=== PATIENT | male | born 1935 | race Caucasian/White ===

== ENCOUNTER 2016-08-30 15:31 | Inpatient (IN) | payer BC, MEDICARE ==
[2016-08-30] MEDS ORDERED: SODIUM CHLORIDE 0.9% 500 ML IV STA (16:23)
[2016-08-30] MEDS ORDERED: SODIUM CHLORIDE 0.9% 1,000 ML IV STA (16:23)
[2016-08-30] MEDS ORDERED: KETOROLAC 30 MG/ML 1 ML VIAL IVP STA (16:24)
[2016-08-30] MEDS ORDERED: IPRATROPIUM-ALBUTEROL 3 ML NEB INHALATION STA (16:24)
[2016-08-30] MEDS ORDERED: ACETAMINOPHEN IV (For NPO) 1,000 MG in EMPTY BAG 1 BAG IVPB STA (16:24)
--- NOTE | 2016-08-30 16:25 | ED ---
General Adult HPI - General Chief complaint: Altered Mental Status Stated complaint: Fever/Chills/MYLA Time Seen by Provider: 08/30/16 15:41 Source: patient, RN notes reviewed, old records reviewed Mode of arrival: ambulatory Limitations: no limitations - History of Present Illness Initial comments: This is an 81-year-old male the ER for evaluation of cough congestion and shortness of breath, altered mental status. She has history of asthma COPD and coronary artery disease. Patient has no chest pain. He states her states patient was having cough and congestion last night progressed into today and today his level of activity and mental status and started to wane, patient is not up participating conversations, seems withdrawn. Not acting appropriately. Patient has had significant shortness of breath throughout the day. - Related Data Home Medications Medication Instructions Recorded Confirmed Albuterol Nebulized [Ventolin 2.5 mg INHALATION RT-QID PRN 08/30/16 08/30/16 Nebulized] Albuterol Sulfate [Proventil Hfa] 2 puff INHALATION RT-Q6H PRN 08/30/16 08/30/16 Aspirin EC [Ecotrin Low Dose] 81 mg PO DAILY 08/30/16 08/30/16 Atenolol 25 mg PO DAILY 08/30/16 08/30/16 Clotrimazole/Betamethasone Dip 1 applic TOPICAL BID PRN 08/30/16 08/30/16 [Lotrisone Cream] Doxazosin Mesylate 8 mg PO BID 08/30/16 08/30/16 Fluticasone/Salmeterol [Advair 1 puff INHALATION RT-BID 08/30/16 08/30/16 500-50 Diskus] HYDROcodone/APAP 10-325MG [[place] 1 tab PO Q4HR PRN 08/30/16 08/30/16 10-325] Levofloxacin [Levaquin] 750 mg PO DAILY 08/30/16 08/30/16 [place]-3 Fatty Acids/Fish Oil [Fish 1 cap PO DAILY 08/30/16 08/30/16 Oil 1,000 mg Softgel] Omeprazole 20 mg PO DAILY 08/30/16 08/30/16 Simvastatin [Zocor] 20 mg PO HS 08/30/16 08/30/16 Tiotropium 18 Mcg/Puff [Spiriva] 1 cap INHALATION RT-DAILY 08/30/16 08/30/16 Allergies Allergy/AdvReac Type Severity Reaction Status Date / Time ciprofloxacin [From Cipro] Allergy Rash/Hives Verified 08/30/16 16:08 Review of Systems ROS Statement: Those systems with pertinent positive or pertinent negative responses have been documented in the HPI. ROS Other: All systems not noted in ROS Statement are negative. Past Medical History Past Medical History: Asthma, Coronary Artery Disease (CAD), COPD History of Any Multi-Drug Resistant Organisms: None Reported Past Surgical History: Coronary Bypass/CABG, Orthopedic Surgery Additional Past Surgical History / Comment(s): CAROTID END Past Psychological History: No Psychological Hx Reported Smoking Status: Former smoker Past Alcohol Use History: None Reported Past Drug Use History: None Reported General Exam Limitations: no limitations General appearance: alert, anxious, lethargic, in distress Head exam: Present: atraumatic, normocephalic, normal inspection Eye exam: Present: normal appearance, PERRL, EOMI. Absent: scleral icterus, conjunctival injection, periorbital swelling ENT exam: Present: mucous membranes dry, mucous membranes moist Neck exam: Present: normal inspection. Absent: tenderness, meningismus, lymphadenopathy Respiratory exam: Present: normal lung sounds bilaterally. Absent: respiratory distress, wheezes, rales, rhonchi, stridor Cardiovascular Exam: Present: normal rhythm, tachycardia, normal heart sounds. Absent: systolic murmur, diastolic murmur, rubs, gallop, clicks GI/Abdominal exam: Present: soft, normal bowel sounds. Absent: distended, tenderness, guarding, rebound, rigid Extremities exam: Present: normal inspection, full ROM, normal capillary refill. Absent: tenderness, pedal edema, joint swelling, calf tenderness Back exam: Present: normal inspection Neurological exam: Present: alert, oriented X3, CN II-XII intact Psychiatric exam: Present: normal affect, normal mood Skin exam: Present: warm, dry, intact, normal color. Absent: rash Course Vital Signs 08/30/16 08/30/16 08/30/16 15:34 16:09 16:51 Temperature 98.1 F 100.5 F H Pulse Rate 104 H 102 H 110 H Respiratory 20 16 Rate Blood Pressure 208/86 164/85 O2 Sat by Pulse 87 L 95 Oximetry 08/30/16 08/30/16 16:53 16:56 Temperature 100.7 F H Pulse Rate 103 H 108 H Respiratory 20 Rate Blood Pressure 193/89 O2 Sat by Pulse 99 Oximetry - Reevaluation(s) Reevaluation #1: 08/30/16 17:40 Patient still remains altered, 08/30/16 17:40 EKG Findings - EKG Comments: EKG Findings:: EKG shows sinus tachycardia rate 101, TN 186, QRS 96, QTC 4:30 Medical Decision Making - Medical Decision Making 81 male for evaluation of altered mental status, fever, shortness of breath or cough. Patient does have pneumonia, with fever, will be treated appropriately for fever and IV Robaxin. She was for pneumonia. Patient will be admitted for monitoring of altered mental status and cardiopulmonary resuscitation - Lab Data Result diagrams: 08/30/16 16:00 08/30/16 16:00 Lab Results 08/30/16 08/30/16 08/30/16 Range/Units 16:00 16:00 16:00 WBC 6.9 (3.8-10.6) k/uL RBC 4.00 L (4.30-5.90) m/uL Hgb 12.9 L (13.0-17.5) gm/dL Hct 37.2 L (39.0-53.0) % MCV 92.9 (80.0-100.0) fL MCH 32.2 (25.0-35.0) pg MCHC 34.6 (31.0-37.0) g/dL RDW 13.0 (11.5-15.5) % Plt Count 174 (150-450) k/uL Neutrophils % 90 % Lymphocytes % 3 % Monocytes % 5 % Eosinophils % 1 % Basophils % 0 % Neutrophils # 6.2 (1.3-7.7) k/uL Lymphocytes # 0.2 L (1.0-4.8) k/uL Monocytes # 0.4 (0-1.0) k/uL Eosinophils # 0.0 (0-0.7) k/uL Basophils # 0.0 (0-0.2) k/uL PT (9.0-12.0) sec INR (<1.1) APTT (22.0-30.0) sec Sodium 121 L (137-145) mmol/L Potassium 3.9 (3.5-5.1) mmol/L Chloride 85 L (98-107) mmol/L Carbon Dioxide 26 (22-30) mmol/L Anion Gap 10 mmol/L BUN 10 (9-20) mg/dL Creatinine 0.60 L (0.66-1.25) mg/dL Est GFR (MDRD) Af Amer >60 (>60 ml/min/1.73 sqM) Est GFR (MDRD) Non-Af >60 (>60 ml/min/1.73 sqM) Glucose 117 H (74-99) mg/dL Plasma Lactic Acid Lee (0.7-2.0) mmol/L Calcium 8.9 (8.4-10.2) mg/dL Phosphorus 2.4 L (2.5-4.5) mg/dL Magnesium 1.6 (1.6-2.3) mg/dL Total Bilirubin 2.1 H (0.2-1.3) mg/dL AST 49 (17-59) U/L ALT 43 (21-72) U/L Alkaline Phosphatase 81 (38-126) U/L Total Creatine Kinase 606 H (55-170) U/L CK-MB (CK-2) 5.5 H* (0.0-2.4) ng/mL CK-MB (CK-2) Rel Index 0.9 Troponin I 0.018 (0.000-0.034) ng/mL NT-Pro-B Natriuret Pep pg/mL Total Protein 6.7 (6.3-8.2) g/dL Albumin 4.1 (3.5-5.0) g/dL 08/30/16 08/30/16 08/30/16 Range/Units 16:00 16:00 16:00 WBC (3.8-10.6) k/uL RBC (4.30-5.90) m/uL Hgb (13.0-17.5) gm/dL Hct (39.0-53.0) % MCV (80.0-100.0) fL MCH (25.0-35.0) pg MCHC (31.0-37.0) g/dL RDW (11.5-15.5) % Plt Count (150-450) k/uL Neutrophils % % Lymphocytes % % Monocytes % % Eosinophils % % Basophils % % Neutrophils # (1.3-7.7) k/uL Lymphocytes # (1.0-4.8) k/uL Monocytes # (0-1.0) k/uL Eosinophils # (0-0.7) k/uL Basophils # (0-0.2) k/uL PT 11.5 (9.0-12.0) sec INR 1.2 (<1.1) APTT 27.9 (22.0-30.0) sec Sodium (137-145) mmol/L Potassium (3.5-5.1) mmol/L Chloride (98-107) mmol/L Carbon Dioxide (22-30) mmol/L Anion Gap mmol/L BUN (9-20) mg/dL Creatinine (0.66-1.25) mg/dL Est GFR (MDRD) Af Amer (>60 ml/min/1.73 sqM) Est GFR (MDRD) Non-Af (>60 ml/min/1.73 sqM) Glucose (74-99) mg/dL Plasma Lactic Acid Lee 1.4 (0.7-2.0) mmol/L Calcium (8.4-10.2) mg/dL Phosphorus (2.5-4.5) mg/dL Magnesium (1.6-2.3) mg/dL Total Bilirubin (0.2-1.3) mg/dL AST (17-59) U/L ALT (21-72) U/L Alkaline Phosphatase (38-126) U/L Total Creatine Kinase (55-170) U/L CK-MB (CK-2) (0.0-2.4) ng/mL CK-MB (CK-2) Rel Index Troponin I (0.000-0.034) ng/mL NT-Pro-B Natriuret Pep 1640 pg/mL Total Protein (6.3-8.2) g/dL Albumin (3.5-5.0) g/dL - Radiology Data Radiology results: report reviewed (Chest x-ray is positive for atelectasis and pneumonia), image reviewed Critical Care Time Critical Care Time: Yes Total Critical Care Time: 31 Disposition Clinical Impression: Altered mental status, Community acquired bacterial pneumonia, Hypoxia Disposition: ADMITTED IP TO THIS [facility] Condition: Fair Referrals: Kehinde Wiggins MD [Primary Care Provider] - 1-2 days
[2016-08-30 16:44] LABS: Basophils % (A) 0 %; CH 32.7; CHCM 35.4; Eosinophils % (A) 1 %; HCT 37.2 % (39.0-53.0); HDW 2.58; HGB 12.9 gm/dL (13.0-17.5); Luc # (Auto) 0.09; Luc % (Auto) 1; Lymphocytes # (A) 0.2 k/uL (1.0-4.8); Lymphocytes % (A) 3 %; MCH 32.2 pg (25.0-35.0); MCHC 34.6 g/dL (31.0-37.0); MCV 92.9 fL (80.0-100.0); Monocytes # (A) 0.4 k/uL (0-1.0); Monocytes % (A) 5 %; Neutrophils # (A) 6.2 k/uL (1.3-7.7); Neutrophils % (A) 90 %; WBC 6.9 k/uL (3.8-10.6); WBC (Perox) 6.94
[2016-08-30 16:53] LABS: ALT 43 U/L (21-72); AST 49 U/L (17-59); Alkaline Phosphatase 81 U/L (38-126); Anion Gap 10 mmol/L; Blood Urea Nitrogen 10 mg/dL (9-20); Calcium 8.9 mg/dL (8.4-10.2); Carbon Dioxide 26 mmol/L (22-30); Chloride 85 mmol/L (98-107); Glucose 117 mg/dL (74-99); Magnesium 1.6 mg/dL (1.6-2.3); Non-African American GFR(MDRD) >60 (>60 ml/min/1.73 sqM); Phosphorous 2.4 mg/dL (2.5-4.5); Potassium 3.9 mmol/L (3.5-5.1); Sodium 121 mmol/L (137-145); Total Bilirubin 2.1 mg/dL (0.2-1.3); Total Protein 6.7 g/dL (6.3-8.2)
[2016-08-30 16:56] LABS: INR 1.2 (<1.1); Partial Thromboplastin Time 27.9 sec (22.0-30.0); Prothrombin Time 11.5 sec (9.0-12.0)
--- NOTE | 2016-08-30 16:59 | XR ---
EXAMINATION TYPE: XR chest 2V DATE OF EXAM: 08/30/2016 4:46 PM COMPARISON: Prior chest x-ray February 16, 2013. HISTORY: History of COPD, CABG procedure, and asthma presents with weakness and shortness of breath. TECHNIQUE: Frontal and lateral views of the chest are obtained. FINDINGS: Post CABG changes with mediastinal clips and sternal wires is redemonstrated. Cardiac silho uette size is upper limits of normal with atherosclerotic and ectatic thoracic aorta. Retrocardiac op acity consistent with large hiatal hernia is redemonstrated. There is chronic emphysematous change wi th left mid and lower lung scarring but increased opacity felt to reflect atelectasis and/or infiltra te with suspected small left pleural effusion. There is new patchy right basilar atelectasis and/or i nfiltrate. No pneumothorax is seen bilaterally. The osseous structures are demineralized. Degenerati ve changes in both shoulders is present. IMPRESSION: Chronic emphysematous change with new left greater than right bilateral lower lung atele ctasis and/or infiltrate and probable small left pleural effusion all noted.
[2016-08-30 17:16] LABS: Troponin I 0.018 ng/mL (0.000-0.034)
[2016-08-30 17:18] LABS: Creatine Kinase MB 5.5 ng/mL (0.0-2.4)
[2016-08-30] MEDS ORDERED: PNEUMONIA PROTOCOL UTILIZED 1 EACH MISC PO PRN (17:37)
[2016-08-30] MEDS ORDERED: LEVOFLOXACIN 750MG-D5W PMX 750 MG in DEXTROSE/WATER 1 150ML.BAG IVPB STA (17:37)
[2016-08-30] MEDS: SODIUM CHLORIDE 0.9% 1,000 ML IV SCH (18:09)
[2016-08-30] MEDS ORDERED: LABETALOL SYRINGE 5 MG/ML IVP STA (18:58)
[2016-08-30] MEDS: IPRATROPIUM-ALBUTEROL 3 ML NEB INHALATION SCH (20:10)
[2016-08-30 21:29] LABS: Glucose,Whole Blood 106 mg/dL (75-99)
[2016-08-30 21:42] LABS: Appearance,Urine Clear (Clear); Bilirubin,Urine Negative (Negative); Glucose,Urine (UA) Negative (Negative); Ketones,Urine 1+ (Negative); Leukocyte Esterase,Urine Negative (Negative); Mucus,Urine Rare /hpf; Nitrite,Urine Negative (Negative); PH, Urine 7.5 (5.0-8.0); Particle Count 534; Protein,Urine Negative (Negative); RBC,Urine 12 /hpf (0-5); UA Billing (MACRO vs. MICRO) MICRO; Urobilinogen,Urine <2.0 mg/dL (<2.0); WBC,Urine <1 /hpf (0-5)
[2016-08-30 22:17] LABS: Anion Gap 9 mmol/L; Blood Urea Nitrogen 9 mg/dL (9-20); Calcium 8.1 mg/dL (8.4-10.2); Carbon Dioxide 23 mmol/L (22-30); Chloride 88 mmol/L (98-107); Glucose 106 mg/dL (74-99); Non-African American GFR(MDRD) >60 (>60 ml/min/1.73 sqM); Potassium 3.4 mmol/L (3.5-5.1)
[2016-08-30 22:19] LABS: Sodium 120 mmol/L (137-145)
[2016-08-30] MEDS ORDERED: LABETALOL SYRINGE 5 MG/ML IVP PRN (22:54)
[2016-08-30] MEDS ORDERED: Magnesium Replacement Protocol 1 EACH MISC MISCELLANE PRN (22:59)
[2016-08-30] MEDS ORDERED: Potassium Replacement Protocol 1 EACH MISC MISCELLANE PRN (23:00)
[2016-08-30] MEDS ORDERED: HALOPERIDOL LACTATE 5 MG/ML 1 ML VIAL IVP PRN (23:02)
[2016-08-31] MEDS: MAGNESIUM SULFATE-D5W PMX 1 GM in DEXTROSE/WATER 1 100ML.BAG IVPB SCH ×2 (00:02→01:30)
[2016-08-31] MEDS ORDERED: FUROSEMIDE 10 MG/ML 4 ML VIAL IV STA ×2 (00:20→13:03)
[2016-08-31] MEDS ORDERED: LABETALOL SYRINGE 5 MG/ML IVP ONE ×2 (01:18)
[2016-08-31 01:37] LABS: Glucose,Whole Blood 124 mg/dL (75-99)
[2016-08-31 02:20] LABS: ABG HCO3 23 mmol/L (21-25); ABG PCO2 27 mmHg (35-45); ABG PH 7.55 (7.35-7.45); ABG PO2 64 mmHg (83-108); ABG TCO2 24 mmol/L (19-24)
--- NOTE | 2016-08-31 02:28 | CT ---
EXAMINATION TYPE: CT brain wo con DATE OF EXAM: 08/31/2016 2:13 AM COMPARISON: NONE HISTORY: AMS CT DLP: 1098.80 mGycm Automated exposure control for dose reduction was used. FINDINGS: There is no acute intracranial hemorrhage, mass effect, or midline shift identified. The cortical sul ci and ventricles are prominent with age-related atrophic changes of brain with periventricular white matter ischemic changes of chronic nature. Vascular calcifications are noted in the base of the brai n.. The globes are intact. Mucous retention cysts and mucosal thickening is noted in bilateral maxillary sinuses with chronic si nusitis changes. Mucosal thickening is also noted in the ethmoid and frontal sinuses and sphenoid sin uses with chronic sinusitis changes. IMPRESSION: No acute intracranial hemorrhage, mass effect, or midline shift is seen. Age-related atrophic changes of brain. Chronic sinusitis changes.
[2016-08-31] MEDS: POTASSIUM CHLORIDE 10 MEQ, LIDOCAINE 2% INJ 10 MG in SODIUM CHLORIDE 0.9% 100 ML IV SCH ×3 (03:00→06:14)
[2016-08-31] MEDS: SODIUM CHLORIDE 0.9% 1,000 ML IV SCH ×2 (06:14→14:24)
[2016-08-31 06:20] LABS: CH 32.7; CHCM 35.4; HCT 37.7 % (39.0-53.0); HGB 12.8 gm/dL (13.0-17.5); MCH 31.5 pg (25.0-35.0); MCHC 33.9 g/dL (31.0-37.0); MCV 92.7 fL (80.0-100.0); Mean Platelet Volume 6.8; RBC 4.07 m/uL (4.30-5.90); RDW 12.8 % (11.5-15.5)
[2016-08-31 06:26] LABS: Anion Gap 9 mmol/L; Blood Urea Nitrogen 10 mg/dL (9-20); Calcium 8.3 mg/dL (8.4-10.2); Carbon Dioxide 28 mmol/L (22-30); Chloride 85 mmol/L (98-107); Glucose 112 mg/dL (74-99); Magnesium 1.9 mg/dL (1.6-2.3); Non-African American GFR(MDRD) >60 (>60 ml/min/1.73 sqM); Potassium 3.7 mmol/L (3.5-5.1); Sodium 122 mmol/L (137-145)
[2016-08-31 06:29] LABS: Ammonia <9 umol/L (<30)
[2016-08-31] MEDS: IPRATROPIUM-ALBUTEROL 3 ML NEB INHALATION SCH ×4 (07:28→19:51)
--- NOTE | 2016-08-31 10:14 | P.HPIM ---
History of Present Illness H&P Date: 08/31/16 Chief Complaint: AMS Chief Complaint: Altered mental status Assessment/Plan: 1. Altered mental status likely related to metabolic encephalopathy. 2. Bilateral pneumonia viral versus bacterial. 3. Pleural effusion. 4. Acute hyponatremia. 5. COPD with exacerbation. 6. Accelerated hypertension. 7. Coronary artery disease. 8. Benign prostatic hypertrophy. 9. GERD. I have started the patient's on wide spectrum antibiotics, placed patient's on firebrick layer, will continue close monitoring for vital signs and mental status. I had long discussion with Dr. Castillo from nephrology regarding the current acute hyponatremia and we decided to repeat sodium level at 11:00 and consider starting patient's on 3% infusion given the patient's altered mental status and current hyponatremia but patient at risk of worsening malignant hypertension as his blood pressure has been running in the 200s area. I would like to continue with aggressive breathing treatment, continue with monitoring blood gases closely, advance to BiPAP and wean off to nasal cannula once patient is tolerating, and I may consider transferring patients to the intensive care unit based on the 11:00 bloodwork. I would like to consult pulmonary for current bilateral pneumonia and pleural effusion. I would like to continue with labetalol 10-40 mg IV push for systolic above 160 , keep patient's nothing by mouth at this point and assess his swallow once patient is more responsive. Plan discussed with the patient's who is aware that the prognosis is guarded at this point History of Present Illness: This is 81 years old male who was evaluated at Dr. Wiggins office on Wednesday 5 days ago where he was started on appropriate treatment for COPD exacerbation, on Wednesday I received call as I was covering Dr. Wiggins for the weekend where the patient's reported worsening in his cough, weakness and lethargy and requested me to start patients on antibiotics as he was getting worse and refusing completely to come to the emergency department, after I discussed with the patient's the risks from taking 81 years old gentleman at home with possible pneumonia and COPD exacerbation I prescribe antibiotics to the significant pharmacy and picked up the medication on that night. The following day called me again reported worsening in his mental status where he became confused and lethargic and asked her to call 911 immediately when patient was brought to the emergency department confused not following command and his chest x-ray showed bilateral lower lobes pneumonia with pleural effusion and low-grade temperature. The white blood count was normal and patient was admitted for bilateral pneumonia and altered mental status with acute hyponatremia Review of systems is complete/comprehensive, as in the HPI, and otherwise unremarkable. Physical Exam: General: Confused and not following commands Head: Neck conjunctivae are not by mouth. Neck supple. Carotids seemingly silent. Lymphatic: No anterior/posterior cervical or axillary adenopathy. Respiratory: Diminished with poor efforts Cardiovascular: regular rate and rhythm. GI abdomen: Soft, no tenderness, guarding or rebound. Bowel sounds positive and normal active. Lower Extremeties: No clubbing, cyanosis, or edema. Neuro: Limited exam due to patient's condition Psychiatry: Confused not following commands Skin: No new rash. Past Medical History Past Medical History: Asthma, Coronary Artery Disease (CAD), Chest Pain / Angina , COPD, GERD/Reflux, Prostate Disorder, Respiratory Disorder History of Any Multi-Drug Resistant Organisms: None Reported Past Surgical History: Coronary Bypass/CABG, Heart Catheterization, Orthopedic Surgery Additional Past Surgical History / Comment(s): CAROTID END b/l, multiple orthopedic surgeries due to polio as a child Past Anesthesia/Blood Transfusion Reactions: No Reported Reaction Past Psychological History: No Psychological Hx Reported Smoking Status: Former smoker Past Alcohol Use History: None Reported Past Drug Use History: None Reported - Past Family History Father Family Medical History: Coronary Artery Disease (CAD) Mother Family Medical History: Unable to Obtain Medications and Allergies Home Medications Medication Instructions Recorded Confirmed Type Albuterol Nebulized [Ventolin 2.5 mg INHALATION RT-QID PRN 08/30/16 08/30/16 History Nebulized] Albuterol Sulfate [Proventil Hfa] 2 puff INHALATION RT-Q6H PRN 08/30/16 History Aspirin EC [Ecotrin Low Dose] 81 mg PO DAILY 08/30/16 08/30/16 History Atenolol 25 mg PO DAILY 08/30/16 08/30/16 History Clotrimazole/Betamethasone Dip 1 applic TOPICAL BID PRN 08/30/16 08/30/16 History [Lotrisone Cream] Doxazosin Mesylate 8 mg PO BID 08/30/16 08/30/16 History Fluticasone/Salmeterol [Advair 1 puff INHALATION RT-BID 08/30/16 08/30/16 History 500-50 Diskus] HYDROcodone/APAP 10-325MG [[place] 1 tab PO Q4HR PRN 08/30/16 08/30/16 History 10-325] Levofloxacin [Levaquin] 750 mg PO DAILY 08/30/16 08/30/16 History [place]-3 Fatty Acids/Fish Oil [Fish 1 cap PO DAILY 08/30/16 08/30/16 History Oil 1,000 mg Softgel] Omeprazole 20 mg PO DAILY 08/30/16 08/30/16 History Simvastatin [Zocor] 20 mg PO HS 08/30/16 08/30/16 History Tiotropium 18 Mcg/Puff [Spiriva] 1 cap INHALATION RT-DAILY 08/30/16 08/30/16 History Allergies Allergy/AdvReac Type Severity Reaction Status Date / Time ciprofloxacin [From Cipro] Allergy Rash/Hives Verified 08/30/16 16:08 Physical Exam Vitals: Vital Signs Temp Pulse Pulse Resp BP Pulse Ox 08/31/16 07:41 92 08/31/16 07:28 90 08/31/16 04:00 99.2 F 78 20 162/79 91 L 08/31/16 02:30 172/83 08/31/16 01:30 176/81 08/31/16 01:23 185/88 08/31/16 01:00 196/90 08/31/16 00:00 91 22 198/96 08/30/16 23:53 196/97 08/30/16 23:48 214/100 08/30/16 22:30 97.6 F 91 20 212/98 94 L 08/30/16 20:29 105 H 08/30/16 20:13 108 H 08/30/16 20:00 98.5 F 87 22 172/81 93 L 08/30/16 18:34 98.5 F 87 18 172/81 93 L Intake and Output 08/30/16 08/31/16 08/31/16 22:59 06:59 14:59 Intake Total 1700 Output Total 1000 3800 800 Balance -1000 -3800 900 Intake: IV 1700 Magnesium Sulfate-D5w Pmx 200 1 gm In Dextrose/Water 1 100ml.bag @ 100 mls/hr IVPB Q1H [facility] Rx#: [id number] Potassium Chloride 10 meq 300 Lidocaine 2% Inj 10 mg In Sodium Chloride 0.9% 100 ml @ 100 mls/hr IV Q1HR [facility] Rx#:[id number] Sodium Chloride 0.9% 1, 1200 000 ml @ 100 mls/hr IV . Q10H [facility] Rx#:[id number] Oral 0 Output: Urine 1000 3800 800 Straight 1000 Uretheral (Rios) 2000 800 Other: Voiding Method Indwelling Catheter # Voids 1 Weight 99.79 kg 77 kg Results CBC & Chem 7: 08/31/16 05:58 08/31/16 05:58 Labs: Abnormal Lab Results - Last 24 Hours (Table) 08/30/16 08/30/16 08/30/16 Range/Units 18:40 21:18 21:26 RBC (4.30-5.90) m/uL Hgb (13.0-17.5) gm/dL Hct (39.0-53.0) % ABG pH (7.35-7.45) ABG pCO2 (35-45) mmHg ABG pO2 (83-108) mmHg Sodium (137-145) mmol/L Potassium (3.5-5.1) mmol/L Chloride (98-107) mmol/L Creatinine (0.66-1.25) mg/dL Glucose (74-99) mg/dL POC Glucose (mg/dL) 106 H (75-99) mg/dL Plasma Lactic Acid Lee (0.7-2.0) mmol/L Calcium (8.4-10.2) mg/dL Urine Ketones 1+ H (Negative) Urine Blood Trace H (Negative) Urine RBC 12 H (0-5) /hpf Urine Mucus Rare H (None) /hpf Influenza Type A RNA Detected A (Not Detectd) 08/30/16 08/30/16 08/31/16 Range/Units 21:50 21:50 01:35 RBC (4.30-5.90) m/uL Hgb (13.0-17.5) gm/dL Hct (39.0-53.0) % ABG pH (7.35-7.45) ABG pCO2 (35-45) mmHg ABG pO2 (83-108) mmHg Sodium 120 L* (137-145) mmol/L Potassium 3.4 L (3.5-5.1) mmol/L Chloride 88 L (98-107) mmol/L Creatinine 0.60 L (0.66-1.25) mg/dL Glucose 106 H (74-99) mg/dL POC Glucose (mg/dL) 124 H (75-99) mg/dL Plasma Lactic Acid Lee 0.6 L (0.7-2.0) mmol/L Calcium 8.1 L (8.4-10.2) mg/dL Urine Ketones (Negative) Urine Blood (Negative) Urine RBC (0-5) /hpf Urine Mucus (None) /hpf Influenza Type A RNA (Not Detectd) 08/31/16 08/31/16 08/31/16 Range/Units 01:45 05:58 05:58 RBC 4.07 L (4.30-5.90) m/uL Hgb 12.8 L (13.0-17.5) gm/dL Hct 37.7 L (39.0-53.0) % ABG pH 7.55 H (7.35-7.45) ABG pCO2 27 L (35-45) mmHg ABG pO2 64 L (83-108) mmHg Sodium 122 L (137-145) mmol/L Potassium (3.5-5.1) mmol/L Chloride 85 L (98-107) mmol/L Creatinine (0.66-1.25) mg/dL Glucose 112 H (74-99) mg/dL POC Glucose (mg/dL) (75-99) mg/dL Plasma Lactic Acid Lee (0.7-2.0) mmol/L Calcium 8.3 L (8.4-10.2) mg/dL Urine Ketones (Negative) Urine Blood (Negative) Urine RBC (0-5) /hpf Urine Mucus (None) /hpf Influenza Type A RNA (Not Detectd) Microbiology - Last 24 Hours (Table) 08/30/16 21:26 Urine Culture - Preliminary Urine,Voided Thrombosis Risk Factor Assmnt - Choose All That Apply Any of the Below Risk Factors Present?: Yes Each Factor Represents 1 point: Abnormal pulmonary function (COPD) Other Risk Factors: Yes Each Risk Factor Represents 3 Points: Age 75 years or older Other congenital or acquired thrombophilia - If yes, enter type in comment: No Thrombosis Risk Factor Assessment Total Risk Factor Score: 4 Thrombosis Risk Factor Assessment Level: Moderate Risk
--- NOTE | 2016-08-31 12:58 | P.CNPUL ---
History of Present Illness Consult date: 08/31/16 Reason for consult: dyspnea, cough Chief complaint: Altered mental status History of present illness: 81-year-old gentleman who presented to the emergency department for altered mental status, cough. The patient apparently was unresponsive at home and not following commands. The patient's is at bedside. She states that he only answers yes and no questions at baseline. She does note that he wears oxygen around the clock at home and uses a nebulizer. The patient is currently on BiPAP. On chest x-ray the patient was found to have by basilar infiltrates. He was also found to have a sodium of 120. And small bilateral pleural effusions. The patient has a history of COPD. 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 Past Anesthesia/Blood Transfusion Reactions: No Reported Reaction Past Psychological History: No Psychological Hx Reported Smoking Status: Former smoker Past Alcohol Use History: None Reported Past Drug Use History: None Reported - Past Family History Father Family Medical History: Coronary Artery Disease (CAD) Mother Family Medical History: Unable to Obtain Medications and Allergies Home Medications Medication Instructions Recorded Confirmed Type Albuterol Nebulized [Ventolin 2.5 mg INHALATION RT-QID PRN 08/30/16 08/30/16 History Nebulized] Albuterol Sulfate [Proventil Hfa] 2 puff INHALATION RT-Q6H PRN 08/30/16 History Aspirin EC [Ecotrin Low Dose] 81 mg PO DAILY 08/30/16 08/30/16 History Atenolol 25 mg PO DAILY 08/30/16 08/30/16 History Clotrimazole/Betamethasone Dip 1 applic TOPICAL BID PRN 08/30/16 08/30/16 History [Lotrisone Cream] Doxazosin Mesylate 8 mg PO BID 08/30/16 08/30/16 History Fluticasone/Salmeterol [Advair 1 puff INHALATION RT-BID 08/30/16 08/30/16 History 500-50 Diskus] HYDROcodone/APAP 10-325MG [[place] 1 tab PO Q4HR PRN 08/30/16 08/30/16 History 10-325] Levofloxacin [Levaquin] 750 mg PO DAILY 08/30/16 08/30/16 History [place]-3 Fatty Acids/Fish Oil [Fish 1 cap PO DAILY 08/30/16 08/30/16 History Oil 1,000 mg Softgel] Omeprazole 20 mg PO DAILY 08/30/16 08/30/16 History Simvastatin [Zocor] 20 mg PO HS 08/30/16 08/30/16 History Tiotropium 18 Mcg/Puff [Spiriva] 1 cap INHALATION RT-DAILY 08/30/16 08/30/16 History Allergies Allergy/AdvReac Type Severity Reaction Status Date / Time ciprofloxacin [From Cipro] Allergy Rash/Hives Verified 08/30/16 16:08 Physical Exam Osteopathic Statement: *. No significant issues noted on an osteopathic structural exam other than those noted in the History and Physical/Consult. Vitals: Vital Signs Temp Pulse Pulse Resp BP Pulse Ox 08/31/16 08:00 100.1 F H 97 16 188/90 93 L 08/31/16 07:41 92 08/31/16 07:28 90 08/31/16 04:00 99.2 F 78 20 162/79 91 L 08/31/16 02:30 172/83 08/31/16 01:30 176/81 08/31/16 01:23 185/88 08/31/16 01:00 196/90 08/31/16 00:00 91 22 198/96 08/30/16 23:53 196/97 08/30/16 23:48 214/100 08/30/16 22:30 97.6 F 91 20 212/98 94 L 08/30/16 20:29 105 H 08/30/16 20:13 108 H 08/30/16 20:00 98.5 F 87 22 172/81 93 L 08/30/16 18:34 98.5 F 87 18 172/81 93 L Intake and Output 08/30/16 08/31/16 08/31/16 22:59 06:59 14:59 Intake Total 1700 Output Total 1000 3800 800 Balance -1000 -3800 900 Intake: IV 1700 Magnesium Sulfate-D5w Pmx 200 1 gm In Dextrose/Water 1 100ml.bag @ 100 mls/hr IVPB Q1H [facility] Rx#: [id number] Potassium Chloride 10 meq 300 Lidocaine 2% Inj 10 mg In Sodium Chloride 0.9% 100 ml @ 100 mls/hr IV Q1HR [facility] Rx#:[id number] Sodium Chloride 0.9% 1, 1200 000 ml @ 100 mls/hr IV . Q10H [facility] Rx#:[id number] Oral 0 Output: Urine 1000 3800 800 Straight 1000 Uretheral (Rios) 2000 800 Other: Voiding Method Indwelling Catheter # Voids 1 # Bowel Movements 1 Weight 99.79 kg 77 kg Gen.: Patient is arousable and only answering yes and no questions Cardiovascular: Regular rate and rhythm, S1/S2 Lungs: Coarse breath sounds bilaterally Abdomen: Soft nontender nondistended positive bowel sounds Extremities: No edema Results - Laboratory Findings CBC and BMP: 08/31/16 05:58 08/31/16 11:14 ABG ABG pH 7.55 (7.35-7.45) H 08/31/16 01:45 ABG pCO2 27 mmHg (35-45) L 08/31/16 01:45 ABG pO2 64 mmHg (83-108) L 08/31/16 01:45 ABG O2 Saturation 95.0 % (94-97) 08/31/16 01:45 PT/INR, D-dimer PT 11.5 sec (9.0-12.0) 08/30/16 16:00 INR 1.2 (<1.1) 08/30/16 16:00 Abnormal lab findings: Abnormal Labs 08/30/16 08/30/16 08/30/16 18:40 21:18 21:26 RBC Hgb Hct ABG pH ABG pCO2 ABG pO2 Sodium Potassium Chloride Creatinine Glucose POC Glucose (mg/dL) 106 H Plasma Lactic Acid Lee Calcium Urine Ketones 1+ H Urine Blood Trace H Urine RBC 12 H Urine Mucus Rare H Influenza Type A RNA Detected A 08/30/16 08/30/16 08/31/16 21:50 21:50 01:35 RBC Hgb Hct ABG pH ABG pCO2 ABG pO2 Sodium 120 L* Potassium 3.4 L Chloride 88 L Creatinine 0.60 L Glucose 106 H POC Glucose (mg/dL) 124 H Plasma Lactic Acid Lee 0.6 L Calcium 8.1 L Urine Ketones Urine Blood Urine RBC Urine Mucus Influenza Type A RNA 08/31/16 08/31/16 08/31/16 01:45 05:58 05:58 RBC 4.07 L Hgb 12.8 L Hct 37.7 L ABG pH 7.55 H ABG pCO2 27 L ABG pO2 64 L Sodium 122 L Potassium Chloride 85 L Creatinine Glucose 112 H POC Glucose (mg/dL) Plasma Lactic Acid Lee Calcium 8.3 L Urine Ketones Urine Blood Urine RBC Urine Mucus Influenza Type A RNA - Diagnostic Findings Chest x-ray: report reviewed, image reviewed Assessment and Plan Plan: Acute on chronic hypoxic respiratory failure Bibasilar pneumonia Influenza A pneumonia Toxic metabolic encephalopathy Pyrexia Hyponatremia Mild hypokalemia Dehydration Tiny bilateral pleural effusions AECOPD Hypertension Hx CAD Hx BPH GERD Hold bipap for now, place patient on nasal cannula Sputum culture IVF hydration, monitor Na Nephro recs Bronchodilators and Pulmicort Tamiflu, Levaquin Continue home medications No need for thoracentesis as effusions are very small Repeat CXR in AM
[2016-08-31 13:02] LABS: ABG PH 7.54 (7.35-7.45)
[2016-08-31 13:03] LABS: ABG Base Excess 0.3 mmol/L; ABG HCO3 23 mmol/L (21-25); ABG PCO2 26 mmHg (35-45); ABG PO2 77 mmHg (83-108); ABG TCO2 24 mmol/L (19-24)
[2016-08-31] MEDS: ENOXAPARIN 40 MG/0.4 ML SYRINGE SQ SCH (16:28)
[2016-08-31] MEDS: OSELTAMIVIR 75 MG CAP PO SCH ×2 (16:34→22:38)
[2016-08-31] MEDS: amLODIPine 5 MG TAB PO SCH (16:34)
[2016-08-31] MEDS: LEVOFLOXACIN 750MG-D5W PMX 750 MG in DEXTROSE/WATER 1 150ML.BAG IVPB SCH (16:41)
--- NOTE | 2016-08-31 16:55 | CONS ---
DATE OF CONSULTATION: 08/31/2016. REASON FOR CONSULTATION: Hyponatremia. HISTORY OF PRESENT ILLNESS: Patient is an 81-year-old white male who was brought into the hospital with weakness not feeling well and altered mentation. He had also been having fever at home. Patient positive for influenza type A. He was noted to have a sodium of 121 on initial admission. He has been maintained on normal saline and his sodium this morning was at 122. He has been voiding. There have been no new medications that was started as outpatient. There is no ongoing diarrhea or significant nausea or vomiting noted at this time. Urine osmolality has been ordered, but not back yet. PAST MEDICAL HISTORY: COPD, coronary artery disease, hypertension, history of benign prostatic hypertrophy, gastroesophageal reflux disease, peripheral vascular disease. PAST SURGICAL HISTORY: Coronary artery bypass surgery, cardiac catheterization, history of polio. SOCIAL HISTORY: The patient is an ex-smoker. No history of drug abuse or alcohol abuse. Medications as outpatient prior to admission included: 1. Proventil. 2. Aspirin. 3. [place]. 4. Levaquin. 5. Omeprazole. 6. Spiriva. 7. The patient had one dose of Levaquin prior to admission. ALLERGIES INCLUDE CIPRO. On examination, the patient is comfortable. He is awake. He is not in any acute distress. His mentation has improved to some degree according to nursing staff. Blood pressure is 188/90, previously it was 162/79, heart rate 97 per minute. He has a temp of 100.1 degrees Fahrenheit. Examination of the heart S1 and S2. Examination of the lungs: Bilateral breath sounds are heard with occasional wheezing bilaterally. ABDOMEN: Soft, nontender. Examination of lower extremities shows no significant edema. DOLLYMAN exam is grossly intact. The patient is arousable. His mentation is not back to baseline but much improved, according to nursing staff. Labs show sodium 122, potassium 3.7, serum creatinine 0.8. Hemoglobin 12.8 g/dL. ASSESSMENT: 1. Hyponatremia most likely hypervolemic but is not further improved with saline. Urine osmolality and urine sodium is currently pending. There may be a component of underlying syndrome of inappropriate antidiuretic hormone secretion, but this cannot be confirmed unless until the urine sodium is back. 2. Anemia, most likely hypervolemic, currently maintained on normal saline; however, serum sodium has not improved significantly. However, repeat sodium was ordered for 11:00 a.m. this morning. It went up to 123. I will give him a dose of Lasix and continue with normal saline and repeat another sodium in about 3 hours after the Lasix dose. If his sodium continues to rise then we do not need to use 3% saline. Particularly given his uncontrolled hypertension. 3. Uncontrolled hypertension. Will add calcium channel blockers. Patient has been receiving Labetalol p.r.n. 4. Influenza type A. 5. History of coronary artery disease. 6. Altered mentation possibly related to hyponatremia versus underlying infection. No pain medications on board. PLAN: Start Norvasc and I will repeat another sodium level and urine osmolality and random urine sodium has been reordered and we are awaiting results. Thank you for this consultation. We will continue to follow the patient with you during his hospitalization.
--- NOTE | 2016-08-31 18:34 | XR ---
EXAMINATION TYPE: XR chest 2V DATE OF EXAM: 08/31/2016 6:18 PM COMPARISON: 08/30/2016 HISTORY: Pneumonia TECHNIQUE: Frontal and lateral views of the chest are obtained. FINDINGS: There is patchy pneumonic consolidation in the left lower lobe. There is coarsening of int erstitial markings. Heart is probably enlarged. There are chest leads. There are sternal wires. There is a large hiatal hernia. IMPRESSION: Left lower lobe pneumonia is unchanged compared to last exam. There is some mild atelect asis at the right lung base that is slightly worse compared to last exam. No gross heart failure.
[2016-09-01] MEDS: SODIUM CHLORIDE 0.9% 1,000 ML IV SCH (06:08)
[2016-09-01] MEDS: HYDROcodone/APAP 7.5-325MG 1 EACH TAB PO PRN ×3 (06:10→21:00)
[2016-09-01] MEDS ORDERED: FUROSEMIDE 10 MG/ML 2 ML VIAL IV STA (06:38)
[2016-09-01 06:48] LABS: ALT 46 U/L (21-72); AST 63 U/L (17-59); Alkaline Phosphatase 62 U/L (38-126); Anion Gap 12 mmol/L; Blood Urea Nitrogen 18 mg/dL (9-20); Calcium 8.7 mg/dL (8.4-10.2); Carbon Dioxide 23 mmol/L (22-30); Chloride 93 mmol/L (98-107); Glucose 119 mg/dL (74-99); Non-African American GFR(MDRD) >60 (>60 ml/min/1.73 sqM); Potassium 3.7 mmol/L (3.5-5.1); Sodium 128 mmol/L (137-145); Total Bilirubin 1.2 mg/dL (0.2-1.3); Total Protein 6.1 g/dL (6.3-8.2)
[2016-09-01] MEDS: CALCIUM CARBONATE 500 MG CHEWABLE PO PRN ×2 (06:49→18:46)
[2016-09-01] MEDS: PANTOPRAZOLE 40 MG TABLET PO SCH (06:51)
[2016-09-01 06:55] LABS: Basophils # (A) 0.1 k/uL (0-0.2); Basophils % (A) 1 %; CH 32.8; Eosinophils % (A) 0 %; HCT 40.3 % (39.0-53.0); HDW 2.62; HGB 13.7 gm/dL (13.0-17.5); Luc # (Auto) 0.08; Luc % (Auto) 1; Lymphocytes # (A) 0.4 k/uL (1.0-4.8); Lymphocytes % (A) 7 %; MCH 31.8 pg (25.0-35.0); MCHC 33.9 g/dL (31.0-37.0); Mean Platelet Volume 7.6; Monocytes # (A) 0.5 k/uL (0-1.0); Monocytes % (A) 8 %; Neutrophils # (A) 4.9 k/uL (1.3-7.7); Neutrophils % (A) 83 %; RBC 4.29 m/uL (4.30-5.90); RDW 12.9 % (11.5-15.5); WBC (Perox) 5.86
[2016-09-01] MEDS: IPRATROPIUM-ALBUTEROL 3 ML NEB INHALATION SCH ×4 (07:09→21:31)
--- NOTE | 2016-09-01 07:53 | XR ---
EXAMINATION TYPE: XR chest 1V portable DATE OF EXAM: 09/01/2016 7:04 AM COMPARISON: Prior chest x-ray August HISTORY: Shortness of breath TECHNIQUE: Single frontal view of the chest is obtained. FINDINGS: Abnormal increased density present at the left lung base, the left hemidiaphragm is obscur ed. Patchy perihilar density also present on the right, patient is post median sternotomy. Cardiomedi astinal silhouette not significantly changed. There are overlying cardiac leads. Large hiatal hernia is present. No evident pneumothorax. IMPRESSION: Possible left lower lobe pneumonia versus atelectasis and associated effusion. Follow-up to resolution, difficult to exclude lung mass. Additional findings above.
[2016-09-01] MEDS: amLODIPine 5 MG TAB PO SCH (09:46)
[2016-09-01] MEDS: OSELTAMIVIR 75 MG CAP PO SCH ×2 (09:46→21:01)
[2016-09-01] MEDS: ENOXAPARIN 40 MG/0.4 ML SYRINGE SQ SCH ×2 (09:46→21:02)
[2016-09-01] MEDS ORDERED: SODIUM CHLORIDE 0.9% 1,000 ML IV SCH (10:15)
--- NOTE | 2016-09-01 10:51 | CONS ---
DATE OF CONSULTATION: 08/31/2016 CHIEF COMPLAINT: Altered mental status. HISTORY OF PRESENT ILLNESS: Mr. Smith is a pleasant 81-year-old male who is being evaluated by the neurology service per the request of Dr. Wiggins for altered mental status. The patient was brought into [facility] Emergency Room for progressive confusion over the past couple of days. His symptoms got so severe that he became almost nonverbal which prompted his to bring him into the emergency room. In the emergency room, a CT scan of the brain was done, which showed no acute intracranial abnormalities. There was evidence of generalized atrophy and chronic sinusitis. His chest x-ray did show bibasilar pneumonia. He was also positive for influenza A virus. His CBC was normal. His comprehensive metabolic profile showed severe hypokalemia at 121. His urinalysis was normal and his serum ammonia level was normal. His cardiac enzymes showed normal troponin I, but his CPK was elevated at 606 and his CK-MB was 5.5. The patient was started on IV antibiotics and IV hydration and is being followed by Nephrology for his hyponatremia. His serum sodium is slowly improving with serial basic metabolic profile showing an improvement to 123 and another series was done 6 hours later showing sodium level of 126. At the time of my evaluation, the patient is lying in his bed sleeping. He is arousable and does make eye contact but does not answer any questions or follow any commands. According to the nursing staff, the patient's baseline is that he is oriented x3 and able to ambulate. No family members available at the time of my evaluation. Pulmonology is following the patient for his pneumonia and chronic obstructive pulmonary disease history. PAST MEDICAL HISTORY: Chronic obstructive pulmonary disease, asthma, coronary artery disease, angina, gastroesophageal reflux disease, prostate disorder, history of coronary artery bypass grafting, history of orthopedic surgeries and carotid endarterectomies. The patient also has history of childhood polio. SOCIAL HISTORY: The patient is a former smoker. There is no history of any alcohol or drug use. FAMILY HISTORY: Positive for heart disease. HOME MEDICATIONS: Reviewed in the chart. ALLERGIES: CIPROFLOXACIN. REVIEW OF SYSTEMS: Unable to obtain as the patient is nonverbal. PHYSICAL EXAM: Vital signs show a temperature of 100.1, pulse 97, respirations 16, blood pressure 188/90. GENERAL APPEARANCE: The patient is a well-developed, elderly male who appears to be in no acute distress. HEENT: Normocephalic, atraumatic. No obvious facial asymmetry is seen. Neck is supple with no masses felt. CARDIOVASCULAR: Regular rate and rhythm. ABDOMEN: Nontender, nondistended. Extremities showed no edema or clubbing. NEUROLOGICAL EXAM: The patient is arousable but does not answer any questions. He does move all 4 extremities spontaneously and withdraws all 4 extremities to painful stimuli with no obvious lateralizing weakness noticed. Postural tremors are seen in bilateral upper extremities. No obvious facial asymmetry is seen. No seizure-like activity is noticed. IMPRESSION: 1. Altered mental status. 2. Multifactorial encephalopathy. 3. Hyponatremia. 4. Pneumonia. 5. Influenza virus infection. RECOMMENDATIONS: The patient's altered mental status is likely multifactorial given the pneumonia and electrolyte imbalance. He has both infectious encephalopathy and metabolic encephalopathy. He has been started on IV antibiotics. I doubt any meningitis as his neck is quite supple on my examination. An EEG has been ordered. Continue neuro checks. Nephrology has been consulted regarding his hyponatremia. Continue to slowly correct his sodium level as rapid correction can lead to central pontine myelinolysis. I did review his CT scan of the brain, which showed no acute intracranial abnormalities. I do expect him to slowly return to baseline once the above abnormalities are corrected. If he continues to be having significant altered mental status, an MRI of the brain will be ordered. I will continue to follow with you. Further recommendations to follow. Thank you, Dr. Wiggins for allowing me to participate in the care of your patient. If you have any questions, please feel free to contact me.
--- NOTE | 2016-09-01 11:02 | P.CRDCN ---
History of Present Illness Consult date: 09/01/16 Requesting physician: Kehinde Wiggins Consult reason: atrial fibrillation Chief complaint: Congestion, cough, shortness of breath History of present illness: This is an 81-year-old gentleman with known history of coronary artery disease and prior bypass surgery, hypertension, hyperlipidemia, COPD, GERD, asthma, prior carotid endarterectomy, prior history of smoking, most of the history was obtained from the medical record. Patient was admitted to the hospital with symptoms of worsening cough and weakness with associated lethargy and mild mental status changes. Apparently the patient had been seen last week in Dr. Lynn johnson's office and was treated for his exacerbation of COPD, he continued to progressively worsen with his coughing became more and more weak. His also noticed change in his mentation. For these reasons he was brought to the hospital for further evaluation. EKG on admission showed normal sinus rhythm with no acute changes. Chest x-ray on admission revealed chronic emphysema changes with new left greater than right atelectasis and or infiltrate. CAT scan of the brain did not reveal any acute intracranial bleed, mass effect or midline shift. Repeat chest x-ray performed today revealed left lower lobe pneumonia. Temperature on admission 100.5, blood pressure on admission 208/86, 87% on 2 L of oxygen. Blood pressure this morning 120/69. Laboratory data was reviewed, hemoglobin 13.7, sodium level on admission 120, potassium 3.4, BUN 9, creatinine 0.6. Magnesium level on admission 1.6, CK 606 , MB 5.5, troponin 0.018. BNP level 1640. Positive influenza A. A cardiology consultation was requested, because the patient this morning went into atrial fibrillation. Heart rate is under control in the mid 90s. Patient is currently on Lovenox 40 mg subcu daily. The patient is unable to give a detailed history, we will check the records at Dr. Wiggins's office to retrieve more information regarding prior echo, and cardiac procedures. Overall, patient 's main complaint this morning is abdominal pain. Past Medical History Past Medical History: Asthma, Coronary Artery Disease (CAD), Chest Pain / Angina , COPD, GERD/Reflux, Prostate Disorder, Respiratory Disorder History of Any Multi-Drug Resistant Organisms: None Reported Past Surgical History: Coronary Bypass/CABG, Heart Catheterization, Orthopedic Surgery Additional Past Surgical History / Comment(s): CAROTID END b/l, multiple orthopedic surgeries due to polio as a child Past Anesthesia/Blood Transfusion Reactions: No Reported Reaction Past Psychological History: No Psychological Hx Reported Smoking Status: Former smoker Past Alcohol Use History: None Reported Past Drug Use History: None Reported - Past Family History Father Family Medical History: Coronary Artery Disease (CAD) Mother Family Medical History: Unable to Obtain Medications and Allergies Home Medications Medication Instructions Recorded Confirmed Type Albuterol Nebulized [Ventolin 2.5 mg INHALATION RT-QID PRN 08/30/16 08/30/16 History Nebulized] Albuterol Sulfate [Proventil Hfa] 2 puff INHALATION RT-Q6H PRN 08/30/16 History Aspirin EC [Ecotrin Low Dose] 81 mg PO DAILY 08/30/16 08/30/16 History Atenolol 25 mg PO DAILY 08/30/16 08/30/16 History Clotrimazole/Betamethasone Dip 1 applic TOPICAL BID PRN 08/30/16 08/30/16 History [Lotrisone Cream] Doxazosin Mesylate 8 mg PO BID 08/30/16 08/30/16 History Fluticasone/Salmeterol [Advair 1 puff INHALATION RT-BID 08/30/16 08/30/16 History 500-50 Diskus] HYDROcodone/APAP 10-325MG [Moapa 1 tab PO Q4HR PRN 08/30/16 08/30/16 History 10-325] Levofloxacin [Levaquin] 750 mg PO DAILY 08/30/16 08/30/16 History Ulysses-3 Fatty Acids/Fish Oil [Fish 1 cap PO DAILY 08/30/16 08/30/16 History Oil 1,000 mg Softgel] Omeprazole 20 mg PO DAILY 08/30/16 08/30/16 History Simvastatin [Zocor] 20 mg PO HS 08/30/16 08/30/16 History Tiotropium 18 Mcg/Puff [Spiriva] 1 cap INHALATION RT-DAILY 08/30/16 08/30/16 History Allergies Allergy/AdvReac Type Severity Reaction Status Date / Time ciprofloxacin [From Cipro] Allergy Rash/Hives Verified 08/30/16 16:08 Physical Exam Vitals: Vital Signs Temp Pulse Pulse Resp BP Pulse Ox 09/01/16 08:00 97.1 F L 92 22 120/68 94 L 02/21/17 07:19 62 09/01/16 07:09 62 09/01/16 04:00 99.0 F 52 L 18 130/88 90 L 09/01/16 00:00 98.8 F 87 18 175/84 90 L 08/31/16 20:08 62 08/31/16 20:00 99.0 F 90 18 142/77 96 08/31/16 19:51 60 08/31/16 16:00 70 18 165/71 93 L Intake and Output 08/31/16 09/01/16 09/01/16 22:59 06:59 14:59 Output Total 1 401 Balance -1 -401 Output: Urine 400 Stool 1 1 Other: Voiding Method Indwelling Catheter Indwelling Catheter Indwelling Catheter # Bowel Movements 1 1 Weight 76.5 kg PHYSICAL EXAMINATION: HEENT: Head is atraumatic, normocephalic. Pupils equal, round. Neck is supple. There is no elevated jugular venous pressure. HEART EXAMINATION: Heart S1 and S2 irregular irregular systolic murmur is heard. CHEST EXAMINATION: Lungs reveal scattered coarse rhonchi and wheezing throughout. ABDOMEN: [ Soft, positive generalized tenderness on palpation. EXTREMITIES: 2+ peripheral pulses with no evidence of peripheral edema and no calf tenderness noted. NEUROLOGIC patient is awake, alert, confused. . Results 09/01/16 06:23 09/01/16 06:23 Cardiac Enzymes 09/01/16 Range/Units 06:23 AST 63 H (17-59) U/L CBC 09/01/16 Range/Units 06:23 WBC 6.0 (3.8-10.6) k/uL RBC 4.29 L (4.30-5.90) m/uL Hgb 13.7 (13.0-17.5) gm/dL Hct 40.3 (39.0-53.0) % Plt Count 204 (150-450) k/uL Comprehensive Metabolic Panel 08/31/16 08/31/16 09/01/16 Range/Units 11:14 17:21 06:23 Sodium 123 L 124 L 128 L (137-145) mmol/L Potassium 3.7 (3.5-5.1) mmol/L Chloride 93 L (98-107) mmol/L Carbon Dioxide 23 (22-30) mmol/L BUN 18 (9-20) mg/dL Creatinine 0.70 (0.66-1.25) mg/dL Glucose 119 H (74-99) mg/dL Calcium 8.7 (8.4-10.2) mg/dL AST 63 H (17-59) U/L ALT 46 (21-72) U/L Alkaline Phosphatase 62 (38-126) U/L Total Protein 6.1 L (6.3-8.2) g/dL Albumin 3.6 (3.5-5.0) g/dL Current Medications Generic Name Dose Route Start Last Admin Trade Name Freq PRN Reason Stop Dose Admin Acetaminophen/Hydrocodone Bitart 1 each 09/01/16 04:44 Moapa 7.5-325 PO Q6H PRN Pain Albuterol/Ipratropium 3 ml 08/30/16 20:00 09/01/16 07:09 Duoneb 0.5 Mg-3 Mg/3 Ml Soln INHALATION 3 ml RT-QID USHA Administration Amlodipine Besylate 5 mg 08/31/16 15:45 09/01/16 09:46 Norvasc PO 5 mg DAILY USHA Administration Calcium Carbonate/Glycine 500 mg 09/01/16 04:43 09/01/16 06:49 Tums PO 500 mg QID PRN Administration Heartburn Enoxaparin Sodium 40 mg 08/31/16 09:00 09/01/16 09:46 Lovenox SQ 40 mg DAILY USHA Administration Haloperidol Lactate 2 mg 08/30/16 23:02 Haldol IVP Q4HR PRN Agitation or Acute Psychosis Levofloxacin 750 mg/ IV 150 mls @ 100 mls/hr 08/31/16 18:00 08/31/16 16:41 Solution IVPB 09/12/16 18:01 100 mls/hr Q24H USHA Administration Sodium Chloride 1,000 mls @ 75 mls/hr 09/01/16 10:15 Saline 0.9% IV .[id number] USHA Labetalol HCl 10 mg 08/30/16 22:54 08/31/16 00:02 Trandate Syringe IVP 10 mg Q4HR PRN Administration Give for SBP > 160 Miscellaneous Information 1 each 08/30/16 17:37 Pneumonia Protocol Utilized PO ONCE PRN Per Protocol Miscellaneous Information 1 each 08/30/16 22:59 Magnesium Per Protocol MISCELLANE DAILY PRN Per Protocol Protocol Miscellaneous Information 1 each 08/30/16 23:00 Potassium Per Protocol MISCELLANE DAILY PRN Per Protocol Protocol Oseltamivir Phosphate 75 mg 08/31/16 12:00 09/01/16 09:46 Tamiflu PO 09/04/16 21:01 75 mg Q12HR USHA Administration Pantoprazole Sodium 40 mg 09/01/16 07:30 09/01/16 06:51 Protonix PO 40 mg [id number] USHA Administration Intake and Output 08/31/16 09/01/16 09/01/16 22:59 06:59 14:59 Output Total 1 401 Balance -1 -401 Output: Urine 400 Stool 1 1 Other: Voiding Method Indwelling Catheter Indwelling Catheter Indwelling Catheter # Bowel Movements 1 1 Weight 76.5 kg 09/01/16 06:23 09/01/16 06:23 EKG Interpretations (text) Initial EKG shows a sinus tachycardia with no acute changes EKG performed today shows atrial fibrillation with moderately rapid ventricular response Assessment and Plan Plan: Assessment and plan #1 symptoms of progressive shortness of breath with associated productive cough , fever, positive influenza A, possible pneumonia #2 altered mental status changes #3 known history of coronary artery disease with prior bypass surgery, exact details unavailable #4 atrial fibrillation, paroxysmal, new onset. #5 COPD exacerbation #6 hyponatremia #7 accelerated hypertension #8 hyperlipidemia #9 GERD Plan We will obtain an echocardiogram with Doppler study. Request free T4 and TSH level. Discontinue labetalol and resume the patient's atenolol increasing the dose to 50 daily. Add PAYTON inhibitor to the patient's medication regime. Patient will require anticoagulation for stroke prevention, we will check to see if the patient has coverage for one of the newer anticoagulants and initiate that. Increase Lovenox to 70 mg subcu twice a day. We will not attempt to convert the patient out of atrial fibrillation being that he has infectious process going on at this time. We will continue to follow. DNP note has been reviewed, I agree with a documented findings and plan of care. Patient was seen and examined.
--- NOTE | 2016-09-01 11:09 | P.PN ---
Progress Note - Text This is an addendum to the dictated cardiology consultation. The patient has a known history of CAD, post CABG in 1998, not followed by cardiology who presented was progressive mental change and fever consistent with respiratory infection. He was diagnosed with influenza and probable pneumonia. Cardiology consultation was requested because of atrial fibrillation which is new since admission. Patient is unaware of the arrhythmia. He continues to be dyspneic although slightly better. His fever is down. He was hyponatremic on presentation and that has been corrected. He was noted to be severely hypertensive on presentation and subsequently treated. He denies any symptoms of chest discomfort or prior history of CHF. I do not have any prior evaluation of his cardiac status. Old records are not available at this time. I will switch him to oral beta marcelino, add an PAYTON inhibitor. We will obtain an echocardiogram with Doppler and start anticoagulation in view of his overall score for thromboembolic phenomena. Depending on the results of his echo and his lab data further recommendations will be made. Once his infectious process resolves if he continues to be in atrial fibrillation and he may be a candidate to attempt restoring sinus mechanism. Thank you for this consult we will follow with you.
[2016-09-01] MEDS: LISINOPRIL 5 MG TAB PO SCH (11:32)
[2016-09-01] MEDS: ATENOLOL 50 MG TAB PO SCH (11:32)
--- NOTE | 2016-09-01 12:10 | PN ---
Patient is seen for follow-up for hyponatremia. He was admitted to the hospital with weakness and was found to have influenza. He was also hyponatremic with significant hypertension. He was started on IV fluids. Serum sodium had improved only slightly; however, he did receive some Lasix and the serum sodium level has continued to improve since yesterday. I have Hep-Locked the IV fluids as his urine osmolality came back as high suggesting a component of underlying SIADH. Patient's mentation has improved since yesterday. On examination, blood pressure is 120/68, heart rate 92 per minute. He is afebrile. Examination of the heart S1 and S2. Examination of the lungs: Bilateral breath sounds are heard. Minimal crackles are heard scattered. ABDOMEN: Soft, nontender. Lower extremities shows no significant edema. TIMBER MANAGEMENT SPECIALIST exam is grossly intact. Patient is moving all 4 extremities. Labs show sodium 128, potassium 3.7. Hemoglobin 13.7, serum creatinine 0.7 mg/dL. ASSESSMENT: 1. Hyponatremia initially hypovolemic, currently euvolemic to mildly hypovolemic with possible underlying syndrome of inappropriate antidiuretic hormone as urine osmolality is elevated at 683. Patient's IV fluids have been discontinued, and I have advised him to increase his oral intake. We will also add low-dose loop diuretics, depending on his repeat sodium level this afternoon. 2. Influenza-A maintained on Tamiflu. 3. Altered mentation secondary to metabolic encephalopathy, most likely worsened with the hyponatremia, currently improving. 4. Basilar pneumonia, most likely from influenza, currently improving. 5. Hypertension, much better controlled. Patient was started on low dose Norvasc, which he may not need down the road as his systolic blood pressure is about 122 today. PLAN: Continue off of IV fluids. Repeat sodium level this afternoon. The patient may need oral dose of loop diuretics on a daily basis.
--- NOTE | 2016-09-01 13:38 | P.PN ---
Subjective This is 81 years old male who was evaluated at Dr. Wiggins office on Wednesday 5 days ago where he was started on appropriate treatment for COPD exacerbation, on Wednesday I received call as I was covering Dr. Wiggins for the weekend where the patient's reported worsening in his cough, weakness and lethargy and requested me to start patients on antibiotics as he was getting worse and refusing completely to come to the emergency department, after I discussed with the patient's the risks from taking 81 years old gentleman at home with possible pneumonia and COPD exacerbation I prescribe antibiotics to the significant pharmacy and picked up the medication on that night. The following day called me again reported worsening in his mental status where he became confused and lethargic and asked her to call 911 immediately when patient was brought to the emergency department confused not following command and his chest x-ray showed bilateral lower lobes pneumonia with pleural effusion and low-grade temperature. The white blood count was normal and patient was admitted for bilateral pneumonia and altered mental status with acute hyponatremia 09/01: Patient had worsening confusion yesterday for which a consult was requested with neurology. CAT scan of the brain showed no acute findings but only age-related atrophy. EEG is pending. His mental status is slightly improved this morning. C. difficile toxin was negative. Urine output has been adequate. Patient also went into atrial fibrillation this morning for which a cardiology consult was requested. They have ordered echocardiogram, TSH and free T4. Labetalol was discontinued and patient was resumed on atenolol with increased dose and PAYTON inhibitor was added with plan for anticoagulation. Patient currently on Lovenox. He remains and isolation and on Tamiflu. Patient is noted to have left upper quadrant and left lower quadrant tenderness for which a CAT scan of the abdomen has been ordered. Repeat chest x-ray shows possible left lower lobe pneumonia versus atelectasis and associated effusion. Difficult to exclude lung mass. Regarding hyponatremia which is improved to 128 , he is followed by nephrology for possible underlying syndrome of inappropriate antidiuretic hormone Objective - Vital Signs Vital signs: Vital Signs Temp 97.1 F L 09/01/16 08:00 Pulse 112 H 09/01/16 11:18 Resp 22 09/01/16 08:00 BP 120/68 09/01/16 08:00 Pulse Ox 94 L 09/01/16 08:00 Intake & Output 02/09/01/16 09/01/16 18:59 06:59 18:59 Intake Total 1700 Output Total 1150 402 Balance 550 -402 Weight 76.5 kg Intake: IV 1700 Magnesium Sulfate-D5w Pmx 200 1 gm In Dextrose/Water 1 100ml.bag @ 100 mls/hr IVPB Q1H USHA Rx#: [id number] Potassium Chloride 10 meq 300 Lidocaine 2% Inj 10 mg In Sodium Chloride 0.9% 100 ml @ 100 mls/hr IV Q1HR USHA Rx#:[id number] Sodium Chloride 0.9% 1, 1200 000 ml @ 100 mls/hr IV . Q10H USHA Rx#:[id number] Oral 0 Output: Urine 1150 400 Uretheral (Rios) 800 Stool 2 Other: Voiding Method Indwelling Catheter Indwelling Catheter Indwelling Catheter # Bowel Movements 1 1 - Exam General: Confused but following commands Head: Neck conjunctivae are not by mouth. Neck supple. Carotids seemingly silent. Lymphatic: No anterior/posterior cervical or axillary adenopathy. Respiratory: Diminished with poor efforts Cardiovascular: regular rate and rhythm. GI abdomen: Soft, no tenderness, guarding or rebound. Bowel sounds positive and normal active. Lower Extremeties: No clubbing, cyanosis, or edema. Neuro: Limited exam due to patient's condition Psychiatry: Confused but following commands Skin: No new rash. - Labs CBC & Chem 7: 09/01/16 06:23 09/01/16 06:23 Labs: Abnormal Lab Results - Last 24 Hours (Table) 08/31/16 08/31/16 09/01/16 Range/Units 17:21 20:36 06:23 RBC 4.29 L (4.30-5.90) m/uL Lymphocytes # 0.4 L (1.0-4.8) k/uL Sodium 124 L (137-145) mmol/L Chloride (98-107) mmol/L Glucose (74-99) mg/dL AST (17-59) U/L Total Protein (6.3-8.2) g/dL Ur Random Sodium 14 L (30-90) mmol/L 09/01/16 Range/Units 06:23 RBC (4.30-5.90) m/uL Lymphocytes # (1.0-4.8) k/uL Sodium 128 L (137-145) mmol/L Chloride 93 L (98-107) mmol/L Glucose 119 H (74-99) mg/dL AST 63 H (17-59) U/L Total Protein 6.1 L (6.3-8.2) g/dL Ur Random Sodium (30-90) mmol/L Microbiology - Last 24 Hours (Table) 08/31/16 20:36 Urine Culture - Preliminary Urine,Catheterized 08/30/16 21:26 Urine Culture - Preliminary Urine,Voided Assessment and Plan Plan: Assessment/Plan: 1. Metabolic encephalopathy secondary to infectious process, hyponatremia. CAT scan showed no acute findings. Consult with neurology is appreciated. 2. Bilateral pneumonia viral versus bacterial. Continue Tamiflu and Levaquin. 3. Pleural effusion. 4. Acute hyponatremia. Status post IV Lasix. Continue to monitor closely. 5. COPD with exacerbation. Continue DuoNeb treatments 4 times daily. 6. Accelerated hypertension. Currently on Norvasc, atenolol. 7. New onset atrial fibrillation with history of coronary artery disease. Continue Lovenox for now. Cardiology consult is appreciated. Patient started on atenolol and lisinopril. Echocardiogram ordered. 8. Benign prostatic hypertrophy. 9. GERD. Continue Protonix Discharge plan: To be determined. PT and OT on consult. Impression and plan of care have been directed as dictated by the signing physician. Shanice Lawton nurse practitioner acting as scribe for signing physician. Time with Patient: Greater than 30
--- NOTE | 2016-09-01 14:06 | CT ---
EXAMINATION TYPE: CT abdomen pelvis wo con DATE OF EXAM: 09/01/2016 1:13 PM COMPARISON: Correlation CT chest 01/06/2013 HISTORY: 81-year-old male with left side Abd pain CT DLP: 1445 mGycm. Automated exposure control for dose reduction was used. TECHNIQUE: Contiguous axial scanning of the abdomen and pelvis without IV contrast. Coronal and sagit nancy reconstructions performed. FINDINGS: Heart is normal size without pericardial effusion. Median sternotomy wires are present. Underlying COPD. Linear densities in the lower lung suspected to represent pleural-parenchymal scarri ng. More focal subpleural opacity posterior right lung base, axial image 11. Rounded atelectasis is o ne of the possibilities. There is a large hiatal hernia with intrathoracic stomach, increased in size from 2012. There appears to be organoaxial positioning of the stomach and herniation of a portion of the transverse colon as well. Noncontrast appearance of the liver, gallbladder and adrenal glands, left kidney, spleen, and pancrea s show no gross abnormality. The lack of IV contrast diminishes the sensitivity of the exam. Large 3.8 cm fluid attenuating cyst within the mid to lower pole right kidney. Small fatty periumbilical hernia. Moderate prostatic calcifications throughout the abdominal aorta and iliac arteries without aneurysm. Permanent fluid-filled small bowel loops within the mid and lower abdomen measuring up to 2.7 cm. No discrete transition point is seen. There is sigmoid diverticulosis. A 3.3 cm long segment of annular narrowing and mild wall thickening involving the distal sigmoid, axial image 60 may relate to a promi nent peristaltic contraction. There is some liquid stool within the distal colon. Rios catheter decompresses the bladder. There is small to moderate pelvic free fluid noted in some f luid trapped along the left inguinal canal. No mesenteric or retroperitoneal lymphadenopathy seen. Bones: Postsurgical changes of right hip total arthroplasty. Advanced multilevel degenerative changes throughout the spine with a variable grade 1 spondylolisthesis and Baastrup's disease. IMPRESSION: 1. Very large hiatal hernia, increased in size from 2012 now with an intrathoracic stomach and organ oaxial positioning. Clinical correlation would be needed to exclude a gastric volvulus. Some of the t ransverse colon also herniates through. 2. Prominent fluid-filled small bowel loops in the mid and lower abdomen measure up to 2.7 cm and sh ow no discrete transition point. Findings could reflect enteritis or ileus. Radiographic follow-up ma y be helpful to exclude early or partial small bowel obstruction. 3. Short segment annular narrowing and mild circumferential wall thickening along the distal sigmoid may be due to peristalsis and underdistention. Consider direct visualization if no recent colonoscop y. There is proximal sigmoid diverticulosis also noted. 4. Moderate pelvic free fluid. 5. Focal subpleural opacity posterior right base. Some differential considerations include pneumonia , mass, and rounded atelectasis. Correlate with patient's symptoms. Three-month follow-up CT recommen ded. Additional pleural parenchymal scarring at the left base and COPD.
[2016-09-01] MEDS: LEVOFLOXACIN 750MG-D5W PMX 750 MG in DEXTROSE/WATER 1 150ML.BAG IVPB SCH (16:14)
--- NOTE | 2016-09-01 16:50 | P.PN ---
Subjective Principal diagnosis: Altered mental status Patient seen and examined. Patient is off of bipap. He is much more alert today and answering questions. The patient state is also complaining of shortness of breath and cough. He is complaining of pain all over. Objective - Vital Signs Vital signs: Vital Signs Temp 97.3 F L 09/01/16 12:00 Pulse 90 09/01/16 15:55 Resp 18 09/01/16 12:00 BP 135/73 09/01/16 12:00 Pulse Ox 93 L 09/01/16 12:00 Intake & Output 08/31/16 09/01/16 09/01/16 18:59 06:59 18:59 Intake Total 1700 150 Output Total 1150 402 800 Balance 550 -402 -650 Weight 76.5 kg Intake: IV 1700 150 Magnesium Sulfate-D5w Pmx 200 1 gm In Dextrose/Water 1 100ml.bag @ 100 mls/hr IVPB Q1H USHA Rx#: [id number] Potassium Chloride 10 meq 300 Lidocaine 2% Inj 10 mg In Sodium Chloride 0.9% 100 ml @ 100 mls/hr IV Q1HR USHA Rx#:[id number] Sodium Chloride 0.9% 1, 1200 000 ml @ 100 mls/hr IV . Q10H USHA Rx#:[id number] Sodium Chloride 0.9% 1, 150 000 ml @ 75 mls/hr IV . [id number] USHA Rx#:[id number] Oral 0 Output: Urine 1150 400 800 Uretheral (Iros) 800 Stool 2 Other: Voiding Method Indwelling Catheter Indwelling Catheter Indwelling Catheter # Voids 2 # Bowel Movements 1 1 2 - Exam Gen.: Patient is much more alert and conversational today, off bipap Cardiovascular: Regular rate and rhythm, S1/S2 Lungs: Coarse breath sounds bilaterally Abdomen: Soft nontender nondistended positive bowel sounds Extremities: No edema - Labs CBC & Chem 7: 09/01/16 06:23 09/01/16 06:23 Labs: Abnormal Lab Results - Last 24 Hours (Table) 08/31/16 08/31/16 09/01/16 Range/Units 17:21 20:36 06:23 RBC 4.29 L (4.30-5.90) m/uL Lymphocytes # 0.4 L (1.0-4.8) k/uL Sodium 124 L (137-145) mmol/L Chloride (98-107) mmol/L Glucose (74-99) mg/dL AST (17-59) U/L Total Protein (6.3-8.2) g/dL Ur Random Sodium 14 L (30-90) mmol/L 09/01/16 Range/Units 06:23 RBC (4.30-5.90) m/uL Lymphocytes # (1.0-4.8) k/uL Sodium 128 L (137-145) mmol/L Chloride 93 L (98-107) mmol/L Glucose 119 H (74-99) mg/dL AST 63 H (17-59) U/L Total Protein 6.1 L (6.3-8.2) g/dL Ur Random Sodium (30-90) mmol/L Microbiology - Last 24 Hours (Table) 08/30/16 21:26 Urine Culture - Final Urine,Voided 08/31/16 20:36 Urine Culture - Preliminary Urine,Catheterized Assessment and Plan Plan: Acute on chronic hypoxic respiratory failure Bibasilar pneumonia Influenza A pneumonia Toxic metabolic encephalopathy Pyrexia Hyponatremia, hypovolemia Mild hypokalemia Dehydration Tiny bilateral pleural effusions AECOPD Hypertension Hx CAD Hx BPH GERD Discontinue bipap Sputum culture IVF hydration, monitor Na Nephro recs Bronchodilators and Pulmicort Tamiflu, Levaquin Continue home medications No need for thoracentesis as effusions are very small Continue supportive care Consult PT and OT
[2016-09-02 06:33] LABS: CH 32.9; CHCM 35.5; HCT 41.2 % (39.0-53.0); HDW 2.73; HGB 13.8 gm/dL (13.0-17.5); MCH 31.3 pg (25.0-35.0); MCHC 33.6 g/dL (31.0-37.0); MCV 93.2 fL (80.0-100.0); Mean Platelet Volume 7.5; RBC 4.42 m/uL (4.30-5.90); RDW 13.1 % (11.5-15.5); WBC 7.6 k/uL (3.8-10.6)
[2016-09-02 06:43] LABS: Anion Gap 11 mmol/L; Blood Urea Nitrogen 25 mg/dL (9-20); Calcium 8.6 mg/dL (8.4-10.2); Carbon Dioxide 22 mmol/L (22-30); Chloride 96 mmol/L (98-107); Glucose 116 mg/dL (74-99); Non-African American GFR(MDRD) >60 (>60 ml/min/1.73 sqM); Potassium 3.7 mmol/L (3.5-5.1); Sodium 129 mmol/L (137-145)
[2016-09-02] MEDS: PANTOPRAZOLE 40 MG TABLET PO SCH (06:53)
[2016-09-02] MEDS: ENOXAPARIN 40 MG/0.4 ML SYRINGE SQ SCH ×2 (07:36→20:44)
[2016-09-02] MEDS: OSELTAMIVIR 75 MG CAP PO SCH ×2 (07:37→20:44)
[2016-09-02] MEDS: amLODIPine 5 MG TAB PO SCH (07:37)
[2016-09-02] MEDS: LISINOPRIL 5 MG TAB PO SCH (07:37)
[2016-09-02] MEDS: ATENOLOL 50 MG TAB PO SCH (07:37)
--- NOTE | 2016-09-02 08:46 | EEG ---
DATE OF SERVICE: 09/01/2016 REASON FOR TESTING: Altered mental status. AGE: 81Y DESCRIPTION OF THE PROCEDURE: This EEG was performed using a 21-channel digital electroencephalograph, following the international 10 to 20 system. DESCRIPTION OF THE RECORDING: From the beginning of the tracing, and with the patient's eyes closed, the background rhythm was mostly consisting of 8 Hz alpha frequency in the posterior occipital leads. No obvious asymmetry is seen. Occasional muscle artifacts and movement artifacts are seen. Rare lead artifacts are noticed. Photic stimulation was performed with no driving response seen. No pathological waves were elicited. Hyperventilation was not performed. Later in the tracing, the patient does reach stage II of sleep and occasional sleep spindles are seen. No epileptiform discharges were seen. His EKG lead showed an irregularly irregular rhythm. INTERPRETATION: This asleep and awake EEG can be considered within normal limits except his EKG lead showed an irregularly irregular rhythm. No epileptiform discharges were seen. The absence of epileptiform discharges does not rule out the diagnosis of epilepsy, therefore, clinical correlation is recommended.
[2016-09-02] MEDS: IPRATROPIUM-ALBUTEROL 3 ML NEB INHALATION SCH ×4 (09:12→23:09)
--- NOTE | 2016-09-02 10:25 | P.PN ---
Subjective Principal diagnosis: Influenza pneumonia Patient seen and examined. Patient is much more alert and oriented today. He states he still does not have an appetite. He does note that he is feeling better overall. He has not had any fevers or chills. He states his breathing is just okay. Objective - Vital Signs Vital signs: Vital Signs Temp 96.0 F L 09/02/16 07:45 Pulse 104 H 09/02/16 09:24 Resp 20 09/02/16 07:45 BP 110/69 09/02/16 07:45 Pulse Ox 96 09/02/16 07:45 Intake & Output 09/01/16 09/02/16 09/02/16 18:59 06:59 18:59 Intake Total 330 Output Total 1101 1004 Balance -771 -1004 Weight 75 kg Intake: IV 150 Sodium Chloride 0.9% 1, 150 000 ml @ 75 mls/hr IV . [id number] [facility] Rx#:[id number] Oral 180 Output: Urine 1100 1000 Stool 1 4 Other: Voiding Method Indwelling Catheter Indwelling Catheter Indwelling Catheter # Voids 2 1 # Bowel Movements 0 - Exam Gen.: Patient is much more alert and conversational today, off bipap Cardiovascular: Regular rate and rhythm, S1/S2 Lungs: Coarse breath sounds bilaterally Abdomen: Soft nontender nondistended positive bowel sounds Extremities: No edema - Labs CBC & Chem 7: 09/02/16 05:53 09/02/16 05:53 Labs: Abnormal Lab Results - Last 24 Hours (Table) 09/01/16 09/02/16 Range/Units 17:12 05:53 Sodium 129 L 129 L (137-145) mmol/L Chloride 96 L (98-107) mmol/L BUN 25 H (9-20) mg/dL Glucose 116 H (74-99) mg/dL Microbiology - Last 24 Hours (Table) 08/31/16 20:36 Urine Culture - Final Urine,Catheterized 08/30/16 21:26 Urine Culture - Final Urine,Voided Assessment and Plan Plan: Acute on chronic hypoxic respiratory failure Bibasilar pneumonia Influenza A pneumonia Question concomitant bacteria pneumonia Toxic metabolic encephalopathy, improving Pyrexia, resolved Hyponatremia, hypovolemia, improving Mild hypokalemia, resolved Dehydration Tiny bilateral pleural effusions AECOPD Hypertension Hx CAD Hx BPH GERD Sputum culture pending IVF hydration, monitor Na Nephro recs Bronchodilators and Pulmicort Tamiflu, Levaquin Continue home medications No need for thoracentesis as effusions are very small Continue supportive care Consult PT and OT Consult dietitian Continue supportive care
--- NOTE | 2016-09-02 10:57 | ECHOF ---
Referral Reason:afib MEASUREMENTS -------- HEIGHT: 177.8 cm WEIGHT: 76.2 kg BP: 120/68 RVIDd: 2.7 cm (< 3.3) IVSd: 1.1 cm (0.6 - 1.1) LVIDd: 3.2 cm (3.9 - 5.3) LVPWd: 1.2 cm (0.6 - 1.1) IVSs: 1.7 cm LVIDs: 2.4 cm LVPWs: 1.6 cm LA Diam: 3.1 cm (2.7 - 3.8) LAESV Index (A-L): 21.83 ml/m Ao Diam: 3.4 cm (2.0 - 3.7) AV Cusp: 1.4 cm (1.5 - 2.6) MV EXCURSION: 17.245 mm (> 18.000) MV EF SLOPE: 51 mm/s (70 - 150) EPSS: 0.5 cm RAP: 5.00 mmHg RVSP: 26.36 mmHg FINDINGS -------- Atrial fibrillation. This was a technically good study. The left ventricular size is normal. There is borderline concentric left ventricular hypertrophy. Overall left ventricular systolic function is normal with, an EF between 60 - 65 %. The right ventricle is normal in size. The left atrium is normal in size. Normal LA size by volume 22+/-6 ml/m2. The right atrium was not well visualized. Aortic valve is trileaflet and is mildly thickened. Mild mitral annular calcification present. Mild tricuspid regurgitation present. Right ventricular systolic pressure is normal at < 35 mmHg. The pulmonic valve was not well visualized. The aortic root size is normal. Normal inferior vena cava with normal inspiratory collapse consistent with estimated right atrial pressure of 5 mmHg. There is no pericardial effusion. CONCLUSIONS -------- 1. Atrial fibrillation. 2. Mild mitral annular calcification present. 3. Mild tricuspid regurgitation present. 4. Right ventricular systolic pressure is normal at < 35 mmHg. 5. The pulmonic valve was not well visualized. 6. The aortic root size is normal. 7. Normal inferior vena cava with normal inspiratory collapse consistent with estimated right atrial pressure of 5 mmHg. 8. There is no pericardial effusion. 9. This was a technically good study. 10. The left ventricular size is normal. 11. There is borderline concentric left ventricular hypertrophy. 12. Overall left ventricular systolic function is normal with, an EF between 60 - 65 %. 13. The right ventricle is normal in size. 14. Normal LA size by volume 22+/-6 ml/m2. 15. The right atrium was not well visualized. 16. Aortic valve is trileaflet and is mildly thickened. DEVELOPMENT WRITER: Amanda Romero RDCS
[2016-09-02 13:21] VITALS: BMI 23.7
--- NOTE | 2016-09-02 14:06 | P.PN ---
Subjective This is 81 years old male who was evaluated at Dr. Wiggins office on Wednesday 5 days ago where he was started on appropriate treatment for COPD exacerbation, on Wednesday I received call as I was covering Dr. Wiggins for the weekend where the patient's reported worsening in his cough, weakness and lethargy and requested me to start patients on antibiotics as he was getting worse and refusing completely to come to the emergency department, after I discussed with the patient's the risks from taking 81 years old gentleman at home with possible pneumonia and COPD exacerbation I prescribe antibiotics to the significant pharmacy and picked up the medication on that night. The following day called me again reported worsening in his mental status where he became confused and lethargic and asked her to call 911 immediately when patient was brought to the emergency department confused not following command and his chest x-ray showed bilateral lower lobes pneumonia with pleural effusion and low-grade temperature. The white blood count was normal and patient was admitted for bilateral pneumonia and altered mental status with acute hyponatremia 09/01: Patient had worsening confusion yesterday for which a consult was requested with neurology. CAT scan of the brain showed no acute findings but only age-related atrophy. EEG is pending. His mental status is slightly improved this morning. C. difficile toxin was negative. Urine output has been adequate. Patient also went into atrial fibrillation this morning for which a cardiology consult was requested. They have ordered echocardiogram, TSH and free T4. Labetalol was discontinued and patient was resumed on atenolol with increased dose and PAYTON inhibitor was added with plan for anticoagulation. Patient currently on Lovenox. He remains and isolation and on Tamiflu. Patient is noted to have left upper quadrant and left lower quadrant tenderness for which a CAT scan of the abdomen has been ordered. Repeat chest x-ray shows possible left lower lobe pneumonia versus atelectasis and associated effusion. Difficult to exclude lung mass. 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 Some of transverse colon also herniates through. Prominent fluid-filled small bowel loops with no discrete transition point. Findings could reflect enteritis or ileus. Changes in the sigmoid May be due to peristalsis and over distention. Moderate pelvic free fluid. Focal subpleural opacity in the posterior right base. Differential includes pneumonia , mass, rounded atelectasis. Surgical consult with Dr. 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 He is currently on a soft diet will be continued. Insure added. He has not had any difficulty swallowing or choking. Patient did have a bowel movement last evening. Sodium 129 and chloride 96. EEG is considered within normal limits. His respiratory status and mental status are improving. Patient will be transferred to the [facility] floor. Objective - Vital Signs Vital signs: Vital Signs Temp 96.0 F L 09/02/16 07:45 Pulse 104 H 09/02/16 09:24 Resp 20 09/02/16 07:45 BP 110/69 09/02/16 07:45 Pulse Ox 96 09/02/16 07:45 Intake & Output 09/01/16 09/02/16 09/02/16 18:59 06:59 18:59 Intake Total 330 Output Total 1101 1004 Balance -771 -1004 Weight 75 kg Intake: IV 150 Sodium Chloride 0.9% 1, 150 000 ml @ 75 mls/hr IV . [id number] [facility] Rx#:[id number] Oral 180 Output: Urine 1100 1000 Stool 1 4 Other: Voiding Method Indwelling Catheter Indwelling Catheter Indwelling Catheter # Voids 2 1 # Bowel Movements 0 - Exam General: Confused but following commands Head: Neck conjunctivae are not by mouth. Neck supple. Carotids seemingly silent. Lymphatic: No anterior/posterior cervical or axillary adenopathy. Respiratory: Diminished with poor efforts Cardiovascular: regular rate and rhythm. GI abdomen: Soft, no tenderness, guarding or rebound. Bowel sounds positive and normal active. Lower Extremeties: No clubbing, cyanosis, or edema. Neuro: Limited exam due to patient's condition Psychiatry: Confused but following commands Skin: No new rash. - Labs CBC & Chem 7: 09/02/16 05:53 09/02/16 05:53 Labs: Abnormal Lab Results - Last 24 Hours (Table) 09/01/16 09/02/16 Range/Units 17:12 05:53 Sodium 129 L 129 L (137-145) mmol/L Chloride 96 L (98-107) mmol/L BUN 25 H (9-20) mg/dL Glucose 116 H (74-99) mg/dL Microbiology - Last 24 Hours (Table) 08/31/16 20:36 Urine Culture - Final Urine,Catheterized 08/30/16 21:26 Urine Culture - Final Urine,Voided Assessment and Plan Plan: Assessment/Plan: 1. Metabolic encephalopathy secondary to infectious process, hyponatremia. CAT scan showed no acute findings. Consult with neurology is appreciated. 2. Bilateral pneumonia viral versus bacterial. Continue Tamiflu and Levaquin. 3. Pleural effusion. 4. Acute hyponatremia. Status post IV Lasix. Continue to monitor closely. 5. COPD with exacerbation. Continue DuoNeb treatments 4 times daily. 6. Accelerated hypertension. Currently on Norvasc, atenolol. 7. New onset atrial fibrillation with history of coronary artery disease. Continue Lovenox for now with plan for eliquis. Cardiology consult is appreciated. Patient started on atenolol and lisinopril. Echocardiogram ordered. 8. Benign prostatic hypertrophy. 9. GERD. Continue Protonix Discharge plan: Home with homecare. Impression and plan of care have been directed as dictated by the signing physician. Shanice Lawton nurse practitioner acting as scribe for signing physician. Time with Patient: Greater than 30
--- NOTE | 2016-09-02 14:14 | P.PN ---
Subjective Principal diagnosis: Influenza A This is an 81-year-old gentleman with known history of coronary artery disease and prior bypass surgery, hypertension, hyperlipidemia, COPD, GERD, asthma, prior carotid endarterectomy, prior history of smoking, most of the history was obtained from the medical record. Patient was admitted to the hospital with symptoms of worsening cough and weakness with associated lethargy and mild mental status changes.Apparently the patient had been seen last week in Dr. Lynn johnson's office and was treated for his exacerbation of COPD, he continued to progressively worsen with his coughing became more and more weak. His also noticed change in his mentation. For these reasons he was brought to the hospital for further evaluation. Patient is positive for influenza A. Much more alert and oriented today overall. Echocardiogram with Doppler study was performed which revealed an ejection fraction of 60-65%. Patient continues to be in atrial fibrillation, rate is under adequate control. We are checking to see if patient has coverage for one of the newer anticoagulants, if so we will initiate that. Objective - Vital Signs Vital signs: Vital Signs Temp 96.0 F L 09/02/16 07:45 Pulse 108 H 09/02/16 12:06 Resp 20 09/02/16 07:45 BP 110/69 09/02/16 07:45 Pulse Ox 96 09/02/16 07:45 Intake & Output 09/01/16 09/02/16 09/02/16 18:59 06:59 18:59 Intake Total 330 Output Total 1101 1004 Balance -771 -1004 Weight 75 kg 75 kg Intake: IV 150 Sodium Chloride 0.9% 1, 150 000 ml @ 75 mls/hr IV . [id number] [facility] Rx#:[id number] Oral 180 Output: Urine 1100 1000 Stool 1 4 Other: Voiding Method Indwelling Catheter Indwelling Catheter Indwelling Catheter # Voids 2 1 # Bowel Movements 0 - Exam PHYSICAL EXAMINATION: HEENT: Head is atraumatic, normocephalic. Pupils equal, round. Neck is supple. There is no elevated jugular venous pressure. HEART EXAMINATION: Heart S1 and S2 irregular irregular systolic murmur is heard. CHEST EXAMINATION: Lungs reveal scattered coarse rhonchi throughout. ABDOMEN: [ Soft, positive generalized tenderness on palpation. EXTREMITIES: 2+ peripheral pulses with no evidence of peripheral edema and no calf tenderness noted. NEUROLOGIC patient is awake, alert, confused. . - Labs CBC & Chem 7: 09/02/16 05:53 09/02/16 05:53 Labs: Abnormal Lab Results - Last 24 Hours (Table) 09/01/16 09/02/16 Range/Units 17:12 05:53 Sodium 129 L 129 L (137-145) mmol/L Chloride 96 L (98-107) mmol/L BUN 25 H (9-20) mg/dL Glucose 116 H (74-99) mg/dL Microbiology - Last 24 Hours (Table) 08/31/16 20:36 Urine Culture - Final Urine,Catheterized 08/30/16 21:26 Urine Culture - Final Urine,Voided Assessment and Plan Plan: Assessment and plan #1 symptoms of progressive shortness of breath with associated productive cough , fever, positive influenza A, possible pneumonia #2 altered mental status changes #3 known history of coronary artery disease with prior bypass surgery, exact details unavailable #4 atrial fibrillation, paroxysmal, new onset. #5 COPD exacerbation #6 hyponatremia #7 accelerated hypertension #8 hyperlipidemia #9 GERD Plan Echo cardiac gram with Doppler study revealed normal left ventricular systolic function. We will check to see if the patient has coverage for one of the newer anticoagulants, if so we will initiate that today. We will continue other medications for rate control. DNP note has been reviewed, I agree with a documented findings and plan of care. Patient was seen and examined.
--- NOTE | 2016-09-02 15:08 | P.PN ---
Subjective Principal diagnosis: Patient is an 81-year-old male who is being followed by the neurology service for altered mental status. Patient was brought to [facility] emergency room for progressive confusion over past couple of days. Patient had computed tomography scan of the brain done which showed no acute intracranial abnormalities. Computed tomography scan of the brain did show generalized atrophy and chronic sinusitis. Patient was also positive for influenza A. Patient's comprehensive metabolic profile showed severe hyponatremia at 120. Patient's chest x-ray also showed positive for pneumonia. Patient was started on IV antibiotics. Patient is being followed by nephrology for his hyponatremia. His serum sodium is slowly improving with a sodium of 129 today. Patient mentation is improving. EEG was normal. At the time of my evaluation , patient is resting comfortably in bed and appears to be in no acute distress. Objective - Vital Signs Vital signs: Vital Signs Temp 96.0 F L 09/02/16 07:45 Pulse 108 H 09/02/16 12:06 Resp 20 09/02/16 07:45 BP 110/69 09/02/16 07:45 Pulse Ox 96 09/02/16 07:45 Intake & Output 09/01/16 09/02/16 09/02/16 18:59 06:59 18:59 Intake Total 330 Output Total 1101 1004 Balance -771 -1004 Weight 75 kg 75 kg Intake: IV 150 Sodium Chloride 0.9% 1, 150 000 ml @ 75 mls/hr IV . [id number] [facility] Rx#:[id number] Oral 180 Output: Urine 1100 1000 Stool 1 4 Other: Voiding Method Indwelling Catheter Indwelling Catheter Indwelling Catheter # Voids 2 1 # Bowel Movements 0 - Exam PHYSICAL EXAM: GENERAL APPEARANCE: Patient is a well-developed, male who appears to be in no acute distress. HEENT: Normocephalic, atraumatic, no facial asymmetry is seen. Neck is supple with no masses felt. CARDIOVASCULAR: Regular rate and rhythm. ABDOMEN: Nontender, nondistended. EXTREMITIES: Show no edema or clubbing. NEUROLOGICAL EXAM: Patient is awake, alert, and oriented 3. Speech and language are normal. Patient moves all 4 extremities on command. No lateralizing weakness is noted. Sensory to light touch is normal in all 4 extremities. No tremors or seizure-like activity is seen. No obvious facial asymmetry is seen. - Labs CBC & Chem 7: 09/02/16 05:53 09/02/16 05:53 Labs: Abnormal Lab Results - Last 24 Hours (Table) 09/01/16 09/02/16 Range/Units 17:12 05:53 Sodium 129 L 129 L (137-145) mmol/L Chloride 96 L (98-107) mmol/L BUN 25 H (9-20) mg/dL Glucose 116 H (74-99) mg/dL Microbiology - Last 24 Hours (Table) 08/31/16 20:36 Urine Culture - Final Urine,Catheterized 08/30/16 21:26 Urine Culture - Final Urine,Voided Assessment and Plan (1) Altered mental status Narrative/Plan: Patient's altered mental status is likely multifactorial given his pneumonia and electrolyte imbalance. He has both infectious encephalopathy and metabolic encephalopathy. He is receiving IV antibiotics. Nephrology is following for correction of hyponatremia. Patient does seem to be slowly returning to baseline. Any changes in mental status, MRI of the brain will be ordered. Status: Acute (2) Community acquired bacterial pneumonia Narrative/Plan: Continue IV antibiotics as per medical management. Status: Acute Plan: Continue current medical management. Continue nephrology service. Continue neurological checks. As per prior recommendation, continue to slowly correct his sodium level is rapid correction can lead to central pontine myelinolysis. He is slowly returning to baseline as expected. I will continue to follow with you on an as-needed basis. Feel free to call with any questions or concerns. I performed an examination of the patient and discussed the management with the [employer]AL FAB[employer]ICATING SHOP HELPER. I have reviewed the METAL FAB[employer]ICATING SHOP HELPER notes and agree with the findings and plan of care.
[2016-09-02] MEDS: LEVOFLOXACIN 750MG-D5W PMX 750 MG in DEXTROSE/WATER 1 150ML.BAG IVPB SCH (16:51)
[2016-09-02] MEDS ORDERED: TAMSULOSIN 0.4 MG CAP.ER.24H PO STA (17:09)
[2016-09-02] MEDS ORDERED: SODIUM CHLORIDE 0.9% 1,000 ML IV SCH (17:15)
[2016-09-02] MEDS ORDERED: FUROSEMIDE 40 MG TAB PO STA (17:39)
[2016-09-02] MEDS: guaiFENesin 600 MG TABLET.ER PO SCH (17:46)
[2016-09-02] MEDS: BENZOCAINE/MENTHOL LOZENG 1 EACH LOZENGE MUCOUS MEM PRN (17:46)
[2016-09-02] MEDS: HYDROcodone/APAP 7.5-325MG 1 EACH TAB PO PRN (17:49)
--- NOTE | 2016-09-02 17:59 | PN ---
Patient is seen for follow-up for hyponatremia. He is currently sitting up in bed. He is comfortable. He is not in any acute distress. His mentation has improved. Serum sodium has improved to 129, staying about the same since as yesterday. Patient has received Lasix. Currently he is off of IV fluids. He is encouraged to increase his oral intake. Urine osmolality was elevated; therefore, the fluids have been discontinued secondary to possible underlying syndrome of inappropriate antidiuretic hormone secretion. On examination, blood pressure 99/58, heart rate 98 per minute. The patient is afebrile. Examination of the heart S1 and S2. Lungs: Bilateral breath sounds are heard. ABDOMEN: Soft, nontender. Examination of lower extremities shows no significant edema. JEWEL SUPERVISOR exam is grossly intact. Patient is moving all 4 extremities. Labs show sodium 139, potassium 3.7, BUN 25, serum creatinine 2.68. Hemoglobin 13.8 g/dL. ASSESSMENT: 1. Hyponatremia, currently euvolemic with high urine osmolality suggestive of syndrome of inappropriate antidiuretic hormone particularly as patient's serum sodium did not improve with normal saline. He is advised to increase his protein intake. In the meantime, I will maintain him on oral Lasix and repeat labs in the a.m. 2. Influenza type B maintained on Tamiflu. 3. Metabolic encephalopathy, currently improved. 4. Bibasilar pneumonia, most likely influenza, slowly improving. 5. Hypotension much better controlled. In fact, blood pressure is now on the lower side. Morning, blood pressure was high, and I will wait for one more day before discontinuing the Norvasc. May continue with the Zestril for now. PLAN: Start low-dose borders loop diuretics. Repeat labs in a.m.
[2016-09-03] MEDS: amLODIPine 5 MG TAB PO SCH (08:32)
[2016-09-03] MEDS: LISINOPRIL 5 MG TAB PO SCH (08:33)
[2016-09-03] MEDS: ATENOLOL 50 MG TAB PO SCH (08:33)
[2016-09-03] MEDS: IPRATROPIUM-ALBUTEROL 3 ML NEB INHALATION SCH ×4 (08:47→20:43)
[2016-09-03] MEDS: PANTOPRAZOLE 40 MG TABLET PO SCH (08:57)
[2016-09-03] MEDS: guaiFENesin 600 MG TABLET.ER PO SCH ×2 (08:57→20:14)
[2016-09-03] MEDS: ENOXAPARIN 40 MG/0.4 ML SYRINGE SQ SCH ×2 (08:58→20:49)
[2016-09-03] MEDS: OSELTAMIVIR 75 MG CAP PO SCH ×2 (08:58→20:14)
[2016-09-03 09:42] LABS: Anion Gap 14 mmol/L; Blood Urea Nitrogen 40 mg/dL (9-20); Calcium 8.5 mg/dL (8.4-10.2); Carbon Dioxide 22 mmol/L (22-30); Chloride 93 mmol/L (98-107); Glucose 96 mg/dL (74-99); Non-African American GFR(MDRD) >60 (>60 ml/min/1.73 sqM); Potassium 3.4 mmol/L (3.5-5.1); Sodium 129 mmol/L (137-145)
--- NOTE | 2016-09-03 12:34 | P.GSCN ---
History of Present Illness Consult date: 09/03/16 Reason for Consult: Hiatal Hernia History of present illness: Thank you very much for asking us to see Mr. Smith he was admitted with the change in mental status hyponatremia. Was found to have evidence of pneumonia. A computed tomography scan showed the large hiatal hernia with the internal thoracic the stomach also containing some of his transverse colon. Patient denies any past history of problems related to a hiatal hernia. No nausea or vomiting. No severe chest pain. No abdominal pain. He has been somewhat constipated the for many years last bowel movement was about 2-3 days ago. His appetite has been diminished however because his been feeling so well. Past history family history social history well-documented. On examination the patient is awake. Has poor memory. Which is 99. Vitals are stable. Abdomen is soft nondistended. No tenderness no mass or organomegaly or hernias noted. The lungs has bilateral rhonchi that seemed to improve with coughing. CT was reviewed. Has a stomach the in the in the thoracic the location question of volvulus but doubtful since she's not very symptomatic from this. Also part of his transverse colon is in the chest. Impression large hiatal hernia with intrathoracic stomach in part of the transverse colon. Pneumonia. History of COPD. Recommendation certainly patient is not a surgical candidate candidate at this time in view of his medical issues and ongoing pneumonia. Would ask the Dr. Yee to evaluate him for consideration for elective repair. End of dictation Past Medical History Past Medical History: Asthma, Coronary Artery Disease (CAD), Chest Pain / Angina , COPD, GERD/Reflux, Prostate Disorder, Respiratory Disorder History of Any Multi-Drug Resistant Organisms: None Reported Past Surgical History: Coronary Bypass/CABG, Heart Catheterization, Orthopedic Surgery Additional Past Surgical History / Comment(s): CAROTID END b/l, multiple orthopedic surgeries due to polio as a child Past Anesthesia/Blood Transfusion Reactions: No Reported Reaction Past Psychological History: No Psychological Hx Reported Smoking Status: Former smoker Past Alcohol Use History: None Reported Past Drug Use History: None Reported - Past Family History Father Family Medical History: Coronary Artery Disease (CAD) Mother Family Medical History: Unable to Obtain Medications and Allergies Home Medications Medication Instructions Recorded Confirmed Type Albuterol Nebulized [Ventolin 2.5 mg INHALATION RT-QID PRN 08/30/16 08/30/16 History Nebulized] Albuterol Sulfate [Proventil Hfa] 2 puff INHALATION RT-Q6H PRN 08/30/16 History Aspirin EC [Ecotrin Low Dose] 81 mg PO DAILY 08/30/16 08/30/16 History Atenolol 25 mg PO DAILY 08/30/16 08/30/16 History Clotrimazole/Betamethasone Dip 1 applic TOPICAL BID PRN 08/30/16 08/30/16 History [Lotrisone Cream] Doxazosin Mesylate 8 mg PO BID 08/30/16 08/30/16 History Fluticasone/Salmeterol [Advair 1 puff INHALATION RT-BID 08/30/16 08/30/16 History 500-50 Diskus] HYDROcodone/APAP 10-325MG [[place] 1 tab PO Q4HR PRN 08/30/16 08/30/16 History 10-325] Levofloxacin [Levaquin] 750 mg PO DAILY 08/30/16 08/30/16 History [place]-3 Fatty Acids/Fish Oil [Fish 1 cap PO DAILY 08/30/16 08/30/16 History Oil 1,000 mg Softgel] Omeprazole 20 mg PO DAILY 08/30/16 08/30/16 History Simvastatin [Zocor] 20 mg PO HS 08/30/16 08/30/16 History Tiotropium 18 Mcg/Puff [Spiriva] 1 cap INHALATION RT-DAILY 08/30/16 08/30/16 History Allergies Allergy/AdvReac Type Severity Reaction Status Date / Time ciprofloxacin [From Cipro] Allergy Rash/Hives Verified 08/30/16 16:08 Surgical - Exam Vital Signs Temp Pulse Resp BP Pulse Ox 98.1 F 104 H 20 208/86 87 L 08/30/16 15:34 08/30/16 15:34 08/30/16 15:34 08/30/16 15:34 08/30/16 15:34 Results - Labs 09/02/16 05:53 09/03/16 09:07 Abnormal Lab Results - Last 24 Hours (Table) 09/03/16 Range/Units 09:07 Sodium 129 L (137-145) mmol/L Potassium 3.4 L (3.5-5.1) mmol/L Chloride 93 L (98-107) mmol/L BUN 40 H (9-20) mg/dL Diabetes panel 09/03/16 Range/Units 09:07 Sodium 129 L (137-145) mmol/L Potassium 3.4 L (3.5-5.1) mmol/L Chloride 93 L (98-107) mmol/L Carbon Dioxide 22 (22-30) mmol/L BUN 40 H (9-20) mg/dL Creatinine 0.95 (0.66-1.25) mg/dL Glucose 96 (74-99) mg/dL Calcium 8.5 (8.4-10.2) mg/dL Calcium panel 09/03/16 Range/Units 09:07 Calcium 8.5 (8.4-10.2) mg/dL Pituitary panel 09/03/16 Range/Units 09:07 Sodium 129 L (137-145) mmol/L Potassium 3.4 L (3.5-5.1) mmol/L Chloride 93 L (98-107) mmol/L Carbon Dioxide 22 (22-30) mmol/L BUN 40 H (9-20) mg/dL Creatinine 0.95 (0.66-1.25) mg/dL Glucose 96 (74-99) mg/dL Calcium 8.5 (8.4-10.2) mg/dL Adrenal panel 09/03/16 Range/Units 09:07 Sodium 129 L (137-145) mmol/L Potassium 3.4 L (3.5-5.1) mmol/L Chloride 93 L (98-107) mmol/L Carbon Dioxide 22 (22-30) mmol/L BUN 40 H (9-20) mg/dL Creatinine 0.95 (0.66-1.25) mg/dL Glucose 96 (74-99) mg/dL Calcium 8.5 (8.4-10.2) mg/dL
--- NOTE | 2016-09-03 15:48 | PN ---
Patient is seen for follow-up for hyponatremia. His sodium level has been staying at 129. Patient did admit to poor oral intake. He received normal saline for a short period of time which was eventually hep-locked. I did give him a dose of Lasix yesterday; however, today his sodium is again at 129. Patient has not been drinking large amounts of fluids as well. Urine osmolality was elevated at around 600 suggestive of underlying SIADH. On examination, blood pressure 98/57, heart rate 79 per minute. He is afebrile. Examination of the heart S1 and S2. Examination of the lungs: Bilateral breath sounds are heard. Abdomen is soft, nontender. Examination of lower extremities shows no significant edema. Labs show sodium 129, potassium 3.4, serum creatinine 0.95 mg/dL. ASSESSMENT: 1. Hyponatremia, euvolemic, initially hypovolemic, status post saline. The urine osmolality was elevated. Therefore, this saline was held yesterday. I will start the patient on sodium chloride tablets and we will recheck another sodium this evening. 2. Hypokalemia, will replace. 3. Hypotension. Blood pressure had been initially high, currently it is significantly low with some increase in his creatinine noted as well. We will need to hold the antihypertensive medications for systolic blood pressure less than 110. 4. Influenza type A, maintained on Tamiflu. PLAN: Start sodium chloride tabs and repeat labs this evening. Replace potassium. Encourage increased intake.
--- NOTE | 2016-09-03 15:59 | XR ---
EXAMINATION TYPE: XR chest 1V portable DATE OF EXAM: 09/03/2016 3:40 PM CLINICAL HISTORY: Difficulty breathing and cough progress study. TECHNIQUE: Single AP portable upright view of the chest is obtained. COMPARISON: Chest x-ray from 2 days earlier. FINDINGS: Sternal wires and mediastinal clips are redemonstrated. Cardiac silhouette size is stable and upper limits of normal atherosclerotic thoracic aorta. There is chronic emphysematous change with improved aeration left lung base and retrocardiac opacity felt to reflect hiatal hernia redemonstrat ed. New patchy right basilar atelectatic change is seen. No large pleural effusion or pneumothorax is evident bilaterally. High riding bilateral humeral head suggests chronic rotator cuff tears. Spurrin g glenohumeral joint bilaterally is redemonstrated. IMPRESSION: Improving left basilar infiltrate and/or atelectasis, no new suspicious focal infiltrate seen.
--- NOTE | 2016-09-03 16:16 | P.PN ---
Subjective This is 81 years old male who was evaluated at Dr. Wiggins office on Wednesday 5 days ago where he was started on appropriate treatment for COPD exacerbation, on Wednesday I received call as I was covering Dr. Wiggins for the weekend where the patient's reported worsening in his cough, weakness and lethargy and requested me to start patients on antibiotics as he was getting worse and refusing completely to come to the emergency department, after I discussed with the patient's the risks from taking 81 years old gentleman at home with possible pneumonia and COPD exacerbation I prescribe antibiotics to the significant pharmacy and picked up the medication on that night. The following day called me again reported worsening in his mental status where he became confused and lethargic and asked her to call 911 immediately when patient was brought to the emergency department confused not following command and his chest x-ray showed bilateral lower lobes pneumonia with pleural effusion and low-grade temperature. The white blood count was normal and patient was admitted for bilateral pneumonia and altered mental status with acute hyponatremia 09/01: Patient had worsening confusion yesterday for which a consult was requested with neurology. CAT scan of the brain showed no acute findings but only age-related atrophy. EEG is pending. His mental status is slightly improved this morning. C. difficile toxin was negative. Urine output has been adequate. Patient also went into atrial fibrillation this morning for which a cardiology consult was requested. They have ordered echocardiogram, TSH and free T4. Labetalol was discontinued and patient was resumed on atenolol with increased dose and PAYTON inhibitor was added with plan for anticoagulation. Patient currently on Lovenox. He remains and isolation and on Tamiflu. Patient is noted to have left upper quadrant and left lower quadrant tenderness for which a CAT scan of the abdomen has been ordered. Repeat chest x-ray shows possible left lower lobe pneumonia versus atelectasis and associated effusion. Difficult to exclude lung mass. 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 Some of transverse colon also herniates through. Prominent fluid-filled small bowel loops with no discrete transition point. Findings could reflect enteritis or ileus. Changes in the sigmoid May be due to peristalsis and over distention. Moderate pelvic free fluid. Focal subpleural opacity in the posterior right base. Differential includes pneumonia , mass, rounded atelectasis. Surgical consult with Dr. 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 He is currently on a soft diet will be continued. Insure added. He has not had any difficulty swallowing or choking. Patient did have a bowel movement last evening. Sodium 129 and chloride 96. EEG is considered within normal limits. His respiratory status and mental status are improving. Patient will be transferred to the [facility] floor. 09/03: Repeat chest x-ray shows improving left basilar infiltrate and/or atelectasis. No new suspicious focal infiltrates seen. Nephrology has started sodium chloride tablets for hyponatremia. Patient has been seen by Dr. Hinojosa regarding abnormal findings on CAT scan. Would ask Dr. nguyen to evaluate for consideration of elective repair. Objective - Vital Signs Vital signs: Vital Signs Temp 96.6 F L 09/03/16 15:00 Pulse 90 09/03/16 15:57 Resp 18 09/03/16 15:00 BP 101/63 09/03/16 15:00 Pulse Ox 92 L 09/03/16 15:00 Intake & Output 09/02/16 09/03/16 09/03/16 18:59 06:59 18:59 Intake Total 861 60 500 Output Total 1 775 Balance 860 -715 500 Weight 75 kg 75 kg Intake: Intake, IV Titration 150 Amount Levofloxacin 750Mg-D5w 150 Pmx 750 mg In Dextrose/ Water 1 150ml.bag @ 100 mls/hr IVPB Q24H [facility] Rx#: [id number] Oral 711 60 500 Output: Urine 0 775 Stool 1 Other: Voiding Method Urinal Toilet Toilet Urinal Urinal # Voids 0 1 1 # Bowel Movements 1 - Exam General: Confused but following commands Head: Neck conjunctivae are not by mouth. Neck supple. Carotids seemingly silent. Lymphatic: No anterior/posterior cervical or axillary adenopathy. Respiratory: Diminished with poor efforts Cardiovascular: regular rate and rhythm. GI abdomen: Soft, no tenderness, guarding or rebound. Bowel sounds positive and normal active. Lower Extremeties: No clubbing, cyanosis, or edema. Neuro: Limited exam due to patient's condition Psychiatry: Confused but following commands and more alert and oriented today but continues to have some confusion Skin: No new rash. - Labs CBC & Chem 7: 09/02/16 05:53 09/03/16 09:07 Labs: Abnormal Lab Results - Last 24 Hours (Table) 09/03/16 Range/Units 09:07 Sodium 129 L (137-145) mmol/L Potassium 3.4 L (3.5-5.1) mmol/L Chloride 93 L (98-107) mmol/L BUN 40 H (9-20) mg/dL Assessment and Plan Plan: Assessment/Plan: 1. Metabolic encephalopathy secondary to infectious process, hyponatremia. CAT scan showed no acute findings. Consult with neurology is appreciated. 2. Bilateral pneumonia viral versus bacterial. Continue Tamiflu and Levaquin. 3. Pleural effusion. 4. Acute hyponatremia. Status post IV Lasix. Continue to monitor closely. Sodium chloride tablets ordered by nephrology. 5. COPD with exacerbation. Continue DuoNeb treatments 4 times daily. 6. Accelerated hypertension. Currently on Norvasc, atenolol, lisinopril. 7. New onset atrial fibrillation with history of coronary artery disease. Continue Lovenox for now with plan for eliquis. Cardiology consult is appreciated. Patient started on atenolol and lisinopril. Echocardiogram as above. 8. Benign prostatic hypertrophy. 9. GERD. Continue Protonix Discharge plan: Home with homecare. Walker ordered Impression and plan of care have been directed as dictated by the signing physician. Shanice Lawton nurse practitioner acting as scribe for signing physician. Time with Patient: Greater than 30
[2016-09-03] MEDS: SODIUM CHLORIDE TAB 1 GM TAB PO SCH ×2 (16:35→20:14)
[2016-09-03] MEDS: HYDROcodone/APAP 7.5-325MG 1 EACH TAB PO PRN (17:25)
[2016-09-03] MEDS: TAMSULOSIN 0.4 MG CAP.ER.24H PO SCH (17:25)
[2016-09-03] MEDS: methylPREDNISolone SOD SUCCI 125 MG/2 ML VIAL IV SCH ×2 (18:05→23:46)
[2016-09-03] MEDS: LEVOFLOXACIN 750MG-D5W PMX 750 MG in DEXTROSE/WATER 1 150ML.BAG IVPB SCH (18:06)
--- NOTE | 2016-09-03 18:53 | PN ---
DATE OF SERVICE: 09/03/2016. INTERVAL HISTORY: The patient is an 81-year-old male who came in with influenza, seen sitting up in bed, is awake and alert. Does have a very coarse, loose, nonproductive cough with audible wheeze. The patient is afebrile, hemodynamically stable, in no acute distress. On physical exam, vital signs: Temp is 96.3, heart rate is 96, respiratory rate 18, blood pressure 98/57. O2 sat last documented was 92% on 2 liters oxygen at 7:00 a.m. HEENT: Head is normocephalic, atraumatic. NECK: Supple. Trachea is midline. LUNGS: With scattered coarse wheezes throughout, decreased as well. HEART: S1 and S2 are heard. Not tachycardic. ABDOMEN: Soft. Bowel sounds are heard. EXTREMITIES: With no edema. NEUROLOGIC: The patient is awake and alert. LABS: White count is 7.6, hemoglobin is 13.8, hematocrit 41.2 with 230,000 platelets and those are from 09/02. BMP dated 09/03 sodium is 129, potassium 3.4, chloride 93, CO2 is 22. Anion gap is 14, BUN is 40, creatinine 0.95, glucose is 96. Calcium is 8.5. Urine culture shows no growth. No new imaging to review. IMPRESSION: 1. Acute on chronic hypoxic respiratory failure. 2. Bibasilar pneumonia. 3. Influenza A pneumonia. 4. Questionable concomitant bacterial pneumonia. 5. Toxic metabolic encephalopathy, improving. 6. Pyrexia, which has resolved. 7. Hyponatremia, hypokalemia both improving. 8. Mild hypokalemia. 9. Dehydration. 10. Bilateral pleural effusions. 11. Acute exacerbation of chronic obstructive pulmonary disease. 12. Hypertension. 13. History of coronary artery disease. 14. History of benign prostatic hypertrophy. 15. Gastroesophageal reflux disease. PLAN: Continue current medications which have been reviewed. Will check a stat chest x-ray. Will also add chest physiotherapy. Follow up on sputum culture, which is pending. Continue bronchodilators and aerosolized steroids. Add IV Solu-Medrol 60 mg q.6. Continue antibiotics and Tamiflu. Continue supportive care. Continue GI and DVT prophylaxis and will follow the patient closely with you, making further changes as necessary.
--- NOTE | 2016-09-03 19:34 | P.GSCN ---
History of Present Illness Consult date: 09/03/16 Reason for Consult: Hiatal hernia History of present illness: Patient hospitalized with exacerbation of COPD, mental status changes, and new onset A. fib. A CAT scan was performed which showed a large intrathoracic stomach. I was asked see the patient regarding this. The patient denies any nausea or vomiting. His appetite has been diminished. Denies dysphagia. Some chronic constipation. The hiatal hernia does contain a small segment of transverse colon with no obstructive symptoms. Denies rectal bleeding or melena. No recent or prior endoscopy that he is aware of. Review of Systems The patient denies any acute changes in his vision or hearing, no dysphagia or odynophagia, no chest pain, no dysuria or hematuria, no headache, no runny nose , no rectal bleeding or melena, no unexplained weight loss Past Medical History Past Medical History: Asthma, Coronary Artery Disease (CAD), Chest Pain / Angina , COPD, GERD/Reflux, Prostate Disorder, Respiratory Disorder History of Any Multi-Drug Resistant Organisms: None Reported Past Surgical History: Coronary Bypass/CABG, Heart Catheterization, Orthopedic Surgery Additional Past Surgical History / Comment(s): CAROTID END b/l, multiple orthopedic surgeries due to polio as a child Past Anesthesia/Blood Transfusion Reactions: No Reported Reaction Past Psychological History: No Psychological Hx Reported Smoking Status: Former smoker Past Alcohol Use History: None Reported Past Drug Use History: None Reported - Past Family History Father Family Medical History: Coronary Artery Disease (CAD) Mother Family Medical History: Unable to Obtain Medications and Allergies Home Medications Medication Instructions Recorded Confirmed Type Albuterol Nebulized [Ventolin 2.5 mg INHALATION RT-QID PRN 08/30/16 08/30/16 History Nebulized] Albuterol Sulfate [Proventil Hfa] 2 puff INHALATION RT-Q6H PRN 08/30/16 History Aspirin EC [Ecotrin Low Dose] 81 mg PO DAILY 08/30/16 08/30/16 History Atenolol 25 mg PO DAILY 08/30/16 08/30/16 History Clotrimazole/Betamethasone Dip 1 applic TOPICAL BID PRN 08/30/16 08/30/16 History [Lotrisone Cream] Doxazosin Mesylate 8 mg PO BID 08/30/16 08/30/16 History Fluticasone/Salmeterol [Advair 1 puff INHALATION RT-BID 08/30/16 08/30/16 History 500-50 Diskus] HYDROcodone/APAP 10-325MG [[place] 1 tab PO Q4HR PRN 08/30/16 08/30/16 History 10-325] Levofloxacin [Levaquin] 750 mg PO DAILY 08/30/16 08/30/16 History [place]-3 Fatty Acids/Fish Oil [Fish 1 cap PO DAILY 08/30/16 08/30/16 History Oil 1,000 mg Softgel] Omeprazole 20 mg PO DAILY 08/30/16 08/30/16 History Simvastatin [Zocor] 20 mg PO HS 08/30/16 08/30/16 History Tiotropium 18 Mcg/Puff [Spiriva] 1 cap INHALATION RT-DAILY 08/30/16 08/30/16 History Allergies Allergy/AdvReac Type Severity Reaction Status Date / Time ciprofloxacin [From Cipro] Allergy Rash/Hives Verified 08/30/16 16:08 Surgical - Exam Vital Signs Temp Pulse Resp BP Pulse Ox 98.1 F 104 H 20 208/86 87 L 08/30/16 15:34 08/30/16 15:34 08/30/16 15:34 08/30/16 15:34 08/30/16 15:34 Physical exam: General: Well-developed, well-nourished HEENT: Normocephalic, sclerae nonicteric Abdomen: Nontender, nondistended Extremities: No edema Neuro: Alert and oriented Results - Labs 09/02/16 05:53 09/03/16 09:07 Abnormal Lab Results - Last 24 Hours (Table) 09/03/16 Range/Units 09:07 Sodium 129 L (137-145) mmol/L Potassium 3.4 L (3.5-5.1) mmol/L Chloride 93 L (98-107) mmol/L BUN 40 H (9-20) mg/dL Diabetes panel 09/03/16 Range/Units 09:07 Sodium 129 L (137-145) mmol/L Potassium 3.4 L (3.5-5.1) mmol/L Chloride 93 L (98-107) mmol/L Carbon Dioxide 22 (22-30) mmol/L BUN 40 H (9-20) mg/dL Creatinine 0.95 (0.66-1.25) mg/dL Glucose 96 (74-99) mg/dL Calcium 8.5 (8.4-10.2) mg/dL Calcium panel 09/03/16 Range/Units 09:07 Calcium 8.5 (8.4-10.2) mg/dL Pituitary panel 09/03/16 Range/Units 09:07 Sodium 129 L (137-145) mmol/L Potassium 3.4 L (3.5-5.1) mmol/L Chloride 93 L (98-107) mmol/L Carbon Dioxide 22 (22-30) mmol/L BUN 40 H (9-20) mg/dL Creatinine 0.95 (0.66-1.25) mg/dL Glucose 96 (74-99) mg/dL Calcium 8.5 (8.4-10.2) mg/dL Adrenal panel 09/03/16 Range/Units 09:07 Sodium 129 L (137-145) mmol/L Potassium 3.4 L (3.5-5.1) mmol/L Chloride 93 L (98-107) mmol/L Carbon Dioxide 22 (22-30) mmol/L BUN 40 H (9-20) mg/dL Creatinine 0.95 (0.66-1.25) mg/dL Glucose 96 (74-99) mg/dL Calcium 8.5 (8.4-10.2) mg/dL Assessment and Plan (1) Hiatal hernia Narrative/Plan: Agree at this time the patient appears to be asymptomatic as it pertains to this large hiatal hernia. Will continue to follow this patient to see if his symptoms change in any way but for now would continue with observation. Status: Acute
[2016-09-03] MEDS: BUDESONIDE 0.5 MG/2 ML NEBU INHALATION SCH (20:43)
[2016-09-04] MEDS: methylPREDNISolone SOD SUCCI 125 MG/2 ML VIAL IV SCH (06:04)
[2016-09-04] MEDS: HYDROcodone/APAP 7.5-325MG 1 EACH TAB PO PRN ×3 (06:08→18:20)
[2016-09-04] MEDS: BUDESONIDE 0.5 MG/2 ML NEBU INHALATION SCH ×2 (07:27→19:36)
[2016-09-04] MEDS: IPRATROPIUM-ALBUTEROL 3 ML NEB INHALATION SCH ×4 (07:27→19:36)
[2016-09-04] MEDS: amLODIPine 5 MG TAB PO SCH (07:50)
[2016-09-04] MEDS: ATENOLOL 50 MG TAB PO SCH (07:50)
[2016-09-04] MEDS: OSELTAMIVIR 75 MG CAP PO SCH ×2 (07:50→21:03)
[2016-09-04] MEDS: ENOXAPARIN 40 MG/0.4 ML SYRINGE SQ SCH ×2 (07:50→21:03)
[2016-09-04] MEDS: PANTOPRAZOLE 40 MG TABLET PO SCH (07:50)
[2016-09-04] MEDS: guaiFENesin 600 MG TABLET.ER PO SCH ×2 (07:50→21:03)
[2016-09-04] MEDS: SODIUM CHLORIDE TAB 1 GM TAB PO SCH (07:51)
[2016-09-04] MEDS: LISINOPRIL 5 MG TAB PO SCH (07:51)
[2016-09-04 10:05] LABS: CH 32.2; CHCM 35.4; HCT 38.4 % (39.0-53.0); HGB 13.2 gm/dL (13.0-17.5); MCH 31.3 pg (25.0-35.0); MCHC 34.2 g/dL (31.0-37.0); MCV 91.4 fL (80.0-100.0); Mean Platelet Volume 7.8; RBC 4.21 m/uL (4.30-5.90); WBC 12.8 k/uL (3.8-10.6)
[2016-09-04 10:11] LABS: Anion Gap 12 mmol/L; Blood Urea Nitrogen 26 mg/dL (9-20); Calcium 8.7 mg/dL (8.4-10.2); Carbon Dioxide 24 mmol/L (22-30); Chloride 93 mmol/L (98-107); Glucose 180 mg/dL (74-99); Non-African American GFR(MDRD) >60 (>60 ml/min/1.73 sqM); Potassium 3.8 mmol/L (3.5-5.1); Sodium 129 mmol/L (137-145)
--- NOTE | 2016-09-04 10:41 | PN ---
DATE OF SERVICE: 09/04/2016 The patient is an 81-year-old male who is seen sitting up in bed. He is awake and alert, feeling much better today, much less short of breath. Cough has decreased. Breathing has improved. Patient is afebrile, hemodynamically stable, in no acute distress. ON PHYSICAL EXAM: VITAL SIGNS: Temp is 96.3, heart rate is 91, respiratory rate is 18, blood pressure is 138/81, O2 sat is 93% on 2 L O2 via nasal cannula. HEENT: Head is normocephalic, atraumatic. NECK: Supple. Trachea is midline. LUNGS: With improved air entry still has coarse expiratory wheeze. Decreased to the bases. HEART: S1 and S2 are heard. Not tachycardic. ABDOMEN: Soft. Bowel sounds are heard. EXTREMITIES: With no edema. NEUROLOGIC: The patient is awake and alert. LABS: No new labs to review. IMAGING: Chest x-ray yesterday showed improving left basilar infiltrate and/or atelectasis. No new suspicious focal infiltrate seen. IMPRESSION: 1. Acute on chronic hypoxic respiratory failure. 2. Bibasilar pneumonia. 3. Influenza A. 4. History of asthma per patient with acute exacerbation. 5. Questionable concomitant bacterial pneumonia. 6. Toxic metabolic encephalopathy, which is improving. 7. Hyponatremia. 8. Bilateral pleural effusions. 9. Acute exacerbation of chronic obstructive pulmonary disease. 10. Hypertension. 11. History of coronary artery disease. 12. History of benign prostatic hypertrophy. 13. Gastroesophageal reflux disease. PLAN: Continue current medications, which have been reviewed. Continue with bronchodilators and aerosolized steroids and IV steroids. Continue with chest physiotherapy. Will add incentive spirometry. Continue GI and DVT prophylaxis. Increase activity as tolerated. Will follow the patient closely with you, making further changes as necessary.
[2016-09-04] MEDS: SODIUM CHLORIDE 0.9% 1,000 ML IV SCH (13:13)
--- NOTE | 2016-09-04 13:19 | P.PN ---
Subjective Principal diagnosis: Hiatal hernia Patient doing well today. Denies nausea or vomiting. He is tolerating his diet. Objective - Vital Signs Vital signs: Vital Signs Temp 96.3 F L 09/04/16 07:00 Pulse 98 09/04/16 11:13 Resp 18 09/04/16 07:00 BP 138/81 09/04/16 07:00 Pulse Ox 93 L 09/04/16 07:00 Intake & Output 09/03/16 09/04/16 09/04/16 18:59 06:59 18:59 Intake Total 500 Output Total 150 Balance 500 -150 Weight 75 kg Intake: Oral 500 Output: Urine 150 Other: Voiding Method Toilet Toilet Toilet Urinal Urinal Urinal # Voids 1 3 - Exam Abdomen: Soft, nontender, nondistended - Labs CBC & Chem 7: 09/04/16 09:11 09/04/16 09:11 Labs: Abnormal Lab Results - Last 24 Hours (Table) 09/03/16 09/03/16 09/04/16 Range/Units 20:25 22:25 09:11 WBC (3.8-10.6) k/uL RBC (4.30-5.90) m/uL Hct (39.0-53.0) % Sodium 128 L 129 L (137-145) mmol/L Chloride 93 L (98-107) mmol/L BUN 26 H (9-20) mg/dL Glucose 180 H (74-99) mg/dL Ur Random Sodium <5 L (30-90) mmol/L 09/04/16 Range/Units 09:11 WBC 12.8 H (3.8-10.6) k/uL RBC 4.21 L (4.30-5.90) m/uL Hct 38.4 L (39.0-53.0) % Sodium (137-145) mmol/L Chloride (98-107) mmol/L BUN (9-20) mg/dL Glucose (74-99) mg/dL Ur Random Sodium (30-90) mmol/L Assessment and Plan (1) Hiatal hernia Narrative/Plan: Patient with an incidental finding of a large hiatal hernia. The patient remains asymptomatic. Observation for now. Please contact if the patient develop symptoms attribute to the hilum. Status: Acute
[2016-09-04] MEDS: BENZOCAINE/MENTHOL LOZENG 1 EACH LOZENGE MUCOUS MEM PRN (13:32)
--- NOTE | 2016-09-04 13:38 | PN ---
Patient is seen for followup for hyponatremia. Patient's hyponatremia is currently euvolemic. He was hypovolemic initially but his sodium did not improve any further with normal saline and he responded to low dose Lasix. At this time, his sodium is staying at 129 mEq/L. Repeat urine osmolality was 707 with random urine sodium of less than 5. The patient has not been eating much. I started him on salt tablets yesterday. Blood pressure was on the lower side yesterday, currently improved. On examination, blood pressure is now 138/81, heart rate 91 per minute. He is afebrile. EXAMINATION OF THE HEART: S1 and S2. EXAMINATION OF THE LUNGS: Bilateral breath sounds are heard. Decreased breath sounds in bases. Abdomen is soft, nontender. Examination of lower extremities shows no significant edema. Labs show sodium 129, potassium 3.8, BUN 26, serum creatinine 0.7 mg/dL. Repeat urine osmolality was 707 . Random urine sodium was less than 5. ASSESSMENT: 1. Hyponatremia initially behaving as syndrome of inappropriate antidiuretic hormone secretion; however, urine sodium from last night was less than 5 and in view of low blood pressures, patient can be challenged again with normal saline. I started him on sodium chloride yesterday, which I will decrease to once a day and start normal saline at 50 mL an hour with repeat sodium later on this evening. 2. Influenza type A. 3. Hiatal hernia with intrathoracic stomach currently asymptomatic with no plans for further intervention. 4. Altered mentation on initial admission, most likely metabolic currently improved with improved sodium levels as well. PLAN: Challenge with normal saline again and repeat sodium this evening.
--- NOTE | 2016-09-04 14:49 | P.PN ---
Subjective This is 81 years old male who was evaluated at Dr. Wiggins office on Wednesday 5 days ago where he was started on appropriate treatment for COPD exacerbation, on Wednesday I received call as I was covering Dr. Wiggins for the weekend where the patient's reported worsening in his cough, weakness and lethargy and requested me to start patients on antibiotics as he was getting worse and refusing completely to come to the emergency department, after I discussed with the patient's the risks from taking 81 years old gentleman at home with possible pneumonia and COPD exacerbation I prescribe antibiotics to the significant pharmacy and picked up the medication on that night. The following day called me again reported worsening in his mental status where he became confused and lethargic and asked her to call 911 immediately when patient was brought to the emergency department confused not following command and his chest x-ray showed bilateral lower lobes pneumonia with pleural effusion and low-grade temperature. The white blood count was normal and patient was admitted for bilateral pneumonia and altered mental status with acute hyponatremia 09/01: Patient had worsening confusion yesterday for which a consult was requested with neurology. CAT scan of the brain showed no acute findings but only age-related atrophy. EEG is pending. His mental status is slightly improved this morning. C. difficile toxin was negative. Urine output has been adequate. Patient also went into atrial fibrillation this morning for which a cardiology consult was requested. They have ordered echocardiogram, TSH and free T4. Labetalol was discontinued and patient was resumed on atenolol with increased dose and PAYTON inhibitor was added with plan for anticoagulation. Patient currently on Lovenox. He remains and isolation and on Tamiflu. Patient is noted to have left upper quadrant and left lower quadrant tenderness for which a CAT scan of the abdomen has been ordered. Repeat chest x-ray shows possible left lower lobe pneumonia versus atelectasis and associated effusion. Difficult to exclude lung mass. 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 Some of transverse colon also herniates through. Prominent fluid-filled small bowel loops with no discrete transition point. Findings could reflect enteritis or ileus. Changes in the sigmoid May be due to peristalsis and over distention. Moderate pelvic free fluid. Focal subpleural opacity in the posterior right base. Differential includes pneumonia , mass, rounded atelectasis. Surgical consult with Dr. 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 He is currently on a soft diet will be continued. Insure added. He has not had any difficulty swallowing or choking. Patient did have a bowel movement last evening. Sodium 129 and chloride 96. EEG is considered within normal limits. His respiratory status and mental status are improving. Patient will be transferred to the [facility] floor. 09/03: Repeat chest x-ray shows improving left basilar infiltrate and/or atelectasis. No new suspicious focal infiltrates seen. Nephrology has started sodium chloride tablets for hyponatremia. Patient has been seen by Dr. Hinojosa regarding abnormal findings on CAT scan. Would ask Dr. Paredes to evaluate for consideration of elective repair. 09/04: Patient denies feeling achy. He states his breathing is okay. Sodium is at 129 and chloride 93. Serum osmolality 707, urine random sodium less than 5.Dr. Castillo has ordered 0.9 normal saline at 50 mL/h and sodium chloride. repeat sodium later today. Patient has been evaluated by Dr. Paredes with no plan for any surgical intervention.pulmonary medicine has added and Solu-Medrol 60 mg every 6 hours which will be decreased to 40 every 8 hours. Pulmicort also added.anticipate discharge home Wednesday. Objective - Vital Signs Vital signs: Vital Signs Temp 96.3 F L 09/04/16 07:00 Pulse 94 09/04/16 07:37 Resp 18 09/04/16 07:00 BP 138/81 09/04/16 07:00 Pulse Ox 93 L 09/04/16 07:00 Intake & Output 09/03/16 09/04/16 09/04/16 18:59 06:59 18:59 Intake Total 500 Balance 500 Weight 75 kg Intake: Oral 500 Other: Voiding Method Toilet Toilet Toilet Urinal Urinal Urinal # Voids 1 3 - Exam General: Confused but following commands Head: Neck conjunctivae are not by mouth. Neck supple. Carotids seemingly silent. Lymphatic: No anterior/posterior cervical or axillary adenopathy. Respiratory: Diminished with poor efforts Cardiovascular: regular rate and rhythm. GI abdomen: Soft, no tenderness, guarding or rebound. Bowel sounds positive and normal active. Lower Extremeties: No clubbing, cyanosis, or edema. Neuro: Limited exam due to patient's condition Psychiatry: Confused but following commands and more alert and oriented today but continues to have some confusion Skin: No new rash. - Labs CBC & Chem 7: 09/04/16 09:11 09/04/16 09:11 Labs: Abnormal Lab Results - Last 24 Hours (Table) 09/03/16 09/03/16 09/03/16 Range/Units 09:07 20:25 22:25 Sodium 129 L 128 L (137-145) mmol/L Potassium 3.4 L (3.5-5.1) mmol/L Chloride 93 L (98-107) mmol/L BUN 40 H (9-20) mg/dL Ur Random Sodium <5 L (30-90) mmol/L Assessment and Plan Plan: 1. Metabolic encephalopathy secondary to infectious process, hyponatremia. CAT scan showed no acute findings. Consult with neurology is appreciated. 2. Bilateral pneumonia viral versus bacterial. Continue Tamiflu and Levaquin, DuoNeb treatments 4 times daily, Pulmicort 0.5 mg twice daily, Mucinex 1200 mg twice daily, Solu-Medrol decreased to 40 mg every 8 hours. 3. Pleural effusion. no plan for intervention. 4. Acute hyponatremia. Status post IV Lasix. Continue to monitor closely. 0.9 normal saline at 75 mL per hour.Sodium chloride tablets ordered by nephrology.repeat sodium this afternoon. 5. COPD with exacerbation. Continue DuoNeb treatments 4 times daily. 6. Accelerated hypertension. Currently on Norvasc, atenolol, lisinopril. 7. New onset atrial fibrillation with history of coronary artery disease. Continue Lovenox for now with plan for eliquis. Cardiology consult is appreciated. Patient started on atenolol and lisinopril. Echocardiogram as above. 8. Benign prostatic hypertrophy. 9. GERD. Continue Protonix 10. DVT prophylaxis. Heparin subcu. 11. hiatal hernia. no plan for intervention. Discharge plan: Home with homecare. Walker ordered Impression and plan of care have been directed as dictated by the signing physician. Shanice Lawton nurse practitioner acting as scribe for signing physician. Time with Patient: Greater than 30
[2016-09-04] MEDS: methylPREDNISolone SOD SUCCI 40 MG/ML 1 ML VIAL IV SCH (15:54)
[2016-09-04] MEDS: TAMSULOSIN 0.4 MG CAP.ER.24H PO SCH (17:31)
[2016-09-04] MEDS: LEVOFLOXACIN 750MG-D5W PMX 750 MG in DEXTROSE/WATER 1 150ML.BAG IVPB SCH (19:03)
[2016-09-05] MEDS: methylPREDNISolone SOD SUCCI 40 MG/ML 1 ML VIAL IV SCH ×4 (00:32→23:03)
[2016-09-05] MEDS: HYDROcodone/APAP 7.5-325MG 1 EACH TAB PO PRN ×3 (00:38→20:21)
[2016-09-05] MEDS: SODIUM CHLORIDE 0.9% 1,000 ML IV SCH ×2 (02:00→16:42)
[2016-09-05 08:26] LABS: Anion Gap 8 mmol/L; Blood Urea Nitrogen 21 mg/dL (9-20); Calcium 8.8 mg/dL (8.4-10.2); Carbon Dioxide 28 mmol/L (22-30); Chloride 96 mmol/L (98-107); Glucose 147 mg/dL (74-99); Non-African American GFR(MDRD) >60 (>60 ml/min/1.73 sqM); Potassium 4.1 mmol/L (3.5-5.1); Sodium 132 mmol/L (137-145)
--- NOTE | 2016-09-05 08:45 | P.PN ---
Subjective [id number] male seen in consultation because of acute hyponatremia. Initially it was assumed to be from volume depletion but with IV fluids because it did not change much a suspicion of SIADH was entertained. With the results of the urine osmolality and serum it's clear that this is fluid depletion. He is responding to IV fluids now sodium has come up. He continues to have shortness of breath though. He is known with COPD. Appetite is poor He does additionally have a large hiatal hernia. No nausea vomiting no abdominal pain no diarrhea he had diarrhea that has resolved. He says he is being restricted from walking though he feels he can walk. Objective - Vital Signs Vital signs: Vital Signs Temp 97.4 F L 09/04/16 23:00 Pulse 88 09/04/16 23:00 Resp 20 09/04/16 23:00 BP 129/84 09/04/16 23:00 Pulse Ox 93 L 09/04/16 23:00 Intake & Output 09/04/16 09/05/16 09/05/16 18:59 06:59 18:59 Intake Total 300 Output Total 350 300 Balance -350 0 Intake: Oral 300 Output: Urine 350 300 Other: Voiding Method Toilet Toilet Urinal Urinal # Voids 2 On examination is awake alert oriented comfortable. HEENT exam no JVP neck is supple no facial asymmetry. Lungs are significant for bilateral prolonged expiratory phase with occasional wheezing good air entry bilaterally no dullness to percussion Heart sounds are unremarkable for any murmur rub gallop Abdomen soft nontender. No masses organomegaly ascites Extremity exam was no edema Neurologically awake alert oriented No focal motor deficit - Labs CBC & Chem 7: 09/04/16 09:11 09/05/16 07:36 Labs: Abnormal Lab Results - Last 24 Hours (Table) 09/04/16 09/04/16 09/04/16 Range/Units 09:11 09:11 16:43 WBC 12.8 H (3.8-10.6) k/uL RBC 4.21 L (4.30-5.90) m/uL Hct 38.4 L (39.0-53.0) % Sodium 129 L 131 L (137-145) mmol/L Chloride 93 L (98-107) mmol/L BUN 26 H (9-20) mg/dL Glucose 180 H (74-99) mg/dL 09/05/16 Range/Units 07:36 WBC (3.8-10.6) k/uL RBC (4.30-5.90) m/uL Hct (39.0-53.0) % Sodium 132 L (137-145) mmol/L Chloride 96 L (98-107) mmol/L BUN 21 H (9-20) mg/dL Glucose 147 H (74-99) mg/dL Microbiology - Last 24 Hours (Table) 09/04/16 07:50 Gram Stain - Preliminary Sputum Assessment and Plan Plan: Impression. 1. Hyponatremia secondary to volume depletion serum sodium improving with IV fluids. Urine osmolality is in the 600-700 range and urine sodium is less than 5. Sodium this morning is 132. #2. COPD with wheezing and prolonged expiratory phase. 3. History of BPH. 4. Hypertension controlled now. 5. Atrial fibrillation Recommendation. Maintain IV fluids for another 24 hours. Check orthostatic changes. From a nephrological perspective he could be discharged tomorrow
[2016-09-05] MEDS: IPRATROPIUM-ALBUTEROL 3 ML NEB INHALATION SCH ×4 (09:44→19:04)
[2016-09-05] MEDS: BUDESONIDE 0.5 MG/2 ML NEBU INHALATION SCH ×2 (09:45→19:04)
[2016-09-05] MEDS: guaiFENesin 600 MG TABLET.ER PO SCH ×2 (10:42→20:18)
[2016-09-05] MEDS: ENOXAPARIN 40 MG/0.4 ML SYRINGE SQ SCH ×2 (10:42→20:18)
[2016-09-05] MEDS: amLODIPine 5 MG TAB PO SCH (10:45)
[2016-09-05] MEDS: LISINOPRIL 5 MG TAB PO SCH (10:45)
[2016-09-05] MEDS: PANTOPRAZOLE 40 MG TABLET PO SCH (10:45)
[2016-09-05] MEDS: SODIUM CHLORIDE TAB 1 GM TAB PO SCH (10:45)
[2016-09-05] MEDS: ATENOLOL 50 MG TAB PO SCH (10:45)
--- NOTE | 2016-09-05 16:11 | CT ---
EXAMINATION TYPE: CT chest wo con DATE OF EXAM: 09/05/2016 2:38 PM COMPARISON: 01/06/2013 HISTORY: 81-year-old male complains of difficulty breathing. Prior asbestos exposure. TECHNIQUE: Contiguous axial scanning of the chest without IV contrast. Coronal and sagittal reconstru ctions performed. CT DLP: 331.3 mGycm Automated exposure control for dose reduction was used. FINDINGS: Median sternotomy wires are present with post-CABG changes. Heart is normal size without pericardial effusion. Ascending aorta is overlying ectatic at 3.5 cm. There is mild atherosclerotic arch calcification with conventional arch vessel branching anatomy. Enlarged caliber to the main right and left pulmonary arteries and 2.9 and 3.1 cm, respectively, sugg esting underlying pulmonary arterial hypertension. Scattered nonenlarged mediastinal lymph nodes are present measuring up to 8 mm. No thoracic lymphaden opathy by CT size criteria. Redemonstrated large hiatal hernia, increased in size from 2012 now also including transverse colon h erniating through. No obstructive changes are seen. There is moderate centrilobular emphysema with strandy areas of scarring throughout the lungs. Mild d iffuse bronchial wall thickening. Redemonstrated focal posterior right basilar opacity, new from 01/06/2013. Pleural-based thickening along the posterior left mid to lower lung is unchanged from 2012 but there is new focal subpleural opacity measuring up to 4.1 cm with some air bronchograms. There is some swir ling vessel and bronchi appearance extending from this region to the left hilum raising possibility o f rounded atelectasis. The abdomen was recently reported on a dedicated exam. Bones: Endplate spondylosis with associated advanced disc/endplate degenerative change lower thoracic spine. Degenerative changes at the glenohumeral joints. No osseous destructive process. IMPRESSION: 1. REDEMONSTRATED VERY LARGE HIATAL HERNIA, INCREASED IN SIZE FROM 01/06/2013 WITH ORGANOAXIAL POSITIO OLIVIER OF THE STOMACH. THERE IS NO OBSTRUCTIVE CHANGES TO HELP SUPPORT GASTRIC AND ALIGNMENT MENTION ED PREVIOUSLY ON CT ABDOMEN, THE TRANSVERSE COLON NOW ALSO NOW HERNIATES THROUGH. 2. COPD WITH MODERATELY ADVANCED EMPHYSEMA AND PULMONARY ARTERIAL HYPERTENSION. 3. CONFLUENT OPACITY POSTERIOR RIGHT BASE IS NEW FROM 2012 IS FOCAL 4.1 CM SUBPLEURAL OPACITY AT T HE POSTERIOR LEFT BASE. CORRELATE FOR ANY SYMPTOMS OF PNEUMONIA. RECOMMEND THREE-MONTH FOLLOW-UP CT C HEST AFTER TREATMENT TO REASSESS. UNDERLYING MASS OR DEVELOPING ROUNDED ATELECTASIS ARE POSSIBILITIES WHICH CAN BE EXCLUDED ON FOLLOW-UP.
--- NOTE | 2016-09-05 16:21 | PN ---
DATE OF SERVICE: 09/05/2016 He continues to have shortness of breath, seems to be doing somewhat better overall. On physical examination, his respiratory rate is 20, pulse rate of 97, blood pressure 139/83, O2 sat is 90% on 3 L by nasal cannula. HEENT reveals pupils are equal. Chest reveals bilateral wheeze. Cardiovascular system reveals S1 and S2. Abdomen is soft. There is no edema. 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 Labs revealed a sodium 132, potassium 4.1, chloride 96, bicarb 28, BUN 21, creatinine 0.68. IMPRESSION AT THIS TIME: 1. Influenza A. 2. History of asbestos and ( ) exposure with hyponatremia for which we shall check a CT scan to make sure we are not dealing with ( ) lung cancer. 3. Medical debility. 4. Bronchospasm. Continue IV steroids, aerosolized steroids, GI and DVT prophylaxis. Levaquin is on for possible secondary bacterial infection; however, this may be primarily viral. We will follow the patient closely during his hospital stay.
[2016-09-05] MEDS: TAMSULOSIN 0.4 MG CAP.ER.24H PO SCH (16:43)
[2016-09-05] MEDS: LEVOFLOXACIN 750 MG TAB PO SCH (16:43)
--- NOTE | 2016-09-05 20:10 | P.PN ---
Subjective This is 81 years old male who was evaluated at Dr. Wiggins office on Wednesday 5 days ago where he was started on appropriate treatment for COPD exacerbation, on Wednesday I received call as I was covering Dr. Wiggins for the weekend where the patient's reported worsening in his cough, weakness and lethargy and requested me to start patients on antibiotics as he was getting worse and refusing completely to come to the emergency department, after I discussed with the patient's the risks from taking 81 years old gentleman at home with possible pneumonia and COPD exacerbation I prescribe antibiotics to the [facility] pharmacy and picked up the medication on that night. The following day called me again reported worsening in his mental status where he became confused and lethargic and asked her to call 911 immediately when patient was brought to the emergency department confused not following command and his chest x-ray showed bilateral lower lobes pneumonia with pleural effusion and low-grade temperature. The white blood count was normal and patient was admitted for bilateral pneumonia and altered mental status with acute hyponatremia 09/01: Patient had worsening confusion yesterday for which a consult was requested with neurology. CAT scan of the brain showed no acute findings but only age-related atrophy. EEG is pending. His mental status is slightly improved this morning. C. difficile toxin was negative. Urine output has been adequate. Patient also went into atrial fibrillation this morning for which a cardiology consult was requested. They have ordered echocardiogram, TSH and free T4. Labetalol was discontinued and patient was resumed on atenolol with increased dose and PAYTON inhibitor was added with plan for anticoagulation. Patient currently on Lovenox. He remains and isolation and on Tamiflu. Patient is noted to have left upper quadrant and left lower quadrant tenderness for which a CAT scan of the abdomen has been ordered. Repeat chest x-ray shows possible left lower lobe pneumonia versus atelectasis and associated effusion. Difficult to exclude lung mass. 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 Some of transverse colon also herniates through. Prominent fluid-filled small bowel loops with no discrete transition point. Findings could reflect enteritis or ileus. Changes in the sigmoid May be due to peristalsis and over distention. Moderate pelvic free fluid. Focal subpleural opacity in the posterior right base. Differential includes pneumonia , mass, rounded atelectasis. Surgical consult with Dr. 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 He is currently on a soft diet will be continued. Insure added. He has not had any difficulty swallowing or choking. Patient did have a bowel movement last evening. Sodium 129 and chloride 96. EEG is considered within normal limits. His respiratory status and mental status are improving. Patient will be transferred to the [facility] floor. 09/03: Repeat chest x-ray shows improving left basilar infiltrate and/or atelectasis. No new suspicious focal infiltrates seen. Nephrology has started sodium chloride tablets for hyponatremia. Patient has been seen by Dr. Hinojosa regarding abnormal findings on CAT scan. Would ask Dr. Paredes to evaluate for consideration of elective repair. 09/04: Patient denies feeling achy. He states his breathing is okay. Sodium is at 129 and chloride 93. Serum osmolality 707, urine random sodium less than 5.Dr. Castillo has ordered 0.9 normal saline at 50 mL/h and sodium chloride. repeat sodium later today. Patient has been evaluated by Dr. Paredes with no plan for any surgical intervention.pulmonary medicine has added and Solu-Medrol 60 mg every 6 hours which will be decreased to 40 every 8 hours. Pulmicort also added.anticipate discharge home Wednesday. 09/05: Patient continues to improve, was anticipating his discharge the family is sick with influenza A and is not ready to accept the patient at home, they would prefer him to stay another day until planned discharge on Wednesday Objective - Vital Signs Vital signs: Vital Signs Temp 99.0 F 09/05/16 15:00 Pulse 96 09/05/16 19:26 Resp 19 09/05/16 15:00 BP 124/73 09/05/16 15:00 Pulse Ox 91 L 09/05/16 15:00 Intake & Output 09/05/16 09/05/16 09/06/16 06:59 18:59 06:59 Intake Total 300 Output Total 300 Balance 0 Intake: Oral 300 Output: Urine 300 Other: Voiding Method Toilet Toilet Urinal Urinal # Voids 2 2 - Constitutional General appearance: Present: average body habitus, no acute distress - EENT Eyes: Present: anicteric sclerae, PERRLA, dentition normal, normal appearance ENT: Present: hearing grossly normal, NA/AT, normal oropharynx - Neck Neck: Present: normal ROM. Absent: lymphadenopathy, other, rigidity, stridor, thyromegaly - Respiratory Respiratory: bilateral: CTA, diminished, negative: dullness, rales, rhonchi, wheezing - Cardiovascular Rhythm: regular Heart sounds: normal: S1, S2 Abnormal Heart Sounds: Absent: systolic murmur, diastolic murmur, rub, S3 Gallop , S4 Gallop, click, other - Gastrointestinal General gastrointestinal: Present: soft - Integumentary Integumentary: Present: decreased turgor, normal - Neurologic Neurologic: Present: CNII-XII intact - Musculoskeletal Musculoskeletal: Present: gait normal, generalized weakness, strength equal bilaterally - Psychiatric Psychiatric: Present: A&O x's 3, intact judgment & insight - Labs CBC & Chem 7: 09/04/16 09:11 09/05/16 07:36 Labs: Abnormal Lab Results - Last 24 Hours (Table) 09/05/16 Range/Units 07:36 Sodium 132 L (137-145) mmol/L Chloride 96 L (98-107) mmol/L BUN 21 H (9-20) mg/dL Glucose 147 H (74-99) mg/dL Microbiology - Last 24 Hours (Table) 09/04/16 07:50 Gram Stain - Preliminary Sputum Sputum Culture - Preliminary Laboratory Results WBC 12.8 k/uL (3.8-10.6) H 09/04/16 09:11 RBC 4.21 m/uL (4.30-5.90) L 09/04/16 09:11 Hgb 13.2 gm/dL (13.0-17.5) 09/04/16 09:11 Hct 38.4 % (39.0-53.0) L 09/04/16 09:11 MCV 91.4 fL (80.0-100.0) 09/04/16 09:11 MCH 31.3 pg (25.0-35.0) 09/04/16 09:11 MCHC 34.2 g/dL (31.0-37.0) 09/04/16 09:11 RDW 13.0 % (11.5-15.5) 09/04/16 09:11 Plt Count 214 k/uL (150-450) 09/04/16 09:11 Neutrophils % 83 % 09/01/16 06:23 Lymphocytes % 7 % 09/01/16 06:23 Monocytes % 8 % 09/01/16 06:23 Eosinophils % 0 % 09/01/16 06:23 Basophils % 1 % 09/01/16 06:23 Neutrophils # 4.9 k/uL (1.3-7.7) 09/01/16 06:23 Lymphocytes # 0.4 k/uL (1.0-4.8) L 09/01/16 06:23 Monocytes # 0.5 k/uL (0-1.0) 09/01/16 06:23 Eosinophils # 0.0 k/uL (0-0.7) 09/01/16 06:23 Basophils # 0.1 k/uL (0-0.2) 09/01/16 06:23 PT 11.5 sec (9.0-12.0) 08/30/16 16:00 INR 1.2 (<1.1) 08/30/16 16:00 APTT 27.9 sec (22.0-30.0) 08/30/16 16:00 Sample Site lrad 08/31/16 12:46 ABG pH 7.54 (7.35-7.45) H 08/31/16 12:46 ABG pCO2 26 mmHg (35-45) L 08/31/16 12:46 ABG pO2 77 mmHg (83-108) L 08/31/16 12:46 ABG HCO3 23 mmol/L (21-25) 08/31/16 12:46 ABG Total CO2 24 mmol/L (19-24) 08/31/16 12:46 ABG O2 Saturation 97.0 % (94-97) 08/31/16 12:46 ABG Base Excess 0.3 mmol/L 08/31/16 12:46 FiO2 40 % 08/31/16 12:46 Sodium 132 mmol/L (137-145) L 09/05/16 07:36 Potassium 4.1 mmol/L (3.5-5.1) 09/05/16 07:36 Chloride 96 mmol/L (98-107) L 09/05/16 07:36 Carbon Dioxide 28 mmol/L (22-30) 09/05/16 07:36 Anion Gap 8 mmol/L 09/05/16 07:36 BUN 21 mg/dL (9-20) H 09/05/16 07:36 Creatinine 0.68 mg/dL (0.66-1.25) 09/05/16 07:36 Est GFR (MDRD) Af Amer >60 (>60 ml/min/1.73 sqM) 09/05/16 07:36 Est GFR (MDRD) Non-Af >60 (>60 ml/min/1.73 sqM) 09/05/16 07:36 Glucose 147 mg/dL (74-99) H 09/05/16 07:36 POC Glucose (mg/dL) 124 mg/dL (75-99) H 08/31/16 01:35 POC Glu Splitter Hand ID Marzena Avila 08/31/16 01:35 Plasma Lactic Acid Lee 0.9 mmol/L (0.7-2.0) 08/31/16 05:58 Calcium 8.8 mg/dL (8.4-10.2) 09/05/16 07:36 Phosphorus 2.4 mg/dL (2.5-4.5) L 08/30/16 16:00 Magnesium 1.9 mg/dL (1.6-2.3) 08/31/16 05:58 Total Bilirubin 1.2 mg/dL (0.2-1.3) 09/01/16 06:23 AST 63 U/L (17-59) H 09/01/16 06:23 ALT 46 U/L (21-72) 09/01/16 06:23 Alkaline Phosphatase 62 U/L (38-126) 09/01/16 06:23 Ammonia <9 umol/L (<30) 08/31/16 05:58 Total Creatine Kinase 606 U/L (55-170) H 08/30/16 16:00 CK-MB (CK-2) 5.5 ng/mL (0.0-2.4) H* 08/30/16 16:00 CK-MB (CK-2) Rel Index 0.9 08/30/16 16:00 Troponin I 0.018 ng/mL (0.000-0.034) 08/30/16 16:00 NT-Pro-B Natriuret Pep 1640 pg/mL 08/30/16 16:00 Total Protein 6.1 g/dL (6.3-8.2) L 09/01/16 06:23 Albumin 3.6 g/dL (3.5-5.0) 09/01/16 06:23 TSH 1.520 mIU/L (0.465-4.680) 09/01/16 06:23 Free T4 0.89 ng/dL (0.78-2.19) 09/01/16 06:23 Urine Color Yellow 08/30/16 21:26 Urine Appearance Clear (Clear) 08/30/16 21:26 Urine pH 7.5 (5.0-8.0) 08/30/16 21:26 Ur Specific [place] 1.010 (1.001-1.035) 08/30/16 21:26 Urine Protein Negative (Negative) 08/30/16 21:26 Urine Glucose (UA) Negative (Negative) 08/30/16 21:26 Urine Ketones 1+ (Negative) H 08/30/16 21:26 Urine Blood Trace (Negative) H 08/30/16 21:26 Urine Nitrate Negative (Negative) 08/30/16 21:26 Urine Bilirubin Negative (Negative) 08/30/16 21:26 Urine Urobilinogen <2.0 mg/dL (<2.0) 08/30/16 21:26 Ur Leukocyte Esterase Negative (Negative) 08/30/16 21:26 Urine RBC 12 /hpf (0-5) H 08/30/16 21:26 Urine WBC <1 /hpf (0-5) 08/30/16 21:26 Urine Mucus Rare /hpf (None) H 08/30/16 21:26 Urine Osmolality 707 mosm/kg (50-1400) 09/03/16 22:25 Ur Random Sodium <5 mmol/L (30-90) L 09/03/16 22:25 Ur Random Potassium 55.3 mmol/L 08/31/16 20:36 C. difficile (EIA) Intrp Negative (Negative) 09/01/16 05:44 Influenza Type A RNA Detected (Not Detectd) A 08/30/16 18:40 Influenza Type B (PCR) Not Detected (Not Detectd) 08/30/16 18:40 Microbiology 08/30/16 16:00 Blood Blood Culture - Final No Growth after 144 hours 09/04/16 07:50 Sputum Gram Stain - Preliminary 09/04/16 07:50 Sputum Sputum Culture - Preliminary 08/31/16 20:36 Urine,Catheterized Urine Culture - Final 08/30/16 21:26 Urine,Voided Urine Culture - Final Assessment and Plan Plan: 1. Metabolic encephalopathy secondary to infectious process, hyponatremia and acute influenza A infection. CAT scan showed no acute findings. Consult with neurology is appreciated. 2. Bilateral pneumonia viral versus bacterial. Continue Tamiflu and Levaquin, DuoNeb treatments 4 times daily, Pulmicort 0.5 mg twice daily, Mucinex 1200 mg twice daily, Solu-Medrol decreased to 40 mg every 8 hours. 3. Pleural effusion. no plan for intervention. 4. Acute hyponatremia. Status post IV Lasix. Continue to monitor closely. 0.9 normal saline at 75 mL per hour.Sodium chloride tablets ordered by nephrology.repeat sodium this afternoon. 5. Moderately advanced COPD with exacerbation. Continue DuoNeb treatments 4 times daily. 6. Accelerated hypertension. Currently on Norvasc, atenolol, lisinopril. 7. New onset atrial fibrillation with history of coronary artery disease. Continue Lovenox for now with plan for eliquis. Cardiology consult is appreciated. Patient started on atenolol and lisinopril. Echocardiogram as above. 8. Benign prostatic hypertrophy. 9. GERD. Continue Protonix 10. DVT prophylaxis. Heparin subcu. 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 no plan for intervention as the patient remains asymptomatic. 12. Pulmonary arterial hypertension 13. Confluent opacity right posterior lung base 4.1 cm recommended follow-up [address] after treatment, continue Levaquin antibiotics for pneumonia sputum culture collected 09/04/2016 Discharge plan: Home with homecare. Walker ordered
[2016-09-06] MEDS: SODIUM CHLORIDE 0.9% 1,000 ML IV SCH (04:16)
[2016-09-06] MEDS: ATENOLOL 50 MG TAB PO SCH (08:06)
[2016-09-06] MEDS: guaiFENesin 600 MG TABLET.ER PO SCH ×2 (08:06→21:34)
[2016-09-06] MEDS: methylPREDNISolone SOD SUCCI 40 MG/ML 1 ML VIAL IV SCH (08:06)
[2016-09-06] MEDS: amLODIPine 5 MG TAB PO SCH (08:06)
[2016-09-06] MEDS: SODIUM CHLORIDE TAB 1 GM TAB PO SCH (08:06)
[2016-09-06] MEDS: LISINOPRIL 5 MG TAB PO SCH (08:06)
[2016-09-06] MEDS: ENOXAPARIN 40 MG/0.4 ML SYRINGE SQ SCH ×2 (08:06→21:35)
[2016-09-06] MEDS: PANTOPRAZOLE 40 MG TABLET PO SCH (08:06)
[2016-09-06] MEDS: IPRATROPIUM-ALBUTEROL 3 ML NEB INHALATION SCH ×4 (08:41→20:36)
[2016-09-06] MEDS: BUDESONIDE 0.5 MG/2 ML NEBU INHALATION SCH ×2 (08:41→20:36)
[2016-09-06] MEDS: HYDROcodone/APAP 7.5-325MG 1 EACH TAB PO PRN ×2 (11:09→21:35)
--- NOTE | 2016-09-06 12:09 | P.PN ---
Subjective [id number] male seen in consultation because of acute hyponatremia. Initially it was assumed to be from volume depletion but with IV fluids because it did not change much a suspicion of SIADH was entertained. With the results of the urine osmolality and serum it's clear that this is fluid depletion. He is responding to IV fluids now sodium has come up. He is not eating much because of lack of appetite which is somewhat unexplained. No nausea vomiting no headache fever chills shortness of breath. He continues to have shortness of breath though. He is known with COPD, he has mild cough.. He denies any dizziness is able to walk. He does additionally have a large hiatal hernia. No nausea vomiting no abdominal pain no diarrhea he had diarrhea that has resolved. Objective - Vital Signs Vital signs: Vital Signs Temp 97.8 F 09/06/16 07:00 Pulse 92 09/06/16 09:04 Resp 18 09/06/16 07:00 BP 127/82 09/06/16 07:00 Pulse Ox 92 L 09/06/16 07:00 Intake & Output 09/05/16 09/06/16 09/06/16 18:59 06:59 18:59 Intake Total 300 Balance 300 Intake: Oral 300 Other: Voiding Method Toilet Toilet Urinal Urinal # Voids 2 1 # Bowel Movements 1 On examination is awake alert oriented comfortable HEENT exam reveals no JVP lymphadenopathy thyromegaly no facial asymmetry Lungs are clear to auscultation percussion good air entry bilaterally, there may be an occasional coarse crackle Heart sounds are unremarkable for any murmur rub gallop Abdomen soft nontender Extremity examination reveals no edema Warm to touch. Neurologically awake alert oriented He has some difficulty in extending his right shoulder. This is from restricted range of motion in the joint - Labs CBC & Chem 7: 09/04/16 09:11 09/05/16 07:36 Labs: Microbiology - Last 24 Hours (Table) 09/04/16 07:50 Gram Stain - Final Sputum Sputum Culture - Final Martita albicans Assessment and Plan Plan: Impression. 1. Hyponatremia secondary to volume depletion serum sodium improving with IV fluids. Urine osmolality is in the 600-700 range and urine sodium is less than 5. Sodium is 132 yesterday 09/04/2016 today's labs are pending. 2. COPD with wheezing and prolonged expiratory phase. Improved today with an occasional coarse crackle 3. History of BPH. 4. Hypertension controlled now. 5. Atrial fibrillation Recommendation. DC IV fluids and watch sodium and blood pressures
[2016-09-06] MEDS ORDERED: predniSONE 20 MG TAB PO STA (12:13)
[2016-09-06] MEDS ORDERED: SODIUM CHLORIDE 0.9% 1,000 ML IV SCH (12:15)
--- NOTE | 2016-09-06 13:37 | PN ---
DATE OF SERVICE: 09/06/2016. He seems to be doing slightly better overall. On physical examination, blood pressure 127/82, respiratory rate 18, pulse rate 97, temperature 97.8 degrees Fahrenheit. O2 sat on 3 liters by nasal cannula is 92%. HEENT is unremarkable. Chest reveals expiratory wheeze. Cardiovascular system reveals an S1, S2. ABDOMEN: Soft. There is no pedal edema. CT scan of the chest was personally reviewed by me, which showed evidence of opacity in the left lower lobe which is consistent with early rounded atelectasis versus cancer with another opacity seen in the right lower zone, etiology which is unclear, but may be due to ( ) due to atelectasis. The patient does have a history of prior asbestos exposure. White count is 12.8, hemoglobin 13.2. Sodium is 132, potassium 4.1, chloride 96, bicarb 28, BUN 21, creatinine 0.68. IMPRESSION: 1. Influenza. 2. Hyponatremia in part due to volume depletion but cannot rule out carcinoma. 3. Chronic obstructive pulmonary disease with asthma with acute exacerbation. 4. Asbestos exposure. At this point in time, continue current medications, which were reviewed. May start to, taper steroids tomorrow if he is doing better. Would set him up for an outpatient PET scan to make sure we are not dealing with carcinoma in the lower zones.
--- NOTE | 2016-09-06 15:17 | P.PN ---
Subjective This is 81 years old male who was evaluated at Dr. Wiggins office on Wednesday 5 days ago where he was started on appropriate treatment for COPD exacerbation, on Wednesday I received call as I was covering Dr. Wiggins for the weekend where the patient's reported worsening in his cough, weakness and lethargy and requested me to start patients on antibiotics as he was getting worse and refusing completely to come to the emergency department, after I discussed with the patient's the risks from taking 81 years old gentleman at home with possible pneumonia and COPD exacerbation I prescribe antibiotics to the [facility] pharmacy and picked up the medication on that night. The following day called me again reported worsening in his mental status where he became confused and lethargic and asked her to call 911 immediately when patient was brought to the emergency department confused not following command and his chest x-ray showed bilateral lower lobes pneumonia with pleural effusion and low-grade temperature. The white blood count was normal and patient was admitted for bilateral pneumonia and altered mental status with acute hyponatremia 09/01: Patient had worsening confusion yesterday for which a consult was requested with neurology. CAT scan of the brain showed no acute findings but only age-related atrophy. EEG is pending. His mental status is slightly improved this morning. C. difficile toxin was negative. Urine output has been adequate. Patient also went into atrial fibrillation this morning for which a cardiology consult was requested. They have ordered echocardiogram, TSH and free T4. Labetalol was discontinued and patient was resumed on atenolol with increased dose and PAYTON inhibitor was added with plan for anticoagulation. Patient currently on Lovenox. He remains and isolation and on Tamiflu. Patient is noted to have left upper quadrant and left lower quadrant tenderness for which a CAT scan of the abdomen has been ordered. Repeat chest x-ray shows possible left lower lobe pneumonia versus atelectasis and associated effusion. Difficult to exclude lung mass. 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 Some of transverse colon also herniates through. Prominent fluid-filled small bowel loops with no discrete transition point. Findings could reflect enteritis or ileus. Changes in the sigmoid May be due to peristalsis and over distention. Moderate pelvic free fluid. Focal subpleural opacity in the posterior right base. Differential includes pneumonia , mass, rounded atelectasis. Surgical consult with Dr. 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 He is currently on a soft diet will be continued. Insure added. He has not had any difficulty swallowing or choking. Patient did have a bowel movement last evening. Sodium 129 and chloride 96. EEG is considered within normal limits. His respiratory status and mental status are improving. Patient will be transferred to the [facility] floor. 09/03: Repeat chest x-ray shows improving left basilar infiltrate and/or atelectasis. No new suspicious focal infiltrates seen. Nephrology has started sodium chloride tablets for hyponatremia. Patient has been seen by Dr. Hinojosa regarding abnormal findings on CAT scan. Would ask Dr. Paredes to evaluate for consideration of elective repair. 09/04: Patient denies feeling achy. He states his breathing is okay. Sodium is at 129 and chloride 93. Serum osmolality 707, urine random sodium less than 5.Dr. Castillo has ordered 0.9 normal saline at 50 mL/h and sodium chloride. repeat sodium later today. Patient has been evaluated by Dr. Paredes with no plan for any surgical intervention.pulmonary medicine has added and Solu-Medrol 60 mg every 6 hours which will be decreased to 40 every 8 hours. Pulmicort also added.anticipate discharge home Wednesday. 09/05: Patient continues to improve, was anticipating his discharge the family is sick with influenza A and is not ready to accept the patient at home, they would prefer him to stay another day until planned discharge on Wednesday Objective - Vital Signs Vital signs: Vital Signs Temp 97.8 F 09/06/16 07:00 Pulse 96 09/06/16 12:25 Resp 18 09/06/16 07:00 BP 127/82 09/06/16 07:00 Pulse Ox 92 L 09/06/16 07:00 Intake & Output 09/05/16 09/06/16 09/06/16 18:59 06:59 18:59 Intake Total 300 Balance 300 Intake: Oral 300 Other: Voiding Method Toilet Toilet Urinal Urinal # Voids 2 1 # Bowel Movements 1 - Constitutional General appearance: Present: average body habitus, cooperative, no acute distress - EENT Eyes: Present: anicteric sclerae, PERRLA, dentition normal, normal appearance ENT: Present: hearing grossly normal, NA/AT, normal oropharynx - Neck Neck: Present: normal ROM - Respiratory Respiratory: bilateral: CTA, diminished, negative: dullness, rales, rhonchi - Cardiovascular Rhythm: regular Heart sounds: normal: S1, S2 - Gastrointestinal General gastrointestinal: Present: normal bowel sounds, soft - Integumentary Integumentary: Present: normal, normal turgor - Neurologic Neurologic: Present: CNII-XII intact - Musculoskeletal Musculoskeletal: Present: gait normal, strength equal bilaterally - Psychiatric Psychiatric: Present: A&O x's 3, appropriate affect, intact judgment & insight - Labs CBC & Chem 7: 09/04/16 09:11 09/05/16 07:36 Labs: Microbiology - Last 24 Hours (Table) 09/04/16 07:50 Gram Stain - Final Sputum Sputum Culture - Final Martita albicans Assessment and Plan Plan: 1. Metabolic encephalopathy secondary to infectious process, hyponatremia and acute influenza A infection. CAT scan showed no acute findings. Consult with neurology is appreciated. 2. Bilateral pneumonia viral versus bacterial. Continue Tamiflu and Levaquin, DuoNeb treatments 4 times daily, Pulmicort 0.5 mg twice daily, Mucinex 1200 mg twice daily, oral prednisone started at 60 mg daily 3. Pleural effusion. no plan for intervention. 4. Acute hyponatremia secondary to lack of poor intake. Status post IV Lasix. Continue to monitor closely. 0.9 normal saline at 75 mL per hour completed.Sodium chloride tablets ordered by nephrology. 5. Moderately advanced COPD with exacerbation. Continue DuoNeb treatments 4 times daily. 6. Accelerated hypertension. Currently on Norvasc, atenolol, lisinopril. 7. New onset atrial fibrillation with history of coronary artery disease. Continue Lovenox for now with plan for eliquis. Cardiology consult is appreciated. Patient started on atenolol and lisinopril. Echocardiogram as above. 8. Benign prostatic hypertrophy. 9. GERD. Continue Protonix 10. DVT prophylaxis. Heparin subcu. 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 no plan for intervention as the patient remains asymptomatic. 12. Pulmonary arterial hypertension 13. Confluent opacity right posterior lung base 4.1 cm recommended follow-up [address] after treatment, continue Levaquin antibiotics for pneumonia sputum culture collected 09/04/2016 Discharge plan: Home with homecare. Walker ordered discharch am
[2016-09-06] MEDS: LEVOFLOXACIN 750 MG TAB PO SCH (17:25)
[2016-09-06] MEDS: TAMSULOSIN 0.4 MG CAP.ER.24H PO SCH (17:26)
[2016-09-06] MEDS: BENZOCAINE/MENTHOL LOZENG 1 EACH LOZENGE MUCOUS MEM PRN (22:54)
[2016-09-07] MEDS: HYDROcodone/APAP 7.5-325MG 1 EACH TAB PO PRN ×2 (05:29→14:05)
[2016-09-07] MEDS: BENZOCAINE/MENTHOL LOZENG 1 EACH LOZENGE MUCOUS MEM PRN (05:30)
[2016-09-07 07:27] VITALS: BP 156/84; RESP 16; TEMP 97.6
[2016-09-07] MEDS: IPRATROPIUM-ALBUTEROL 3 ML NEB INHALATION SCH ×3 (08:06→16:02)
[2016-09-07] MEDS: BUDESONIDE 0.5 MG/2 ML NEBU INHALATION SCH (08:06)
[2016-09-07] MEDS: SODIUM CHLORIDE TAB 1 GM TAB PO SCH (08:30)
[2016-09-07] MEDS: amLODIPine 5 MG TAB PO SCH (08:31)
[2016-09-07] MEDS: ENOXAPARIN 40 MG/0.4 ML SYRINGE SQ SCH (08:31)
[2016-09-07] MEDS: PANTOPRAZOLE 40 MG TABLET PO SCH (08:31)
[2016-09-07] MEDS: ATENOLOL 50 MG TAB PO SCH (08:31)
[2016-09-07] MEDS: guaiFENesin 600 MG TABLET.ER PO SCH (08:31)
[2016-09-07] MEDS: LISINOPRIL 5 MG TAB PO SCH (08:31)
[2016-09-07] MEDS ORDERED: predniSONE 20 MG TAB PO SCH (09:00)
--- NOTE | 2016-09-07 11:26 | P.PN ---
Subjective Patient is seen in follow-up for hyponatremia which was hypovolemic in nature and improved with IV hydration. Sodium level is 132 as of September 05. His appetite is still poor however he is drinking Ensure protein shakes. Denies any vomiting or diarrhea. Denies chest pain or shortness of breath. Vital signs are stable. General: The patient appeared well nourished and normally developed. HEENT: Head exam is unremarkable. Neck is without jugular venous distension. LUNGS: Lungs are clear to auscultation and percussion. Breath sounds decreased. HEART: Rate and Rhythm are regular. First and second heart sounds normal. No murmurs, rubs or gallops. ABDOMEN: Abdominal exam reveals normal bowel sounds. Non-tender and non- distended. No evidence of peritonitis. EXTREMITITES: No clubbing, cyanosis, or edema. Objective - Vital Signs Vital signs: Vital Signs Temp 97.6 F 09/07/16 07:00 Pulse 92 09/07/16 08:20 Resp 16 09/07/16 07:00 BP 156/84 09/07/16 07:00 Pulse Ox 94 L 09/07/16 07:00 Intake & Output 09/06/16 09/07/16 09/07/16 18:59 06:59 18:59 Intake Total 100 Output Total 300 Balance 100 -300 Intake: Oral 100 Output: Urine 300 Other: # Voids 3 3 # Bowel Movements 0 - Labs CBC & Chem 7: 09/04/16 09:11 09/05/16 07:36 Labs: Microbiology - Last 24 Hours (Table) 09/04/16 07:50 Gram Stain - Final Sputum Sputum Culture - Final Martita albicans Assessment and Plan Plan: Assessment: #1. Hypovolemic hyponatremia improved with IV hydration. Sodium level up to 132 as of August 2014. #2. Acute COPD exacerbation. #3. Benign hypertension. Plan: Due to high blood pressure, I will discontinue salt tabs. I will put him on a 1200 mL free water restriction. Encourage solute intake, particularly protein. He's been having Ensure. Repeat BMP in the next 2-3 days.
[2016-09-07 11:56] VITALS: PULSE 88
--- NOTE | 2016-09-07 13:23 | P.PN ---
Subjective Principal diagnosis: Influenza A pneumonia Patient seen and examined. Patient states his breathing is better however he would feel better if he were able to go home today. He has not had any fevers or chills. He wears 4 L nasal cannula at baseline. Objective - Vital Signs Vital signs: Vital Signs Temp 97.6 F 09/07/16 07:00 Pulse 88 09/07/16 11:56 Resp 16 09/07/16 07:00 BP 156/84 09/07/16 07:00 Pulse Ox 94 L 09/07/16 07:00 Intake & Output 09/06/16 09/07/16 09/07/16 18:59 06:59 18:59 Intake Total 100 Output Total 300 Balance 100 -300 Intake: Oral 100 Output: Urine 300 Other: # Voids 3 3 # Bowel Movements 0 - Exam Gen.: Alert and oriented 3, no acute distress Cardiovascular: Regular rate and rhythm, S1/S2 Lungs: Scattered expiratory wheezing Abdomen: Soft nontender nondistended positive bowel sounds Extremities: No edema - Labs CBC & Chem 7: 09/04/16 09:11 09/05/16 07:36 Labs: Microbiology - Last 24 Hours (Table) 09/04/16 07:50 Gram Stain - Final Sputum Sputum Culture - Final Martita albicans Assessment and Plan Plan: Acute on chronic hypoxic respiratory failure Bibasilar pneumonia Influenza A pneumonia Question concomitant bacteria pneumonia Toxic metabolic encephalopathy, improving Pyrexia, resolved Hyponatremia, hypovolemia, improving Mild hypokalemia, resolved Dehydration Tiny bilateral pleural effusions AECOPD Hypertension Hx CAD Hx BPH GERD Outpatient computed tomography scan in 3 months for follow-up Nephro recs Bronchodilators and Pulmicort Home with albuterol and Pulmicort Home with prednisone taper Tamiflu, Levaquin Continue home medications Continue supportive care PT and OT Continue supportive care Okay to DC from pulmonary standpoint Follow-up in pulmonary office in 1 week
--- NOTE | 2016-09-07 14:43 | P.DS ---
Providers Date of admission: 08/30/16 17:37 Expected date of discharge: 09/07/16 Attending physician: Kehinde Wiggins Consults: 08/30/16 22:57 Consult Physician Routine Consulting Provider: Cezar Garcia Consult Reason/Comments: Electrolyte Imbalance Do you want consulting provider notified?: Yes 08/31/16 03:24 Consult Physician Routine Consulting Provider: Kannan Torres Consult Reason/Comments: mental status changes Do you want consulting provider notified?: Yes 08/31/16 09:18 Consult Physician Routine Consulting Provider: Cb Martinez Consult Reason/Comments: blt PNA, pleural effusion Do you want consulting provider notified?: Yes 09/01/16 08:29 Consult Physician Routine Consulting Provider: Julia Bradley Consult Reason/Comments: a-fib Do you want consulting provider notified?: Yes 09/02/16 10:14 Consult Physician Routine Consulting Provider: Trevor Hinojosa Consult Reason/Comments: possible volvulus, herniation Do you want consulting provider notified?: Yes 09/03/16 12:04 Consult Physician Routine Consulting Provider: Rosales Paredes Consult Reason/Comments: Large Hiatal Hernia Do you want consulting provider notified?: Yes Primary care physician: Kehinde Wiggins Hospital Course: This is 81 years old male who was evaluated at Dr. Wiggins office on Wednesday 5 days ago where he was started on appropriate treatment for COPD exacerbation, on Wednesday I received call as I was covering Dr. Wiggins for the weekend where the patient's reported worsening in his cough, weakness and lethargy and requested me to start patients on antibiotics as he was getting worse and refusing completely to come to the emergency department, after I discussed with the patient's the risks from taking 81 years old gentleman at home with possible pneumonia and COPD exacerbation I prescribe antibiotics to the significant pharmacy and picked up the medication on that night. The following day called me again reported worsening in his mental status where he became confused and lethargic and asked her to call 911 immediately when patient was brought to the emergency department confused not following command and his chest x-ray showed bilateral lower lobes pneumonia with pleural effusion and low-grade temperature. The white blood count was normal and patient was admitted for bilateral pneumonia and altered mental status with acute hyponatremia 09/01: Patient had worsening confusion yesterday for which a consult was requested with neurology. CAT scan of the brain showed no acute findings but only age-related atrophy. EEG is pending. His mental status is slightly improved this morning. C. difficile toxin was negative. Urine output has been adequate. Patient also went into atrial fibrillation this morning for which a cardiology consult was requested. They have ordered echocardiogram, TSH and free T4. Labetalol was discontinued and patient was resumed on atenolol with increased dose and PAYTON inhibitor was added with plan for anticoagulation. Patient currently on Lovenox. He remains and isolation and on Tamiflu. Patient is noted to have left upper quadrant and left lower quadrant tenderness for which a CAT scan of the abdomen has been ordered. Repeat chest x-ray shows possible left lower lobe pneumonia versus atelectasis and associated effusion. Difficult to exclude lung mass. 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 Some of transverse colon also herniates through. Prominent fluid-filled small bowel loops with no discrete transition point. Findings could reflect enteritis or ileus. Changes in the sigmoid May be due to peristalsis and over distention. Moderate pelvic free fluid. Focal subpleural opacity in the posterior right base. Differential includes pneumonia , mass, rounded atelectasis. Surgical consult with Dr. 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 He is currently on a soft diet will be continued. Insure added. He has not had any difficulty swallowing or choking. Patient did have a bowel movement last evening. Sodium 129 and chloride 96. EEG is considered within normal limits. His respiratory status and mental status are improving. Patient will be transferred to [facility] floor. 09/03: Repeat chest x-ray shows improving left basilar infiltrate and/or atelectasis. No new suspicious focal infiltrates seen. Nephrology has started sodium chloride tablets for hyponatremia. Patient has been seen by Dr. Hinojosa regarding abnormal findings on CAT scan. Would ask Dr. Paredes to evaluate for consideration of elective repair. 09/04: Patient denies feeling achy. He states his breathing is okay. Sodium is at 129 and chloride 93. Serum osmolality 707, urine random sodium less than 5.Dr. Castillo has ordered 0.9 normal saline at 50 mL/h and sodium chloride. repeat sodium later today. Patient has been evaluated by Dr. Paredes with no plan for any surgical intervention.pulmonary medicine has added and Solu-Medrol 60 mg every 6 hours which will be decreased to 40 every 8 hours. Pulmicort also added.anticipate discharge home Wednesday. 09/05: Patient continues to improve, was anticipating his discharge the family is sick with influenza A and is not ready to accept the patient at home, they would prefer him to stay another day until planned discharge on Thursday 09/07: Discharge Diagnoses: 1. Metabolic encephalopathy secondary to infectious process, hyponatremia and acute influenza A infection. CAT scan showed no acute findings. Consult with neurology is appreciated. 2. Bilateral pneumonia viral versus bacterial. Continue Tamiflu and Levaquin, DuoNeb treatments 4 times daily, Pulmicort 0.5 mg twice daily, Mucinex 1200 mg twice daily, oral prednisone started at 60 mg daily 3. Pleural effusion. no plan for intervention. 4. Acute hyponatremia secondary to lack of poor intake. Status post IV Lasix. Continue to monitor closely. 0.9 normal saline at 75 mL per hour completed.Sodium chloride tablets ordered by nephrology. 5. Moderately advanced COPD with exacerbation. Continue DuoNeb treatments 4 times daily. 6. Accelerated hypertension. Currently on Norvasc, atenolol, lisinopril. 7. New onset atrial fibrillation with history of coronary artery disease. Continue Lovenox for now with plan for eliquis. Cardiology consult is appreciated. Patient started on atenolol and lisinopril. Echocardiogram as above. 8. Benign prostatic hypertrophy. 9. GERD. Continue Protonix 10. DVT prophylaxis. Heparin subcu. 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 no plan for intervention as the patient remains asymptomatic. 12. Pulmonary arterial hypertension 13. Confluent opacity right posterior lung base 4.1 cm recommended follow-up [address] after treatment, continue Levaquin antibiotics for pneumonia sputum culture collected 09/04/2016 Discharge plan: Home with homecare. Darío ordered discharch am Patient Condition at Discharge: Good Plan - Discharge Summary New Discharge Prescriptions: Atenolol [Tenormin] 50 mg PO DAILY #30 tab Levofloxacin [Levaquin] 750 mg PO DAILY #2 tab Lisinopril [Zestril] 5 mg PO DAILY #30 tab Sodium Chloride Tab 1 gm PO DAILY #7 tab amLODIPine [Norvasc] 5 mg PO DAILY #30 tab predniSONE 0 mg PO DIRECTED #42 tab Discharge Medication List Albuterol Nebulized [Ventolin Nebulized] 2.5 mg INHALATION RT-QID PRN 08/30/16 [ History] Albuterol Sulfate [Proventil Hfa] 2 puff INHALATION RT-Q6H PRN 08/30/16 [History ] Aspirin EC [Ecotrin Low Dose] 81 mg PO DAILY 08/30/16 [History] Clotrimazole/Betamethasone Dip [Lotrisone Cream] 1 applic TOPICAL BID PRN [History] Doxazosin Mesylate 8 mg PO BID 08/30/16 [History] Fluticasone/Salmeterol [Advair 500-50 Diskus] 1 puff INHALATION RT-BID 08/30/16 [History] HYDROcodone/APAP 10-325MG [[place] 10-325] 1 tab PO Q4HR PRN 08/30/16 [History] [place]-3 Fatty Acids/Fish Oil [Fish Oil 1,000 mg Softgel] 1 cap PO DAILY [History] Omeprazole 20 mg PO DAILY 08/30/16 [History] Simvastatin [Zocor] 20 mg PO HS 08/30/16 [History] Tiotropium 18 Mcg/Puff [Spiriva] 1 cap INHALATION RT-DAILY 08/30/16 [History] Atenolol [Tenormin] 50 mg PO DAILY #30 tab 09/07/16 [Rx] Calcium Carbonate [Tums] 500 mg PO QID PRN #0 chew 09/07/16 [Rx] Levofloxacin [Levaquin] 750 mg PO DAILY #2 tab 09/07/16 [Rx] Lisinopril [Zestril] 5 mg PO DAILY #30 tab 09/07/16 [Rx] Sodium Chloride Tab 1 gm PO DAILY #7 tab 09/07/16 [Rx] amLODIPine [Norvasc] 5 mg PO DAILY #30 tab 09/07/16 [Rx] guaiFENesin [Mucinex] 1,200 mg PO Q12HR tablet.er 09/07/16 [Rx] predniSONE 0 mg PO DIRECTED #42 tab 09/07/16 [Rx] Follow up Appointment(s)/Referral(s): Zehra Castillo MD [STAFF PHYSICIAN] - 2 Weeks Julia Bradley MD [STAFF PHYSICIAN] - 3 Weeks Kehinde Wiggins MD [Primary Care Provider] - 3 Days [facility], [NON-STAFF] - Kannan Torres MD [STAFF PHYSICIAN] - 3 Weeks Cb Martinez MD [STAFF PHYSICIAN] - 1 Week Patient Instructions/Handouts: Influenza (DC), Community Acquired Pneumonia (DC ) Activity/Diet/Wound Care/Special Instructions: *Anibal jamison @[facility] - 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 <<<<<<<PATIENT HAS BELONGINGS IN SECURITY>>>>>>> Discharge Disposition: HOME WITH HOME HEALTH SERVICES
== END 2016-09-07 16:50 | disposition home health service (06) | DRG 643 ==
LOC: EC 15:31 → 6SEL 17:37 → 4MS4W 09-02 16:06 → 6SEL 09-02 16:07 → 4MS4W 09-02 17:58
PROVIDERS: ADMIT Internal Medicine; ATTEND Internal Medicine
DX: E22.2 Syndrome of inappropriate secretion of antidiuretic hormone (principal); J15.9 Unspecified bacterial pneumonia; J96.21 Acute and chronic respiratory failure with hypoxia; J10.08 Influenza due to other identified influenza virus with other specified pneumonia; G92 Toxic encephalopathy; J91.8 Pleural effusion in other conditions classified elsewhere; J12.89 Other viral pneumonia; J44.0 Chronic obstructive pulmonary disease with (acute) lower respiratory infection; J45.901 Unspecified asthma with (acute) exacerbation; J98.11 Atelectasis; J44.1 Chronic obstructive pulmonary disease with (acute) exacerbation; E86.0 Dehydration; I48.0 Paroxysmal atrial fibrillation; I10 Essential (primary) hypertension; I27.2 Other secondary pulmonary hypertension; E78.5 Hyperlipidemia, unspecified; E86.1 Hypovolemia; D64.9 Anemia, unspecified; E87.6 Hypokalemia; I25.10 Atherosclerotic heart disease of native coronary artery without angina pectoris; I73.9 Peripheral vascular disease, unspecified; J32.9 Chronic sinusitis, unspecified; K21.9 Gastro-esophageal reflux disease without esophagitis; K31.89 Other diseases of stomach and duodenum; K44.9 Diaphragmatic hernia without obstruction or gangrene; K59.09 Other constipation; N40.0 Benign prostatic hyperplasia without lower urinary tract symptoms; Z77.090 Contact with and (suspected) exposure to asbestos; Z79.899 Other long term (current) drug therapy; Z82.49 Family history of ischemic heart disease and other diseases of the circulatory system; Z86.12 Personal history of poliomyelitis; Z87.891 Personal history of nicotine dependence; Z95.1 Presence of aortocoronary bypass graft
CPT/HCPCS: 36415; 36600; 70450; 71010; 71020; 71250; 74176; 80048; 80053; 80299; 81001; 82140; 82550; 82553; 82805; 83605; 83735; 83880; 83935; 84100; 84133; 84295; 84300; 84439; 84443; 84484; 85025; 85027; 85610; 85730; 87040; 87070; 87086; 87205; 87324; 87502; 93005; 93306; 94640; 94660; 94667; 94668; 94760; 95819; 96361; 96365; 96375; 99291

== ENCOUNTER 2017-01-29 20:10 | Emergency (ER) | payer MEDICARE ==
[2017-01-29 21:17] LABS: Basophils % (A) 1 %; CH 31.2; CHCM 33.8; Eosinophils # (A) 0.2 k/uL (0-0.7); Eosinophils % (A) 4 %; HCT 39.6 % (39.0-53.0); HDW 2.42; HGB 13.5 gm/dL (13.0-17.5); Luc % (Auto) 2; Lymphocytes # (A) 0.7 k/uL (1.0-4.8); Lymphocytes % (A) 14 %; MCH 31.5 pg (25.0-35.0); MCV 92.9 fL (80.0-100.0); Monocytes # (A) 0.3 k/uL (0-1.0); Monocytes % (A) 7 %; Neutrophils # (A) 3.5 k/uL (1.3-7.7); Neutrophils % (A) 72 %; RBC 4.27 m/uL (4.30-5.90); RDW 12.8 % (11.5-15.5); WBC 4.9 k/uL (3.8-10.6)
[2017-01-29 21:26] LABS: ALT 43 U/L (21-72); AST 36 U/L (17-59); Alkaline Phosphatase 69 U/L (38-126); Anion Gap 7 mmol/L; Blood Urea Nitrogen 11 mg/dL (9-20); Carbon Dioxide 28 mmol/L (22-30); Chloride 99 mmol/L (98-107); Glucose 89 mg/dL (74-99); Magnesium 1.9 mg/dL (1.6-2.3); Non-African American GFR(MDRD) >60 (>60 ml/min/1.73 sqM); Potassium 4.4 mmol/L (3.5-5.1); Sodium 134 mmol/L (137-145); Total Bilirubin 1.1 mg/dL (0.2-1.3); Total Protein 6.4 g/dL (6.3-8.2)
--- NOTE | 2017-01-29 21:26 | CT ---
EXAMINATION TYPE: CT brain wo con DATE OF EXAM: 01/29/2017 COMPARISON: 08/31/2016 HISTORY: Hypertension today. Altered mental status CT DLP: 1023.5 mGycm Automated exposure control for dose reduction was used. FINDINGS: Ventricles have normal size. There is no mass effect nor midline shift. There is no sign of intracran ial hemorrhage. Calvarium is intact. IMPRESSION: MILD ATROPHY. OTHERWISE NEGATIVE CT SCAN OF THE BRAIN. NO CHANGE.
--- NOTE | 2017-01-29 21:28 | XR ---
EXAMINATION TYPE: XR chest 2V DATE OF EXAM: 01/29/2017 COMPARISON: 09/01/2016 HISTORY: Weakness TECHNIQUE: Frontal and lateral views of the chest are obtained. FINDINGS: Heart is enlarged. There is no gross heart failure. There is coarse infiltrate in the left lower lobe and blunting of left costophrenic angle. There are chest leads. There are sternal wires. Thoracic aorta is atheromatous. Right lung is clear. IMPRESSION: There is chronic left lower lobe infiltrate that is improved compared to old exam. No he art failure. Small left pleural effusion or pleural scarring.
[2017-01-29 21:32] LABS: INR 1.1 (<1.2); Partial Thromboplastin Time 28.5 sec (22.0-30.0); Prothrombin Time 10.9 sec (9.0-12.0)
[2017-01-29 21:42] LABS: Creatine Kinase 205 U/L (55-170)
[2017-01-29 21:54] LABS: Troponin I <0.012 ng/mL (0.000-0.034)
[2017-01-29] MEDS ORDERED: hydrALAZINE HCL 20 MG/ML 1 ML VIAL IVP STA (21:55)
[2017-01-29] MEDS ORDERED: amLODIPine 5 MG TAB PO STA (21:55)
[2017-01-29 21:59] LABS: Creatine Kinase MB 5.4 ng/mL (0.0-2.4)
[2017-01-29 22:09] LABS: Appearance,Urine Clear (Clear); Bilirubin,Urine Negative (Negative); Glucose,Urine (UA) Negative (Negative); Ketones,Urine Negative (Negative); Leukocyte Esterase,Urine Negative (Negative); Nitrite,Urine Negative (Negative); Protein,Urine Negative (Negative); Specific Gravity,Urine 1.003 (1.001-1.035); UA Billing (MACRO vs. MICRO) CHEM; Urobilinogen,Urine <2.0 mg/dL (<2.0)
[2017-01-29 23:28] VITALS: TEMP 98
--- NOTE | 2017-01-30 00:15 | ED ---
General Adult HPI - General Chief complaint: Recheck/Abnormal Lab/Rx Stated complaint: Hypertension 211 Time Seen by Provider: 01/29/17 20:48 Source: patient, family, RN notes reviewed Mode of arrival: ambulatory Limitations: no limitations - History of Present Illness Initial comments: 81-year-old male with history of atrial fibrillation, and COPD on home oxygen presents with elevated blood pressure. According to the patient's he has had blood pressure readings in the 180s and 190s systolic for the past day. His rock mason apprentice has asked him to maintain a log of his blood pressures which is why the patient is taking daily blood pressure readings. He is not on any antihypertensive medications. Patient is currently on atenolol for atrial fibrillation and anticoagulation. Patient denies chest pain or shortness of breath. Denies abdominal pain. Denies headache. Denies focal weakness. Denies nausea vomiting or diarrhea. - Related Data Home Medications Medication Instructions Recorded Confirmed Albuterol Nebulized [Ventolin 2.5 mg INHALATION RT-QID PRN 08/30/16 01/29/17 Nebulized] Albuterol Sulfate [Proventil Hfa] 2 puff INHALATION RT-Q6H PRN 08/30/16 01/29/17 Aspirin EC [Ecotrin Low Dose] 81 mg PO DAILY 08/30/16 01/29/17 Clotrimazole/Betamethasone Dip 1 applic TOPICAL BID PRN 08/30/16 01/29/17 [Lotrisone Cream] Doxazosin Mesylate 8 mg PO BID 08/30/16 01/29/17 Fluticasone/Salmeterol [Advair 1 puff INHALATION RT-BID 08/30/16 01/29/17 500-50 Diskus] HYDROcodone/APAP 10-325MG [[place] 1 tab PO Q4HR PRN 08/30/16 01/29/17 10-325] [place]-3 Fatty Acids/Fish Oil [Fish 1 cap PO DAILY 08/30/16 01/29/17 Oil 1,000 mg Softgel] Omeprazole 20 mg PO DAILY 08/30/16 01/29/17 Simvastatin [Zocor] 20 mg PO HS 08/30/16 01/29/17 Tiotropium 18 Mcg/Puff [Spiriva] 1 cap INHALATION RT-DAILY 08/30/16 01/29/17 Apixaban [Eliquis] 2.5 mg PO BID 01/29/17 01/29/17 Atenolol [Tenormin] 25 mg PO DAILY 01/29/17 01/29/17 Allergies Allergy/AdvReac Type Severity Reaction Status Date / Time ciprofloxacin [From Cipro] Allergy Rash/Hives Verified 01/29/17 21:38 Review of Systems ROS Statement: Those systems with pertinent positive or pertinent negative responses have been documented in the HPI. ROS Other: All systems not noted in ROS Statement are negative. Past Medical History Past Medical History: Atrial Fibrillation, Asthma, Coronary Artery Disease (CAD) , Chest Pain / Angina, COPD, GERD/Reflux, Prostate Disorder, Respiratory Disorder History of Any Multi-Drug Resistant Organisms: None Reported Past Surgical History: Coronary Bypass/CABG, Heart Catheterization, Orthopedic Surgery Additional Past Surgical History / Comment(s): CAROTID END b/l, multiple orthopedic surgeries due to polio as a child Past Anesthesia/Blood Transfusion Reactions: No Reported Reaction Past Psychological History: No Psychological Hx Reported Smoking Status: Former smoker Past Alcohol Use History: None Reported Past Drug Use History: None Reported - Past Family History Father Family Medical History: Coronary Artery Disease (CAD) Mother Family Medical History: Unable to Obtain General Exam Limitations: no limitations General appearance: alert, in no apparent distress Head exam: Present: atraumatic, normocephalic Eye exam: Present: normal appearance, PERRL ENT exam: Present: normal exam, mucous membranes moist Neck exam: Present: normal inspection, full ROM Respiratory exam: Present: wheezes. Absent: respiratory distress Cardiovascular Exam: Present: regular rate, normal rhythm GI/Abdominal exam: Present: soft. Absent: distended, tenderness Extremities exam: Present: normal inspection, normal capillary refill. Absent: pedal edema Neurological exam: Present: alert, oriented X3, CN II-XII intact. Absent: motor sensory deficit Psychiatric exam: Present: normal affect, normal mood Skin exam: Present: warm, dry Course Vital Signs 01/29/17 01/29/17 01/29/17 20:32 20:59 21:41 Temperature 97.7 F Pulse Rate 73 65 61 Respiratory 18 18 18 Rate Blood Pressure 237/108 216/105 199/95 O2 Sat by Pulse 93 L 99 99 Oximetry 01/29/17 01/29/17 01/29/17 22:17 22:42 22:52 Temperature Pulse Rate 61 63 Respiratory 63 H 18 18 Rate Blood Pressure 199/95 150/73 154/78 O2 Sat by Pulse 99 99 99 Oximetry 01/29/17 23:26 Temperature 98.0 F Pulse Rate 66 Respiratory 18 Rate Blood Pressure 173/82 O2 Sat by Pulse 99 Oximetry EKG Findings - EKG Comments: EKG Findings:: EKG shows normal sinus rhythm, ventricular is 69, UT of 156, QS duration 100, QTC 4:15, there is no ST segment elevation or depression Medical Decision Making - Medical Decision Making 81-year-old male presenting with chief complaint of hypertension. Patient has no history of hypertension but has been trending his blood pressures daily at the request of his rock mason apprentice. Patient has a history of atrial fibrillation and is on atenolol. Initial blood pressure the emergency Department is 200/ 100. Patient has no complaints. Laboratory studies including CBC, CMP, cardiac enzymes is unremarkable, serum creatinine is normal. Chest x-ray shows no acute process. Head CT shows no intracranial hemorrhage. Patient is given 10 mg of hydralazine and 5 mg of by mouth Norvasc. Blood pressure is down trending. Patient remains asymptomatic while in the emergency department. Patient will be started on Norvasc and is encouraged to follow up with his primary care physician and rock mason apprentice in the next several days. Return to the emergency department with worsening hypertension despite treatment, or new or developing symptoms. Hypertension - Lab Data Result diagrams: 01/29/17 21:00 01/29/17 21:00 Lab Results 01/29/17 01/29/17 01/29/17 Range/Units 21:00 21:00 21:00 WBC 4.9 (3.8-10.6) k/uL RBC 4.27 L (4.30-5.90) m/uL Hgb 13.5 (13.0-17.5) gm/dL Hct 39.6 (39.0-53.0) % MCV 92.9 (80.0-100.0) fL MCH 31.5 (25.0-35.0) pg MCHC 34.0 (31.0-37.0) g/dL RDW 12.8 (11.5-15.5) % Plt Count 186 (150-450) k/uL Neutrophils % 72 % Lymphocytes % 14 % Monocytes % 7 % Eosinophils % 4 % Basophils % 1 % Neutrophils # 3.5 (1.3-7.7) k/uL Lymphocytes # 0.7 L (1.0-4.8) k/uL Monocytes # 0.3 (0-1.0) k/uL Eosinophils # 0.2 (0-0.7) k/uL Basophils # 0.0 (0-0.2) k/uL PT (9.0-12.0) sec INR (<1.2) APTT (22.0-30.0) sec Sodium 134 L (137-145) mmol/L Potassium 4.4 (3.5-5.1) mmol/L Chloride 99 (98-107) mmol/L Carbon Dioxide 28 (22-30) mmol/L Anion Gap 7 mmol/L BUN 11 (9-20) mg/dL Creatinine 0.71 (0.66-1.25) mg/dL Est GFR (MDRD) Af Amer >60 (>60 ml/min/1.73 sqM) Est GFR (MDRD) Non-Af >60 (>60 ml/min/1.73 sqM) Glucose 89 (74-99) mg/dL Plasma Lactic Acid Lee (0.7-2.0) mmol/L Calcium 9.0 (8.4-10.2) mg/dL Magnesium 1.9 (1.6-2.3) mg/dL Total Bilirubin 1.1 (0.2-1.3) mg/dL AST 36 (17-59) U/L ALT 43 (21-72) U/L Alkaline Phosphatase 69 (38-126) U/L Total Creatine Kinase 205 H (55-170) U/L CK-MB (CK-2) 5.4 H* (0.0-2.4) ng/mL CK-MB (CK-2) Rel Index 2.6 Troponin I <0.012 (0.000-0.034) ng/mL Total Protein 6.4 (6.3-8.2) g/dL Albumin 4.1 (3.5-5.0) g/dL Urine Color Urine Appearance (Clear) Urine pH (5.0-8.0) Ur Specific [place] (1.001-1.035) Urine Protein (Negative) Urine Glucose (UA) (Negative) Urine Ketones (Negative) Urine Blood (Negative) Urine Nitrite (Negative) Urine Bilirubin (Negative) Urine Urobilinogen (<2.0) mg/dL Ur Leukocyte Esterase (Negative) 01/29/17 01/29/17 01/29/17 Range/Units 21:00 21:00 21:50 WBC (3.8-10.6) k/uL RBC (4.30-5.90) m/uL Hgb (13.0-17.5) gm/dL Hct (39.0-53.0) % MCV (80.0-100.0) fL MCH (25.0-35.0) pg MCHC (31.0-37.0) g/dL RDW (11.5-15.5) % Plt Count (150-450) k/uL Neutrophils % % Lymphocytes % % Monocytes % % Eosinophils % % Basophils % % Neutrophils # (1.3-7.7) k/uL Lymphocytes # (1.0-4.8) k/uL Monocytes # (0-1.0) k/uL Eosinophils # (0-0.7) k/uL Basophils # (0-0.2) k/uL PT 10.9 (9.0-12.0) sec INR 1.1 (<1.2) APTT 28.5 (22.0-30.0) sec Sodium (137-145) mmol/L Potassium (3.5-5.1) mmol/L Chloride (98-107) mmol/L Carbon Dioxide (22-30) mmol/L Anion Gap mmol/L BUN (9-20) mg/dL Creatinine (0.66-1.25) mg/dL Est GFR (MDRD) Af Amer (>60 ml/min/1.73 sqM) Est GFR (MDRD) Non-Af (>60 ml/min/1.73 sqM) Glucose (74-99) mg/dL Plasma Lactic Acid Lee 0.7 (0.7-2.0) mmol/L Calcium (8.4-10.2) mg/dL Magnesium (1.6-2.3) mg/dL Total Bilirubin (0.2-1.3) mg/dL AST (17-59) U/L ALT (21-72) U/L Alkaline Phosphatase (38-126) U/L Total Creatine Kinase (55-170) U/L CK-MB (CK-2) (0.0-2.4) ng/mL CK-MB (CK-2) Rel Index Troponin I (0.000-0.034) ng/mL Total Protein (6.3-8.2) g/dL Albumin (3.5-5.0) g/dL Urine Color Light Yellow Urine Appearance Clear (Clear) Urine pH 7.0 (5.0-8.0) Ur Specific [place] 1.003 (1.001-1.035) Urine Protein Negative (Negative) Urine Glucose (UA) Negative (Negative) Urine Ketones Negative (Negative) Urine Blood Negative (Negative) Urine Nitrite Negative (Negative) Urine Bilirubin Negative (Negative) Urine Urobilinogen <2.0 (<2.0) mg/dL Ur Leukocyte Esterase Negative (Negative) Disposition Clinical Impression: Hypertension Disposition: HOME SELF-CARE Condition: Stable Instructions: Hypertension (ED) Referrals: Kehinde Wiggins MD [Primary Care Provider] - 1-2 days Julia Bradley MD [STAFF PHYSICIAN] - 1-2 days Time of Disposition: 23:30
[2017-01-30 00:32] VITALS: BP 169/83; PULSE 68; RESP 16
== END 2017-01-30 00:32 | disposition home or self-care (01) ==
LOC: EC 20:10
DX: I10 Essential (primary) hypertension (principal); I48.91 Unspecified atrial fibrillation; I25.10 Atherosclerotic heart disease of native coronary artery without angina pectoris; J45.909 Unspecified asthma, uncomplicated; K21.9 Gastro-esophageal reflux disease without esophagitis; J44.9 Chronic obstructive pulmonary disease, unspecified; Z87.891 Personal history of nicotine dependence; Z95.1 Presence of aortocoronary bypass graft; Z79.01 Long term (current) use of anticoagulants; Z79.51 Long term (current) use of inhaled steroids; Z79.82 Long term (current) use of aspirin; Z79.899 Other long term (current) drug therapy; Z88.1 Allergy status to other antibiotic agents
CPT/HCPCS: 99284; 96374; 36415; 93005; 80053; 82550; 82553; 83605; 83735; 84484; 85025; 85610; 85730; 81003; 71020; 70450; J0360

== ENCOUNTER 2018-01-07 11:03 | Emergency (ER) | payer MEDICARE ==
[2018-01-07 11:45] VITALS: TEMP 97.8
[2018-01-07] MEDS ORDERED: SODIUM CHLORIDE 0.9% 1,000 ML IV STA (12:16)
[2018-01-07 12:42] VITALS: BP 114/62
[2018-01-07 13:00] LABS: Basophils % (A) 0 %; Eosinophils # (A) 0.1 k/uL (0-0.7); Eosinophils % (A) 2 %; HCT 37.8 % (39.0-53.0); HGB 13.1 gm/dL (13.0-17.5); Lymphocytes # (A) 0.5 k/uL (1.0-4.8); Lymphocytes % (A) 10 %; MCH 31.9 pg (25.0-35.0); MCHC 34.7 g/dL (31.0-37.0); MCV 91.9 fL (80.0-100.0); Mean Platelet Volume 7.4; Monocytes # (A) 0.4 k/uL (0-1.0); Monocytes % (A) 7 %; Neutrophils # (A) 4.1 k/uL (1.3-7.7); Neutrophils % (A) 79 %; Platelet Count 220 k/uL (150-450); RBC 4.11 m/uL (4.30-5.90); RDW 12.9 % (11.5-15.5); WBC 5.1 k/uL (3.8-10.6)
[2018-01-07 13:11] LABS: ALT 38 U/L (21-72); AST 30 U/L (17-59); Albumin 3.9 g/dL (3.5-5.0); Alkaline Phosphatase 60 U/L (38-126); Amylase 74 U/L (30-110); Anion Gap 11 mmol/L; Blood Urea Nitrogen 16 mg/dL (9-20); Calcium 8.9 mg/dL (8.4-10.2); Carbon Dioxide 29 mmol/L (22-30); Chloride 92 mmol/L (98-107); Glucose 128 mg/dL (74-99); Lipase 133 U/L (23-300); Potassium 4.1 mmol/L (3.5-5.1); Sodium 132 mmol/L (137-145); Total Protein 5.7 g/dL (6.3-8.2)
--- NOTE | 2018-01-07 13:30 | ED ---
Abdominal Pain HPI - General Chief Complaint: Abdominal Pain Stated Complaint: Abd Pain Time Seen by Provider: 01/07/18 11:59 Source: patient, RN notes reviewed, old records reviewed Mode of arrival: wheelchair Limitations: no limitations - History of Present Illness Initial Comments: 82-year-old male presents today chief complaint of lower abdominal pain. He reports that he's been detoxing from his [place] and has been off of pain medicine for the past 2 days. He reports he's been having normal stools, no vomiting. He was concerned because he's had this lower abdominal pain that is cramping in nature. He initially thought it could've been with from withdrawals. He states that he also has been using medical marijuana and small dose over the past few days. - Related Data Home Medications Medication Instructions Recorded Confirmed Albuterol Nebulized [Ventolin 2.5 mg INHALATION RT-QID PRN 08/30/16 01/07/18 Nebulized] Albuterol Sulfate [Proventil Hfa] 2 puff INHALATION RT-Q6H PRN 08/30/16 01/07/18 Doxazosin Mesylate 8 mg PO BID 08/30/16 01/07/18 Fluticasone/Salmeterol [Advair 1 puff INHALATION RT-BID 08/30/16 01/07/18 500-50 Diskus] Omeprazole 20 mg PO DAILY 08/30/16 01/07/18 Simvastatin [Zocor] 20 mg PO HS 08/30/16 01/07/18 Tiotropium 18 Mcg/Puff [Spiriva] 1 cap INHALATION RT-DAILY 08/30/16 01/07/18 Apixaban [Eliquis] 2.5 mg PO BID 01/29/17 01/07/18 Atenolol [Tenormin] 25 mg PO DAILY 01/29/17 01/07/18 Previous Rx's Medication Instructions Recorded amLODIPine [Norvasc] 5 mg PO DAILY #30 tab 01/30/17 Allergies Allergy/AdvReac Type Severity Reaction Status Date / Time ciprofloxacin [From Cipro] Allergy Rash/Hives Verified 01/07/18 12:13 Review of Systems ROS Statement: Those systems with pertinent positive or pertinent negative responses have been documented in the HPI. ROS Other: All systems not noted in ROS Statement are negative. 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 Absent: scleral icterus, conjunctival injection, periorbital swelling ENT exam: Present: normal exam, mucous membranes moist Neck exam: Present: normal inspection. Absent: tenderness, meningismus, lymphadenopathy Respiratory exam: Present: normal lung sounds bilaterally. Absent: respiratory distress, wheezes, rales, rhonchi, stridor Cardiovascular Exam: Present: regular rate, normal rhythm, normal heart sounds. Absent: systolic murmur, diastolic murmur, rubs, gallop, clicks GI/Abdominal exam: Present: soft, tenderness (RLQ and LLQ tenderness), normal bowel sounds. Absent: distended, guarding, rebound, rigid Extremities exam: Present: normal inspection, full ROM, normal capillary refill. Absent: tenderness, pedal edema, joint swelling, calf tenderness Back exam: Present: normal inspection Neurological exam: Present: alert, oriented X3, CN II-XII intact Psychiatric exam: Present: normal affect, normal mood Skin exam: Present: warm, dry, intact, normal color. Absent: rash Course Vital Signs 01/07/18 01/07/18 01/07/18 11:42 12:41 14:50 Temperature 97.8 F Pulse Rate 75 63 71 Respiratory 18 16 18 Rate Blood Pressure 96/58 114/62 O2 Sat by Pulse 96 99 96 Oximetry Medical Decision Making - Medical Decision Making 82-year-old male presents today chief complaint of lower abdominal pain. He reports that he's been detoxing from his [place] and has been off of pain medicine for the past 2 days. He reports he's been having normal stools, no vomiting. He was concerned because he's had this lower abdominal pain that is cramping in nature. He initially thought it could've been with from withdrawals. He states that he also has been using medical marijuana and small dose over the past few days. HE reports normal stools, no changes in urination. Denies back pain. At this time patient does have lower abodminal tenderness. Labs and CT completed. LAbs reveiwed and unremarkable. CT shows no acute finding for patient pain as well. Discussed symptoms can be related to detox, and that they need to follow up with PCP. HE is resting comfortable in bed, and request discharge home. - Lab Data Result diagrams: 01/07/18 12:36 01/07/18 12:36 Lab Results 01/07/18 01/07/18 01/07/18 Range/Units 12:36 12:36 13:04 WBC 5.1 (3.8-10.6) k/uL RBC 4.11 L (4.30-5.90) m/uL Hgb 13.1 (13.0-17.5) gm/dL Hct 37.8 L (39.0-53.0) % MCV 91.9 (80.0-100.0) fL MCH 31.9 (25.0-35.0) pg MCHC 34.7 (31.0-37.0) g/dL RDW 12.9 (11.5-15.5) % Plt Count 220 (150-450) k/uL Neutrophils % 79 % Lymphocytes % 10 % Monocytes % 7 % Eosinophils % 2 % Basophils % 0 % Neutrophils # 4.1 (1.3-7.7) k/uL Lymphocytes # 0.5 L (1.0-4.8) k/uL Monocytes # 0.4 (0-1.0) k/uL Eosinophils # 0.1 (0-0.7) k/uL Basophils # 0.0 (0-0.2) k/uL Sodium 132 L (137-145) mmol/L Potassium 4.1 (3.5-5.1) mmol/L Chloride 92 L (98-107) mmol/L Carbon Dioxide 29 (22-30) mmol/L Anion Gap 11 mmol/L BUN 16 (9-20) mg/dL Creatinine 0.81 (0.66-1.25) mg/dL Est GFR (CKD-EPI)AfAm >90 (>60 ml/min/1.73 sqM) Est GFR (CKD-EPI)NonAf 83 (>60 ml/min/1.73 sqM) Glucose 128 H (74-99) mg/dL Calcium 8.9 (8.4-10.2) mg/dL Total Bilirubin 2.0 H (0.2-1.3) mg/dL AST 30 (17-59) U/L ALT 38 (21-72) U/L Alkaline Phosphatase 60 (38-126) U/L Total Protein 5.7 L (6.3-8.2) g/dL Albumin 3.9 (3.5-5.0) g/dL Amylase 74 (30-110) U/L Lipase 133 (23-300) U/L Urine Color Yellow Urine Appearance Clear (Clear) Urine pH 6.5 (5.0-8.0) Ur Specific [place] 1.013 (1.001-1.035) Urine Protein Trace H (Negative) Urine Glucose (UA) Negative (Negative) Urine Ketones Negative (Negative) Urine Blood Negative (Negative) Urine Nitrite Negative (Negative) Urine Bilirubin Negative (Negative) Urine Urobilinogen <2.0 (<2.0) mg/dL Ur Leukocyte Esterase Negative (Negative) - EKG Data -: EKG Interpreted by Wi EKG shows normal: sinus rhythm Rate: normal - Radiology Data Radiology results: report reviewed CT shows no acute findings for patient symptoms. Disposition Clinical Impression: Abdominal pain in male, Opiate withdrawal Disposition: HOME SELF-CARE Condition: Good Instructions: Abdominal Pain (ED) Additional Instructions: Patient advised to follow-up with primary care provider on Wednesday. Return to emergency department if there are fevers or any worsening signs or symptoms. If there is any right upper quadrant pain shoulder pain or yellowing of skin return for further evaluation. Is patient prescribed a controlled substance at d/c from ED?: No When asked, does pt state using other controlled substances?: No If prescribed controlled substance>3 days was MAPS reviewed?: No If opioid is for acute pain is fill amount 7 days or less?: No If Rx opioid, was Start Talking consent form obtained?: No Referrals: Kehinde Wiggins MD [Primary Care Provider] - 1-2 days Time of Disposition: 14:35
[2018-01-07 13:33] LABS: Appearance,Urine Clear (Clear); Bilirubin,Urine Negative (Negative); Blood,Urine Negative (Negative); Color,Urine Yellow; Glucose,Urine (UA) Negative (Negative); Ketones,Urine Negative (Negative); Leukocyte Esterase,Urine Negative (Negative); Nitrite,Urine Negative (Negative); PH, Urine 6.5 (5.0-8.0); Protein,Urine Trace (Negative); Specific Gravity,Urine 1.013 (1.001-1.035); Urobilinogen,Urine <2.0 mg/dL (<2.0)
--- NOTE | 2018-01-07 14:08 | CT ---
EXAMINATION TYPE: CT abdomen pelvis w con DATE OF EXAM: 01/07/2018 COMPARISON: CT abdomen and pelvis September 01, 2016 HISTORY: Pelvic pain. CT DLP: 1045 mGycm, Automated Exposure Control for Dose Reduction was Utilized. CONTRAST: CT scan of the abdomen and pelvis is performed without oral but with IV Contrast, patient injected wi th 100 mL of Isovue 300. FINDINGS: LUNG BASES: There is chronic emphysematous change in both bases redemonstrated. There is large hiatal hernia containing malrotated stomach as well as portions of sigmoid colon redemonstrated. There is c hronic left basilar scarring and/or consolidation. There is posterior right basilar linear scarring a nd/or atelectasis. LIVER/GB: Contracted gallbladder is present currently. PANCREAS: No significant abnormality is seen. SPLEEN: No significant abnormality is seen. ADRENALS: No significant abnormality is seen. KIDNEYS: 4 cm simple appearing cyst centrally mid pole level right kidney is redemonstrated. BOWEL: Evaluation bowel is suboptimal secondary to lack of enteric contrast. There are diverticula in the colon most prominent in the proximal sigmoid colon. There is no convincing CT evidence for acute diverticulitis. PROSTATE/SEMINAL VESICLES: No gross abnormality seen. LYMPH NODES: No greater than 1cm abdominal or pelvic lymph nodes are appreciated. OSSEOUS STRUCTURES: There is metallic artifact from right hip arthroplasty redemonstrated causing str eak artifact limiting evaluation of pelvic structures. Moderate to severe joint space loss with spurr ing and subchondral cystic change left hip is present. There is grade 1 anterolisthesis L5 on S1. The re is moderate to severe disc space narrowing and spurring in the upper lumbar spine and moderate to severe multilevel spurring and disc space narrowing in the thoracic spine. There is prominent facet a rthropathy lower lumbar levels. OTHER: There is moderate to severe atherosclerotic change of aorta extending into branch vessels. IMPRESSION: No significant new or acute finding is seen to account for patient's clinical symptoms.
[2018-01-07 14:51] VITALS: PULSE 71; RESP 18
== END 2018-01-07 14:45 | disposition home or self-care (01) ==
LOC: EC 11:03
DX: F11.23 Opioid dependence with withdrawal (principal); R10.30 Lower abdominal pain, unspecified; I48.91 Unspecified atrial fibrillation; J44.9 Chronic obstructive pulmonary disease, unspecified; K21.9 Gastro-esophageal reflux disease without esophagitis; Z95.1 Presence of aortocoronary bypass graft; Z95.818 Presence of other cardiac implants and grafts; Z87.891 Personal history of nicotine dependence; Z79.51 Long term (current) use of inhaled steroids; Z79.01 Long term (current) use of anticoagulants; Z79.899 Other long term (current) drug therapy; Z88.1 Allergy status to other antibiotic agents
CPT/HCPCS: 36415; 93005; 80053; 82150; 83690; 85025; 81003; 74177; 99285; 96360; Q9967

== ENCOUNTER 2020-05-17 11:36 | Inpatient (IN) | payer MEDICARE ==
--- NOTE | 2020-05-17 12:21 | ED ---
General Adult HPI - General Chief complaint: Chest Pain Stated complaint: chest pain last pm Time Seen by Provider: 05/17/20 12:06 Source: patient, family, RN notes reviewed, old records reviewed Mode of arrival: wheelchair Limitations: no limitations - History of Present Illness Initial comments: 85-year-old male presenting for evaluation of left arm numbness and weakness and left leg weakness. Patient's symptoms have been intermittent, he's had them over the course of several weeks and they resolve on their own. He woke this morning at 5 AM with left arm and left leg weakness and numbness. He waited approximately 20 minutes and the symptoms resolved. There was no associated chest pain. He has a history of CAD. - Related Data Home Medications Medication Instructions Recorded Confirmed Albuterol Nebulized [Ventolin 2.5 mg INHALATION RT-QID PRN 08/30/16 01/07/18 Nebulized] Albuterol Sulfate [Proventil Hfa] 2 puff INHALATION RT-Q6H PRN 08/30/16 01/07/18 Doxazosin Mesylate 8 mg PO BID 08/30/16 01/07/18 Fluticasone/Salmeterol [Advair 1 puff INHALATION RT-BID 08/30/16 01/07/18 500-50 Diskus] Omeprazole 20 mg PO DAILY 08/30/16 01/07/18 Simvastatin [Zocor] 20 mg PO HS 08/30/16 01/07/18 Tiotropium 18 Mcg/Puff [Spiriva] 1 cap INHALATION RT-DAILY 08/30/16 01/07/18 Apixaban [Eliquis] 2.5 mg PO BID 01/29/17 01/07/18 atenoloL [Tenormin] 25 mg PO DAILY 01/29/17 01/07/18 Previous Rx's Medication Instructions Recorded amLODIPine [Norvasc] 5 mg PO DAILY #30 tab 01/30/17 Allergies Allergy/AdvReac Type Severity Reaction Status Date / Time ciprofloxacin [From Cipro] Allergy Rash/Hives Verified 05/17/20 11:49 Review of Systems ROS Statement: Those systems with pertinent positive or pertinent negative responses have been documented in the HPI. ROS Other: All systems not noted in ROS Statement are negative. 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 Past Anesthesia/Blood Transfusion Reactions: No Reported Reaction Past Psychological History: No Psychological Hx Reported Smoking Status: Never smoker Past Alcohol Use History: None Reported Past Drug Use History: None Reported - Past Family History Father Family Medical History: Coronary Artery Disease (CAD) Mother Family Medical History: Unable to Obtain General Exam Limitations: no limitations General appearance: alert, in no apparent distress Head exam: Present: atraumatic, normocephalic Eye exam: Present: normal appearance, PERRL ENT exam: Present: normal exam Neck exam: Present: normal inspection. Absent: tenderness, meningismus Respiratory exam: Present: decreased breath sounds. Absent: respiratory distress, wheezes Cardiovascular Exam: Present: regular rate, normal rhythm GI/Abdominal exam: Present: soft. Absent: distended, tenderness, guarding Extremities exam: Present: normal inspection, normal capillary refill. Absent: pedal edema Neurological exam: Present: alert, oriented X3, CN II-XII intact. Absent: motor sensory deficit (NIH of 0) Psychiatric exam: Present: normal affect, normal mood Skin exam: Present: warm, dry, intact. Absent: cyanosis, diaphoretic Course Vital Signs 05/17/20 11:46 Temperature 98.0 F Pulse Rate 72 Respiratory 26 H Rate Blood Pressure 122/74 O2 Sat by Pulse 94 L Oximetry - Reevaluation(s) Reevaluation #1: 05/17/20 13:40 Patient is on Eliquis EKG Findings - EKG Comments: EKG Findings:: EKG: Sinus rhythm with PAC, rate is 73, [place] interval 158, QRS duration 100, QTC 383, no ST segment elevation. Medical Decision Making - Medical Decision Making 85-year-old male with history concerning for TIA. NIH is 0. Head CT performed, negative for intracranial hemorrhage or mass effect. Patient has normal labs. He is in sinus rhythm. He is anticoagulated with a history of atrial fibrillation. I did discuss case with Dr. Wiggins, who will admit for further TIA evaluation. Neurology placed on consult. - Lab Data Result diagrams: 05/17/20 12:19 05/17/20 12:19 Lab Results 05/17/20 05/17/20 05/17/20 Range/Units 12:19 12:19 12:19 WBC 6.7 (3.8-10.6) k/uL RBC 4.20 L (4.30-5.90) m/uL Hgb 13.5 (13.0-17.5) gm/dL Hct 39.5 (39.0-53.0) % MCV 94.0 (80.0-100.0) fL MCH 32.2 (25.0-35.0) pg MCHC 34.3 (31.0-37.0) g/dL RDW 13.0 (11.5-15.5) % Plt Count 170 (150-450) k/uL Neutrophils % 84 % Lymphocytes % 9 % Monocytes % 5 % Eosinophils % 2 % Basophils % 0 % Neutrophils # 5.7 (1.3-7.7) k/uL Lymphocytes # 0.6 L (1.0-4.8) k/uL Monocytes # 0.3 (0-1.0) k/uL Eosinophils # 0.1 (0-0.7) k/uL Basophils # 0.0 (0-0.2) k/uL PT 10.8 (9.0-12.0) sec INR 1.1 (<1.2) APTT 26.9 (22.0-30.0) sec Sodium 133 L (137-145) mmol/L Potassium 4.8 (3.5-5.1) mmol/L Chloride 97 L (98-107) mmol/L Carbon Dioxide 30 (22-30) mmol/L Anion Gap 6 mmol/L BUN 16 (9-20) mg/dL Creatinine 0.88 (0.66-1.25) mg/dL Est GFR (CKD-EPI)AfAm >90 (>60 ml/min/1.73 sqM) Est GFR (CKD-EPI)NonAf 79 (>60 ml/min/1.73 sqM) Glucose 111 H (74-99) mg/dL Calcium 9.2 (8.4-10.2) mg/dL Total Bilirubin 1.2 (0.2-1.3) mg/dL AST 36 (17-59) U/L ALT 30 (4-49) U/L Alkaline Phosphatase 64 (38-126) U/L Troponin I (0.000-0.034) ng/mL Total Protein 6.6 (6.3-8.2) g/dL Albumin 4.0 (3.5-5.0) g/dL 05/17/20 Range/Units 12:19 WBC (3.8-10.6) k/uL RBC (4.30-5.90) m/uL Hgb (13.0-17.5) gm/dL Hct (39.0-53.0) % MCV (80.0-100.0) fL MCH (25.0-35.0) pg MCHC (31.0-37.0) g/dL RDW (11.5-15.5) % Plt Count (150-450) k/uL Neutrophils % % Lymphocytes % % Monocytes % % Eosinophils % % Basophils % % Neutrophils # (1.3-7.7) k/uL Lymphocytes # (1.0-4.8) k/uL Monocytes # (0-1.0) k/uL Eosinophils # (0-0.7) k/uL Basophils # (0-0.2) k/uL PT (9.0-12.0) sec INR (<1.2) APTT (22.0-30.0) sec Sodium (137-145) mmol/L Potassium (3.5-5.1) mmol/L Chloride (98-107) mmol/L Carbon Dioxide (22-30) mmol/L Anion Gap mmol/L BUN (9-20) mg/dL Creatinine (0.66-1.25) mg/dL Est GFR (CKD-EPI)AfAm (>60 ml/min/1.73 sqM) Est GFR (CKD-EPI)NonAf (>60 ml/min/1.73 sqM) Glucose (74-99) mg/dL Calcium (8.4-10.2) mg/dL Total Bilirubin (0.2-1.3) mg/dL AST (17-59) U/L ALT (4-49) U/L Alkaline Phosphatase (38-126) U/L Troponin I <0.012 (0.000-0.034) ng/mL Total Protein (6.3-8.2) g/dL Albumin (3.5-5.0) g/dL Disposition Clinical Impression: TIA (transient ischemic attack) Disposition: ADMITTED IP TO THIS [facility] Condition: Stable Is patient prescribed a controlled substance at d/c from ED?: No Referrals: Kehinde Wiggins MD [Primary Care Provider] - 1-2 days Decision to Admit Reason: Admit from EC Decision Date: 05/17/20 Decision Time: 13:42
[2020-05-17 12:32] LABS: Basophils % (A) 0 %; Eosinophils # (A) 0.1 k/uL (0-0.7); Eosinophils % (A) 2 %; HCT 39.5 % (39.0-53.0); HGB 13.5 gm/dL (13.0-17.5); Lymphocytes # (A) 0.6 k/uL (1.0-4.8); Lymphocytes % (A) 9 %; MCH 32.2 pg (25.0-35.0); MCHC 34.3 g/dL (31.0-37.0); Mean Platelet Volume 7.1; Monocytes # (A) 0.3 k/uL (0-1.0); Monocytes % (A) 5 %; Neutrophils # (A) 5.7 k/uL (1.3-7.7); Neutrophils % (A) 84 %; Platelet Count 170 k/uL (150-450); WBC 6.7 k/uL (3.8-10.6)
[2020-05-17 12:45] LABS: INR 1.1 (<1.2); Partial Thromboplastin Time 26.9 sec (22.0-30.0); Prothrombin Time 10.8 sec (9.0-12.0)
[2020-05-17 12:48] LABS: ALT 30 U/L (4-49); AST 36 U/L (17-59); African American GFR (CKD) >90 (>60 ml/min/1.73 sqM); Alkaline Phosphatase 64 U/L (38-126); Anion Gap 6 mmol/L; Blood Urea Nitrogen 16 mg/dL (9-20); Calcium 9.2 mg/dL (8.4-10.2); Carbon Dioxide 30 mmol/L (22-30); Chloride 97 mmol/L (98-107); Glucose 111 mg/dL (74-99); Non-African American GFR(CKD) 79 (>60 ml/min/1.73 sqM); Potassium 4.8 mmol/L (3.5-5.1); Sodium 133 mmol/L (137-145); Total Bilirubin 1.2 mg/dL (0.2-1.3); Total Protein 6.6 g/dL (6.3-8.2)
--- NOTE | 2020-05-17 13:11 | CT ---
EXAMINATION TYPE: CT brain wo con DATE OF EXAM: 05/17/2020 HISTORY: Left sided arm numbness.. CT DLP: 1099.4 mGycm. Automated Exposure Control for Dose Reduction was Utilized. TECHNIQUE: CT scan of the head is performed without contrast. COMPARISON: CT brain 01/29/2017 FINDINGS: There is no acute intracranial hemorrhage, midline shift, or mass effect identified. White matter hyp odensities redemonstrated, likely sequela of chronic microvascular ischemic change. Redemonstrated vo lume loss. The ventricles, sulci, and cisterns are normal in size and configuration. No extra-axial fluid collection. Bones and extracranial soft tissues are intact. The globes are gross ly symmetric. Visualized sinuses and mastoid air cells are clear. IMPRESSION: No acute intracranial hemorrhage, midline shift, or mass effect.
--- NOTE | 2020-05-17 13:22 | XR ---
EXAMINATION TYPE: XR chest 2V DATE OF EXAM: 05/17/2020 COMPARISON: Prior chest x-ray 01/29/[address] 09/05/2016 HISTORY: Altered mental status and left arm numbness, abnormal chest x-ray TECHNIQUE: Frontal and lateral views of the chest are obtained. FINDINGS: Patient is post median sternotomy. Prominent lung volumes with flattening the hemidiaphrag ms suggests underlying COPD. Retrocardiac density with central lucencies compatible with hiatal herni a and partial intrathoracic stomach. There is no pneumothorax. Heart is enlarged. Patchy basilar dens ity is noted. Blunting the costophrenic angle on the left is likely due to chronic pleural reaction. IMPRESSION: Mobile scarring at the lung bases. Cardiomegaly, emphysema, hiatal hernia
[2020-05-17] MEDS ORDERED: ALBUTEROL NEBULIZED 2.5 MG/3 ML INHALATION PRN (15:27)
--- NOTE | 2020-05-17 15:40 | US ---
EXAMINATION TYPE: US carotid duplex BILAT DATE OF EXAM: 05/17/2020 COMPARISON: None CLINICAL HISTORY: Stenosis. Patient states having a previous endarterectomy bilaterally. No hx TIA. EXAM MEASUREMENTS: RIGHT: Peak Systolic Velocity (PSV) cm/sec ----- Right CCA: 55.4 ----- Right ICA: 264.8 ----- Right ECA: 69.5 ICA/CCA ratio: 4.8 RIGHT: End Diastole cm/sec ----- Right CCA: 7.8 ----- Right ICA: 57.9 ----- Right ECA: 4.6 LEFT: Peak Systolic Velocity (PSV) cm/sec ----- Left CCA: 174.0 ----- Left ICA: 179.0 ----- Left ECA: 109.7 ICA/CCA ratio: 1.0 LEFT: End Diastole cm/sec ----- Left CCA: 13.7 ----- Left ICA: 8.9 ----- Left ECA: 0.0 VERTEBRALS (direction of flow): Right Vertebral: Antegrade Left Vertebral: Antegrade Rhythm: Arrhythmia Plaque visualized bilaterally, severe on the right and moderate on the left. There is severe stenosis visualized at the right carotid bulb. IMPRESSION: 1. Flow parameters suggest greater than 70% stenosis to near occlusion at the right distal common car otid artery/carotid bulb. Recommend CTA examination of the neck. 2. Flow parameters suggest 50-69% stenosis of the left common carotid artery. 3. Severe right and moderate left atherosclerotic plaque. Criteria for Assigning % of Stenosis / Diameter reduction (Estimation based on the indirect measurements of the internal carotid artery velocities (ICA PSV). 1. Normal (no stenosis)=ICA PSV < 125 cm/s: ratio < 2.0: ICA EDV<40 cm/s. 2. Less than 50% stenosis=ICA PSV < 125 cm/s: ratio < 2.0: ICA EDV<40 cm/s. 3. 50 to 69% stenosis=ICA PSV of 125 to 230 cm/s: ration 2.0 ? 4.0: ICA EDV 40-100 cm/s. 4. Greater than 70% stenosis to near occlusion= ICA PSV > 230 cm/s: ratio > 4.0: ICA EDV > 100 cm/s. 5. Near occlusion= ICA PSV velocities may be low or undetectable: variable ratio and ICA EDV. 6. Total occlusion=unable to detect flow.
--- NOTE | 2020-05-17 15:44 | P.HPIM ---
History of Present Illness H&P Date: 05/17/20 Chief Complaint: Numbness and weakness of the left arm Assessment 85-year-old male patient of Drs. Wiggins, Bambi and Mirna. with past medical history of paroxysmal atrial fibrillation on chronic eliquis, COPD, chronic hypoxic respiratory failure on home O2 at 2-1/2 L nasal cannula, history of coronary artery disease with CABG 20 years ago, benign prostatic hypertrophy. Patient gives history of having 4-5 episodes in the past month of numbness in the left arm and the bottom of the left foot. He states the episode today was so severe that he could not move his left arm and HE also has difficulty swallowing which was a new symptom. Also complained of some right face tingling which was new. The episode lasted for about 15 minutes and resolved completely. This episode today occurred at 5 AM. Patient also complains of frequent episodes of cramping in his hands. Patient came into emergency center for evaluation. He underwent a CAT scan of the brain that did not show any acute abnormality. Carotid ultrasound has been completed and result is pending. Echocardiogram has been obtained and report is pending. CBC was unremarkable. Sodium 133, potassium 4.8, chloride 97, CO2 30, creatinine 0.88. Blood sugar 111. Troponin negative on one drop. Liver function tests were normal. Initial blood pressure 122/74, heart rate 72 and pulse ox 94% on 2-1/2 L nasal cannula. MRI of the brain ordered. Patient to be admitted to the cardiac stepdown unit. Review of Systems Constitutional: Denies anorexia, Denies chills, Denies fatigue, Denies fever, Denies lethargy, Denies malaise, Denies poor appetite, Denies weakness, Denies weight loss Eyes: denies blurred vision, denies pain Ears, nose, mouth and throat: Reports dysphagia, Denies nasal congestion, Denies nasal discharge Cardiovascular: Reports dyspnea on exertion (Chronic), Denies chest pain, Denies edema, Denies leg edema, Denies lightheadedness, Denies palpitations, Denies shortness of breath Respiratory: Reports cough (Chronic), Reports home oxygen, Denies dyspnea, Denies excessive sputum, Denies hemoptysis, Denies respiratory infections, Denies sleep apnea, Denies wheezing Gastrointestinal: Denies abdominal pain, Denies diarrhea, Denies loss of appetite, Denies nausea, Denies vomiting Genitourinary: Denies dysuria, Denies urinary frequency, Denies urinary retention Musculoskeletal: Reports arm numbness/tingling, Reports leg numbness/tingling (Left foot), Denies frequent falls, Denies low back pain, Denies myalgias Integumentary: Denies pruritus, Denies rash, Denies wounds Neurological: Reports tingling, Reports transient paralysis (Left arm), Denies aphasia, Denies change in smell/taste, Denies change in speech, Denies confusion, Denies headaches, Denies memory loss, Denies numbness, Denies syncope, Denies weakness, Denies visual changes Psychiatric: Denies anxiety, Denies depression Endocrine: Denies fatigue, Denies weight change 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 Past Anesthesia/Blood Transfusion Reactions: No Reported Reaction Past Psychological History: No Psychological Hx Reported Smoking Status: Former smoker, Never smoker Past Alcohol Use History: None Reported Additional Past Alcohol Use History / Comment(s): Patient was a smoker of one pack per day for 15 years and quit 40-50 years ago. 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 He denies any alcohol use, marijuana or street drug use. He lives at home with his . He has home O2 at 2-1/2 L nasal and a nebulizer. He does not have a CPAP. Past Drug Use History: None Reported - Past Family History Father Family Medical History: Coronary Artery Disease (CAD) Additional Family Medical History / Comment(s): Father at age 75 from ASHD. Mother Family Medical History: Unable to Obtain Additional Family Medical History / Comment(s): Other in her 30s from complications after the . Sister(s) Additional Family Medical History / Comment(s): Patient has 2 sisters and one at age 60 from diabetes complications. One at age 83 from old age with history of atrial fibrillation. Patient does not have any brothers. Patient had 2 twin boys and one was murdered at age 20. Remaining son and 1 daughter living with no major medical problems. Medications and Allergies Home Medications Medication Instructions Recorded Confirmed Type Albuterol Nebulized [Ventolin 2.5 mg INHALATION RT-Q6H PRN 08/30/16 05/17/20 History Nebulized] Doxazosin Mesylate 8 mg PO BID 08/30/16 05/17/20 History Simvastatin [Zocor] 20 mg PO HS 08/30/16 05/17/20 History Tiotropium 18 Mcg/Puff [Spiriva] 1 cap INHALATION RT-DAILY 08/30/16 05/17/20 History Apixaban [Eliquis] 2.5 mg PO BID 01/29/17 05/17/20 History Ascorbic Acid [Vitamin C] 500 mg PO DAILY 05/17/20 05/17/20 History Atenolol [Tenormin] 50 mg PO DAILY 05/17/20 05/17/20 History Budesonide [Pulmicort] 0.5 mg INHALATION RT-BID 05/17/20 05/17/20 History Dutasteride 0.5 mg PO DAILY 05/17/20 05/17/20 History Formoterol Fumarate [Perforomist] 20 mcg INHALATION RT-BID 05/17/20 05/17/20 History Multivitamins, Thera [Multivitamin 1 tab PO DAILY 05/17/20 05/17/20 History (formulary)] Omeprazole 40 mg PO DAILY 05/17/20 05/17/20 History amLODIPine [Norvasc] 5 mg PO BID 05/17/20 05/17/20 History predniSONE 5 mg PO DAILY 05/17/20 05/17/20 History Allergies Allergy/AdvReac Type Severity Reaction Status Date / Time ciprofloxacin [From Cipro] Allergy Rash/Hives Verified 05/17/20 14:44 Physical Exam Vitals: Vital Signs Temp Pulse Resp BP Pulse Ox 05/17/20 11:46 98.0 F 72 26 H 122/74 94 L Intake and Output 05/17/20 05/17/20 05/17/20 06:59 14:59 22:59 Other: Weight 74.843 kg Physical Examination Gen: This is an 84-year-old male. He is resting bed and appears to be comfortable and in no acute distress. HEENT: Head is atraumatic, normocephalic. Pupils equal, round. Sclerae is anicteric. NECK: Supple. No JVD. No lymphadenopathy. No thyromegaly. Bilat carotid bruit. LUNGS: Clear to auscultation. No wheezes or rhonchi. No intercostal retractions. HEART: Regular rate and rhythm. Systolic murmur. ABDOMEN: Soft. Bowel sounds are present. No masses. No tenderness. EXTREMITIES: No pedal edema. No calf tenderness. NEUROLOGICAL: Patient is awake, alert and oriented x3. Cranial nerves 2 through 12 are grossly intact. Results CBC & Chem 7: 05/17/20 12:19 05/17/20 12:19 Labs: Abnormal Lab Results - Last 24 Hours (Table) 05/17/20 05/17/20 Range/Units 12:19 12:19 RBC 4.20 L (4.30-5.90) m/uL Lymphocytes # 0.6 L (1.0-4.8) k/uL Sodium 133 L (137-145) mmol/L Chloride 97 L (98-107) mmol/L Glucose 111 H (74-99) mg/dL Thrombosis Risk Factor Assmnt - DVT/VTE Prophylaxis DVT/VTE Prophylaxis: Pharmacologic Prophylaxis ordered Assessment and Plan Plan: 1. TIA. The patient has had echocardiogram and carotid ultrasound completed, results are pending. MRI of the brain, neurology consult. PT, OT, ST eval and treatment. Continue statin, Eliquis and add aspirin 81 mg daily until seen by neurology. 2. Paroxysmal atrial fibrillation. Continue eliquis 2.5 mg twice daily, atenolol 50 mg daily. 3. End-stage COPD, prednisone dependent and oxygen dependent. No exacerbation. Continue albuterol as needed, Atrovent 4 times daily, Pulmicort twice daily, Perforomist twice daily, prednisone 5 mg daily. Patient follows with Dr. Lacy. 4. Chronic hypoxic respiratory failure with home O2 and 2-1/2 L nasal cannula. Continue oxygen therapy. 5. Coronary artery disease with previous CABG 20 years ago, stable no complaints of chest pain. Patient follows with Dr. Bradley. 6. Gastroesophageal reflux disease and GI prophylaxis. Continue omeprazole daily. 7. Benign prostatic hypertrophy. Continue doxazosin 8 mg twice daily. 8. Hypertension. Continue atenolol and amlodipine 5 mg twice daily]. 9. DVT prophylaxis. Eliquis. Patient will be admitted to the hospital for a minimum of 2 night stay. Discharge plan: Most likely return home. Impression and plan of care have been directed as dictated by the signing physician. Shanice Lawton nurse practitioner acting as scribe for signing physician.
[2020-05-17] MEDS ORDERED: ASPIRIN 81 MG PO STA (16:01)
[2020-05-17] MEDS: SODIUM CHLORIDE 0.9% 1,000 ML IV SCH (16:14)
[2020-05-17 17:15] LABS: T4, Free (Free Thyroxine) 0.99 ng/dL (0.78-2.19)
--- NOTE | 2020-05-17 18:16 | P.CNNES ---
History of Present Illness Consult date: 05/17/20 Requesting physician: John Schneider Reason for Consult: left numbness and weakness concern for TIA History of Present Illness: This is an 85-year-old left-handed gentleman with medical history of fibrillation on Eliquis 2.5 mg twice a day, coronary artery disease status post CABG at age 63, asymptomatic carotid endarterectomy bilaterally (close to 20 years ag), polio as a child, left ankle fusion (from polio) as a result the presented emergency department on 05/17/2020 for left arm weakness and numbness as well numbness on the left foot. He is accompanied with his . Patient stated that he woke up around 5:00 in the morning today and he noticed numbness of the left hand and involved the left arm the noticed the left arm was weak. Then later the left foot was numb. He said he had moving his left hand/arm. His episode lasted for 10-15 minutes. He notices some numbness over the right side of mouth intermitentlly lasting about few minutes and last episode was 1 hour ago. Otherwise he is back to baseline. He said he is compliant taking his Eliquis 2.5mg bid. He is not on antiplatelete. He uses cane for years since he has fusion of the left ankle from polio. He denies any TIA or stroke symptoms in the past. He had bilateral carotid endarterectomy close to 20 years ago but was not symptomatic. He thinks at that time they were about >80% stenosis. Workup in the ED consisted of: Vitals: Blood pressure of 122/74, heart rate is 72, less fear of 26, temperature of 98.0 Fahrenheit oral and pulse ox of 94% on 2.[address] of the head which was reported as no acute intracranial hemorrhage, midline shift or mass effect. Personally reviewed the CT of the head and I agree with the finding. Carotid duplex: Reported as flow parameters suggest greater than 70% stenosis to near occlusion at the right distal common carotid artery/carotid bulb. Recommend CTA examination of the neck. Flow parameters suggests a 50-69 stenosis of the left common carotid artery. Severe right and moderate left atherosclerotic plaque. EKG is reported as sinus rhythm with premature atrial complexes. Otherwise normal EKG. Review of Systems Review of system: The 12 point system was reviewed and apparent positive and negative per HPI. 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 Past Anesthesia/Blood Transfusion Reactions: No Reported Reaction Past Psychological History: No Psychological Hx Reported Smoking Status: Never smoker Past Alcohol Use History: None Reported Past Drug Use History: None Reported - Past Family History Father Family Medical History: Coronary Artery Disease (CAD) Mother Family Medical History: Unable to Obtain Sister(s) Additional Family Medical History / Comment(s): Patient has 2 sisters and one at age 60 from diabetes complications. One at age 83 from old age with history of atrial fibrillation. Patient does not have any brothers. Patient had 2 twin boys and one was murdered at age 20. Remaining son and 1 daughter living with no major medical problems. Medications and Allergies Home Medications Medication Instructions Recorded Confirmed Type Albuterol Nebulized [Ventolin 2.5 mg INHALATION RT-Q6H PRN 08/30/16 05/17/20 History Nebulized] Doxazosin Mesylate 8 mg PO BID 08/30/16 05/17/20 History Simvastatin [Zocor] 20 mg PO HS 08/30/16 05/17/20 History Tiotropium 18 Mcg/Puff [Spiriva] 1 cap INHALATION RT-DAILY 08/30/16 05/17/20 History Apixaban [Eliquis] 2.5 mg PO BID 01/29/17 05/17/20 History Ascorbic Acid [Vitamin C] 500 mg PO DAILY 05/17/20 05/17/20 History Atenolol [Tenormin] 50 mg PO DAILY 05/17/20 05/17/20 History Budesonide [Pulmicort] 0.5 mg INHALATION RT-BID 05/17/20 05/17/20 History Dutasteride 0.5 mg PO DAILY 05/17/20 05/17/20 History Formoterol Fumarate [Perforomist] 20 mcg INHALATION RT-BID 05/17/20 05/17/20 History Multivitamins, Thera [Multivitamin 1 tab PO DAILY 05/17/20 05/17/20 History (formulary)] Omeprazole 40 mg PO DAILY 05/17/20 05/17/20 History amLODIPine [Norvasc] 5 mg PO BID 05/17/20 05/17/20 History predniSONE 5 mg PO DAILY 05/17/20 05/17/20 History Allergies Allergy/AdvReac Type Severity Reaction Status Date / Time ciprofloxacin [From Cipro] Allergy Rash/Hives Verified 05/17/20 14:44 Physical Examination - Vital Signs Vital Signs: Vital Signs Temp Pulse Resp BP Pulse Ox 05/17/20 11:46 98.0 F 72 26 H 122/74 94 L Intake and Output 05/17/20 05/17/20 05/17/20 06:59 14:59 22:59 Other: Weight 74.843 kg GENERAL: The patient is lying in bed and is not in acute distress. CHEST: The heart rate is regular rate rhythm. No murmurs to auscultation. +ve carotid bruit over the right but not the left. LUNG: Clear to auscultation bilaterally no wheezing noted throughout. Not labored breathing. ABDOMEN/GI: Bowel sounds present in all 4 quadrants. No tenderness to palpation throughout. NEUROLOGICAL: Higher mental function: The patient is awake, alert, oriented to self, place and time. Patient is following commands. No aphasia and no neglect. Cranial nerves: The pupils are round, equal and reactive to light and accommodation. Visual rodriguez are full to confrontation throughout. Extraocular movement is intact no nystagmus is noted. Facial sensation is normal to touch throughout. The facial strength is normal throughout. Hearing is normal bilaterally to hand rub. Tongue is midline and moved [id number] without any difficulty. No dysarthria is noted. Shoulder shrug is normal bilaterally. Motor: Gait is deferred. The strength is left ankle/foot is unable to assess since patient was adement there is no strength and had his shoes on. Otherwise strength 5/5. Normal tone and bulk. Cerebellum: Normal finger to nose bilaterally. Sensation: Sensation is normal to touch throughout. Reflexes (right/left): 2+ throughout except at left ankle unable to assess. Plantars is downgoing on the right but left not assessed. Results AST of 36, ALT of 30. Calcium of the 9.2. Coagulation study: PT of 10.8, INR 1.1 and PTT of 26.9. - Laboratory Findings CBC and BMP: 05/17/20 12:19 05/17/20 12:19 Abnormal Lab Findings: Abnormal Labs 05/17/20 05/17/20 12:19 12:19 RBC 4.20 L Lymphocytes # 0.6 L Sodium 133 L Chloride 97 L Glucose 111 H Assessment and Plan Assessment: This is an 85-year-old gentleman with signficant medical history the presented emergency department on 05/17/2020 for left arm numbness and weakness and some numbness over the left foot lasting about 10-15 minutes. He feels he has intermittent numbness over the right side of mouth lasting couple minutes. Transient ischemic attack: Likely due to symtomatic Right ICA stenosis. Another possiblity is cardiac in etiology-Afib (I feel more likely Carotid stenosis > A- fib) Continued Symtomatic Right carotid stenosis (>70% to near occlusion per carotid duplex) Left carotid stenosis (50-69%) History of bilateral carotid endarterectomy (close to 20 year ago) and was asymptomatic Atrial fibrillation on Eliquis History of polio Left ankle fusion from polio History of cardiac artery disease status post CABG Plan: * MRI the brain is ordered by the primary team. * 2-D echo is pending * Lipid panel is ordered and is pending. * Currently the patient the was restarted on Eliquis 2.5 mg twice a day for the atrial fibrillation and was started on a home dose of simvastatin 20 mg daily. * I spoke with the patient and his that a like to hold the Eliquis until I get the MRI to make sure there is no large stroke. Unknown when the patient will get MRI and because of that we'll continue the Eliquis 2.5 mg twice a day. * If the MRI of the brain is normal and this is a 2 to be a TIA then the hola ctrode start the patient on aspirin or Plavix in addition to the Eliquis especially with significant carotid stenosis. * I'll change his simvastatin 20 mg daily to Lipitor 80 mg daily which will help stabilize to plaque. * I will also order a CTA of the neck only to assess the degree of the stenosis. * Vascular surgery is consulted for carotid stenosis. * Occupation therapy and physical therapy are consulted. * Continue cardiac monitoring The plan was discussed with the patient and his . Dr. Lovell will be on service for Neurology on 05/18/2020 as well as 05/19/2020. Thank You for the consultation. Anderson Mcmahon M.D. Neuro-hospitalist Time with Patient: Greater than 30
--- NOTE | 2020-05-17 19:00 | ECHOF ---
Referral Reason:Thrombus MEASUREMENTS -------- HEIGHT: 177.8 cm WEIGHT: 74.8 kg BP: 122/74 RVIDd: 3.0 cm (< 3.3) IVSd: 1.2 cm (0.6 - 1.1) LVIDd: 3.9 cm (3.9 - 5.3) LVPWd: 1.2 cm (0.6 - 1.1) IVSs: 1.8 cm LVIDs: 2.2 cm LVPWs: 1.8 cm LA Diam: 3.6 cm (2.7 - 3.8) LAESV Index (A-L): 30.83 ml/m Ao Diam: 3.4 cm (2.0 - 3.7) AV Cusp: 1.8 cm (1.5 - 2.6) MV EXCURSION: 20.347 mm (> 18.000) MV EF SLOPE: 66 mm/s (70 - 150) EPSS: 0.4 cm MV E Scott: 0.92 m/s MV DecT: 186 ms MV A Scott: 1.07 m/s MV E/A Ratio: 0.86 RAP: 5.00 mmHg RVSP: 33.58 mmHg FINDINGS -------- Sinus rhythm. This was a technically adequate study. The left ventricular size is normal. There is borderline concentric left ventricular hypertrophy. Overall left ventricular systolic function is normal with, an EF between 60 - 65 %. The right ventricle is normal in size. LA is midly dilated 29-33ml/m2. The right atrium is normal in size. Interatrial and interventricular septum intact. Aortic valve is trileaflet and is mildly thickened. The mitral valve is normal. Mild tricuspid regurgitation present. There is borderline pulmonary hypertension. The right ventr icular systolic pressure, as measured by Doppler, is 33.58mmHg. There is no pulmonic regurgitation present. The aortic root size is normal. Normal inferior vena cava with normal inspiratory collapse consistent with estimated right atrial pre ssure of 5 mmHg. There is no pericardial effusion. CONCLUSIONS -------- 1. The left ventricular size is normal. 2. There is borderline concentric left ventricular hypertrophy. 3. Overall left ventricular systolic function is normal with, an EF between 60 - 65 %. 4. LA is midly dilated 29-33ml/m2. 5. Aortic valve is trileaflet and is mildly thickened. 6. Mild tricuspid regurgitation present. 7. There is borderline pulmonary hypertension. 8. The right ventricular systolic pressure, as measured by Doppler, is 33.58mmHg. 9. There is no pericardial effusion. CHECKMAN: Amanda Romero RDCS
[2020-05-17] MEDS ORDERED: ATORVASTATIN 10 MG TAB PO SCH (21:00)
[2020-05-17] MEDS: BUDESONIDE 0.5 MG/2 ML NEBU INHALATION SCH (21:01)
[2020-05-17] MEDS: FORMOTEROL FUMARATE 20 MCG/2 ML NEBU INHALATION SCH (21:01)
[2020-05-17] MEDS: ATORVASTATIN 80 MG TAB PO SCH (21:22)
[2020-05-17] MEDS: APIXABAN 2.5 MG TABLET PO SCH (21:23)
[2020-05-17] MEDS: DOXAZOSIN 4 MG TAB PO SCH (21:23)
[2020-05-17] MEDS: amLODIPine 5 MG TAB PO SCH (23:51)
[2020-05-17 23:58] LABS: Hemoglobin A1C 5.3 % (4.0-6.0)
[2020-05-18] MEDS: PANTOPRAZOLE 40 MG TABLET PO SCH (06:57)
[2020-05-18 08:24] LABS: Cholesterol 114 mg/dL (<200); HDL Cholesterol 44 mg/dL (40-60); LDL Cholesterol,Calculated 59 mg/dL (0-99); Triglycerides 55 mg/dL (<150)
[2020-05-18] MEDS: ASPIRIN 81 MG PO SCH (08:50)
[2020-05-18] MEDS: FINASTERIDE 5 MG TAB PO SCH (08:50)
[2020-05-18] MEDS: atenoloL 50 MG TAB PO SCH (08:50)
[2020-05-18] MEDS: APIXABAN 2.5 MG TABLET PO SCH ×2 (08:50→21:13)
[2020-05-18] MEDS: MULTIVITAMINS, THERA 1 EACH TAB PO SCH (08:50)
[2020-05-18] MEDS: DOXAZOSIN 4 MG TAB PO SCH ×2 (08:50→21:12)
[2020-05-18] MEDS: ASCORBIC ACID 500 MG TAB PO SCH (08:50)
[2020-05-18] MEDS: amLODIPine 5 MG TAB PO SCH ×2 (08:50→21:13)
[2020-05-18] MEDS ORDERED: predniSONE 5 MG TAB PO SCH (09:00)
--- NOTE | 2020-05-18 09:11 | CT ---
EXAMINATION TYPE: CT angio neck DATE OF EXAM: 05/18/2020 HISTORY: carotid stenosis COMPARISON: Carotid ultrasound 05/17/2020 CT DLP: 204 mGycm. Automated Exposure Control for Dose Reduction was Utilized. TECHNIQUE: CTA scan of the neck is performed with IV Contrast, patient injected with 65 mL of Isovue 370, axial images are obtained, coronal and sagittal reformatted images are reviewed. Three-D recons tructed images are created on an independent workstation and reviewed. Stenosis calculated utilizing NASCET criteria. FINDINGS: Carotid/Vascular Structures: Classic branching pattern of the aortic arch. Medial course of the commo n carotid arteries. Moderate atherosclerotic disease bilaterally. The right distal common carotid art lui demonstrates a dissection spanning approximately 1.1 cm craniocaudal (4:44-46, 6:12). In this roland e region of the distal common carotid artery there is focal atherosclerotic disease with 61% stenosis of the mi[place]kmaq lumen. There is no hemodynamically significant stenosis, occlusion, or aneurysm of the left carotid artery or vertebral artery. The vertebrobasilar system is left-sided dominant, with sanchez y diminutive right vertebral artery throughout. Other: Emphysema of the lungs. Degenerative changes of the spine. IMPRESSION: 1. Right distal common carotid artery demonstrates short segment dissection, with opacification of th e true and false lumen. Atherosclerotic disease at this location, with 61% stenosis of the mi'kmaq lum en. 2. No hemodynamically significant stenosis, occlusion, or aneurysm on the left. 3. Vertebrobasilar system is left-sided dominant.
[2020-05-18] MEDS: IPRATROPIUM 0.5 MG/2.5 ML NEBU INHALATION SCH ×4 (09:31→20:23)
[2020-05-18] MEDS: BUDESONIDE 0.5 MG/2 ML NEBU INHALATION SCH ×2 (09:32→20:24)
[2020-05-18] MEDS: FORMOTEROL FUMARATE 20 MCG/2 ML NEBU INHALATION SCH ×2 (09:32→20:23)
--- NOTE | 2020-05-18 10:23 | MR ---
EXAMINATION TYPE: MR brain wo/w con DATE OF EXAM: 05/18/2020 COMPARISON: CT brain 05/17/2020 HISTORY: Weakness, TIA TECHNIQUE: Multiplanar, multisequence images of the brain and brainstem is performed without and with IV contras t, utilizing 7.5 mL intravenous Gadavist . FINDINGS: Diffusion weighted images demonstrate no evidence of a recent infarct or other diffusion ab normality. There is no extra-axial fluid collection. Periventricular and subcortical white matter T2 FLAIR hyperintense foci likely sequela chronic microvascular ischemic change. The ventricular system and cisternal spaces are normal in size and appearance. The brain volume is age appropriate. Midline structures demonstrate normal morphology. The craniocervical junction appears within normal limits. Post contrast images demonstrate no abnormal enhancement. The dural venous sinuses appear pa tent. The globes are grossly symmetric. There is mucosal thickening of the ethmoid air cells and righ t maxillary. IMPRESSION: No evidence of acute infarct or abnormal enhancement.
--- NOTE | 2020-05-18 10:35 | P.PN ---
Subjective Progress Note Date: 05/18/20 This is an 85-year-old male patient of Drs. Wiggins, Bambi and Mirna. with past medical history of paroxysmal atrial fibrillation on chronic eliquis, COPD, chronic hypoxic respiratory failure on home O2 at 2-1/2 L nasal cannula, history of coronary artery disease with CABG 20 years ago, benign prostatic hypertrophy. Patient gives history of having 4-5 episodes in the past month of numbness in the left arm and the bottom of the left foot. He states the episode today was so severe that he could not move his left arm and HE also has difficulty swallowing which was a new symptom. Also complained of some right face tingling which was new. The episode lasted for about 15 minutes and resolved completely. This episode today occurred at 5 AM. Patient also complains of frequent episodes of cramping in his hands. Patient came into [facility] emergency center for evaluation. He underwent a CAT scan of the brain that did not show any acute abnormality. Carotid ultrasound has been completed and result is pending. Echocardiogram has been obtained and report is pending. CBC was unremarkable. Sodium 133, potassium 4.8, chloride 97, CO2 30, creatinine 0.88. Blood sugar 111. Troponin negative on one drop. Liver function tests were normal. Initial blood pressure 122/74, heart rate 72 and pulse ox 94% on 2-1/2 L nasal cannula. MRI of the brain ordered. Patient to be admitted to the cardiac stepdown unit. 05/18: Patient is laying down in bed in no apparent distress, he did not have any evidence of any numbness in the face or arm at this point in time, he underwent MRI of the brain that did not show any evidence of acute stroke, patient also underwent CTA of the carotid artery that showed the distal right common carotid artery with a short segment of dissection with opacification of the true and false lumen with about 61% stenosis in the left side with no evidence of any hemodynamically significant stenosis, patient has been on aspirin 81 mg once e very day as well as Eliquis 2.5 mg orally twice every day, he would be seen in consultation by vascular surgery was already evaluated by neurology underwent echocardiogram that showed normal LV function with no evidence of any acute abnormalities and no thrombus, patient can be discharged home later on today if there is no intervention is planned by vascular surgery. Objective - Vital Signs Vital signs: Vital Signs Temp 97.5 F L 05/18/20 04:00 Pulse 67 05/18/20 04:00 Resp 20 05/18/20 04:00 BP 141/69 05/18/20 04:00 Pulse Ox 95 05/18/20 04:00 Intake & Output 05/17/20 05/18/20 05/18/20 18:59 06:59 18:59 Intake Total 110 Output Total 300 Balance 110 -300 Weight 71.9 kg 71.4 kg Intake: IV 10 Invasive Line 1 10 Oral 100 Output: Urine 300 Other: Voiding Method Urinal # Voids 1 - Exam Review of Systems Constitutional: Denies anorexia, Denies chills, Denies fatigue, Denies fever, Denies lethargy, Denies malaise, Denies poor appetite, Denies weakness, Denies weight loss Eyes: denies blurred vision, denies pain Ears, nose, mouth and throat: Reports dysphagia, Denies nasal congestion, Denies nasal discharge Cardiovascular: Reports dyspnea on exertion (Chronic), Denies chest pain, Denies edema, Denies leg edema, Denies lightheadedness, Denies palpitations, Denies shortness of breath Respiratory: Reports cough (Chronic), Reports home oxygen, Denies dyspnea, Denies excessive sputum, Denies hemoptysis, Denies respiratory infections, Denies sleep apnea, Denies wheezing Gastrointestinal: Denies abdominal pain, Denies diarrhea, Denies loss of appetite, Denies nausea, Denies vomiting Genitourinary: Denies dysuria, Denies urinary frequency, Denies urinary retention Musculoskeletal: Reports arm numbness/tingling, Reports leg numbness/tingling (Left foot), Denies frequent falls, Denies low back pain, Denies myalgias Integumentary: Denies pruritus, Denies rash, Denies wounds Neurological: Reports tingling, Reports transient paralysis (Left arm), Denies aphasia, Denies change in smell/taste, Denies change in speech, Denies c onfusion, Denies headaches, Denies memory loss, Denies numbness, Denies syncope, Denies weakness, Denies visual changes Psychiatric: Denies anxiety, Denies depression Endocrine: Denies fatigue, Denies weight change Physical Examination Gen: This is an 84-year-old male. He is resting bed and appears to be comfortable and in no acute distress. HEENT: Head is atraumatic, normocephalic. Pupils equal, round. Sclerae is anicteric. NECK: Supple. No JVD. No lymphadenopathy. No thyromegaly. Bilat carotid bruit. LUNGS: Clear to auscultation. No wheezes or rhonchi. No intercostal retractions. HEART: Regular rate and rhythm. Systolic murmur. ABDOMEN: Soft. Bowel sounds are present. No masses. No tenderness. EXTREMITIES: No pedal edema. No calf tenderness. NEUROLOGICAL: Patient is awake, alert and oriented x3. Cranial nerves 2 through 12 are grossly intact. - Labs CBC & Chem 7: 05/17/20 12:19 05/17/20 12:19 Labs: Abnormal Lab Results - Last 24 Hours (Table) 05/17/20 05/17/20 05/17/20 Range/Units 12:19 12:19 12:19 RBC 4.20 L (4.30-5.90) m/uL Lymphocytes # 0.6 L (1.0-4.8) k/uL Sodium 133 L (137-145) mmol/L Chloride 97 L (98-107) mmol/L Glucose 111 H (74-99) mg/dL TSH 7.760 H (0.465-4.680) mIU/L Assessment and Plan Assessment: Assessment and Plan Plan: 1. Transient ischemic attack without evidence of acute ischemic cerebral vascular accident. Patient is to be maintained on aspirin as well as Eliquis 2.5 mg orally twice every day, patient underwent MRI of the brain that was negative for acute infarct, underwent CTA of the carotid artery that showed right distal common carotid artery with a short segment of dissection with opacification of the true and false lumen in about 60% stenosis of the right carotid artery without any hemodynamically significant stenosis in the left carotid artery, patient was seen already by neurology and vascular surgery consultation was obtained, patient can be discharged home today if no intervention is planned by vascular surgery. 2. Paroxysmal atrial fibrillation. Continue eliquis 2.5 mg twice daily, atenolol 50 mg daily. 3. End-stage COPD, prednisone dependent and oxygen dependent. No exacerbation. Continue albuterol as needed, Atrovent 4 times daily, Pulmicort twice daily, Perforomist twice daily, prednisone 5 mg daily. Patient follows with Dr. Lacy. 4. Chronic hypoxic respiratory failure with home O2 and 2-1/2 L nasal cannula. Continue oxygen therapy. 5. Coronary artery disease with previous CABG 20 years ago, stable no complaints of chest pain. Patient follows with Dr. Bradley. 6. Gastroesophageal reflux disease and GI prophylaxis. Continue omeprazole daily. 7. Benign prostatic hypertrophy. Continue doxazosin 8 mg twice daily. 8. Hypertension. Continue atenolol and amlodipine 5 mg twice daily]. 9. DVT prophylaxis. Anibal. 10. Patient is stable to be discharged home today if okay with vascular surgery.
[2020-05-18 11:34] VITALS: BMI 22.6
[2020-05-18] MEDS: SODIUM CHLORIDE 0.9% 1,000 ML IV SCH (15:05)
--- NOTE | 2020-05-18 16:12 | P.PN ---
Subjective Progress Note Date: 05/18/20 The patient is seen in neurologic follow-up on May 18, 2020 via teleneurology. The patient reports resolution of all of his symptoms. The patient reports having left-sided weakness, which lasted for approximately 15 minutes. He denies speech abnormalities. Objective - Vital Signs Vital signs: Vital Signs Temp 97.6 F 05/18/20 12:20 Pulse 68 05/18/20 12:41 Resp 20 05/18/20 12:20 BP 139/71 05/18/20 12:20 Pulse Ox 95 05/18/20 12:20 Intake & Output 05/17/20 05/18/20 05/18/20 18:59 06:59 18:59 Intake Total 110 740 Output Total 300 400 Balance 110 -300 340 Weight 71.9 kg 71.4 kg 71.4 kg Intake: IV 10 Invasive Line 1 10 Oral 100 740 Output: Urine 300 400 Other: Voiding Method Urinal Urinal # Voids 1 - Exam Gen.: Patient is reclining in the bed. He is well-nourished, well-developed and in no acute distress. HEENT: Head is atraumatic, normocephalic. Fundus not visualized. There is no scleral icterus. Mucous membranes are moist. Neurological examination Mental status: Patient is awake, alert and oriented 3. His speech is clear. There is no dysarthria or aphasia Cranial nerves: 2-12 intact as tested, with the exception diminished hearing. Motor: Strength is 5/5 - Labs CBC & Chem 7: 05/17/20 12:19 05/17/20 12:19 Labs: Abnormal Lab Results - Last 24 Hours (Table) 05/17/20 Range/Units 12: TSH 7.760 H (0.465-4.680) mIU/L Assessment and Plan Assessment: 1. Transient ischemic attack 2. CT angiogram of the neck with evidence of the dissection and stenosis of the right common carotid artery 3. History of carotid endarterectomy 4. Plan: 1. Discussed results of CT angiogram, with patient. Advised him that I would like him to be seen by a vascular surgeon, regarding the dissection-this was discussed with , he has already asked for a vascular consultation. 2. Continue Eliquis at this time, consider adding aspirin 3. The patient reports that he does not wish to have surgery although, would like to hear recommendations from the vascular surgeon Time with Patient: Less than 30 (spent 25 minutes with patient via teleneurology)
[2020-05-18] MEDS: ATORVASTATIN 80 MG TAB PO SCH (21:13)
[2020-05-19] MEDS: PANTOPRAZOLE 40 MG TABLET PO SCH (06:39)
[2020-05-19] MEDS: ASPIRIN 81 MG PO SCH (08:06)
[2020-05-19] MEDS: DOXAZOSIN 4 MG TAB PO SCH (08:07)
[2020-05-19] MEDS: amLODIPine 5 MG TAB PO SCH (08:07)
[2020-05-19] MEDS: FINASTERIDE 5 MG TAB PO SCH (08:07)
[2020-05-19] MEDS: MULTIVITAMINS, THERA 1 EACH TAB PO SCH (08:07)
[2020-05-19] MEDS: atenoloL 50 MG TAB PO SCH (08:07)
[2020-05-19] MEDS: SODIUM CHLORIDE 0.9% 1,000 ML IV SCH (08:07)
[2020-05-19] MEDS: APIXABAN 2.5 MG TABLET PO SCH (08:07)
[2020-05-19] MEDS: ASCORBIC ACID 500 MG TAB PO SCH (08:08)
[2020-05-19] MEDS ORDERED: predniSONE 10 MG TAB PO SCH (09:00)
[2020-05-19] MEDS: BUDESONIDE 0.5 MG/2 ML NEBU INHALATION SCH (09:00)
[2020-05-19] MEDS: IPRATROPIUM 0.5 MG/2.5 ML NEBU INHALATION SCH ×2 (09:02→12:09)
[2020-05-19] MEDS: FORMOTEROL FUMARATE 20 MCG/2 ML NEBU INHALATION SCH (09:02)
--- NOTE | 2020-05-19 09:38 | P.DS ---
Providers Date of admission: 05/17/20 13:40 Expected date of discharge: 05/19/20 Attending physician: Kehinde Wiggins Consults: 05/17/20 13:40 Consult Physician Routine Consulting Provider: Anderson Mcmahon Consult Reason/Comments: TIA Do you want consulting provider notified?: Yes 05/17/20 16:07 Consult Physician Routine Consulting Provider: Kaiden Jack Consult Reason/Comments: carotid stenosis Do you want consulting provider notified?: Yes Primary care physician: Kehinde Wiggins [facility] Course: This is an 85-year-old male patient of Drs. Wiggins, Bambi and Mirna. with past medical history of paroxysmal atrial fibrillation on chronic eliquis, COPD, chronic hypoxic respiratory failure on home O2 at 2-1/2 L nasal cannula, history of coronary artery disease with CABG 20 years ago, benign prostatic hypertrophy. Patient gives history of having 4-5 episodes in the past month of numbness in the left arm and the bottom of the left foot. He states the episode today was so severe that he could not move his left arm and HE also has difficulty swallowing which was a new symptom. Also complained of some right face tingling which was new. The episode lasted for about 15 minutes and resolved completely. This episode today occurred at 5 AM. Patient also complains of frequent episodes of cramping in his hands. Patient came into [facility] emergency center for evaluation. He underwent a CAT scan of the brain that did not show any acute abnormality. Carotid ultrasound has been completed and result is pending. Echocardiogram has been obtained and report is pending. CBC was unremarkable. Sodium 133, potassium 4.8, chloride 97, CO2 30, creatinine 0.88. Blood sugar 111. Troponin negative on one drop. Liver function tests were normal. Initial blood pressure 122/74, heart rate 72 and pulse ox 94% on 2-1/2 L nasal cannula. MRI of the brain ordered. Patient to be admitted to the cardiac stepdown unit. 05/18: Patient is laying down in bed in no apparent distress, he did not have any evidence of any numbness in the face or arm at this point in time, he underwent MRI of the brain that did not show any evidence of acute stroke, patient also underwent CTA of the carotid artery that showed the distal right common carotid artery with a short segment of dissection with opacification of the true and false lumen with about 61% stenosis in the left side with no evidence of any hemodynamically significant stenosis, patient has been on aspirin 81 mg once every day as well as Eliquis 2.5 mg orally twice every day, he would be seen in consultation by vascular surgery was already evaluated by neurology underwent echocardiogram that showed normal LV function with no evidence of any acute abnormalities and no thrombus, patient can be discharged home later on today if there is no intervention is planned by vascular surgery. discharge diagnoses: 1. TIA patient was ruled out for CVA negative MRI of the brain. 2. 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 3. Paroxysmal atrial fibrillation. 4. End-stage COPD, prednisone dependent and oxygen dependent. No exacerbation. Continue albuterol as needed, Atrovent 4 times daily, Pulmicort twice daily, Perforomist twice daily, prednisone 5 mg daily. 5. Chronic hypoxic respiratory failure with home O2 and 2-1/2 L nasal cannula. 6. Coronary artery disease with previous CABG 20 years ago. 7. Gastroesophageal reflux disease and GI prophylaxis. 8. Benign prostatic hypertrophy. 9. Hypertension and hypertensive cardiovascular disease. 10. History of polio. Patient Condition at Discharge: Stable Plan - Discharge Summary Discharge Rx Participant: No New Discharge Prescriptions: No Action Simvastatin [Zocor] 20 mg PO HS Albuterol Nebulized [Ventolin Nebulized] 2.5 mg INHALATION RT-Q6H PRN PRN Reason: Shortness Of Breath Tiotropium 18 Mcg/Puff [Spiriva] 1 cap INHALATION RT-DAILY Doxazosin Mesylate 8 mg PO BID Apixaban [Eliquis] 2.5 mg PO BID amLODIPine [Norvasc] 5 mg PO BID predniSONE 5 mg PO DAILY Multivitamins, Thera [Multivitamin (formulary)] 1 tab PO DAILY Ascorbic Acid [Vitamin C] 500 mg PO DAILY Formoterol Fumarate [Perforomist] 20 mcg INHALATION RT-BID Dutasteride 0.5 mg PO DAILY Atenolol [Tenormin] 50 mg PO DAILY Budesonide [Pulmicort] 0.5 mg INHALATION RT-BID Omeprazole 40 mg PO DAILY Discharge Medication List Albuterol Nebulized [Ventolin Nebulized] 2.5 mg INHALATION RT-Q6H PRN 08/30/16 [History] Doxazosin Mesylate 8 mg PO BID 08/30/16 [History] Simvastatin [Zocor] 20 mg PO HS 08/30/16 [History] Tiotropium 18 Mcg/Puff [Spiriva] 1 cap INHALATION RT-DAILY 08/30/16 [History] Apixaban [Eliquis] 2.5 mg PO BID 01/29/17 [History] Ascorbic Acid [Vitamin C] 500 mg PO DAILY 05/17/20 [History] Atenolol [Tenormin] 50 mg PO DAILY 05/17/20 [History] Budesonide [Pulmicort] 0.5 mg INHALATION RT-BID 05/17/20 [History] Dutasteride 0.5 mg PO DAILY 05/17/20 [History] Formoterol Fumarate [Perforomist] 20 mcg INHALATION RT-BID 05/17/20 [History] Multivitamins, Thera [Multivitamin (formulary)] 1 tab PO DAILY 05/17/20 [History] Omeprazole 40 mg PO DAILY 05/17/20 [History] amLODIPine [Norvasc] 5 mg PO BID 05/17/20 [History] predniSONE 5 mg PO DAILY 05/17/20 [History] Follow up Appointment(s)/Referral(s): Kehinde Wiggins MD [Primary Care Provider] - 1-2 days
--- NOTE | 2020-05-19 11:35 | P.GSCN ---
History of Present Illness Consult date: 05/19/20 Reason for Consult: carotid stenosis, TIA History of present illness: 85 year old male with history of carotid endarterectomy bilateral carotid arteries several years ago presented to the hospital through the ER secondary to numbness and weakness of the left arm. Patient states having multiple episodes in the past month of numbness of his left arm and the bottom of his foot. He states this past episode was so severe that he was unable to move his left arm and also was experiencing difficulty swallowing and right sided face tingling. He states the episode lasted only 15 minutes and has since resolved. He denies any fevers, chills, nausea, vomiting, chest pain or shortness of breath. He underwent a carotid doppler which demonstrated significant stenosis involving the right carotid artery and then had a CTA of the neck which verified the stenosis, calcification which has a small area of dissection within the plaque. Review of Systems All systems: negative (for what is mentioned in the HPI or PMH) 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 Past Anesthesia/Blood Transfusion Reactions: No Reported Reaction Past Psychological History: No Psychological Hx Reported Smoking Status: Never smoker Past Alcohol Use History: None Reported Past Drug Use History: None Reported - Past Family History Father Family Medical History: Coronary Artery Disease (CAD) Additional Family Medical History / Comment(s): Father at age 75 from ASHD. Mother History Unknown: Yes Family Medical History: Unable to Obtain Additional Family Medical History / Comment(s): Other in her 30s from complications after the . Sister(s) Additional Family Medical History / Comment(s): Patient has 2 sisters and one at age 60 from diabetes complications. One at age 83 from old age with history of atrial fibrillation. Patient does not have any brothers. Patient had 2 twin boys and one was murdered at age 20. Remaining son and 1 daughter living with no major medical problems. Medications and Allergies Home Medications Medication Instructions Recorded Confirmed Type Albuterol Nebulized [Ventolin 2.5 mg INHALATION RT-Q6H PRN 08/30/16 05/17/20 History Nebulized] Doxazosin Mesylate 8 mg PO BID 08/30/16 05/17/20 History Tiotropium 18 Mcg/Puff [Spiriva] 1 cap INHALATION RT-DAILY 08/30/16 05/17/20 History Apixaban [Eliquis] 2.5 mg PO BID 01/29/17 05/17/20 History Ascorbic Acid [Vitamin C] 500 mg PO DAILY 05/17/20 05/17/20 History Atenolol [Tenormin] 50 mg PO DAILY 05/17/20 05/17/20 History Budesonide [Pulmicort] 0.5 mg INHALATION RT-BID 05/17/20 05/17/20 History Dutasteride 0.5 mg PO DAILY 05/17/20 05/17/20 History Formoterol Fumarate [Perforomist] 20 mcg INHALATION RT-BID 05/17/20 05/17/20 History Multivitamins, Thera [Multivitamin 1 tab PO DAILY 05/17/20 05/17/20 History (formulary)] Omeprazole 40 mg PO DAILY 05/17/20 05/17/20 History amLODIPine [Norvasc] 5 mg PO BID 05/17/20 05/17/20 History predniSONE 5 mg PO DAILY 05/17/20 05/17/20 History Aspirin 81 mg PO DAILY chew 05/19/20 Rx Atorvastatin [Lipitor] 80 mg PO HS #30 tab 05/19/20 Rx Allergies Allergy/AdvReac Type Severity Reaction Status Date / Time ciprofloxacin [From Cipro] Allergy Rash/Hives Verified 05/17/20 14:44 Surgical - Exam Vital Signs Temp Pulse Resp BP Pulse Ox 98.0 F 72 26 H 122/74 94 L 05/17/20 11:46 05/17/20 11:46 05/17/20 11:46 05/17/20 11:46 05/17/20 11:46 - General well developed, well nourished, no distress - Eyes PERRL - ENT normal pinna, normal nares - Neck no masses - Respiratory normal expansion - Cardiovascular Rhythm: regularly irregular - Abdomen Abdomen: soft, non tender - Integumentary no rash - Neurologic normal coordination - Psychiatric oriented to time, oriented to person, oriented to place, speech is normal Results - Labs 05/17/20 12:19 05/17/20 12:19 Assessment and Plan Assessment: 1. Symptomatic right carotid stenosis with recent TIA 2. Paroxysmal atrial fibrillation 3. COPD 4. Chronic hypoxic respiratory failure 5. CAD 6. GERD 7. HTN Plan: Reviewed the CTA and carotid doppler with the patient and his in full detail. Agree with continued Eliquis and adding Plavix if patient will tolerate. We will workup for intervention of the right carotid artery for possible TCAR and stenting. Due to his significant co-morbidities and lung issues as well as his CAD he would be better served with a TCAR then re-operation. If it is determined that he is a good TCAR candidate then we will perform the surgery w ithin the next couple of weeks. He is ok for discharge home. Thank you for allowing me to participate in your patients care.
[2020-05-19 11:54] VITALS: BP 135/63; RESP 18; TEMP 98.3
[2020-05-19 12:21] VITALS: PULSE 77
== END 2020-05-19 13:39 | disposition home or self-care (01) | DRG 67 ==
LOC: EC 11:36 → 3SCARD 13:40
PROVIDERS: ADMIT Internal Medicine; ATTEND Internal Medicine
DX: I65.21 Occlusion and stenosis of right carotid artery (principal); I77.71 Dissection of carotid artery; J96.11 Chronic respiratory failure with hypoxia; I11.9 Hypertensive heart disease without heart failure; Z99.81 Dependence on supplemental oxygen; I48.0 Paroxysmal atrial fibrillation; J44.9 Chronic obstructive pulmonary disease, unspecified; K21.9 Gastro-esophageal reflux disease without esophagitis; I25.10 Atherosclerotic heart disease of native coronary artery without angina pectoris; N40.0 Benign prostatic hyperplasia without lower urinary tract symptoms; Z79.01 Long term (current) use of anticoagulants; Z79.82 Long term (current) use of aspirin; Z79.899 Other long term (current) drug therapy; Z79.51 Long term (current) use of inhaled steroids; Z79.52 Long term (current) use of systemic steroids; Z88.1 Allergy status to other antibiotic agents; Z98.1 Arthrodesis status; Z95.1 Presence of aortocoronary bypass graft; Z87.891 Personal history of nicotine dependence; Z86.12 Personal history of poliomyelitis; Z98.890 Other specified postprocedural states; Z86.79 Personal history of other diseases of the circulatory system; Z83.3 Family history of diabetes mellitus; Z82.49 Family history of ischemic heart disease and other diseases of the circulatory system
CPT/HCPCS: 36415; 70450; 70498; 70553; 71046; 80053; 80061; 83036; 84439; 84443; 84484; 85025; 85610; 85730; 93005; 93306; 93880; 94640; 94760; 99285

== ENCOUNTER 2020-07-01 11:26 | Emergency (ER) | payer MEDICARE ==
[2020-07-01 11:39] VITALS: RESP 18
--- NOTE | 2020-07-01 12:09 | ED ---
Fall HPI - General Source: patient, family Mode of arrival: wheelchair <Shyann Barba - Last Filed: 07/02/20 11:12> <Yane Phan Sukumar - Last Filed: 07/02/20 13:18> - General Chief Complaint: Fall Stated Complaint: fall, ankle/face injury Time Seen by Provider: 07/01/20 11:45 - History of Present Illness Initial Comments: Patient is an 85-year-old male with history of COPD, heart disease, presenting to the emergency Department with complaints of a facial injury as well as of right ankle pain after a fall 3 days ago. Patient states he tripped on his oxygen cord at home falling forward landing mostly on the right side of his face. He denies loss of consciousness. Patient states he did have a hematoma on the right side of his forehead which has decreased some but states the bruising and his eyes and upper cheeks has been increasing. He is also complaining of pain in the lateral aspect of his right ankle. Patient states he is able to bear some weight but does have significant pain. He denies any previous injuries or fractures to the right lower extremity. Patient does take Eliquis for A.fib. He states he did not take it this morning because they were nervous for how much bruising he is having. He denies any chest pain, shortness of breath, abdominal pain, upper extremity pain. He denies any right knee or right hip pain. He has no further complaints at this time. Upon arrival to the ER his vitals are stable. (Shyann Barba) - Related Data Home Medications Medication Instructions Recorded Confirmed Albuterol Nebulized [Ventolin 2.5 mg INHALATION RT-Q6H PRN 08/30/16 05/17/20 Nebulized] Doxazosin Mesylate 8 mg PO BID 08/30/16 05/17/20 Tiotropium 18 Mcg/Puff [Spiriva] 1 cap INHALATION RT-DAILY 08/30/16 05/17/20 Apixaban [Eliquis] 2.5 mg PO BID 01/29/17 05/17/20 Ascorbic Acid [Vitamin C] 500 mg PO DAILY 05/17/20 05/17/20 Atenolol [Tenormin] 50 mg PO DAILY 05/17/20 05/17/20 Budesonide [Pulmicort] 0.5 mg INHALATION RT-BID 05/17/20 05/17/20 Dutasteride 0.5 mg PO DAILY 05/17/20 05/17/20 Formoterol Fumarate [Perforomist] 20 mcg INHALATION RT-BID 05/17/20 05/17/20 Multivitamins, Thera [Multivitamin 1 tab PO DAILY 05/17/20 05/17/20 (formulary)] Omeprazole 40 mg PO DAILY 05/17/20 05/17/20 amLODIPine [Norvasc] 5 mg PO BID 05/17/20 05/17/20 predniSONE 5 mg PO DAILY 05/17/20 05/17/20 Previous Rx's Medication Instructions Recorded Aspirin 81 mg PO DAILY chew 05/19/20 Atorvastatin [Lipitor] 80 mg PO HS #30 tab 05/19/20 Clopidogrel Bisulfate [Plavix] 75 mg PO DAILY #0 tab 05/19/20 Allergies Allergy/AdvReac Type Severity Reaction Status Date / Time ciprofloxacin [From Cipro] Allergy Rash/Hives Verified 07/01/20 11:35 Review of Systems ROS Other: All systems not noted in ROS Statement are negative. <Shyann Barba - Last Filed: 07/02/20 11:12> ROS Other: All systems not noted in ROS Statement are negative. <Yane Phan - Last Filed: 07/02/20 13:18> ROS Statement: Those systems with pertinent positive or pertinent negative responses have been documented in the HPI. 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 Past Anesthesia/Blood Transfusion Reactions: No Reported Reaction Past Psychological History: No Psychological Hx Reported Smoking Status: Never smoker Past Alcohol Use History: None Reported Past Drug Use History: None Reported - Past Family History Father Family Medical History: Coronary Artery Disease (CAD) Additional Family Medical History / Comment(s): Father at age 75 from ASHD. Mother History Unknown: Yes Family Medical History: Unable to Obtain Additional Family Medical History / Comment(s): Other in her 30s from complications after the . Sister(s) Additional Family Medical History / Comment(s): Patient has 2 sisters and one at age 60 from diabetes complications. One at age 83 from old age with history of atrial fibrillation. Patient does not have any brothers. Patient had 2 twin boys and one was murdered at age 20. Remaining son and 1 daughter living with no major medical problems. <Shyann Barba - Last Filed: 07/02/20 11:12> General Exam Limitations: no limitations <Shyann Barba - Last Filed: 07/02/20 11:12> - General Exam Comments Initial Comments: GENERAL: Patient is well-developed and well-nourished. Patient is nontoxic and in no acute distress, currently wearing oxygen from home. HEAD: Patient has a small hematoma to the right forehead, this is mildly tender to palpation. No other hematomas felt, no signs of basilar skull fracture. EYES: Pupils equal round and reactive to light, extraocular movements intact, sclera anicteric, conjunctiva are normal. Patient has significant swelling of bilateral eyes, bilateral upper cheeks. He does have some mild tenderness to this area as well. ENT: TMs normal, nares patent, oropharynx clear without exudates. Moist mucous membranes. Mildly tender to the nasal bridge. No septal hematoma. NECK: Normal range of motion, supple without lymphadenopathy or JVD. No midline tenderness. LUNGS: Unlabored respirations. Breath sounds clear to auscultation bilaterally and equal. No wheezes rales or rhonchi. HEART: Regular rate and rhythm without murmurs, rubs or gallops. ABDOMEN: Soft, nontender, normoactive bowel sounds. No guarding, no rebound. No masses appreciated. : Deferred MUSCULOSKELETAL: Patient has pain with palpation of the lateral malleolus area of the right ankle, there is significant swelling, bruising, there also appears to be a blood blister formation around the same area. He has no pain of the right foot, right lower leg or right knee. Rest of his extremities have adequate strength and normal range of motion. He is neurovascular intact bilateral lower extremities. No clubbing or cyanosis. NEUROLOGICAL: Patient is alert and oriented x 3. Motor and sensory are also intact. Cranial nerves II through XII grossly intact. Symmetrical smile. Normal speech, normal gait. PSYCH: Normal mood, normal affect. SKIN: Warm, Dry, normal turgor, no rashes or lesions noted. (Shyann Barba) Course Vital Signs 07/01/20 07/01/20 11:35 13:23 Temperature 98.2 F 98 F Pulse Rate 80 73 Respiratory 18 18 Rate Blood Pressure 122/65 114/63 O2 Sat by Pulse 99 99 Oximetry Medical Decision Making <Shyann Barba - Last Filed: 07/02/20 11:12> <Yane Phan - Last Filed: 07/02/20 13:18> - Medical Decision Making Patient is an 85-year-old male presenting after falling 3 days ago. He he is on Eliquis. He denies loss of consciousness. Patient does have a minor hematoma to the right forehead as well as bruising around his eyes and underneath his eyes. He is also complaining of right ankle pain, pain with palpation as well as swelling and bruising. CT of the brain and facial bones reveal revealed no acute fractures or bleeding. X-rays of the right ankle also revealed no acute fractures. I discussed these findings with the patient. I put a basic compression wrap on his right ankle. He states he is able to bear weight and has been walking on it using his walker. He may also continue with his Eliquis. Recommend elevation for his ankle. He is stable for discharge. Patient is in agreement this plan of care. He can follow up with his PCP as needed. Case discussed with Dr. Phan. (Shyann Barba) I was available for consultation in the emergency department. The history and physical exam were done by the midlevel provider. I was consulted for this patients care. I reviewed the case with the midlevel provider and based on their presentation of the patient, I agree with the assessment, medical decision making and plan of care as documented. Chart was dictated using [employer] dictation software. Attempts were made to c orrect any dictation errors however some typographical errors may persist. Patient was seen during a national state of emergency due to the Covid-19 pandemic. (Yane Phan) Disposition Is patient prescribed a controlled substance at d/c from ED?: No <Shyann Barba - Last Filed: 07/02/20 11:12> <Yane Phan - Last Filed: 07/02/20 13:18> Clinical Impression: Fall, Traumatic hematoma of forehead, Right ankle sprain Disposition: HOME SELF-CARE Condition: Stable Instructions (If sedation given, give patient instructions): Ankle Sprain (ED), Fall Prevention for Older Adults (ED) Additional Instructions: Please return to the Emergency Department if symptoms worsen or any other concerns. CT scans and x-rays today are normal. Ice, elevation, compression and with Kenny bandage for the ankle sprain. May continue with your eliquis Follow-up with your PCP if symptoms persist. Referrals: Kehinde Wiggins MD [Primary Care Provider] - 1-2 days
--- NOTE | 2020-07-01 12:40 | CT ---
EXAMINATION TYPE: CT brain wo con DATE OF EXAM: 07/01/2020 COMPARISON: 05/17/2020 HISTORY: 85-year-old male pain after Fall, trauma on Wednesday TECHNIQUE: Examination was done in axial plane without intravenous contrast. Coronal and sagittal r econstructions performed. CT DLP: 1222.4 mGycm Automated exposure control for dose reduction was used. FINDINGS: There is no evidence of acute intracranial hemorrhage, acute ischemic changes, mass, mass-effect, or extra-axial fluid collection. There is no effacement of cerebral sulci or basal subarachnoid cister ns. There is no hydrocephalus. There is no midline shift. Anderson-white matter distinction is preserv ed. Mild generalized cerebral cortical volume loss. Partially empty sella. Right frontal scalp contusion. No underlying calvarial fracture. Mastoid air cells well pneumatized. Facial bones reported separately IMPRESSION: Right frontal scalp contusion. No acute intracranial abnormality seen. Facial bones reported separate ly.
--- NOTE | 2020-07-01 12:42 | XR ---
EXAMINATION TYPE: XR ankle complete RT DATE OF EXAM: 07/01/2020 COMPARISON: NONE HISTORY: 85-year-old male pain after fall TECHNIQUE: 3 views FINDINGS: Generalized soft tissue swelling. Smooth delineation to the Achilles tendon. Scattered vascular calci fications. Ankle mortise is congruent. Preservation of the distal tibiofibular overlap. No acute frac ture, subluxation, dislocation seen. IMPRESSION: Soft tissue swelling. No acute osseous abnormality seen.
--- NOTE | 2020-07-01 12:45 | CT ---
EXAMINATION TYPE: CT facial bones wo con DATE OF EXAM: 07/01/2020 COMPARISON: Correlation CT brain 05/17/2020 HISTORY: 85-year-old male with pain after Fall, trauma on Wednesday TECHNIQUE: Contiguous axial scanning of the facial bones without IV contrast. Coronal reconstructions performed. CT DLP: 1222.4 mGycm Automated exposure control for dose reduction was used. FINDINGS: The patient is edentulous. Mandible is intact. Degenerative change particularly at the right TMJ. TMJ s are otherwise intact. The zygomatic arches, pterygoid plates, maxilla, nasal bones appear intact. Orbits and globes appear intact. There is some premaxillary soft tissue swelling on both sides. Scattered mild to moderate mucosal thickening throughout the paranasal sinuses. Rightward nasal septa l deviation. IMPRESSION: NO ACUTE FACIAL BONE FRACTURE SEEN.
[2020-07-01 13:27] VITALS: BP 114/63; PULSE 73; TEMP 98
== END 2020-07-01 13:29 | disposition home or self-care (01) ==
LOC: EC 11:26
DX: S00.03XA Contusion of scalp, initial encounter (principal); S93.401A Sprain of unspecified ligament of right ankle, initial encounter; S00.12XA Contusion of left eyelid and periocular area, initial encounter; S00.11XA Contusion of right eyelid and periocular area, initial encounter; S00.83XA Contusion of other part of head, initial encounter; I48.91 Unspecified atrial fibrillation; I25.119 Atherosclerotic heart disease of native coronary artery with unspecified angina pectoris; J44.9 Chronic obstructive pulmonary disease, unspecified; K21.9 Gastro-esophageal reflux disease without esophagitis; Z79.51 Long term (current) use of inhaled steroids; Z79.01 Long term (current) use of anticoagulants; Z79.899 Other long term (current) drug therapy; Z79.52 Long term (current) use of systemic steroids; Z88.1 Allergy status to other antibiotic agents; Z95.1 Presence of aortocoronary bypass graft; W01.0XXA Fall on same level from slipping, tripping and stumbling without subsequent striking against object, initial encounter
CPT/HCPCS: 70450; 70486; 99284

== ENCOUNTER → 2020-08-09 | Outpatient (CLI) | payer MEDICARE ==
--- NOTE | 2020-08-09 12:28 | XR ---
EXAMINATION TYPE: XR ankle complete RT DATE OF EXAM: 08/09/2020 CLINICAL HISTORY: Fall injury 4 weeks ago with open wound over lateral malleolus. TECHNIQUE: Frontal, lateral and oblique images of the right ankle are obtained. COMPARISON: Ankle xray July 01, 2020. FINDINGS: There is no acute or subacute fracture/dislocation evident in the right ankle. The ankle mortise remains within normal limits. The overlying soft tissue appears unremarkable on current stud y. No new bony destruction or suspicious periosteal reaction. IMPRESSION: As above.
== END | disposition home or self-care (01) ==
LOC: RADCTMAIN 11:46
PROVIDERS: ATTEND Internal Medicine Critical Care Medicine
DX: L97.319 Non-pressure chronic ulcer of right ankle with unspecified severity (principal); Z88.1 Allergy status to other antibiotic agents

== ENCOUNTER 2020-08-12 12:44 | Inpatient (IN) | payer MEDICARE ==
--- NOTE | 2020-08-12 13:32 | ED ---
General Adult HPI - General Chief complaint: Skin/Abscess/Foreign Body Stated complaint: Ulcer Rt ankle Time Seen by Provider: 08/12/20 12:55 Source: patient, family, RN notes reviewed, old records reviewed Mode of arrival: wheelchair Limitations: no limitations - History of Present Illness Initial comments: This is an 85-year-old male who presents emergency Department with multiple complaints. First complaint is that he has an ulceration on the right foot on the lateral aspect that he and his think is producing some pus and is not getting any better. He is putting on some ointment as well as taking an oral antibiotic but he does not know the name of it. Patient denies any fever patient denies any red streaking of the leg. Patient states the area directly next to the ulcer is a little more red today than it was yesterday. Patient als o has a second complaint which is the fact that his left leg which is normally small the right leg is very swollen. Patient states he has no pain and leg but it is very edematous. She has a third complaint knee complains that he is having significant difficulty breathing. Patient states he always has some difficulty breathing but is worse than normal over the last few days per patient denies any fever chills or cough. Patient denies chest pain or palpitations. Patient states any exertion AMOUNT of breath. - Related Data Home Medications Medication Instructions Recorded Confirmed Albuterol Nebulized [Ventolin 2.5 mg INHALATION RT-QID PRN 08/30/16 08/12/20 Nebulized] Doxazosin Mesylate 8 mg PO BID 08/30/16 08/12/20 Tiotropium 18 Mcg/Puff [Spiriva] 1 cap INHALATION RT-BID 08/30/16 08/12/20 Apixaban [Eliquis] 2.5 mg PO BID 01/29/17 08/12/20 Ascorbic Acid [Vitamin C] 500 mg PO DAILY@1500 05/17/20 08/12/20 Atenolol [Tenormin] 50 mg PO DAILY 05/17/20 08/12/20 Budesonide [Pulmicort] 0.5 mg INHALATION RT-BID 05/17/20 08/12/20 Dutasteride 0.5 mg PO DAILY 05/17/20 08/12/20 Formoterol Fumarate [Perforomist] 20 mcg INHALATION RT-BID 05/17/20 08/12/20 Multivitamins, Thera [Multivitamin 1 tab PO DAILY 05/17/20 08/12/20 (formulary)] Omeprazole 40 mg PO DAILY@1500 05/17/20 08/12/20 amLODIPine [Norvasc] 5 mg PO HS 05/17/20 08/12/20 Aspirin 81 mg PO DAILY@1500 08/12/20 08/12/20 Cephalexin [Keflex] 500 mg PO Q8H 08/12/20 08/12/20 Furosemide [Lasix] 40 mg PO DAILY 08/12/20 08/12/20 Potassium Chloride ER [K-Dur 20] 20 meq PO DAILY 08/12/20 08/12/20 Simvastatin [Zocor] 20 mg PO HS 08/12/20 08/12/20 Allergies Allergy/AdvReac Type Severity Reaction Status Date / Time ciprofloxacin [From Cipro] Allergy Rash/Hives Verified 08/12/20 13:58 Review of Systems ROS Statement: Those systems with pertinent positive or pertinent negative responses have been documented in the HPI. ROS Other: All systems not noted in ROS Statement are negative. 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 Past Anesthesia/Blood Transfusion Reactions: No Reported Reaction Past Psychological History: No Psychological Hx Reported Smoking Status: Former smoker Past Alcohol Use History: None Reported Past Drug Use History: None Reported - Past Family History Father Family Medical History: Coronary Artery Disease (CAD) Additional Family Medical History / Comment(s): Father at age 75 from ASHD. Mother History Unknown: Yes Family Medical History: Unable to Obtain Additional Family Medical History / Comment(s): Other in her 30s from complications after the . Sister(s) Additional Family Medical History / Comment(s): Patient has 2 sisters and one at age 60 from diabetes complications. One at age 83 from old age with history of atrial fibrillation. Patient does not have any brothers. Patient had 2 twin boys and one was murdered at age 21. Remaining son and 1 da trinohter living with no major medical problems. General Exam - General Exam Comments Initial Comments: GENERAL: Patient is well-developed and well-nourished. Patient is nontoxic and well- hydrated and is in mild distress. ENT: Neck is soft and supple. No significant lymphadenopathy is noted. Oropharynx is clear. Moist mucous membranes. Neck has full range of motion without eliciting any pain. EYES: The sclera were anicteric and conjunctiva were pink and moist. Extraocular movements were intact and pupils were equal round and reactive to light. Eyelids were unremarkable. PULMONARY: She has some labored breathing. Patient has some scattered crackles bilateral bases. CARDIOVASCULAR: There is a regular rate and rhythm without any murmurs gallops or rubs. ABDOMEN: Soft and nontender with normal bowel sounds. SKIN: Skin is clear with no lesions or rashes and otherwise unremarkable. NEUROLOGIC: Patient is alert and oriented x3. Cranial nerves II through XII are grossly intact. Motor and sensory are also intact. Normal speech, volume and content. Symmetrical smile. MUSCULOSKELETAL: Patient has a wound on the lateral right foot the actual ulceration is about 1/2 cm. There is slight erythema around the wound but is not warm and it does not have the typical color of cellulitis. Patient also has significant edema to the left leg there is no calf tenderness. Patient has no redness to that area. LYMPHATICS: No significant lymphadenopathy is noted PSYCHIATRIC: Normal psychiatric evaluation. Limitations: no limitations Course Vital Signs 08/12/20 12:57 Temperature 97.8 F Pulse Rate 76 Respiratory 22 Rate Blood Pressure 93/48 O2 Sat by Pulse 90 L Oximetry Medical Decision Making - Medical Decision Making EKG shows normal sinus rhythm at 70 bpm AL interval is 204 QRS is 90 QT interval 358 QTC is 386. Patient's EKG shows no ST segment elevation or depression. Chest x-ray shows no acute abnormality. Ultrasound shows no DVT. I spoke with Dr. Wiggins he agreed to admit the patient admitted the patient I wrote admitting orders on a consult to Dr. Pushpa ferris and consult infectious disease and he wanted the patient started on Ancef. - Lab Data Result diagrams: 08/12/20 13:41 08/12/20 13:41 Lab Results 08/12/20 08/12/20 08/12/20 Range/Units 13:41 13:41 13:41 WBC 8.0 (3.8-10.6) k/uL RBC 3.92 L (4.30-5.90) m/uL Hgb 11.8 L (13.0-17.5) gm/dL Hct 35.1 L (39.0-53.0) % MCV 89.5 (80.0-100.0) fL MCH 30.2 (25.0-35.0) pg MCHC 33.7 (31.0-37.0) g/dL RDW 14.0 (11.5-15.5) % Plt Count 233 (150-450) k/uL MPV 7.3 Neutrophils % 79 % Lymphocytes % 8 % Monocytes % 6 % Eosinophils % 5 % Basophils % 1 % Neutrophils # 6.3 (1.3-7.7) k/uL Lymphocytes # 0.7 L (1.0-4.8) k/uL Monocytes # 0.5 (0-1.0) k/uL Eosinophils # 0.4 (0-0.7) k/uL Basophils # 0.1 (0-0.2) k/uL PT 10.6 (9.0-12.0) sec INR 1.0 (<1.2) APTT 28.1 (22.0-30.0) sec Sodium 135 L (137-145) mmol/L Potassium 4.6 (3.5-5.1) mmol/L Chloride 95 L (98-107) mmol/L Carbon Dioxide 32 H (22-30) mmol/L Anion Gap 8 mmol/L BUN 32 H (9-20) mg/dL Creatinine 0.94 (0.66-1.25) mg/dL Est GFR (CKD-EPI)AfAm 86 (>60 ml/min/1.73 sqM) Est GFR (CKD-EPI)NonAf 75 (>60 ml/min/1.73 sqM) Glucose 116 H (74-99) mg/dL Plasma Lactic Acid Lee (0.7-2.0) mmol/L Calcium 8.9 (8.4-10.2) mg/dL Magnesium 2.0 (1.6-2.3) mg/dL Total Bilirubin 0.7 (0.2-1.3) mg/dL AST 27 (17-59) U/L ALT 19 (4-49) U/L Alkaline Phosphatase 70 (38-126) U/L Troponin I (0.000-0.034) ng/mL NT-Pro-B Natriuret Pep pg/mL Total Protein 6.3 (6.3-8.2) g/dL Albumin 3.7 (3.5-5.0) g/dL 08/12/20 08/12/20 08/12/20 Range/Units 13:41 13:41 13:41 WBC (3.8-10.6) k/uL RBC (4.30-5.90) m/uL Hgb (13.0-17.5) gm/dL Hct (39.0-53.0) % MCV (80.0-100.0) fL MCH (25.0-35.0) pg MCHC (31.0-37.0) g/dL RDW (11.5-15.5) % Plt Count (150-450) k/uL MPV Neutrophils % % Lymphocytes % % Monocytes % % Eosinophils % % Basophils % % Neutrophils # (1.3-7.7) k/uL Lymphocytes # (1.0-4.8) k/uL Monocytes # (0-1.0) k/uL Eosinophils # (0-0.7) k/uL Basophils # (0-0.2) k/uL PT (9.0-12.0) sec INR (<1.2) APTT (22.0-30.0) sec Sodium (137-145) mmol/L Potassium (3.5-5.1) mmol/L Chloride (98-107) mmol/L Carbon Dioxide (22-30) mmol/L Anion Gap mmol/L BUN (9-20) mg/dL Creatinine (0.66-1.25) mg/dL Est GFR (CKD-EPI)AfAm (>60 ml/min/1.73 sqM) Est GFR (CKD-EPI)NonAf (>60 ml/min/1.73 sqM) Glucose (74-99) mg/dL Plasma Lactic Acid Lee 1.5 (0.7-2.0) mmol/L Calcium (8.4-10.2) mg/dL Magnesium (1.6-2.3) mg/dL Total Bilirubin (0.2-1.3) mg/dL AST (17-59) U/L ALT (4-49) U/L Alkaline Phosphatase (38-126) U/L Troponin I <0.012 (0.000-0.034) ng/mL NT-Pro-B Natriuret Pep 381 pg/mL Total Protein (6.3-8.2) g/dL Albumin (3.5-5.0) g/dL Disposition Clinical Impression: Infected decubitus ulcer, COPD exacerbation, Edema leg Disposition: ADMITTED IP TO THIS HOSP Referrals: Kehinde Wiggins MD [Primary Care Provider] - 1-2 days Time of Disposition: 15:24
[2020-08-12 13:54] LABS: Basophils # (A) 0.1 k/uL (0-0.2); Basophils % (A) 1 %; Eosinophils # (A) 0.4 k/uL (0-0.7); Eosinophils % (A) 5 %; HCT 35.1 % (39.0-53.0); HGB 11.8 gm/dL (13.0-17.5); Lymphocytes # (A) 0.7 k/uL (1.0-4.8); Lymphocytes % (A) 8 %; MCH 30.2 pg (25.0-35.0); MCHC 33.7 g/dL (31.0-37.0); MCV 89.5 fL (80.0-100.0); Mean Platelet Volume 7.3; Monocytes # (A) 0.5 k/uL (0-1.0); Monocytes % (A) 6 %; Neutrophils # (A) 6.3 k/uL (1.3-7.7); Neutrophils % (A) 79 %; Platelet Count 233 k/uL (150-450); RBC 3.92 m/uL (4.30-5.90)
[2020-08-12 14:04] LABS: Albumin 3.7 g/dL (3.5-5.0); Calcium 8.9 mg/dL (8.4-10.2); Potassium 4.6 mmol/L (3.5-5.1); Total Bilirubin 0.7 mg/dL (0.2-1.3); Total Protein 6.3 g/dL (6.3-8.2)
[2020-08-12 14:09] LABS: Partial Thromboplastin Time 28.1 sec (22.0-30.0); Prothrombin Time 10.6 sec (9.0-12.0)
--- NOTE | 2020-08-12 14:13 | XR ---
EXAMINATION TYPE: XR chest 2V DATE OF EXAM: 08/12/2020 COMPARISON: Chest x-ray May 17, 2020. Chest CT September 05, 2016 HISTORY: Left arm numbness and weakness. TECHNIQUE: Frontal and lateral views of the chest are obtained. FINDINGS: There is chronic emphysematous and parenchymal change bilaterally with new small left pleu ral fluid collection extending laterally. Prominent parenchymal changes in the left mid to lower randall g. Difficult to exclude areas of acute infiltrate on background chronic changes. Persistent large hia nancy hernia containing stomach and portions of bowel. The cardiac silhouette size is stable and likely within normal limits with atherosclerotic aorta. Overlying sternal wires. Advanced degenerative nguyen ge bilateral glenohumeral joints. IMPRESSION: As above. Chronic changes, difficult to exclude areas of acute infiltrate in the left korin ng base on background chronic changes.
--- NOTE | 2020-08-12 14:41 | US ---
EXAMINATION TYPE: US venous doppler duplex LE LT DATE OF EXAM: 08/12/2020 1:26 PM COMPARISON: NONE CLINICAL HISTORY: Swollen left leg. Swelling left leg SIDE PERFORMED: Left TECHNIQUE: The lower extremity deep venous system is examined utilizing real time linear array sonog cristina with graded compression, doppler sonography and color-flow sonography. VESSELS IMAGED: Common Femoral Vein Deep Femoral Vein Greater Saphenous Vein * Femoral Vein Popliteal Vein Small Saphenous Vein * Proximal Calf Veins (* superficial vessels) Left Leg: Negative for DVT IMPRESSION: No evidence for DVT at this time.
[2020-08-12] MEDS ORDERED: IPRATROPIUM-ALBUTEROL 3 ML NEB INHALATION STA (14:42)
[2020-08-12] MEDS ORDERED: methylPREDNISolone SOD SUCCI 125 MG/2 ML VIAL IV STA (15:25)
[2020-08-12] MEDS ORDERED: IPRATROPIUM-ALBUTEROL 3 ML NEB INHALATION SCH (16:00)
[2020-08-12] MEDS ORDERED: ALBUTEROL NEBULIZED 2.5 MG/3 ML INHALATION PRN (18:01)
[2020-08-12] MEDS: methylPREDNISolone SOD SUCCI 125 MG/2 ML VIAL IV SCH ×2 (18:09→22:53)
[2020-08-12] MEDS: FORMOTEROL FUMARATE 20 MCG/2 ML NEBU INHALATION SCH (19:47)
[2020-08-12] MEDS: IPRATROPIUM-ALBUTEROL 3 ML NEB INHALATION SCH (19:47)
[2020-08-12] MEDS: BUDESONIDE 0.5 MG/2 ML NEBU INHALATION SCH (19:47)
[2020-08-12] MEDS: DOXAZOSIN 4 MG TAB PO SCH (19:48)
[2020-08-12] MEDS: ATORVASTATIN 10 MG TAB PO SCH (19:48)
[2020-08-12] MEDS: amLODIPine 5 MG TAB PO SCH (19:48)
[2020-08-12] MEDS: APIXABAN 2.5 MG TABLET PO SCH (19:48)
[2020-08-12] MEDS ORDERED: VANCOMYCIN IV PER PHARMACY 1 EACH MISC MISCELLANE PRN (21:39)
[2020-08-12] MEDS ORDERED: VANCOMYCIN 1,250 MG in SODIUM CHLORIDE 0.9% 250 ML IVPB ONE (22:30)
--- NOTE | 2020-08-13 05:24 | P.HPIM ---
History of Present Illness H&P Date: 08/12/20 Chief Complaint: right ankle neuropathic ulcer with cellulitis. This is an 85-year-old male patient of Drs. Wiggins, Bambi and Mirna. with past medical history of paroxysmal atrial fibrillation on chronic eliquis, COPD, chronic hypoxic respiratory failure on home O2 at 2-1/2 L nasal cannula, history of coronary artery disease with CABG 20 years ago, benign pros tatic hypertrophy, was recently hospitalized at [facility] for TCAR pf the right carotid artery due to recurrent TIA 's and significant stenosis, patient has done well with that , but for the past 4 weeks he developed to have right lateral ankle sore about a quarter in size, with scab on top of it that never healed, I was not aware of it till last week when his called my office and stated that her has issues with his right ankle, we had tele-health visit and indeed there was a quarter size stage 2 sore appeared as neuropathic ulcer with scab on it , recommended for her to place Medihony pads and change every other day, was placed on Keflex 500 mg orally bid, also had right foot X- Ray which was negative for osteomyelitis, patient developed to have increased redness around his right ankle and increased shortness of breath, so he was brought into the ER at [facility] for evaluation and he was admitted for COPD exacerbation and right ankle cellulitis, ID consult and Pulmonary consult. Review of Systems Constitutional: Reports anorexia, Reports chronic pain, Reports fatigue, Reports weakness, Reports weight loss Eyes: bilateral blurred vision, denies bulging eye, denies decreased vision Ears: bilateral: decreased hearing Ears, nose, mouth and throat: Denies dysphagia, Denies neck lump, Denies sore throat Cardiovascular: Reports decreased exercise tolerance, Reports dyspnea on exertion, Reports edema, Reports irregular heart beat, Reports shortness of breath, Denies chest pain, Denies orthopnea, Denies palpitations, Denies syncope Respiratory: Reports congestion, Reports cough, Reports cough with sputum, Reports home oxygen, Reports wheezing, Denies respiratory infections, Denies sleep apnea, Denies snoring Gastrointestinal: Reports loss of appetite, Reports nausea, Denies abdominal pain, Denies bloating, Denies BRBPR, Denies diarrhea, Denies early satiety, D enies melena, Denies vomiting Genitourinary: Reports nocturia, Denies dysuria Musculoskeletal: Reports atrophy, Reports gait dysfunction, Denies myalgias Musculoskeletal: bilateral: ankle swelling, absent: elbow pain, elbow stiffness, elbow swelling, foot pain, foot stiffness, foot swelling, hand pain, hand stiffness, hand swelling, hip pain, hip stiffness, hip swelling, knee pain, knee stiffness, knee swelling, shoulder pain, shoulder stiffness, shoulder swelling, wrist pain, wrist stiffness, wrist swelling Integumentary: Reports wounds (right lateral ankle with quarter size stage 2 neuropathic ulcer) Neurological: Reports balance difficulties, Reports gait dysfunction, Reports numbness, Reports sensory deficit, Reports weakness, Reports visual changes Psychiatric: Reports anxiety, Reports depression, Denies sadness/tearfulness, Denies sleep disturbances, Denies suicidal ideation Endocrine: Denies fatigue, Denies weight change 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 Past Anesthesia/Blood Transfusion Reactions: No Reported Reaction Past Psychological History: No Psychological Hx Reported Smoking Status: Former smoker Past Alcohol Use History: None Reported Additional Past Alcohol Use History / Comment(s): Patient was a smoker of one pack per day and quit 40-50 years ago. Patient worked in a [employer]. He denies any alcohol use, marijuana or street drug use. He lives at home with his . He has home O2 at 2-1/2 L nasal and a nebulizer. He does not have a CPAP. Past Drug Use History: None Reported - Past Family History Father Family Medical History: Coronary Artery Disease (CAD) Additional Family Medical History / Comment(s): Father at age 75 from ASHD. Mother History Unknown: Yes Family Medical History: Unable to Obtain Additional Family Medical History / Comment(s): Other in her 30s from complications after the . Sister(s) Additional Family Medical History / Comment(s): Patient has 2 sisters and one di ed at age 60 from diabetes complications. One at age 83 from old age with history of atrial fibrillation. Patient does not have any brothers. Patient had 2 twin boys and one was murdered at age 20. Remaining son and 1 daughter living with no major medical problems. Medications and Allergies Home Medications Medication Instructions Recorded Confirmed Type Albuterol Nebulized [Ventolin 2.5 mg INHALATION RT-QID PRN 08/30/16 08/12/20 History Nebulized] Doxazosin Mesylate 8 mg PO BID 08/30/16 08/12/20 History Tiotropium 18 Mcg/Puff [Spiriva] 1 cap INHALATION RT-BID 08/30/16 08/12/20 History Apixaban [Eliquis] 2.5 mg PO BID 01/29/17 08/12/20 History Ascorbic Acid [Vitamin C] 500 mg PO DAILY@1500 05/17/20 08/12/20 History Atenolol [Tenormin] 50 mg PO DAILY 05/17/20 08/12/20 History Budesonide [Pulmicort] 0.5 mg INHALATION RT-BID 05/17/20 08/12/20 History Dutasteride 0.5 mg PO DAILY 05/17/20 08/12/20 History Formoterol Fumarate [Perforomist] 20 mcg INHALATION RT-BID 05/17/20 08/12/20 History Multivitamins, Thera [Multivitamin 1 tab PO DAILY 05/17/20 08/12/20 History (formulary)] Omeprazole 40 mg PO DAILY@1500 05/17/20 08/12/20 History amLODIPine [Norvasc] 5 mg PO HS 05/17/20 08/12/20 History Aspirin 81 mg PO DAILY@1500 08/12/20 08/12/20 History Cephalexin [Keflex] 500 mg PO Q8H 08/12/20 08/12/20 History Furosemide [Lasix] 40 mg PO DAILY 08/12/20 08/12/20 History Potassium Chloride ER [K-Dur 20] 20 meq PO DAILY 08/12/20 08/12/20 History Simvastatin [Zocor] 20 mg PO HS 08/12/20 08/12/20 History Allergies Allergy/AdvReac Type Severity Reaction Status Date / Time ciprofloxacin [From Cipro] Allergy Rash/Hives Verified 08/12/20 13:58 Physical Exam Vitals: Vital Signs Temp Pulse Pulse Resp BP BP Pulse Ox 08/12/20 17:22 94 L 08/12/20 16:16 98.0 F 83 18 92/48 90 L 08/12/20 16:08 97.8 F 67 18 132/71 94 L 08/12/20 15:31 63 08/12/20 15:20 65 08/12/20 15:17 66 20 132/73 94 L 08/12/20 12:57 97.8 F 76 22 93/48 90 L Intake and Output 08/12/20 08/12/20 08/12/20 06:59 14:59 22:59 Other: # Voids 1 Weight 71.668 kg 71.668 kg Physical Examination: Gen: This is an 85-year-old male. He is resting bed and appears in moderate respiratory distress. HEENT: Head is atraumatic, normocephalic. Pupils equal, round. reactive to light and accommodations, extra ocular muscle movements were intact.mucous membranes of the mouth are somewhat dry. NECK: Supple. No JVD. No lymphadenopathy. No thyromegaly. LUNGS: decreased breath sounds at the bases with moderate expiratory wheezes and poor air entry, mild intercostal retractions, no chest wall tenderness. HEART: First heart sound is depressed, second heart sound is normal there is LIGIA 2/6 located at the left sternal borer. ABDOMEN: Soft, non tender, non distended positive bowel sounds. 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 NEUROLOGICAL: Patient is awake, alert and oriented x3. Cranial nerves 2 through 12 are grossly intact, muscle power 4/5 in bilateral upper extremities and 2/5 left lower extremity and 3/5 in the right lower extremity. Results CBC & Chem 7: 08/12/20 13:41 08/12/20 13:41 Labs: Abnormal Lab Results - Last 24 Hours (Table) 08/12/20 08/12/20 Range/Units 13:41 13:41 RBC 3.92 L (4.30-5.90) m/uL Hgb 11.8 L (13.0-17.5) gm/dL Hct 35.1 L (39.0-53.0) % Lymphocytes # 0.7 L (1.0-4.8) k/uL Sodium 135 L (137-145) mmol/L Chloride 95 L (98-107) mmol/L Carbon Dioxide 32 H (22-30) mmol/L BUN 32 H (9-20) mg/dL Glucose 116 H (74-99) mg/dL Thrombosis Risk Factor Assmnt - DVT/VTE Prophylaxis DVT/VTE Prophylaxis: Pharmacologic Prophylaxis ordered - Choose All That Apply Any of the Below Risk Factors Present?: Yes Each Factor Represents 1 point: Abnormal pulmonary function (COPD), Swollen legs (current) Other Risk Factors: Yes Each Risk Factor Represents 3 Points: Age 75 years or older Thrombosis Risk Factor Assessment Total Risk Factor Score: 5 Thrombosis Risk Factor Assessment Level: High Risk Assessment and Plan Assessment: Assessment and plan: 1. Acute COPD exacerbation. start Solu-Medrol 60 mg IVP q 6 hours, Duoneb 3 ml QID, Performist 20 mcg with Budosenide 0.5 mg NEB bid, and we will continue with O2 support , pulmonary consult. 2. 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 cultures were obtained by and was started on Vancomycin per ID we will continue with Mel every other day, vascular surgery consult. 3. Paroxysmal atrial fibrillation. Continue eliquis 2.5 mg twice daily, atenolol 50 mg daily. 4. End-stage COPD, prednisone dependent and oxygen dependent. continue with treatment as in paragraph #1. 5. Chronic hypoxic respiratory failure with home O2 and 2-1/2 L nasal cannula. Continue oxygen therapy. 6. Coronary artery disease with previous CABG 20 years ago, stable. we will continue with Atenolol 50 mg orally daily and Lipitor 10 mg orally daily and ASA 81 mg orally daily. 7. Gastroesophageal reflux disease and GI prophylaxis. Continue protonix 40 mg orally daily. 8. Benign prostatic hypertrophy. Continue doxazosin 8 mg twice daily. 9. Hypertension and hypertensive cardiovascular disease. Continue atenolol 50 mg orally daily and amlodipine 5 mg orally daily. 10. DVT prophylaxis. we will continue with Eliquis 2.5 mg orally bid. 11. Patient will be admitted to the hospital for a minimum of 2 night stay. 12. Discharge plan: Most likely return home.
[2020-08-13] MEDS: methylPREDNISolone SOD SUCCI 125 MG/2 ML VIAL IV SCH ×2 (05:53→11:22)
--- NOTE | 2020-08-13 06:12 | CONS ---
CONSULTATION DATE OF SERVICE: 08/13/2020 REASON FOR CONSULTATION: Right foot wound infection. HISTORY OF PRESENT ILLNESS: The patient is an 85-year-old male presenting to the ER today with complaint of nonhealing wound on the plantar aspect of the right foot. Apparently the patient did have a fall a few weeks ago with laceration to the right foot lateral border with subsequent wound that has been taken care of by the patient and his . However, the patient noticed to have some slough tissue at the base of the wound and some red streaking to the right leg. The patient has been complaining of pain to the right foot more of a dull aching 3 to 4 out of 10, and no radiation. Denies having any foul smelling from the drainage and denies having any high-grade fever. With these symptoms, the patient was evaluated by the ER physician. On arrival to the ER, the patient has been afebrile. The patient did have a normal white count. Kidney function was normal. Electrolytes have been normal. Chavez PCR was negative. The patient did have a chest x-ray which shows some chronic changes. The patient apparently was on oral Keflex in the outpatient setting. The patient has been admitted to the hospital and was started on cefazolin. Infectious Disease was consulted for further management of antibiotic therapy. REVIEW OF SYSTEMS: Positive points have been mentioned in HPI. Rest of systems are negative. PAST MEDICAL HISTORY: Atrial fibrillation, coronary artery disease, COPD, gastroesophageal reflux disease, prostate disorder. PAST SURGICAL HISTORY: Coronary artery bypass grafting, heart catheterization, multiple orthopedic surgeries. SOCIAL HISTORY: Remote history of smoking. No drinking or any drug use. FAMILY HISTORY: No pertinent findings noticed. ALLERGIES: Allergies to CIPROFLOXACIN. MEDICATIONS: The patient is currently on DuoNeb, Norvasc, Eliquis, vitamin C, aspirin, Tenormin, Lipitor, Pulmicort, Cardura, Proscar, Lasix, cefazolin 1 gram q.12. EXAMINATION: Blood pressure 146/69, pulse of 81, temperature 98.1, he is 92% on 3 L nasal cannula. General description is an elderly male up in the bed in no distress. HEENT examination is slight pallor. No scleral icterus. Oral mucous membrane is dry. No pharyngeal erythema or thrush neck. Neck: Trachea central no thyromegaly. Lungs: Unlabored breathing, decreased breath sounds in the base, with no wheeze. Heart S1, S2. Regular rate and rhythm. Abdomen is soft no tenderness. No guarding or rigidity. Extremities: No edema to the feet. Examination right foot lateral border did have a wound that seemed to be slightly deep. Some slough tissue at the base. No significant redness or any foul-smelling drainage. Neurological patient is awake, alert, oriented x3. Mood and affect normal. LABS: Hemoglobin 11.8, white count 8.0, BUN of 32, creatinine 0.94. Liver enzymes are normal. DIAGNOSTIC IMPRESSION AND PLAN: Patient with chronic nonhealing wound to the right foot lateral border area started as a trauma. Failing outpatient oral Keflex therapy. We will need to cover for the community associated methicillin-resistant Staphylococcus aureus, to be the likely pathogen. PLAN: 1. Local wound culture has been obtained to guide further antibiotic therapy. 2. We will obtain x-rays of the right foot to make sure no evidence of any bony changes. 3. Local wound care with Medihumeraney followed by moist dressing to be changed daily. 4. We will add vancomycin, pharmacy to dose target of 15. 5. We will follow on clinical condition and culture to further adjust medication if needed. Thank you for this consultation. Will follow this patient along with you. MMODL / IJN: [id number] /
[2020-08-13] MEDS: BUDESONIDE 0.5 MG/2 ML NEBU INHALATION SCH ×2 (07:05→20:45)
[2020-08-13] MEDS: IPRATROPIUM-ALBUTEROL 3 ML NEB INHALATION SCH ×5 (07:05→20:45)
[2020-08-13] MEDS: FORMOTEROL FUMARATE 20 MCG/2 ML NEBU INHALATION SCH ×2 (07:05→20:45)
[2020-08-13] MEDS: PANTOPRAZOLE 40 MG TABLET PO SCH (07:58)
[2020-08-13] MEDS: FUROSEMIDE 40 MG TAB PO SCH (07:58)
[2020-08-13] MEDS: ASCORBIC ACID 500 MG TAB PO SCH (07:59)
[2020-08-13] MEDS: ASPIRIN 81 MG PO SCH (07:59)
[2020-08-13] MEDS: MULTIVITAMINS, THERA 1 EACH TAB PO SCH (07:59)
[2020-08-13] MEDS: FINASTERIDE 5 MG TAB PO SCH (07:59)
[2020-08-13] MEDS: POTASSIUM CHLORIDE ER 20 MEQ TAB.ER PO SCH (07:59)
[2020-08-13] MEDS: DOXAZOSIN 4 MG TAB PO SCH ×2 (07:59→19:55)
[2020-08-13] MEDS: atenoloL 50 MG TAB PO SCH (07:59)
[2020-08-13] MEDS ORDERED: IPRATROPIUM 0.5 MG/2.5 ML NEBU INHALATION SCH (08:00)
[2020-08-13] MEDS: APIXABAN 2.5 MG TABLET PO SCH ×3 (08:01→19:54)
[2020-08-13 09:27] LABS: HCT 34.3 % (39.6-50.0); HGB 10.8 g/dL (13.0-17.0); MCH 28.9 pg (27.0-32.0); MCHC 31.5 g/dL (32.0-37.0); MCV 91.7 fL (80.0-97.0); Mean Platelet Volume 10.5 fL (9.5-12.2); Platelet Count 246 X 10*3/uL (140-440); RBC 3.74 X 10*6/uL (4.40-5.60); RDW 13.6 % (11.5-14.5); WBC 4.14 X 10*3/uL (4.50-10.00)
[2020-08-13 09:43] LABS: African American GFR (CKD) 95.1 (60.0-200.0); Albumin/Globulin Ratio 2.35 (1.60-3.17); Anion Gap 3.4 mmol/L (4.00-12.00); C Reactive Protein 1.7 mg/dL (0.0-0.8); Calcium 8.9 mg/dL (8.7-10.3); Carbon Dioxide 31.6 mmol/L (21.6-31.8); Globulin 1.7 g/dL (1.6-3.3); Potassium 4.5 mmol/L (3.5-5.5); Total Bilirubin 0.6 mg/dL (0.3-1.2); Total Protein 5.7 g/dL (6.2-8.2)
[2020-08-13] MEDS: VANCOMYCIN 1,250 MG in SODIUM CHLORIDE 0.9% 250 ML IVPB SCH ×2 (09:45→19:58)
[2020-08-13 10:34] LABS: Basophils # (A) 0 X 10*3/uL (0.00-0.10); Basophils % (A) 0 %; Eosinophils # (A) 0.01 X 10*3/uL (0.04-0.35); Eosinophils % (A) 0.2 %; Lymphocytes # (A) 0.35 X 10*3/uL (0.90-5.00); Lymphocytes % (A) 8.5 %; Monocytes # (A) 0.02 X 10*3/uL (0.20-1.00); Monocytes % (A) 0.5 %; Neutrophils # (A) 3.74 X 10*3/uL (1.80-7.70); Neutrophils % (A) 90.3 %
--- NOTE | 2020-08-13 11:47 | XR ---
EXAMINATION TYPE: XR foot complete RT DATE OF EXAM: 08/13/2020 COMPARISON: None HISTORY: Right foot lateral border wound TECHNIQUE: Three-view right foot FINDINGS: There is some mild soft tissue change adjacent to the cuboid and calcaneus. No radiopaque f oreign bodies are evident. Hammertoes are present. There is medial deviation of the proximal fifth di git.. No acute fractures are evident. Follow-up exams can be performed 7-10 days from acute trauma for continued pain. IMPRESSION: 1. Soft tissue changes lateral proximal foot. No radiopaque foreign bodies are evident. 2. No suspicious cortical erosion to suggest acute osteomyelitis. 3 phase bone scan can be performed for sufficient clinical suspicion. 3. Chronic changes in the digits
--- NOTE | 2020-08-13 12:36 | P.GSCN ---
History of Present Illness Consult date: 08/13/20 Reason for Consult: Right nonhealing ankle ulcer Requesting physician: Kehinde Wiggins History of present illness: This is an 85-year-old male patient who came into the emergency room with concerns for a nonhealing right ankle wound shortness of breath. The patient states he noticed a wound about 5-6 weeks ago after tripping in getting his ankle and head. He later on had a telehealth visit with who ordered me dihoney with daily dressing changes. Patient states he has been changing his dressings and his has been caring for the ankle however noticed that still did not seem to be healing and noting some redness surrounding the wound. The patient has a medical history including atrial fibrillation, COPD with chronic hypoxic respiratory failure on home oxygen, coronary artery disease with previous CABG, and vascular disease with recent TCAR procedure done at [facility] one month ago with Dr. Jack. The patient currently denies any pain to the right foot or ankle, he states though however he did have some difficulty with walking. He states he has some increased swelling in his left lower extremity, however he states he has had difficulty with that leg due to previous foot and ankle surgery as well as history of polio as a child. Patient also states he has extreme shortness of breath and cough. Denies any chest pain, fever or chills. Review of Systems A 14 point review of systems was completed all pertinent positives and negatives as stated in HPI. 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 Past Anesthesia/Blood Transfusion Reactions: No Reported Reaction Past Psychological History: No Psychological Hx Reported Smoking Status: Former smoker Past Alcohol Use History: None Reported Additional Past Alcohol Use History / Comment(s): Patient was a smoker of one pack per day and quit 40-50 years ago. 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 He denies any alcohol use, marijuana or street drug use. He lives at home with his . He has home O2 at 2-1/2 L nasal and a nebulizer. He does not have a CPAP. Past Drug Use History: None Reported - Past Family History Father Family Medical History: Coronary Artery Disease (CAD) Additional Family Medical History / Comment(s): Father at age 75 from ASHD. Mother History Unknown: Yes Family Medical History: Unable to Obtain Additional Family Medical History / Comment(s): Other in her 30s from complications after the . Sister(s) Additional Family Medical History / Comment(s): Patient has 2 sisters and one at age 60 from diabetes complications. One at age 83 from old age with history of atrial fibrillation. Patient does not have any brothers. Patient had 2 twin boys and one was murdered at age 21. Remaining son and 1 daughter living with no major medical problems. Medications and Allergies Home Medications Medication Instructions Recorded Confirmed Type Albuterol Nebulized [Ventolin 2.5 mg INHALATION RT-QID PRN 08/30/16 08/12/20 History Nebulized] Doxazosin Mesylate 8 mg PO BID 08/30/16 08/12/20 History Tiotropium 18 Mcg/Puff [Spiriva] 1 cap INHALATION RT-BID 08/30/16 08/12/20 History Apixaban [Eliquis] 2.5 mg PO BID 01/29/17 08/12/20 History Ascorbic Acid [Vitamin C] 500 mg PO DAILY@1500 05/17/20 08/12/20 History Atenolol [Tenormin] 50 mg PO DAILY 05/17/20 08/12/20 History Budesonide [Pulmicort] 0.5 mg INHALATION RT-BID 05/17/20 08/12/20 History Dutasteride 0.5 mg PO DAILY 05/17/20 08/12/20 History Formoterol Fumarate [Perforomist] 20 mcg INHALATION RT-BID 05/17/20 08/12/20 History Multivitamins, Thera [Multivitamin 1 tab PO DAILY 05/17/20 08/12/20 History (formulary)] Omeprazole 40 mg PO DAILY@1500 05/17/20 08/12/20 History amLODIPine [Norvasc] 5 mg PO HS 05/17/20 08/12/20 History Aspirin 81 mg PO DAILY@1500 08/12/20 08/12/20 History Cephalexin [Keflex] 500 mg PO Q8H 08/12/20 08/12/20 History Furosemide [Lasix] 40 mg PO DAILY 08/12/20 08/12/20 History Potassium Chloride ER [K-Dur 20] 20 meq PO DAILY 08/12/20 08/12/20 History Simvastatin [Zocor] 20 mg PO HS 08/12/20 08/12/20 History Allergies Allergy/AdvReac Type Severity Reaction Status Date / Time ciprofloxacin [From Cipro] Allergy Rash/Hives Verified 08/12/20 13:58 Surgical - Exam Vital Signs Temp Pulse Resp BP Pulse Ox 97.8 F 76 22 93/48 90 L 08/12/20 12:57 08/12/20 12:57 08/12/20 12:57 08/12/20 12:57 08/12/20 12:57 General appearance: The patient is alert, oriented, in no acute distress. HET: Head is normocephalic and atraumatic. Pupils are equal and reactive. Oropharynx is clear without lesions. Neck: Supple without lymphadenopathy. Trachea midline. Incision on right side and neck healed with minimal scarring. No audible carotid bruit bilaterally. Heart: S1 S2. Regular rate and rhythm. Lungs: No crackles or wheezes are heard. Abdomen: Soft, nontender, nondistended with bowel sounds. No peritoneal signs. No palpable organomegaly or masses. Extremities: Normal skin color and turgor. Bilateral lower extremities warm to the touch with good capillary refill. Left lower extremity with +1-2 pitting e tony. Right lower extremity with mild edema. Right lateral ankle with 1.5 x 2 cm ulcer with surrounding mild erythema. No drainage noted with scabbing. Palpable bilateral femoral and dorsalis pedis pulses. Lateral multiphasic posterior tibialis Doppler signal. Neurological: No focal deficits. Strength and sensation are grossly intact. Results Venous Doppler ultrasound of left lower extremity negative for DVT X-ray of right foot shows soft tissue changes lateral proximal foot. No radiopaque foreign bodies are evident. No suspicious cortical erosion to sugges t acute osteomyelitis. Three-phase bone scan can be performed for sufficient clinical suspicion. Chronic changes in the digits. Arterial ultrasound of bilateral lower extremities. YULY 1.32 on the right, 1.20 left. Doppler waveforms show adequate blood flow, with calcification. - Labs 08/13/20 04:40 08/13/20 04:34 Abnormal Lab Results - Last 24 Hours (Table) 08/12/20 08/12/20 Range/Units 13:41 13:41 RBC 3.92 L (4.30-5.90) m/uL Hgb 11.8 L (13.0-17.5) gm/dL Hct 35.1 L (39.0-53.0) % Lymphocytes # 0.7 L (1.0-4.8) k/uL Sodium 135 L (137-145) mmol/L Chloride 95 L (98-107) mmol/L Carbon Dioxide 32 H (22-30) mmol/L BUN 32 H (9-20) mg/dL Glucose 116 H (74-99) mg/dL Microbiology - Last 24 Hours (Table) 08/12/20 18:13 Gram Stain - Preliminary Foot - Right Wound Culture - Preliminary 08/12/20 18:13 Anaerobic Culture - Preliminary Foot - Right Diabetes panel 08/12/20 Range/Units 13:41 Sodium 135 L (137-145) mmol/L Potassium 4.6 (3.5-5.1) mmol/L Chloride 95 L (98-107) mmol/L Carbon Dioxide 32 H (22-30) mmol/L BUN 32 H (9-20) mg/dL Creatinine 0.94 (0.66-1.25) mg/dL Glucose 116 H (74-99) mg/dL Calcium 8.9 (8.4-10.2) mg/dL AST 27 (17-59) U/L ALT 19 (4-49) U/L Alkaline Phosphatase 70 (38-126) U/L Total Protein 6.3 (6.3-8.2) g/dL Albumin 3.7 (3.5-5.0) g/dL Calcium panel 08/12/20 Range/Units 13:41 Calcium 8.9 (8.4-10.2) mg/dL Albumin 3.7 (3.5-5.0) g/dL Pituitary panel 08/12/20 Range/Units 13:41 Sodium 135 L (137-145) mmol/L Potassium 4.6 (3.5-5.1) mmol/L Chloride 95 L (98-107) mmol/L Carbon Dioxide 32 H (22-30) mmol/L BUN 32 H (9-20) mg/dL Creatinine 0.94 (0.66-1.25) mg/dL Glucose 116 H (74-99) mg/dL Calcium 8.9 (8.4-10.2) mg/dL Adrenal panel 08/12/20 Range/Units 13:41 Sodium 135 L (137-145) mmol/L Potassium 4.6 (3.5-5.1) mmol/L Chloride 95 L (98-107) mmol/L Carbon Dioxide 32 H (22-30) mmol/L BUN 32 H (9-20) mg/dL Creatinine 0.94 (0.66-1.25) mg/dL Glucose 116 H (74-99) mg/dL Calcium 8.9 (8.4-10.2) mg/dL Total Bilirubin 0.7 (0.2-1.3) mg/dL AST 27 (17-59) U/L ALT 19 (4-49) U/L Alkaline Phosphatase 70 (38-126) U/L Total Protein 6.3 (6.3-8.2) g/dL Albumin 3.7 (3.5-5.0) g/dL Assessment and Plan Assessment: 1. Nonhealing right lower extremity ulcer 2. COPD 3. History coronary artery disease 4. History of internal carotid artery disease with TIAs, status post TCAR 5. Chronic hypoxic respiratory failure on home O2 Plan: Bilateral lower extremity arterial ultrasound ordered and reviewed with YULY 1.32 on right and 1.20 on left. Doppler a form showed good blood flow with calcification. Patient has bilateral palpable dorsalis pedis with good capillary refill. There is no evidence for any acute vascular surgical intervention. Would recommend local wound care and to follow-up with wound care center as an outpatient. Continue medical management and IV antibiotics per recommendations from infectious disease as needed. Thank you for this consultation allowing us take part in the plan of care of your patient during his hospital stay. The impression and plan of care has been dictated as directed. Dr. Jack I performed a history and examination of this patient, discussed the same with the dictator. I agree with the dictator's note ,documented as a scribe. Any additional findings or plans will be noted.
[2020-08-13 13:11] LABS: Erythrocyte Sedimentation Rate 17 mm/Hr (0-20)
--- NOTE | 2020-08-13 13:54 | P.PN ---
Subjective Progress Note Date: 08/13/20 HISTORY OF PRESENT ILLNESS This is an 85-year-old male treated for right foot wound infection/ulcer. Jennifer ent failed outpatient treatment with Keflex. Patient states his pain is currently controlled. Foot x-ray did not show signs of osteomyelitis. PHYSICAL EXAMINATION Gen: This is a thin 85-year-old male. He is resting in bed appears to be comfortable. HEENT: Head is atraumatic, normocephalic. Pupils equal, round. Sclerae is anicteric. NECK: Supple. No JVD. No lymphadenopathy. LUNGS: Clear to auscultation. No wheezes or rhonchi. No intercostal retractions. HEART: Regular rate and rhythm. ABDOMEN: Soft. Bowel sounds are present. No masses. No tenderness. EXTREMITIES: No pedal edema. Right foot lateral ulcer. No significant redness. No foul order. NEUROLOGICAL: Patient is awake, alert and oriented x3. ASSESSMENT Chronic nonhealing wound to the right lateral foot, failed outpatient treatment PLAN Continue local wound care with medihoney Continue vancomycin Follow-up on wound culture results Plan is for oral antibiotics at the time of discharge The above dictated assessment and findings were discussed with Dr. Shabazz. The impression and plan of care have been directed as dictated. Shanice Lawton nurse practitioner acting as scribe for Dr. Shabazz. Objective - Vital Signs Vital signs: Vital Signs Temp 97.7 F 08/13/20 07:24 Pulse 76 08/13/20 11:16 Resp 14 08/13/20 07:24 BP 117/67 08/13/20 07:24 Pulse Ox 90 L 08/13/20 07:24 Intake & Output 08/12/20 08/13/20 08/13/20 18:59 06:59 18:59 Output Total 575 Balance -575 Weight 71.668 kg Output: Urine 575 Other: Voiding Method Urinal # Voids 1 - Labs CBC & Chem 7: 08/13/20 04:40 08/13/20 04:34 Labs: Abnormal Lab Results - Last 24 Hours (Table) 08/12/20 08/12/20 08/13/20 Range/Units 13:41 13:41 04:34 WBC (4.50-10.00) X 10*3/uL RBC 3.92 L (4.30-5.90) m/uL Hgb 11.8 L (13.0-17.5) gm/dL Hct 35.1 L (39.0-53.0) % MCHC (32.0-37.0) g/dL Lymphocytes # 0.7 L (1.0-4.8) k/uL Monocytes # (0.20-1.00) X 10*3/uL Eosinophils # (0.04-0.35) X 10*3/uL Sodium 135 L 133 L (137-145) mmol/L Chloride 95 L (98-107) mmol/L Carbon Dioxide 32 H (22-30) mmol/L Anion Gap 3.40 L (4.00-12.00) mmol/L BUN 32 H 28.0 H (9-20) mg/dL BUN/Creatinine Ratio 35.00 H (12.00-20.00) Ratio Glucose 116 H 259 H (74-99) mg/dL C-Reactive Protein 1.7 H (0.0-0.8) mg/dL Total Protein 5.7 L (6.2-8.2) g/dL 08/13/20 Range/Units 04:40 WBC 4.14 L (4.50-10.00) X 10*3/uL RBC 3.74 L (4.30-5.90) m/uL Hgb 10.8 L (13.0-17.5) gm/dL Hct 34.3 L (39.0-53.0) % MCHC 31.5 L (32.0-37.0) g/dL Lymphocytes # 0.35 L (1.0-4.8) k/uL Monocytes # 0.02 L (0.20-1.00) X 10*3/uL Eosinophils # 0.01 L (0.04-0.35) X 10*3/uL Sodium (137-145) mmol/L Chloride (98-107) mmol/L Carbon Dioxide (22-30) mmol/L Anion Gap (4.00-12.00) mmol/L BUN (9-20) mg/dL BUN/Creatinine Ratio (12.00-20.00) Ratio Glucose (74-99) mg/dL C-Reactive Protein (0.0-0.8) mg/dL Total Protein (6.2-8.2) g/dL Microbiology - Last 24 Hours (Table) 08/12/20 18:13 Gram Stain - Preliminary Foot - Right Wound Culture - Preliminary 08/12/20 18:13 Anaerobic Culture - Preliminary Foot - Right
--- NOTE | 2020-08-13 14:43 | P.PN ---
Subjective Progress Note Date: 08/13/20 This is an 85-year-old male patient of Drs. Wiggins, Bambi and Mirna. with past medical history of paroxysmal atrial fibrillation on chronic eliquis, COPD, chronic hypoxic respiratory failure on home O2 at 2-1/2 L nasal cannula, history of coronary artery disease with CABG 20 years ago, benign prostatic hypertrophy, was recently hospitalized at [facility] for TCAR pf the right carotid artery due to recurrent TIA 's and significant stenosis, patient has done well with that , but for the past 4 weeks he developed to have right lateral ankle sore about a quarter in size, with scab on top of it that never healed, I was not aware of it till last week when his called my office and stated that her has issues with his right ankle, we had tele- health visit and indeed there was a quarter size stage 2 sore appeared as neuropathic ulcer with scab on it , recommended for her to place Medihony pads and change every other day, was placed on Keflex 500 mg orally bid, also had ri t foot X-Ray which was negative for osteomyelitis, patient developed to have increased redness around his right ankle and increased shortness of breath, so he was brought into the ER at [facility] for evaluation and he was admitted for COPD exacerbation and right ankle cellulitis, ID consult and Pulmonary consult. 2: Bilateral lower extremity arterial ultrasound revealed YULY 1.32 on the right and 1.20 on the left. Doppler showed good blood flow with calcification and vascular surgery anticipates the patient will be able to heal. Local wound care is in the form of melena honey. Patient states his pain is fairly controlled. X-ray of the foot ordered by infectious disease showed no suspicion for osteomyelitis. WBC 4.14, hemoglobin 10.8, platelet count 246. Creatinine 0.8. Coronavirus PCR not detected. Wound cultures are in progress. Patient is currently maintained on vancomycin. Dr. Plata is planning for oral antibiotics at time of discharge. Physical therapy has evaluated with recommendations for home without home care need. Dorisu-Medrol Anticipate possible discharge by tomorrow. Objective - Vital Signs Vital signs: Vital Signs Temp 97.7 F 08/13/20 02:15 Pulse 80 08/13/20 02:15 Resp 20 08/13/20 02:15 BP 141/65 08/13/20 02:15 Pulse Ox 90 L 08/13/20 02:15 Intake & Output 08/12/20 08/12/20 08/13/20 06:59 18:59 06:59 Output Total 575 Balance -575 Weight 71.668 kg Output: Urine 575 Other: # Voids 1 - Exam Review of Systems Constitutional: Reports anorexia, Reports chronic pain, Reports fatigue, Reports weakness, Reports weight loss Eyes: bilateral blurred vision, denies bulging eye, denies decreased vision Ears: bilateral: decreased hearing Ears, nose, mouth and throat: Denies dysphagia, Denies neck lump, Denies sore throat Cardiovascular: Reports decreased exercise tolerance, Reports dyspnea on exertion, Reports edema, Reports irregular heart beat, Reports shortness of breath, Denies chest pain, Denies orthopnea, Denies palpitations, Denies syncope Respiratory: Reports congestion, Reports cough, Reports cough with sputum, Reports home oxygen, Reports wheezing, Denies respiratory infections, Denies sleep apnea, Denies snoring Gastrointestinal: Reports loss of appetite, Reports nausea, Denies abdominal pain, Denies bloating, Denies BRBPR, Denies diarrhea, Denies early satiety, Denies melena, Denies vomiting Genitourinary: Reports nocturia, Denies dysuria Musculoskeletal: Reports atrophy, Reports gait dysfunction, Denies myalgias Musculoskeletal: bilateral: ankle swelling, absent: elbow pain, elbow stiffness, elbow swelling, foot pain, foot stiffness, foot swelling, hand pain, hand stiffness, hand swelling, hip pain, hip stiffness, hip swelling, knee pain, knee stiffness, knee swelling, shoulder pain, shoulder stiffness, shoulder swelling, wrist pain, wrist stiffness, wrist swelling Integumentary: Reports wounds (right lateral ankle with quarter size stage 2 neuropathic ulcer) Neurological: Reports balance difficulties, Reports gait dysfunction, Reports numbness, Reports sensory deficit, Reports weakness, Reports visual changes Psychiatric: Reports anxiety, Reports depression, Denies sadness/tearfulness, Denies sleep disturbances, Denies suicidal ideation Endocrine: Denies fatigue, Denies weight change Physical Examination: Gen: This is an 85-year-old male. He is resting bed and appears in moderate respiratory distress. HEENT: Head is atraumatic, normocephalic. Pupils equal, round. reactive to light and accommodations, extra ocular muscle movements were intact.mucous membranes of the mouth are somewhat dry. NECK: Supple. No JVD. No lymphadenopathy. No thyromegaly. LUNGS: decreased breath sounds at the bases with moderate expiratory wheezes and poor air entry, mild intercostal retractions, no chest wall tenderness. HEART: First heart sound is depressed, second heart sound is normal there is LIGIA 2/6 located at the left sternal borer. ABDOMEN: Soft, non tender, non distended positive bowel sounds. 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 NEUROLOGICAL: Patient is awake, alert and oriented x3. Cranial nerves 2 through 12 are grossly intact, muscle power 4/5 in bilateral upper extremities and 2/5 left lower extremity and 3/5 in the right lower extremity. - Labs CBC & Chem 7: 08/13/20 04:40 08/13/20 04:34 Labs: Abnormal Lab Results - Last 24 Hours (Table) 08/12/20 08/12/20 Range/Units 13:41 13:41 RBC 3.92 L (4.30-5.90) m/uL Hgb 11.8 L (13.0-17.5) gm/dL Hct 35.1 L (39.0-53.0) % Lymphocytes # 0.7 L (1.0-4.8) k/uL Sodium 135 L (137-145) mmol/L Chloride 95 L (98-107) mmol/L Carbon Dioxide 32 H (22-30) mmol/L BUN 32 H (9-20) mg/dL Glucose 116 H (74-99) mg/dL Microbiology - Last 24 Hours (Table) 08/12/20 18:13 Gram Stain - Preliminary Foot - Right Wound Culture - Preliminary 08/12/20 18:13 Anaerobic Culture - Preliminary Foot - Right Assessment and Plan Assessment: Assessment and plan: 1. Acute COPD exacerbation. start Solu-Medrol 60 mg IVP q 6 hours decreased to 40 mg IV push every 8 hours, Duoneb 3 ml QID, Performist 20 mcg with Budosenide 0.5 mg NEB bid, and we will continue with O2 support , pulmonary consult. 2. 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 cultures were obtained by Dr.Mele and was started on Vancomycin per ID we will continue with [facility] every other day, vascular surgery consult appreciated. 3. Paroxysmal atrial fibrillation. Continue eliquis 2.5 mg twice daily, atenolol 50 mg daily. 4. End-stage COPD, prednisone dependent and oxygen dependent. continue with treatment as in paragraph #1. 5. Chronic hypoxic respiratory failure with home O2 and 2-1/2 L nasal cannula. Continue oxygen therapy. 6. Coronary artery disease with previous CABG 20 years ago, stable. we will continue with Atenolol 50 mg orally daily and Lipitor 10 mg orally daily and ASA 81 mg orally daily. 7. Gastroesophageal reflux disease and GI prophylaxis. Continue protonix 40 mg orally daily. 8. Benign prostatic hypertrophy. Continue doxazosin 8 mg twice daily. 9. Hypertension and hypertensive cardiovascular disease. Continue atenolol 50 mg orally daily and amlodipine 5 mg orally daily. 10. DVT prophylaxis. we will continue with Eliquis 2.5 mg orally bid. 11. Discharge plan: home.
--- NOTE | 2020-08-13 16:52 | US ---
EXAMINATION TYPE: US carotid duplex BILAT DATE OF EXAM: 08/13/2020 COMPARISON: 2019 CLINICAL HISTORY: recent surgery. Recent right endarterectomy EXAM MEASUREMENTS: RIGHT: Peak Systolic Velocity (PSV) cm/sec ----- Right CCA: 112.0 ----- Right ICA: 69.6 ----- Right ECA: 111.0 ICA/CCA ratio: 0.6 RIGHT: End Diastole cm/sec ----- Right CCA: 9.5 ----- Right ICA: 12.5 ----- Right ECA: 0.0 LEFT: Peak Systolic Velocity (PSV) cm/sec ----- Left CCA: 218.0 ----- Left ICA: 57.8 ----- Left ECA: 173.0 ICA/CCA ratio: 0.3 LEFT: End Diastole cm/sec ----- Left CCA: 16.6 ----- Left ICA: 12.9 ----- Left ECA: 0.0 VERTEBRALS (direction of flow): Right Vertebral: Antegrade Left Vertebral: Antegrade Rhythm: Normal Difficult and limited study due to deep vessels and shadowing from plaque Bilateral intimal thickening, large amount of plaque bilateral CCA, elevated velocities: left prox an d distal CCA and left prox ECA IMPRESSION: 1. Atheromatous plaquing without significant flow-limiting stenosis. 2. There is elevated velocity of the left common carotid artery. Consider CTA neck vessels to evaluat e more proximal common carotid artery. Criteria for Assigning % of Stenosis / Diameter reduction (Estimation based on the indirect measurements of the internal carotid artery velocities (ICA PSV). 1. Normal (no stenosis)=ICA PSV < 125 cm/s: ratio < 2.0: ICA EDV<40 cm/s. 2. Less than 50% stenosis=ICA PSV < 125 cm/s: ratio < 2.0: ICA EDV<40 cm/s. 3. 50 to 69% stenosis=ICA PSV of 125 to 230 cm/s: ration 2.0 ? 4.0: ICA EDV 40-100 cm/s. 4. Greater than 70% stenosis to near occlusion= ICA PSV > 230 cm/s: ratio > 4.0: ICA EDV > 100 cm/s. 5. Near occlusion= ICA PSV velocities may be low or undetectable: variable ratio and ICA EDV. 6. Total occlusion=unable to detect flow.
--- NOTE | 2020-08-13 17:33 | P.CNPUL ---
History of Present Illness Consult date: 08/13/20 Requesting physician: Kehinde Wiggins Reason for consult: dyspnea Chief complaint: Right foot wound pain, and shortness of breath History of present illness: 85-year-old white male patient with known history of COPD, with the baseline FEV1 of around 30%, on home oxygen at 2-1/2 L, paroxysmal atrial fibrillation on Eliquis, history of coronary artery disease with previous bypass grafting, ex-smoker, patient quit smoking over 40 years ago, history of hiatal hernia, BPH, post poliomyelitis syndrome. Patient did work in the [employer] when he was younger. On 08/12/2020 patient presented to the emergency department for evaluation of multiple complaints including an ulceration on his right foot on the lateral aspect, that he reports to be healing poorly and lately starting to produce some pus despite treatment. He also complained of worsening shortness of breath, denied any fever or chills, denied any chest pain or hemoptysis, no worsening cough or congestion. His chest x-ray showed chronic emphysematous and parenchymal changes bilateral with new small left pleural fluid collection, persistent a large hiatal hernia containing stomach and portions of bowel. His admission lab work showed white blood cell, 8.0, hemoglobin of 11.8, INR is 1.0, sodium is 135, potassium is 4.6, chloride is 95, CO2 is 32, BUN is 32 creatinine 0.94, plasma lactic acid was 1.5, troponin is less than 0.012, proBNP was within normal limits at 381 LFTs were within normal limits. She was started on nebulized bronchodilators, antibiotic coverage, IV steroids, and he is on home dose of Lasix, ultrasound Doppler of his left lower extremity showed no evidence of DVT. He is awaiting evaluation by vascular surgery regarding his wound on his right lower extremity. Patient has a barky loud cough characteristic of tracheobronchomalacia. He is receiving breathing treatments and IV steroids. Review of Systems All systems: negative Constitutional: Denies chills, Denies fever Eyes: denies blurred vision, denies pain Ears, nose, mouth and throat: Denies headache, Denies sore throat Cardiovascular: Reports decreased exercise tolerance, Reports dyspnea on e xertion, Reports edema, Denies chest pain, Denies shortness of breath Respiratory: Reports cough, Reports dyspnea, Reports home oxygen, Reports respiratory infections, Reports wheezing Gastrointestinal: Denies abdominal pain, Denies diarrhea, Denies nausea, Denies vomiting Musculoskeletal: Denies myalgias Musculoskeletal: right: ankle pain, left: ankle swelling Integumentary: Reports sores, Reports wounds, Denies pruritus, Denies rash Neurological: Denies numbness, Denies weakness Psychiatric: Denies anxiety, Denies depression Endocrine: Denies fatigue, Denies weight change 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 Past Anesthesia/Blood Transfusion Reactions: No Reported Reaction Past Psychological History: No Psychological Hx Reported Smoking Status: Former smoker Past Alcohol Use History: None Reported Additional Past Alcohol Use History / Comment(s): Patient was a smoker of one pack per day and quit 40-50 years ago. Patient worked in a [employer]. He denies any alcohol use, marijuana or street drug use. He lives at home with his . He has home O2 at 2-1/2 L nasal and a nebulizer. He does not have a CPAP. Past Drug Use History: None Reported - Past Family History Father Family Medical History: Coronary Artery Disease (CAD) Additional Family Medical History / Comment(s): Father at age 75 from ASHD. Mother History Unknown: Yes Family Medical History: Unable to Obtain Additional Family Medical History / Comment(s): Other in her 30s from complications after the . Sister(s) Additional Family Medical History / Comment(s): Patient has 2 sisters and one at age 60 from diabetes complications. One at age 83 from old age with history of atrial fibrillation. Patient does not have any brothers. Patient had 2 twin boys and one was murdered at age 20. Remaining son and 1 daughter living with no major medical problems. Medications and Allergies Home Medications Medication Instructions Recorded Confirmed Type Albuterol Nebulized [Ventolin 2.5 mg INHALATION RT-QID PRN 08/30/16 08/12/20 History Nebulized] Doxazosin Mesylate 8 mg PO BID 08/30/16 08/12/20 History Tiotropium 18 Mcg/Puff [Spiriva] 1 cap INHALATION RT-BID 08/30/16 08/12/20 History Apixaban [Eliquis] 2.5 mg PO BID 01/29/17 08/12/20 History Ascorbic Acid [Vitamin C] 500 mg PO DAILY@1500 05/17/20 08/12/20 History Atenolol [Tenormin] 50 mg PO DAILY 05/17/20 08/12/20 History Budesonide [Pulmicort] 0.5 mg INHALATION RT-BID 05/17/20 08/12/20 History Dutasteride 0.5 mg PO DAILY 05/17/20 08/12/20 History Formoterol Fumarate [Perforomist] 20 mcg INHALATION RT-BID 05/17/20 08/12/20 History Multivitamins, Thera [Multivitamin 1 tab PO DAILY 05/17/20 08/12/20 History (formulary)] Omeprazole 40 mg PO DAILY@1500 05/17/20 08/12/20 History amLODIPine [Norvasc] 5 mg PO HS 05/17/20 08/12/20 History Aspirin 81 mg PO DAILY@1500 08/12/20 08/12/20 History Cephalexin [Keflex] 500 mg PO Q8H 08/12/20 08/12/20 History Furosemide [Lasix] 40 mg PO DAILY 08/12/20 08/12/20 History Potassium Chloride ER [K-Dur 20] 20 meq PO DAILY 08/12/20 08/12/20 History Simvastatin [Zocor] 20 mg PO HS 08/12/20 08/12/20 History Allergies Allergy/AdvReac Type Severity Reaction Status Date / Time ciprofloxacin [From Cipro] Allergy Rash/Hives Verified 08/12/20 13:58 Physical Exam Vitals: Vital Signs Temp Pulse Pulse Pulse Resp BP Pulse Ox 08/13/20 16:23 82 08/13/20 16:13 82 92 L 08/13/20 14:00 98.1 F 88 16 132/73 91 L 08/13/20 11:16 76 08/13/20 11:05 76 08/13/20 07:27 78 08/13/20 07:24 97.7 F 87 14 117/67 90 L 08/13/20 07:15 76 08/13/20 07:05 76 08/13/20 02:15 97.7 F 80 20 141/65 90 L 08/12/20 20:06 76 08/12/20 19:59 76 08/12/20 19:50 76 08/12/20 19:40 81 08/12/20 19:36 98.1 F 81 20 146/69 92 L 08/12/20 17:22 94 L Intake and Output 08/13/20 08/13/20 08/13/20 06:59 14:59 22:59 Output Total 575 Balance -575 Output: Urine 575 Other: Voiding Method Urinal # Voids 1 GENERAL EXAM: Alert, very pleasant, 85-year-old white male currently on 3 L of oxygen and the pulse ox of 91-92%, with frequent barky cough characteristic of tracheobronchomalacia, in no apparent distress other than some mild to moderate discomfort from his right ankle nonhealing wound HEAD: Normocephalic/atraumatic. EYES: Normal reaction of pupils, equal size. Conjunctiva pink, sclera white. NOSE: Clear with pink turbinates. THROAT: No erythema or exudates. NECK: No masses, no JVD, no thyroid enlargement, no adenopathy. CHEST: No chest wall deformity. Symmetrical expansion. LUNGS: Equal air entry with diminished breath sounds and scattered rhonchi CVS: Regular rate and rhythm, normal S1 and S2, no gallops, no murmurs, no rubs ABDOMEN: Soft, nontender. No hepatosplenomegaly, normal bowel sounds, no guarding or rigidity. EXTREMITIES: No clubbing, no edema, no cyanosis, 2+ pulses and upper and lower extremities. MUSCULOSKELETAL: Muscle strength and tone normal. SPINE: No scoliosis or deformity SKIN: No rashes. Ration has a right ankle wound, nonhealing, covered with a dressing, small amount of yellow drainage seeping through the dressing CENTRAL NERVOUS SYSTEM: Alert and oriented -3. No focal deficits, tone is normal in all 4 extremities. PSYCHIATRIC: Alert and oriented -3. Appropriate affect. Intact judgment and insight. Results - Laboratory Findings CBC and BMP: 08/13/20 04:40 08/13/20 04:34 PT/INR, D-dimer PT 10.6 sec (9.0-12.0) 08/12/20 13:41 INR 1.0 (<1.2) 08/12/20 13:41 Abnormal lab findings: Abnormal Labs 08/12/20 08/12/20 08/13/20 13:41 13:41 04:34 WBC RBC 3.92 L Hgb 11.8 L Hct 35.1 L MCHC Lymphocytes # 0.7 L Monocytes # Eosinophils # Sodium 135 L 133 L Chloride 95 L Carbon Dioxide 32 H Anion Gap 3.40 L BUN 32 H 28.0 H BUN/Creatinine Ratio 35.00 H Glucose 116 H 259 H C-Reactive Protein 1.7 H Total Protein 5.7 L 08/13/20 04:40 WBC 4.14 L RBC 3.74 L Hgb 10.8 L Hct 34.3 L MCHC 31.5 L Lymphocytes # 0.35 L Monocytes # 0.02 L Eosinophils # 0.01 L Sodium Chloride Carbon Dioxide Anion Gap BUN BUN/Creatinine Ratio Glucose C-Reactive Protein Total Protein - Diagnostic Findings Chest x-ray: report reviewed, image reviewed Additional studies: Left leg Doppler ultrasound Assessment and Plan Plan: Assessment: #1. Acute exacerbation of advanced COPD with tracheobronchomalacia. Chest x- ray showed chronic emphysematous and parenchymal changes bilaterally. There are no small left pleural fluid collection #2. Right ankle nonhealing wound with failed outpatient treatment. Foot x-ray did not show signs of osteomyelitis #3. Left leg swelling, Doppler ultrasound of left lower extremity showed no fatou dence of DVT #4. History of paroxysmal A. fib on Eliquis #5. Advanced COPD on home oxygen at 2 l and baseline FEV1 is around 30% #6. History of coronary artery disease with bypass grafting 12 years ago #7. BPH #8. Recent history of T car of the right carotid artery due to recurrent TIAs and significant stenosis #9. GERD/reflux #10. Former smoker quit over 40 years ago #11. History of post poliomyelitis syndrome Plan: Continue IV steroids, continue nebulized bronchodilators, continue antibiotics per ID service recommendations, chest x-ray has been reviewed showing mostly chronic changes. We will continue to follow. I performed a history & physical examination of the patient and discussed their management with my nurse practitioner, Joelle Castle. I reviewed the nurse practitioner's note and agree with the documented findings and plan of care. Lung sounds are positive for diminished breath sounds. The findings and the impression was discussed with the patient. I attest to the documentation by the nurse practitioner. Time with Patient: Greater than 30
[2020-08-13] MEDS: ATORVASTATIN 10 MG TAB PO SCH (19:54)
[2020-08-13] MEDS: amLODIPine 5 MG TAB PO SCH (19:54)
[2020-08-13] MEDS: methylPREDNISolone SOD SUCCI 40 MG/ML 1 ML VIAL IV SCH (19:55)
[2020-08-14] MEDS: methylPREDNISolone SOD SUCCI 40 MG/ML 1 ML VIAL IV SCH (02:59)
[2020-08-14] MEDS: FORMOTEROL FUMARATE 20 MCG/2 ML NEBU INHALATION SCH ×2 (07:59→20:24)
[2020-08-14] MEDS: IPRATROPIUM-ALBUTEROL 3 ML NEB INHALATION SCH ×4 (07:59→20:24)
[2020-08-14] MEDS: BUDESONIDE 0.5 MG/2 ML NEBU INHALATION SCH (07:59)
[2020-08-14] MEDS ORDERED: VANCOMYCIN TROUGH DUE 1 EACH MISC MISCELLANE ONE (09:00)
[2020-08-14] MEDS: APIXABAN 2.5 MG TABLET PO SCH ×2 (09:17→22:25)
[2020-08-14] MEDS: atenoloL 50 MG TAB PO SCH (09:18)
[2020-08-14] MEDS: FUROSEMIDE 40 MG TAB PO SCH (09:18)
[2020-08-14] MEDS: MULTIVITAMINS, THERA 1 EACH TAB PO SCH (09:18)
--- NOTE | 2020-08-14 09:18 | P.ARTDOP ---
Arterial Doppler LOWER EXTREMITY ARTERIAL DOPPLER: DATE OF SERVICE: 08/13/2020 Reason for study: Right heel ulcer. Doppler waveforms: Multiphasic bilaterally throughout. Pulse volume recording: []. Pressure gradients: None. Ankle-brachial indices: Greater than 1 bilaterally. Toe brachial indices: [] on the right, [] on the left Impression: Normal study.
[2020-08-14] MEDS: DOXAZOSIN 4 MG TAB PO SCH (09:19)
[2020-08-14] MEDS: POTASSIUM CHLORIDE ER 20 MEQ TAB.ER PO SCH (09:20)
[2020-08-14] MEDS: VANCOMYCIN 1,250 MG in SODIUM CHLORIDE 0.9% 250 ML IVPB SCH ×2 (09:21→22:30)
[2020-08-14] MEDS: FINASTERIDE 5 MG TAB PO SCH (09:31)
--- NOTE | 2020-08-14 10:28 | P.EN ---
A Team Note: Concern: Barking cough and difficulty breathing Background: Chart reviewed patient with COPD and Tracheobronchomalacia. Known barking/ harsh cough. Chart reviewed. Patient seen and examined at bedside. He reports SOB, feeling like he is unable to cough mucus up. States that he gets this way at home. He denies any chest pain. General: non toxic, mild distress, appears at stated age Derm: warm, dry Head: atraumatic, normocephalic, symmetric Eyes: EOMI, no lid lag, anicteric sclera Mouth: no lip lesion, mucus membranes moist Cardiovascular: S1S2 reg, no murmur, positive posterior tibial pulse bilateral Lungs: Decreased bs bilateral, no accessory muscle use, harsh barking cough, no upper airway stridor noted. Acute exacerbation of COPD, Tracheobronchomalacia - Humidified O2 - Mucinex - CPT X 1 - FEV1 30% and acceptable O2 sat of 88-92% Nursing contacted Pulmonary and they are aware of cough.
--- NOTE | 2020-08-14 10:40 | P.PN ---
Progress Note - Text Progress Note Date: 08/14/20 HISTORY OF PRESENT ILLNESS This is an 85-year-old male treated for right foot wound infection/ulcer. Patient failed outpatient treatment with Keflex. Patient states his pain is currently controlled. Foot x-ray did not show signs of osteomyelitis. The wound itself is looking improved from yesterday. Patient denies fever chills, no shortness of breath. Wound culture remains in progress. He has been afebrile, heart rate 89, blood pressure 134/70, pulse ox 92% on 3 L. PHYSICAL EXAMINATION Gen: This is a thin 85-year-old male. He is resting in bed appears to be comfortable. HEENT: Head is atraumatic, normocephalic. Pupils equal, round. Sclerae is anicteric. NECK: Supple. No JVD. No lymphadenopathy. LUNGS: No wheezing. No intercostal retractions. HEART: Regular rate and rhythm. ABDOMEN: Soft. Bowel sounds are present. No masses. No tenderness. EXTREMITIES: No pedal edema. Right foot lateral ulcer. No significant redness. No foul order. NEUROLOGICAL: Patient is awake, alert and oriented x3. ASSESSMENT Chronic nonhealing wound to the right lateral foot, failed outpatient treatment PLAN Continue local wound care with medihoney Continue vancomycin Follow-up on wound culture results Plan is for oral antibiotics at the time of discharge The above dictated assessment and findings were discussed with Dr. Shabazz. The impression and plan of care have been directed as dictated. Shanice Lawton nurse practitioner acting as scribe for Dr. Shabazz.
[2020-08-14] MEDS: guaiFENesin 600 MG TABLET.ER PO SCH ×2 (10:53→22:25)
--- NOTE | 2020-08-14 11:35 | P.PN ---
Subjective Progress Note Date: 08/14/20 Principal diagnosis: right lower extremity nonhealing wound The patient is seen and examined lying in bed. Apparently he had an acute event early this morning where he had uncontrollable coughing and difficulty breathing. He is here for COPD exacerbation. He has not had any fevers.a carotid Doppler was ordered and reviewed. Showing improvement in the right ICA from prior carotid Doppler ultrasound prior to his TCAR approximately one month ago. Objective - Vital Signs Vital signs: Vital Signs Temp 97.7 F 08/14/20 08:00 Pulse 88 08/14/20 10:55 Resp 24 08/14/20 10:55 BP 91/62 08/14/20 10:55 Pulse Ox 88 L 08/14/20 10:55 Intake & Output 08/13/20 08/14/20 08/14/20 18:59 06:59 18:59 Intake Total 700 300 Balance 700 300 Intake: Intake, IV Titration 250 Amount Vancomycin 1,250 mg In 250 Sodium Chloride 0.9% 250 ml @ 125 mls/hr IVPB Q12H [facility] Rx#:[id number] Oral 450 300 Other: Voiding Method Urinal Urinal # Voids 1 3 - Exam General appearance: The patient is alert, oriented, in no acute distress. HET: Head is normocephalic and atraumatic. Pupils are equal and reactive. Oropharynx is clear without lesions. Neck: Supple without lymphadenopathy. Trachea midline. Incision on right side and neck healed with minimal scarring. No audible carotid bruit bilaterally. Heart: S1 S2. Regular rate and rhythm. Lungs: Diminished with rhonchi Abdomen: Soft, nontender, nondistended with bowel sounds. No peritoneal signs. No palpable organomegaly or masses. Extremities: Normal skin color and turgor. Bilateral lower extremities warm to the touch with good capillary refill. Left lower extremity with +1-2 pitting edema. Right lower extremity with mild edema. Right lateral ankle with 1.5 x 2 cm ulcer with surrounding mild erythema. No drainage noted with scabbing. Palpable bilateral femoral and dorsalis pedis pulses. Lateral multiphasic posterior tibialis Doppler signal. Neurological: No focal deficits. Strength and sensation are grossly intact. - Labs CBC & Chem 7: 08/13/20 04:40 08/13/20 04:34 Labs: Microbiology - Last 24 Hours (Table) 08/12/20 13:41 Blood Culture - Preliminary Blood No Growth after 24 hours Assessment and Plan Assessment: 1. Nonhealing right lower extremity ulcer 2. COPD 3. History coronary artery disease 4. History of internal carotid artery disease with TIAs, status post TCAR 5. Chronic hypoxic respiratory failure on home O2 Plan: Bilateral lower extremity arterial ultrasound ordered and reviewed with YULY 1.32 on right and 1.20 on left. Doppler wave form showed good blood flow with calcification. Patient has bilateral palpable dorsalis pedis with good capil esvin refill. There is no evidence for any acute vascular surgical intervention. Would recommend local wound care and to follow-up with wound care center as an outpatient. Continue medical management and IV antibiotics per recommendations from infectious disease as needed.carotid ultrasound was ordered yesterday and reviewed with improved low in the right internal carotid artery status post TCAR procedure. Recommend follow-up as an outpatient with Dr. Jack in 1-2 months Thank you for this consultation, we will sign off at this time. The impression and plan of care has been dictated as directed. Dr. Rios I performed a history and examination of this patient, discussed the same with the dictator. I agree with the dictator's note ,documented as a scribe. Any additional findings or plans will be noted.
--- NOTE | 2020-08-14 12:19 | P.CONS ---
History of Present Illness - Reason for Consult Consult date: 08/14/20 Wound care - History of Present Illness His is an 85-year-old patient being seen on [address]. by wound care for nonhealing ulceration to the right malleolus. The ulceration measures approximately 1.5 x 2 x 0.2 CM, wound bed shows minimal to no granulation and moderate amount of slough including eschar and nonviable tissue. Wound edges are Minerva the wound base no tunneling or undermining noted. The periwound does show some maceration. Patient has been utilizing honey gel. Patient states that the ulcerations have been there for approximate 5-6 weeks. His noticed that it was not getting any better. Patient hasn't no DVTs noted his YULY on the right was 1.32 and on the left 1.20. Review Of Systems: Constitutional: No fever, no chills, no night sweats. No weight change. No weakness, fatigue or lethargy. No daytime sleepiness. Integumentary:reports wounds, no lesions. No rash or pruritus. No unusual bruising. No change in hair or nails. Physical exam: General Appearance: Alert, cooperative, no distress, appears stated age. Skin: See HPI all other Skin color, texture, tugor normal, no rashes or lesions. Neurologic: Alert oriented x3 Assessment/plan: 1. Pressure ulcer right malleolus with fat layer exposure stage II. Apply honey gel and border foam. Patient to change dressing 3 times a week Wednesday. Patient declined wound care outpatient services at this time. Patient will need supplies prescription sent to a durable medical supplies to help him facilitate honey gel and foam. Patient did decline home care at this time. Thank you kindly for the consultation any questions please contact the wound care center DNP note has been reviewed and discussed with Dr. Rangel and the impression and plan of care has been directed as dictated. 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 Past Anesthesia/Blood Transfusion Reactions: No Reported Reaction Past Psychological History: No Psychological Hx Reported Smoking Status: Former smoker Past Alcohol Use History: None Reported Additional Past Alcohol Use History / Comment(s): Patient was a smoker of one pack per day and quit 40-50 years ago. 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 He denies any alcohol use, marijuana or street drug use. He lives at home with his . He has home O2 at 2-1/2 L nasal and a nebulizer. He does not have a CPAP. Past Drug Use History: None Reported - Past Family History Father Family Medical History: Coronary Artery Disease (CAD) Additional Family Medical History / Comment(s): Father at age 75 from ASHD. Mother History Unknown: Yes Family Medical History: Unable to Obtain Additional Family Medical History / Comment(s): Other in her 30s from co mplications after the . Sister(s) Additional Family Medical History / Comment(s): Patient has 2 sisters and one at age 60 from diabetes complications. One at age 83 from old age with history of atrial fibrillation. Patient does not have any brothers. Patient had 2 twin boys and one was murdered at age 20. Remaining son and 1 daughter living with no major medical problems. Medications and Allergies Home Medications Medication Instructions Recorded Confirmed Type Albuterol Nebulized [Ventolin 2.5 mg INHALATION RT-QID PRN 08/30/16 08/12/20 History Nebulized] Doxazosin Mesylate 8 mg PO BID 08/30/16 08/12/20 History Tiotropium 18 Mcg/Puff [Spiriva] 1 cap INHALATION RT-BID 08/30/16 08/12/20 History Apixaban [Eliquis] 2.5 mg PO BID 01/29/17 08/12/20 History Ascorbic Acid [Vitamin C] 500 mg PO DAILY@1500 05/17/20 08/12/20 History Atenolol [Tenormin] 50 mg PO DAILY 05/17/20 08/12/20 History Budesonide [Pulmicort] 0.5 mg INHALATION RT-BID 05/17/20 08/12/20 History Dutasteride 0.5 mg PO DAILY 05/17/20 08/12/20 History Formoterol Fumarate [Perforomist] 20 mcg INHALATION RT-BID 05/17/20 08/12/20 History Multivitamins, Thera [Multivitamin 1 tab PO DAILY 05/17/20 08/12/20 History (formulary)] Omeprazole 40 mg PO DAILY@1500 05/17/20 08/12/20 History amLODIPine [Norvasc] 5 mg PO HS 05/17/20 08/12/20 History Aspirin 81 mg PO DAILY@1500 08/12/20 08/12/20 History Cephalexin [Keflex] 500 mg PO Q8H 08/12/20 08/12/20 History Furosemide [Lasix] 40 mg PO DAILY 08/12/20 08/12/20 History Potassium Chloride ER [K-Dur 20] 20 meq PO DAILY 08/12/20 08/12/20 History Simvastatin [Zocor] 20 mg PO HS 08/12/20 08/12/20 History Allergies Allergy/AdvReac Type Severity Reaction Status Date / Time ciprofloxacin [From Cipro] Allergy Rash/Hives Verified 08/12/20 13:58 Physical Exam Vitals: Vital Signs Temp Pulse Pulse Resp BP Pulse Ox 08/14/20 10:55 88 24 91/62 88 L 08/14/20 10:19 98 08/14/20 10:06 86 08/14/20 09:09 89 20 134/70 92 L 08/14/20 08:26 80 08/14/20 08:13 81 08/14/20 08:00 97.7 F 91 20 94/49 89 L 08/14/20 07:59 77 90 L 08/14/20 02:00 97.9 F 81 18 103/63 90 L 08/13/20 21:07 80 08/13/20 21:00 80 08/13/20 20:46 78 08/13/20 20:00 98 F 87 17 149/71 91 L 08/13/20 16:23 82 08/13/20 16:13 82 92 L 08/13/20 14:00 98.1 F 88 16 132/73 91 L Intake and Output 08/13/20 08/14/20 08/14/20 22:59 06:59 14:59 Intake Total 700 300 Balance 700 300 Intake: Intake, IV Titration 250 Amount Vancomycin 1,250 mg In 250 Sodium Chloride 0.9% 250 ml @ 125 mls/hr IVPB Q12H [facility] Rx#:[id number] Oral 450 300 Other: Voiding Method Urinal # Voids 1 3 Results CBC & Chem 7: 08/13/20 04:40 08/13/20 04:34 Labs: Microbiology - Last 24 Hours (Table) 08/12/20 13:41 Blood Culture - Preliminary Blood No Growth after 24 hours Assessment and Plan (1) Pressure ulcer of right ankle, stage 2 Current Visit: Yes Status: Acute Code(s): L89.512 - PRESSURE ULCER OF RIGHT ANKLE, STAGE 2 SNOMED Code(s): 920893119
[2020-08-14] MEDS: methylPREDNISolone SOD SUCCI 125 MG/2 ML VIAL IV SCH ×2 (12:29→18:31)
--- NOTE | 2020-08-14 13:03 | P.PN ---
Subjective Progress Note Date: 08/14/20 This is an 85-year-old male patient of Drs. Wiggins, Bambi and Mirna. with past medical history of paroxysmal atrial fibrillation on chronic eliquis, COPD, chronic hypoxic respiratory failure on home O2 at 2-1/2 L nasal cannula, history of coronary artery disease with CABG 20 years ago, benign prostatic hypertrophy, was recently hospitalized at [facility] for TCAR pf the right carotid artery due to recurrent TIA 's and significant stenosis, patient has done well with that , but for the past 4 weeks he developed to have right lateral ankle sore about a quarter in size, with scab on top of it that never healed, I was not aware of it till last week when his called my office and stated that her has issues with his right ankle, we had tele- health visit and indeed there was a quarter size stage 2 sore appeared as neuropathic ulcer with scab on it , recommended for her to place Medihony pads and change every other day, was placed on Keflex 500 mg orally bid, also had ri t foot X-Ray which was negative for osteomyelitis, patient developed to have increased redness around his right ankle and increased shortness of breath, so he was brought into the ER at [facility] for evaluation and he was admitted for COPD exacerbation and right ankle cellulitis, ID consult and Pulmonary consult. 2: Bilateral lower extremity arterial ultrasound revealed YULY 1.32 on the right and 1.20 on the left. Doppler showed good blood flow with calcification and vascular surgery anticipates the patient will be able to heal. Local wound care is in the form of melena honey. Patient states his pain is fairly controlled. X-ray of the foot ordered by infectious disease showed no suspicion for osteomyelitis. WBC 4.14, hemoglobin 10.8, platelet count 246. Creatinine 0.8. Coronavirus PCR not detected. Wound cultures are in progress. Patient is currently maintained on vancomycin. Dr. Plata is planning for oral antibiotics at time of discharge. Physical therapy has evaluated with recommendations for home without home care need. [facility] Anticipate possible discharge by tomorrow. 08/14: Wound culture remains pending. Patient is currently on vancomycin managed by Dr. Shabazz. Vascular has been following and signed off. Patient has been seen behind the wound care team with recommendations for honey gel and border foam changed 3 times a week on Wednesday. Patient declined coming into the wound healing Center. Patient has been afebrile, heart rate 88, blood pressure 91/62, pulse ox 88% on 3 L. A-Team was called on patient today due to a barking cough and difficulty breathing. Patient was having difficulty coughing up mucus. Otherwise patient was at his baseline. Humidified oxygen and Mucinex were ordered. Patient verbalizes that he would like to be in no CODE STATUS Objective - Vital Signs Vital signs: Vital Signs Temp 97.7 F 08/14/20 08:00 Pulse 88 08/14/20 10:55 Resp 24 08/14/20 10:55 BP 91/62 08/14/20 10:55 Pulse Ox 88 L 08/14/20 10:55 Intake & Output 08/13/20 08/14/20 08/14/20 18:59 06:59 18:59 Intake Total 700 300 Balance 700 300 Intake: Intake, IV Titration 250 Amount Vancomycin 1,250 mg In 250 Sodium Chloride 0.9% 250 ml @ 125 mls/hr IVPB Q12H [facility] Rx#:[id number] Oral 450 300 Other: Voiding Method Urinal Urinal # Voids 1 3 - Exam Review of Systems Constitutional: Reports anorexia, Reports chronic pain, Reports fatigue, Reports weakness, Reports weight loss Eyes: bilateral blurred vision, denies bulging eye, denies decreased vision Ears: bilateral: decreased hearing Ears, nose, mouth and throat: Denies dysphagia, Denies neck lump, Denies sore throat Cardiovascular: Reports decreased exercise tolerance, Reports dyspnea on exertion, Reports edema, Reports irregular heart beat, Reports shortness of breath, Denies chest pain, Denies orthopnea, Denies palpitations, Denies syncope Respiratory: Reports congestion, Reports cough, Reports cough with sputum, Reports home oxygen, Reports wheezing, Denies respiratory infections, Denies sleep apnea, Denies snoring Gastrointestinal: Reports loss of appetite, Reports nausea, Denies abdominal pain, Denies bloating, Denies BRBPR, Denies diarrhea, Denies early satiety, De nies melena, Denies vomiting Genitourinary: Reports nocturia, Denies dysuria Musculoskeletal: Reports atrophy, Reports gait dysfunction, Denies myalgias Musculoskeletal: bilateral: ankle swelling, absent: elbow pain, elbow stiffness, elbow swelling, foot pain, foot stiffness, foot swelling, hand pain, hand stiffness, hand swelling, hip pain, hip stiffness, hip swelling, knee pain, knee stiffness, knee swelling, shoulder pain, shoulder stiffness, shoulder swelling, wrist pain, wrist stiffness, wrist swelling Integumentary: Reports wounds (right lateral ankle with quarter size stage 2 neuropathic ulcer) Neurological: Reports balance difficulties, Reports gait dysfunction, Reports numbness, Reports sensory deficit, Reports weakness, Reports visual changes Psychiatric: Reports anxiety, Reports depression, Denies sadness/tearfulness, Denies sleep disturbances, Denies suicidal ideation Endocrine: Denies fatigue, Denies weight change Physical Examination: Gen: This is an 85-year-old male. He is resting bed and appears in moderate respiratory distress. HEENT: Head is atraumatic, normocephalic. Pupils equal, round. reactive to light and accommodations, extra ocular muscle movements were intact.mucous membranes of the mouth are somewhat dry. NECK: Supple. No JVD. No lymphadenopathy. No thyromegaly. LUNGS: decreased breath sounds at the bases with moderate expiratory wheezes and poor air entry, mild intercostal retractions, no chest wall tenderness. HEART: First heart sound is depressed, second heart sound is normal there is LIGIA 2/6 located at the left sternal borer. ABDOMEN: Soft, non tender, non distended positive bowel sounds. 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 NEUROLOGICAL: Patient is awake, alert and oriented x3. Cranial nerves 2 through 12 are grossly intact, muscle power 4/5 in bilateral upper extremities and 2/5 left lower extremity and 3/5 in the right lower extremity. - Labs CBC & Chem 7: 08/13/20 04:40 08/13/20 04:34 Labs: Microbiology - Last 24 Hours (Table) 08/12/20 13:41 Blood Culture - Preliminary Blood No Growth after 24 hours Assessment and Plan Assessment: Assessment and plan: 1. Acute COPD exacerbation. start Solu-Medrol 60 mg IVP q 6 hours decreased to 40 mg IV push every 8 hours, Duoneb 3 ml QID, Performist 20 mcg with Budosenide 0.5 mg NEB bid, and we will continue with O2 support , pulmonary consult. Added Mucinex. 2. 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 cultures were obtained by and was started on Vancomycin per ID we will continue with Mel every other day, vascular surgery consult appreciated. Await antibiotic recommendations from Dr. Shabazz. 3. Paroxysmal atrial fibrillation. Continue eliquis 2.5 mg twice daily, atenolol 50 mg daily. 4. End-stage COPD, prednisone dependent and oxygen dependent. continue with treatment as in paragraph #1. 5. Chronic hypoxic respiratory failure with home O2 and 2-1/2 L nasal cannula. Continue oxygen therapy. 6. Coronary artery disease with previous CABG 20 years ago, stable. we will continue with Atenolol 50 mg orally daily and Lipitor 10 mg orally daily and ASA 81 mg orally daily. 7. Gastroesophageal reflux disease and GI prophylaxis. Continue protonix 40 mg orally daily. 8. Benign prostatic hypertrophy. Continue doxazosin 8 mg twice daily. 9. Hypertension and hypertensive cardiovascular disease. Continue atenolol 50 mg orally daily and amlodipine 5 mg orally daily. 10. DVT prophylaxis. we will continue with Eliquis 2.5 mg orally bid. 11. Discharge plan: home.
[2020-08-14] MEDS: IPRATROPIUM-ALBUTEROL 3 ML NEB INHALATION PRN (13:13)
--- NOTE | 2020-08-14 13:13 | P.PN ---
Subjective Progress Note Date: 08/14/20 Principal diagnosis: Shortness of breath 85-year-old white male patient with known history of COPD, with the baseline FEV1 of around 30%, on home oxygen at 2-1/2 L, paroxysmal atrial fibrillation on Eliquis, history of coronary artery disease with previous bypass grafting, ex-s moker, patient quit smoking over 40 years ago, history of hiatal hernia, BPH, post poliomyelitis syndrome. Patient did work in the [employer] when he was younger. On 08/12/2020 patient presented to the emergency department for evaluation of multiple complaints including an ulceration on his right foot on the lateral aspect, that he reports to be healing poorly and lately starting to produce some pus despite treatment. He also complained of worsening shortness of breath, denied any fever or chills, denied any chest pain or hemoptysis, no worsening cough or congestion. His chest x-ray showed chronic emphysematous and parenchymal changes bilateral with new small left pleural fluid collection, persistent a large hiatal hernia containing stomach and portions of bowel. His admission lab work showed white blood cell, 8.0, hemoglobin of 11.8, INR is 1.0, sodium is 135, potassium is 4.6, chloride is 95, CO2 is 32, BUN is 32 creatinine 0.94, plasma lactic acid was 1.5, troponin is less than 0.012, proBNP was within normal limits at 381 LFTs were within normal limits. She was started on nebulized bronchodilators, antibiotic coverage, IV steroids, and he is on home dose of Lasix, ultrasound Doppler of his left lower extremity showed no evidence of DVT. He is awaiting evaluation by vascular surgery regarding his wound on his right lower extremity. Patient has a barky loud cough characteristic of tracheobronchomalacia. He is receiving breathing treatments and IV steroids. The patient is seen today 08/14/2020 in follow-up on the regular medical floor. He is currently awake and alert. Earlier he had some significant cough congestion and shortness of breath requiring additional updraft treatments. He is maintaining O2 saturations at 88% on 3 L/m per nasal cannula. He remains on DuoNeb inhalations, Pulmicort inhalations, IV Solu-Medrol, Mucinex. Antibiotics in the form of vancomycin. Wound cultures of his right foot are pending. Blood cultures reveal no growth to date. Objective - Vital Signs Vital signs: Vital Signs Temp 97.7 F 08/14/20 08:00 Pulse 88 08/14/20 10:55 Resp 24 08/14/20 10:55 BP 91/62 08/14/20 10:55 Pulse Ox 88 L 08/14/20 10:55 Intake & Output 08/13/20 08/14/20 08/14/20 18:59 06:59 18:59 Intake Total 700 300 Balance 700 300 Intake: Intake, IV Titration 250 Amount Vancomycin 1,250 mg In 250 Sodium Chloride 0.9% 250 ml @ 125 mls/hr IVPB Q12H [facility], [facility]–1983 Rx#:[id number] Oral 450 300 Other: Voiding Method Urinal Urinal Urinal # Voids 1 3 - Exam GENERAL EXAM: Alert, very pleasant, 85-year-old male patient currently on 3 L of oxygen and the pulse ox of 88%, with frequent barky cough characteristic of tracheobronchomalacia, in no apparent distress other than some mild to moderate discomfort from his right ankle nonhealing wound HEAD: Normocephalic/atraumatic. EYES: Normal reaction of pupils, equal size. Conjunctiva pink, sclera white. NOSE: Clear with pink turbinates. THROAT: No erythema or exudates. NECK: No masses, no JVD, no thyroid enlargement, no adenopathy. CHEST: No chest wall deformity. Symmetrical expansion. LUNGS: Equal air entry with bilateral end expiratory wheeze and scattered rhonchi. CVS: Regular rate and rhythm, normal S1 and S2, no gallops, no murmurs, no rubs ABDOMEN: Soft, nontender. No hepatosplenomegaly, normal bowel sounds, no guarding or rigidity. EXTREMITIES: No clubbing, no edema, no cyanosis, 2+ pulses and upper and lower extremities. MUSCULOSKELETAL: Muscle strength and tone normal. SPINE: No scoliosis or deformity SKIN: No rashes. Ration has a right ankle wound, nonhealing, covered with a nickolas ssing, small amount of yellow drainage seeping through the dressing CENTRAL NERVOUS SYSTEM: No focal deficits, tone is normal in all 4 extremities. PSYCHIATRIC: Alert and oriented -3. Appropriate affect. Intact judgment and insight. - Labs CBC & Chem 7: 08/13/20 04:40 08/13/20 04:34 Labs: Microbiology - Last 24 Hours (Table) 08/12/20 13:41 Blood Culture - Preliminary Blood No Growth after 24 hours Assessment and Plan Assessment: 1 Acute exacerbation of advanced COPD with tracheobronchomalacia. Chest x-ray showed chronic emphysematous and parenchymal changes bilaterally. There are no small left pleural fluid collection 2 Right ankle nonhealing wound with failed outpatient treatment. Foot x-ray did not show signs of osteomyelitis 3 Left leg swelling, Doppler ultrasound of left lower extremity showed no evidence of DVT 4 History of paroxysmal A. 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 Mcmahon He continues to have significant cough, congestion and shortness of breath Solu-Medrol increased to 60 mg every 6 hours Pulmicort increased to 1 mg twice a day We'll plan for bronchoscopy with BAL tomorrow I, the cosigning physician, performed a history & physical examination of the patient. Lungs sounds bilateral scattered rhonchi, end expiratory wheeze. Maintaining good O2 saturations in the 90s on 3 L/m per nasal cannula. I discussed the assessment and plan of care with my nurse practitioner, Tasneem Olvera. I attest to the above note as dictated by her.
[2020-08-14 15:59] VITALS: BMI 22.6
[2020-08-14] MEDS: ASCORBIC ACID 500 MG TAB PO SCH (15:59)
[2020-08-14] MEDS: ASPIRIN 81 MG PO SCH (16:00)
[2020-08-14] MEDS: PANTOPRAZOLE 40 MG TABLET PO SCH (16:01)
[2020-08-14 16:38] LABS: Glucose,Whole Blood 215 mg/dL (75-99)
[2020-08-14 17:00] LABS: Basophils % (A) 0 %; Eosinophils % (A) 0 %; HCT 35.6 % (39.0-53.0); HGB 11.9 gm/dL (13.0-17.5); Hypochromasia Slight; Lymphocytes # (A) 0.9 k/uL (1.0-4.8); Lymphocytes % (A) 9 %; MCH 30.4 pg (25.0-35.0); MCHC 33.3 g/dL (31.0-37.0); MCV 91.1 fL (80.0-100.0); Mean Platelet Volume 7.3; Monocytes # (A) 0.3 k/uL (0-1.0); Monocytes % (A) 3 %; Neutrophils % (A) 87 %; Platelet Count 261 k/uL (150-450); RBC 3.91 m/uL (4.30-5.90); RDW 13.9 % (11.5-15.5); WBC 10.3 k/uL (3.8-10.6)
[2020-08-14 17:09] LABS: African American GFR (CKD) >90 (>60 ml/min/1.73 sqM); Anion Gap 11 mmol/L; Blood Urea Nitrogen 31 mg/dL (9-20); Calcium 8.6 mg/dL (8.4-10.2); Carbon Dioxide 29 mmol/L (22-30); Chloride 94 mmol/L (98-107); Glucose 207 mg/dL (74-99); Magnesium 1.9 mg/dL (1.6-2.3); Non-African American GFR(CKD) 84 (>60 ml/min/1.73 sqM); Phosphorus 4.3 mg/dL (2.5-4.5); Potassium 4.4 mmol/L (3.5-5.1); Sodium 134 mmol/L (137-145)
[2020-08-14 17:14] LABS: INR 1.1 (<1.2); Partial Thromboplastin Time 22.1 sec (22.0-30.0); Prothrombin Time 11.4 sec (9.0-12.0)
[2020-08-14 17:24] LABS: Glucose,Whole Blood 205 mg/dL (75-99)
--- NOTE | 2020-08-14 17:25 | P.EN ---
CODE BLUE event note: Seen on arrival: CPR in progress with assisted breathing through valve bag mask and CPR in progress. Asked nursing to apply pads and monitors. Patient noted to have creamy brown fluid coming from his mouth. At that point in time it was noted that patient was a DO NOT RESUSCITATE, earlier in the day he had said he did not want to be intubated. CPR was subsequently ceased. It was noted that patient did have a palpable pulse at 30 bpm and a blood pressure of 68/48. He was given 1 dose of atropine and his heart rate escalated tell 123 and blood pressure came up to 146/73. Blood glucose was greater than 200. Patient was still unresponsive at that point in time. 100% nonrebreather was applied and his O2 sat increased to 92%. With return of spontaneous circulation care was continued. A 1 L saline bolus was ordered. EKG was ordered and obtained. Did not show any significant ST segment elevation, normal sinus rhythm. Patient continued to have increased levels of consciousness. A nasal trumpet was placed to assist with breathing. After approximately 10-12 minutes the patient became more arousable. His eyes were waking up and he is attempting to speak. See code notes for further details. Pulse 103 and blood pressure 108/73 Patient seen and examined at bedside. Initially on presentation he was unresponsive with agonal respirations and thready pulse After ROSC: General: Ill-appearing, moderate distress, appears at stated age Derm: warm, dry Head: atraumatic, normocephalic, symmetric Eyes: EOMI, no lid lag, anicteric sclera Mouth: no lip lesion, mucus membranes moist Cardiovascular: S1S2 tachycardia], no murmur, positive posterior tibial pulse bilateral, Lungs: Coarse breath sounds bilateral, sternal retractions Ext: no gross muscle atrophy, no edema, no contractures Neuro: Garbled speech, moving all 4 extremities independently, no tremors Psych: Awake, follwoing simple commands Assessment/Plan: Cardiac arrest Symptomatic bradycardia Acute on chronic hypoxic respiratory failure Acute exacerbation of COPD Tracheobronchial malacia 1 L bolus ordered, EKG ordered and reviewed which revealed normal sinus rhythm without any significant ST segment elevation, CBC, CMP, mag, PT/INR, and troponin ordered. Chest x-ray ordered. Case discussed with Dr. Wiggins over the phone who would like patient transferred to the ICU for ongoing care. Case discussed with Dr. Velasco who agrees was transferred to the ICU and plans for possible bronchoscopy in the morning depending on patient's progress. Case discussed with ICU charge nurse plan will be for continued monitoring in the ICU. Nasal trumpet will remain in place until he is consistently awake. Should he not have return of clear to speech in the next 30-45 minutes will proceed with noncontrasted CT head. A total of 55 minutes of critical care time was spent with this patient.
--- NOTE | 2020-08-14 18:00 | XR ---
EXAMINATION TYPE: XR chest 1V portable DATE OF EXAM: 08/14/2020 COMPARISON: 08/12/2020 HISTORY: Aspiration. Chest pain. TECHNIQUE: FINDINGS: There is some airspace infiltrate and atelectasis left lower lobe. Heart is deviated slight ly to the left side. Right lung is fairly clear. There is coarsening of interstitial markings in the upper lung rodriguez. There are sternal wires. IMPRESSION: There is some left lower lobe pneumonia and atelectasis which is the same or slightly wor se than exam 2 days ago. There is underlying COPD and pulmonary fibrosis.
[2020-08-14] MEDS ORDERED: LIDOCAINE 2% (PF) 20 MG/ML 5 ML VIAL INHALATION ONE (20:06)
[2020-08-14] MEDS: BUDESONIDE 1 MG/2 ML NEBU INHALATION SCH (20:24)
[2020-08-14] MEDS: RACEPINEPHRINE 2.25% NEB 0.5 ML NEBU INHALATION PRN (20:41)
[2020-08-14] MEDS: LORazepam 2 MG/ML INJ IV PRN (21:43)
[2020-08-14] MEDS: ATORVASTATIN 10 MG TAB PO SCH (22:25)
[2020-08-14] MEDS: amLODIPine 5 MG TAB PO SCH (22:25)
[2020-08-14 23:29] LABS: African American GFR (CKD) 90.6 (60.0-200.0); Non-African American GFR(CKD) 78.2 (60.0-200.0)
[2020-08-15 00:38] LABS: Glucose,Whole Blood 154 mg/dL (75-99)
[2020-08-15] MEDS: methylPREDNISolone SOD SUCCI 125 MG/2 ML VIAL IV SCH ×2 (01:00→06:15)
[2020-08-15] MEDS: INSULIN ASPART (NovoLOG) 100 UNIT/ML VIAL SQ SCH ×4 (01:00→20:00)
[2020-08-15 04:27] LABS: Basophils % (A) 0 %; Eosinophils % (A) 0 %; HCT 36.3 % (39.0-53.0); HGB 11.6 gm/dL (13.0-17.5); Lymphocytes # (A) 0.4 k/uL (1.0-4.8); Lymphocytes % (A) 2 %; MCH 28.9 pg (25.0-35.0); MCHC 31.9 g/dL (31.0-37.0); MCV 90.3 fL (80.0-100.0); Monocytes # (A) 0.8 k/uL (0-1.0); Monocytes % (A) 4 %; Neutrophils # (A) 17.5 k/uL (1.3-7.7); Neutrophils % (A) 93 %; Platelet Count 247 k/uL (150-450); RBC 4.02 m/uL (4.30-5.90); WBC 18.9 k/uL (3.8-10.6)
[2020-08-15 04:50] LABS: Albumin 3.5 g/dL (3.5-5.0); Calcium 8.8 mg/dL (8.4-10.2); Potassium 4.5 mmol/L (3.5-5.1); Total Bilirubin 0.9 mg/dL (0.2-1.3); Total Protein 5.9 g/dL (6.3-8.2)
[2020-08-15 05:58] LABS: Glucose,Whole Blood 162 mg/dL (75-99)
--- NOTE | 2020-08-15 07:34 | XR ---
EXAMINATION TYPE: XR chest 1V portable DATE OF EXAM: 08/15/2020 CLINICAL HISTORY: Difficulty breathing and aspiration progress study. TECHNIQUE: Single AP portable upright view of the chest is obtained. COMPARISON: Chest x-ray from one day earlier and older studies FINDINGS: Worsening left basilar and developing right basilar opacities on current study. Upper lung s remain clear without pneumothorax. There are persistent small to tiny bilateral left greater than r ight pleural effusions. Underlying cardiomegaly with atherosclerotic thoracic aorta. Overlying sterna l wires and mediastinal clips. Advanced degenerative change bilateral glenohumeral joints. Underlying scoliosis near the thoracolumbar junction. Retrocardiac opacity consistent with large size hiatal he rnia. IMPRESSION: Developing bibasilar acute infiltrates on background left basilar chronic parenchymal eliu nges and large hiatal hernia. Aspiration pneumonia is in differential. Progress study advised.
[2020-08-15] MEDS: SODIUM CHLORIDE 0.9% 500 ML 500 ML IV SCH (08:00)
[2020-08-15] MEDS: IPRATROPIUM-ALBUTEROL 3 ML NEB INHALATION SCH ×4 (08:34→19:30)
[2020-08-15] MEDS: RACEPINEPHRINE 2.25% NEB 0.5 ML NEBU INHALATION PRN ×3 (08:34→23:46)
[2020-08-15] MEDS: BUDESONIDE 1 MG/2 ML NEBU INHALATION SCH ×2 (08:35→19:31)
[2020-08-15] MEDS: FORMOTEROL FUMARATE 20 MCG/2 ML NEBU INHALATION SCH ×2 (08:35→19:31)
--- NOTE | 2020-08-15 09:34 | P.PN ---
Subjective Progress Note Date: 08/15/20 Principal diagnosis: acute on chronic hypoxic respiratory failure, acute exacerbation of COPD, tracheobronchial malacia, status post symptomatic bradycardia, cardiac arrest 85-year-old white male patient with known history of COPD, with the baseline FEV1 of around 30%, on home oxygen at 2-1/2 L, paroxysmal atrial fibrillation on Eliquis, history of coronary artery disease with previous bypass grafting, ex- smoker, patient quit smoking over 40 years ago, history of hiatal hernia, BPH, post poliomyelitis syndrome. Patient did work in the [email or web address] when he was younger. On 08/12/2020 patient presented to the emergency department for evaluation of multiple complaints including an ulceration on his right foot on the lateral aspect, that he reports to be healing poorly and lately starting to produce some pus despite treatment. He also complained of worsening shortness of breath, denied any fever or chills, denied any chest pain or hemoptysis, no worsening cough or congestion. His chest x-ray showed chronic emphysematous and parenchymal changes bilateral with new small left pleural fluid collection, persistent a large hiatal hernia containing stomach and portions of bowel. His admission lab work showed white blood cell, 8.0, hemoglobin of 11.8, INR is 1.0, sodium is 135, potassium is 4.6, chloride is 95, CO2 is 32, BUN is 32 creatinine 0.94, plasma lactic acid was 1.5, troponin is less than 0.012, proBNP was within normal limits at 381 LFTs were within normal limits. She was started on nebulized bronchodilators, antibiotic coverage, IV steroids, and he is on home dose of Lasix, ultrasound Doppler of his left lower extremity showed no evidence of DVT. He is awaiting evaluation by vascular surgery regarding his wound on his right lower extremity. Patient has a barky loud cough characteristic of tracheobronchomalacia. He is receiving breathing treatments and IV steroids. The patient is seen today 08/14/2020 in follow-up on the regular medical floor. He is currently awake and alert. Earlier he had some significant cough congestion and shortness of breath requiring additional updraft treatments. He is maintaining O2 saturations at 88% on 3 L/m per nasal cannula. He remains on DuoNeb inhalations, Pulmicort inhalations, IV Solu-Medrol, Mucinex. Antibiotics in the form of vancomycin. Wound cultures of his right foot are pending. Blood cultures reveal no growth to date. On 08/15/2020 patient seen in follow-up in the intensive care unit, patient developed a worsening respiratory failure yesterday in the evening, and developed symptomatic bradycardia, possibly cardiac arrest requiring brief CPR. Patient had his CODE STATUS is DO NOT RESUSCITATE, and earlier in the day he had said he did not want to be intubated. CPR was subsequently ceased, however palpable pulse was noted at 30 BPM, and a blood pressure of 68/48, patient was fluid resuscitated, he was given a liter of fluid and his blood pressure responded well, not to 146/73. Blood glucose was checked and was greater than 200. Patient was still poorly responsive at that time, she was placed on BiPAP support, on which he remains currently with pressures of 12/5 and FiO2 of 100%, he's an 0.9 normal saline at a rate of 10 ML per hour. He was noted to have juan sy breathing but possible stridor and she was given a dose of Vaponefrin, in addition to IV steroids. This morning she seems to be fairly comfortable, she is very lethargic, he still has stridorous breathing, but appears to be in no acute distress, we will go ahead and switch his IV Solu-Medrol to Decadron, he is in sinus mechanism, he is not tachycardic, his heart rate is 86 BPM. Chest x-ray shows a developing bibasilar acute infiltrates on back on her left basilar chronic parenchymal changes and large hiatal hernia, aspiration pneumonia it was in the differential. patient was already on antibiotics, ID service was following. she is starting to produce urine, with 100 mL of urine in the last couple of hours. He continues on vancomycin, continues on bronchodilators and steroids. However after speaking to his who had spent the night at his bedside, it became clear that the patient would not want aggressive resuscitation, or placement on mechanical ventilator, and patient's is requesting to make her comfortable. Objective - Vital Signs Vital signs: Vital Signs Temp 98.1 F 08/15/20 08:30 Pulse 93 08/15/20 09:00 Resp 22 08/15/20 09:00 BP 110/59 08/15/20 09:00 Pulse Ox 92 L 08/15/20 09:00 Intake & Output 08/14/20 08/15/20 08/15/20 18:59 06:59 18:59 Intake Total 650 110 30 Output Total 850 175 200 Balance -200 -65 -170 Weight 71.668 kg 73 kg Intake: IV 250 110 30 Vancomycin 1,250 mg In 250 Sodium Chloride 0.9% 250 ml @ 125 mls/hr IVPB Q12H [facility] Rx#:[id number] normal saline 110 30 Oral 400 Output: Urine 850 175 200 Other: Voiding Method Urinal Urinal Urinal # Voids 1 0 1 - Exam GENERAL EXAM: Lethargic, 85-year-old white male currently, on BiPAP support with pressures of 12 and 5, and FiO2 of 40% HEAD: Normocephalic/atraumatic. EYES: Normal reaction of pupils, equal size. Conjunctiva pink, sclera white. NOSE: Clear with pink turbinates. THROAT: No erythema or exudates. NECK: No masses, no JVD, no thyroid enlargement, no adenopathy. CHEST: No chest wall deformity. Symmetrical expansion. LUNGS: Equal air entry with diminished breath sounds and scattered rhonchi CVS: Regular rate and rhythm, normal S1 and S2, no gallops, no murmurs, no rubs ABDOMEN: Soft, nontender. No hepatosplenomegaly, normal bowel sounds, no guarding or rigidity. EXTREMITIES: No clubbing, no edema, no cyanosis, 2+ pulses and upper and lower extremities. MUSCULOSKELETAL: Muscle strength and tone normal. SPINE: No scoliosis or deformity SKIN: No rashes. Ration has a right ankle wound, nonhealing, covered with a dressing, small amount of yellow drainage seeping through the dressing CENTRAL NERVOUS SYSTEM: lethargic, but opens eyes to voice. No focal deficits, tone is normal in all 4 extremities. - Labs CBC & Chem 7: 08/15/20 03:21 08/15/20 03:21 Labs: Abnormal Lab Results - Last 24 Hours (Table) 08/14/20 08/14/20 08/14/20 Range/Units 16:36 16:49 16:49 WBC (3.8-10.6) k/uL RBC 3.91 L (4.30-5.90) m/uL Hgb 11.9 L (13.0-17.5) gm/dL Hct 35.6 L (39.0-53.0) % Neutrophils # 9.0 H (1.3-7.7) k/uL Lymphocytes # 0.9 L (1.0-4.8) k/uL Sodium 134 L (137-145) mmol/L Chloride 94 L (98-107) mmol/L BUN 31 H (9-20) mg/dL Glucose 207 H (74-99) mg/dL POC Glucose (mg/dL) 215 H (75-99) mg/dL AST (17-59) U/L ALT (4-49) U/L Total Protein (6.3-8.2) g/dL 08/14/20 08/15/20 08/15/20 Range/Units 17:23 00:36 03:21 WBC 18.9 H (3.8-10.6) k/uL RBC 4.02 L (4.30-5.90) m/uL Hgb 11.6 L (13.0-17.5) gm/dL Hct 36.3 L (39.0-53.0) % Neutrophils # 17.5 H (1.3-7.7) k/uL Lymphocytes # 0.4 L (1.0-4.8) k/uL Sodium (137-145) mmol/L Chloride (98-107) mmol/L BUN (9-20) mg/dL Glucose (74-99) mg/dL POC Glucose (mg/dL) 205 H 154 H (75-99) mg/dL AST (17-59) U/L ALT (4-49) U/L Total Protein (6.3-8.2) g/dL 08/15/20 08/15/20 Range/Units 03:21 05:56 WBC (3.8-10.6) k/uL RBC (4.30-5.90) m/uL Hgb (13.0-17.5) gm/dL Hct (39.0-53.0) % Neutrophils # (1.3-7.7) k/uL Lymphocytes # (1.0-4.8) k/uL Sodium 135 L (137-145) mmol/L Chloride 97 L (98-107) mmol/L BUN 45 H (9-20) mg/dL Glucose 132 H (74-99) mg/dL POC Glucose (mg/dL) 162 H (75-99) mg/dL AST 71 H (17-59) U/L ALT 74 H (4-49) U/L Total Protein 5.9 L (6.3-8.2) g/dL Microbiology - Last 24 Hours (Table) 08/12/20 18:13 Gram Stain - Final Foot - Right Wound Culture - Final 08/12/20 13:41 Blood Culture - Preliminary Blood No Growth after 48 hours Assessment and Plan Plan: Assessment: #1. Acute cardiac arrest, with brief CPR and return of spontaneous circulation, patient was fluid resuscitated, to which blood pressure has responded well, EKG did not show any significant ST segment elevation, did show normal sinus rhythm was placed on BiPAP support. #2. Acute exacerbation of advanced COPD with tracheobronchomalacia. Chest x- ray showed chronic emphysematous and parenchymal changes bilaterally. There are no small left pleural fluid collection #3. Right ankle nonhealing wound with failed outpatient treatment. Foot x-ray did not show signs of osteomyelitis #4. Left leg swelling, Doppler ultrasound of left lower extremity showed no evidence of DVT #5. History of paroxysmal A. fib on Eliquis #6. Advanced COPD on home oxygen at 2 l and baseline FEV1 is around 30% #7. History of coronary artery disease with bypass grafting 12 years ago #8. BPH #9. Recent history of T car of the right carotid artery due to recurrent TIAs and significant stenosis #10. GERD/reflux #11. Former smoker quit over 40 years ago #12. History of post poliomyelitis syndrome Plan: We'll switch the IV steroids to Decadron 6 mg every 6 hours. Continue Vaponefr in, continue nebulized bronchodilators, overall prognosis is extremely guarded, this morning we spoke to patient's spent the night here at the bedside, she made it clear that the patient would not want aggressive resuscitation, or placement on mechanical ventilator and as a matter fact she would like to just make him comfortable right now. We will initiate comfort care protocol. I performed a history & physical examination of the patient and discussed their management with my nurse practitioner, Joelle Castle. I reviewed the nurse practitioner's note and agree with the documented findings and plan of care. Lung sounds are positive for diminished breath sounds. The findings and the impression was discussed with the patient. I attest to the documentation by the nurse practitioner. Time with Patient: Greater than 30
[2020-08-15] MEDS: DEXAMETHASONE SOD PHOSPHATE 10 MG/ML 1 ML VIAL IV SCH ×3 (09:45→19:52)
[2020-08-15] MEDS: atenoloL 50 MG TAB PO SCH (10:01)
[2020-08-15] MEDS: DOXAZOSIN 4 MG TAB PO SCH (10:08)
[2020-08-15] MEDS: FINASTERIDE 5 MG TAB PO SCH (10:08)
[2020-08-15] MEDS: FUROSEMIDE 40 MG TAB PO SCH (10:08)
[2020-08-15] MEDS: APIXABAN 2.5 MG TABLET PO SCH ×2 (10:08→19:54)
[2020-08-15] MEDS: guaiFENesin 600 MG TABLET.ER PO SCH ×2 (10:08→19:55)
[2020-08-15] MEDS: MULTIVITAMINS, THERA 1 EACH TAB PO SCH (10:09)
[2020-08-15] MEDS: VANCOMYCIN 1,250 MG in SODIUM CHLORIDE 0.9% 250 ML IVPB SCH (10:09)
[2020-08-15] MEDS: POTASSIUM CHLORIDE ER 20 MEQ TAB.ER PO SCH (10:09)
[2020-08-15 12:19] LABS: Glucose,Whole Blood 159 mg/dL (75-99)
[2020-08-15] MEDS: MORPHINE SULFATE 2 MG/ML SYRINGE IVP PRN ×2 (13:36→20:40)
--- NOTE | 2020-08-15 13:46 | PN ---
PROGRESS NOTE DATE OF SERVICE: 08/15/2020 REASON FOR FOLLOWUP: Right leg wound and cellulitis. INTERVAL HISTORY: The patient has been transferred down to ICU because of worsening respiratory status. The patient is currently on a BiPAP. Patient denies having any chest pain. No cough. No abdominal pain. No diarrhea. No worsening pain to the right leg. PHYSICAL EXAMINATION: Blood pressure 132/68 with a pulse of 81, temperature 98. He is 94% on BiPAP. General description is an elderly male lying in bed in no distress. RESPIRATORY SYSTEM: Unlabored breathing with decreased breath sounds. No wheeze. HEART: S1, S2. Regular rate and rhythm. ABDOMEN: Soft, no tenderness. Right foot is currently dressed up with no obvious drainage on the dressing. LABS: Hemoglobin 11.6, white count 18.9, BUN of 45, creatinine 0.91. DIAGNOSTIC IMPRESSION AND PLAN: Patient with right foot lateral border wound with secondary cellulitis. Culture has been negative for resistant pathogen. The patient now did have worsening of his respiratory status, was transferred down to ICU. Antibiotic will be adjusted to Unasyn and will monitor his clinical course closely. MMODL / IJN: [id number] /
--- NOTE | 2020-08-15 14:09 | P.PN ---
Subjective Progress Note Date: 08/15/20 This is an 85-year-old male patient of Drs. Wiggins, Bambi and Mirna. with past medical history of paroxysmal atrial fibrillation on chronic eliquis, COPD, chronic hypoxic respiratory failure on home O2 at 2-1/2 L nasal cannula, history of coronary artery disease with CABG 20 years ago, benign prostatic hypertrophy, was recently hospitalized at [facility] for TCAR pf the right carotid artery due to recurrent TIA 's and significant stenosis, patient has done well with that , but for the past 4 weeks he developed to have right lateral ankle sore about a quarter in size, with scab on top of it that never healed, I was not aware of it till last week when his called my office and stated that her has issues with his right ankle, we had tele- health visit and indeed there was a quarter size stage 2 sore appeared as neuropathic ulcer with scab on it , recommended for her to place Medihony pads and change every other day, was placed on Keflex 500 mg orally bid, also had ri t foot X-Ray which was negative for osteomyelitis, patient developed to have increased redness around his right ankle and increased shortness of breath, so he was brought into the ER at [facility] for evaluation and he was admitted for COPD exacerbation and right ankle cellulitis, ID consult and Pulmonary consult. 2: Bilateral lower extremity arterial ultrasound revealed YULY 1.32 on the right and 1.20 on the left. Doppler showed good blood flow with calcification and vascular surgery anticipates the patient will be able to heal. Local wound care is in the form of melena honey. Patient states his pain is fairly controlled. X-ray of the foot ordered by infectious disease showed no suspicion for osteomyelitis. WBC 4.14, hemoglobin 10.8, platelet count 246. Creatinine 0.8. Coronavirus PCR not detected. Wound cultures are in progress. Patient is currently maintained on vancomycin. Dr. Plata is planning for oral antibiotics at time of discharge. Physical therapy has evaluated with recommendations for home without home care need. [facility] Anticipate possible discharge by tomorrow. 08/14: Wound culture remains pending. Patient is currently on vancomycin managed by Dr. Shabazz. Vascular has been following and signed off. Patient has been seen behind the wound care team with recommendations for honey gel and border foam changed 3 times a week on Wednesday. Patient declined coming into the wound healing Center. Patient has been afebrile, heart rate 88, blood pressure 91/62, pulse ox 88% on 3 L. A-Team was called on patient today due to a barking cough and difficulty breathing. Patient was having difficulty coughing up mucus. Otherwise patient was at his baseline. Humidified oxygen and Mucinex were ordered. Patient verbalizes that he would like to be in no CODE STATUS 2/4: Code [place] was called yesterday afternoon around 4:20 PM. Patient was found laying crossways on his bed in color and not breathing. Chest compressions were started briefly the patient was a no CODE STATUS. He had a pulse of 30 bpm and blood pressure 68/48. He was given atropine for bradycardia and started on nonrebreather, agonal breathing improved, 1 L IV fluid bolus was given and blood pressure improved. Patient subsequently transferred to the intensive care unit and maintained on BiPAP support with pressures of 12/5 and FiO2 100%. Patient is noted to have stridorous respirations. Patient has had decreased urine output but is improving. is requesting comfort care measures as that would be the patient's wish which was initiated by pulmonary medicine. Objective - Vital Signs Vital signs: Vital Signs Temp 98.7 F 08/15/20 12:00 Pulse 87 08/15/20 13:00 Resp 22 08/15/20 13:00 BP 134/74 08/15/20 13:00 Pulse Ox 87 L 08/15/20 13:00 Intake & Output 08/14/20 08/15/20 08/15/20 18:59 06:59 18:59 Intake Total 650 110 70 Output Total 850 175 200 Balance -200 -65 -130 Weight 71.668 kg 73 kg Intake: IV 250 110 70 Sodium Chloride 0.9% 500 40 ml 500 ml @ 10 mls/hr IV .Q24H [facility] Rx#:[id number] Vancomycin 1,250 mg In 250 Sodium Chloride 0.9% 250 ml @ 125 mls/hr IVPB Q12H [facility] Rx#:[id number] normal saline 110 30 Oral 400 Output: Urine 850 175 200 Other: Voiding Method Urinal Urinal Urinal # Voids 1 0 1 - Exam Review of Systems Constitutional: Reports anorexia, Reports chronic pain, Reports fatigue, Reports weakness, Reports weight loss Eyes: bilateral blurred vision, denies bulging eye, denies decreased vision Ears: bilateral: decreased hearing Ears, nose, mouth and throat: Denies dysphagia, Denies neck lump, Denies sore throat Cardiovascular: Reports decreased exercise tolerance, Reports dyspnea on exertion, Reports edema, Reports irregular heart beat, Reports shortness of breath, Denies chest pain, Denies orthopnea, Denies palpitations, Denies syncope Respiratory: Reports congestion, Reports cough, Reports cough with sputum, Rep orts home oxygen, Reports wheezing, Denies respiratory infections, Denies sleep apnea, Denies snoring Gastrointestinal: Reports loss of appetite, Reports nausea, Denies abdominal pain, Denies bloating, Denies BRBPR, Denies diarrhea, Denies early satiety, Denies melena, Denies vomiting Genitourinary: Reports nocturia, Denies dysuria Musculoskeletal: Reports atrophy, Reports gait dysfunction, Denies myalgias Musculoskeletal: bilateral: ankle swelling, absent: elbow pain, elbow stiffness, elbow swelling, foot pain, foot stiffness, foot swelling, hand pain, hand stiffness, hand swelling, hip pain, hip stiffness, hip swelling, knee pain, knee stiffness, knee swelling, shoulder pain, shoulder stiffness, shoulder swelling, wrist pain, wrist stiffness, wrist swelling Integumentary: Reports wounds (right lateral ankle with quarter size stage 2 neuropathic ulcer) Neurological: Reports balance difficulties, Reports gait dysfunction, Reports numbness, Reports sensory deficit, Reports weakness, Reports visual changes Psychiatric: Reports anxiety, Reports depression, Denies sadness/tearfulness, Denies sleep disturbances, Denies suicidal ideation Endocrine: Denies fatigue, Denies weight change Physical Examination: Gen: This is an 85-year-old male. He is resting bed and appears in moderate respiratory distress. HEENT: Head is atraumatic, normocephalic. Pupils equal, round. reactive to light and accommodations, extra ocular muscle movements were intact.mucous membranes of the mouth are somewhat dry. NECK: Supple. No JVD. No lymphadenopathy. No thyromegaly. LUNGS: decreased breath sounds at the bases with moderate expiratory wheezes and poor air entry, mild intercostal retractions, no chest wall tenderness. HEART: First heart sound is depressed, second heart sound is normal there is LIGIA 2/6 located at the left sternal borer. ABDOMEN: Soft, non tender, non distended positive bowel sounds. 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 NEUROLOGICAL: Patient is awake, alert and oriented x3. Cranial nerves 2 through 12 are grossly intact, muscle power 4/5 in bilateral upper extremities and 2/5 left lower extremity and 3/5 in the right lower extremity. - Labs CBC & Chem 7: 08/15/20 03:21 08/15/20 03:21 Labs: Abnormal Lab Results - Last 24 Hours (Table) 08/14/20 08/14/20 08/14/20 Range/Units 16:36 16:49 16:49 WBC (3.8-10.6) k/uL RBC 3.91 L (4.30-5.90) m/uL Hgb 11.9 L (13.0-17.5) gm/dL Hct 35.6 L (39.0-53.0) % Neutrophils # 9.0 H (1.3-7.7) k/uL Lymphocytes # 0.9 L (1.0-4.8) k/uL Sodium 134 L (137-145) mmol/L Chloride 94 L (98-107) mmol/L BUN 31 H (9-20) mg/dL Glucose 207 H (74-99) mg/dL POC Glucose (mg/dL) 215 H (75-99) mg/dL AST (17-59) U/L ALT (4-49) U/L Total Protein (6.3-8.2) g/dL 08/14/20 08/15/20 08/15/20 Range/Units 17:23 00:36 03:21 WBC 18.9 H (3.8-10.6) k/uL RBC 4.02 L (4.30-5.90) m/uL Hgb 11.6 L (13.0-17.5) gm/dL Hct 36.3 L (39.0-53.0) % Neutrophils # 17.5 H (1.3-7.7) k/uL Lymphocytes # 0.4 L (1.0-4.8) k/uL Sodium (137-145) mmol/L Chloride (98-107) mmol/L BUN (9-20) mg/dL Glucose (74-99) mg/dL POC Glucose (mg/dL) 205 H 154 H (75-99) mg/dL AST (17-59) U/L ALT (4-49) U/L Total Protein (6.3-8.2) g/dL 08/15/20 08/15/20 08/15/20 Range/Units 03:21 05:56 12:17 WBC (3.8-10.6) k/uL RBC (4.30-5.90) m/uL Hgb (13.0-17.5) gm/dL Hct (39.0-53.0) % Neutrophils # (1.3-7.7) k/uL Lymphocytes # (1.0-4.8) k/uL Sodium 135 L (137-145) mmol/L Chloride 97 L (98-107) mmol/L BUN 45 H (9-20) mg/dL Glucose 132 H (74-99) mg/dL POC Glucose (mg/dL) 162 H 159 H (75-99) mg/dL AST 71 H (17-59) U/L ALT 74 H (4-49) U/L Total Protein 5.9 L (6.3-8.2) g/dL Microbiology - Last 24 Hours (Table) 08/12/20 18:13 Gram Stain - Final Foot - Right Wound Culture - Final 08/12/20 13:41 Blood Culture - Preliminary Blood No Growth after 48 hours Assessment and Plan Assessment: Assessment and plan: 1. Acute COPD exacerbation. start Solu-Medrol 60 mg IVP q 6 hours decreased to 40 mg IV push every 8 hours, Duoneb 3 ml QID, Performist 20 mcg with Budosenide 0.5 mg NEB bid, and we will continue with O2 support , pulmonary consult. Added Mucinex. 2. 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 cultures were obtained by and was started on Vancomycin per ID we will continue with Medihoney every other day, vascular surgery consult appreciated. Await antibiotic recommendations from Dr. Shabazz. 3. Acute cardiopulmonary arrest, resuscitated from severe bradycardia and agonal respirations. Patient was transferred to the intensive care unit 4. Paroxysmal atrial fibrillation. Continue eliquis 2.5 mg twice daily, atenolol 50 mg daily. 5. End-stage COPD, prednisone dependent and oxygen dependent. continue with treatment as in paragraph #1. 6. Acute on chronic hypoxic respiratory failure with home O2 and 2-1/2 L nasal cannula. Continue oxygen therapy. 7. Coronary artery disease with previous CABG 20 years ago, stable. we will continue with Atenolol 50 mg orally daily and Lipitor 10 mg orally daily and ASA 81 mg orally daily. 8. Gastroesophageal reflux disease and GI prophylaxis. Continue protonix 40 mg orally daily. 9. Benign prostatic hypertrophy. Continue doxazosin 8 mg twice daily. 10. Hypertension and hypertensive cardiovascular disease. Continue atenolol 50 mg orally daily and amlodipine 5 mg orally daily. 11. DVT prophylaxis. we will continue with Eliquis 2.5 mg orally bid. Prognosis poor
[2020-08-15 15:01] LABS: Hemoglobin A1C 5.4 % (4.0-6.0)
[2020-08-15 19:43] LABS: Glucose,Whole Blood 131 mg/dL (75-99)
[2020-08-15] MEDS: AMPICILLIN-SULBACTAM 3 GM in SODIUM CHLORIDE 0.9% 100 ML IVPB SCH ×2 (19:51)
[2020-08-15] MEDS: PANTOPRAZOLE 40 MG TABLET PO SCH (19:52)
[2020-08-15] MEDS: ASPIRIN 81 MG PO SCH (19:52)
[2020-08-15] MEDS: ASCORBIC ACID 500 MG TAB PO SCH (19:52)
[2020-08-15] MEDS: amLODIPine 5 MG TAB PO SCH (19:54)
[2020-08-15] MEDS: ATORVASTATIN 10 MG TAB PO SCH (19:54)
[2020-08-16] MEDS: MORPHINE SULFATE 2 MG/ML SYRINGE IVP PRN (00:03)
[2020-08-16] MEDS: AMPICILLIN-SULBACTAM 3 GM in SODIUM CHLORIDE 0.9% 100 ML IVPB SCH ×5 (00:04→23:16)
[2020-08-16] MEDS: DEXAMETHASONE SOD PHOSPHATE 10 MG/ML 1 ML VIAL IV SCH ×5 (00:04→23:15)
[2020-08-16 00:15] LABS: Glucose,Whole Blood 135 mg/dL (75-99)
[2020-08-16] MEDS: INSULIN ASPART (NovoLOG) 100 UNIT/ML VIAL SQ SCH ×5 (00:18→23:16)
[2020-08-16] MEDS: METOPROLOL TARTRATE 5 MG/5 ML VIAL IVP SCH ×2 (00:45→06:14)
[2020-08-16] MEDS: ENOXAPARIN 60 MG/0.6 ML SYRINGE SQ SCH ×2 (00:48→09:27)
[2020-08-16 04:17] LABS: Basophils % (A) 0 %; Eosinophils % (A) 0 %; HCT 34.6 % (39.0-53.0); HGB 11.1 gm/dL (13.0-17.5); Lymphocytes # (A) 0.2 k/uL (1.0-4.8); Lymphocytes % (A) 2 %; MCHC 32.2 g/dL (31.0-37.0); MCV 89.9 fL (80.0-100.0); Mean Platelet Volume 7.9; Monocytes # (A) 0.4 k/uL (0-1.0); Monocytes % (A) 4 %; Neutrophils # (A) 10.8 k/uL (1.3-7.7); Neutrophils % (A) 94 %; Platelet Count 206 k/uL (150-450); RBC 3.85 m/uL (4.30-5.90); RDW 13.5 % (11.5-15.5); WBC 11.4 k/uL (3.8-10.6)
[2020-08-16 04:24] LABS: African American GFR (CKD) >90 (>60 ml/min/1.73 sqM); Anion Gap 4 mmol/L; Blood Urea Nitrogen 43 mg/dL (9-20); Calcium 8.9 mg/dL (8.4-10.2); Carbon Dioxide 34 mmol/L (22-30); Chloride 99 mmol/L (98-107); Glucose 130 mg/dL (74-99); Non-African American GFR(CKD) 84 (>60 ml/min/1.73 sqM); Sodium 137 mmol/L (137-145)
[2020-08-16] MEDS: BUDESONIDE 1 MG/2 ML NEBU INHALATION SCH ×2 (07:45→20:01)
[2020-08-16] MEDS: FORMOTEROL FUMARATE 20 MCG/2 ML NEBU INHALATION SCH ×2 (07:45→20:01)
[2020-08-16] MEDS: IPRATROPIUM-ALBUTEROL 3 ML NEB INHALATION SCH ×4 (07:46→20:01)
[2020-08-16] MEDS: DOXAZOSIN 4 MG TAB PO SCH (09:26)
[2020-08-16] MEDS: MULTIVITAMINS, THERA 1 EACH TAB PO SCH (09:26)
[2020-08-16] MEDS: FUROSEMIDE 40 MG TAB PO SCH (09:26)
[2020-08-16] MEDS: FINASTERIDE 5 MG TAB PO SCH (09:27)
[2020-08-16] MEDS: guaiFENesin 600 MG TABLET.ER PO SCH ×2 (09:27→20:49)
[2020-08-16] MEDS: atenoloL 50 MG TAB PO SCH (09:27)
[2020-08-16] MEDS: POTASSIUM CHLORIDE ER 20 MEQ TAB.ER PO SCH (09:33)
[2020-08-16] MEDS: SODIUM CHLORIDE 0.9% 500 ML 500 ML IV SCH (10:59)
[2020-08-16] MEDS: RACEPINEPHRINE 2.25% NEB 0.5 ML NEBU INHALATION PRN ×3 (11:31→20:01)
[2020-08-16 11:44] LABS: Glucose,Whole Blood 186 mg/dL (75-99)
[2020-08-16] MEDS: IPRATROPIUM-ALBUTEROL 3 ML NEB INHALATION PRN (13:35)
--- NOTE | 2020-08-16 15:07 | P.PN ---
Subjective Progress Note Date: 08/16/20 This is an 85-year-old male patient of Drs. Wiggins, Bamib and Mirna. with past medical history of paroxysmal atrial fibrillation on chronic eliquis, COPD, chronic hypoxic respiratory failure on home O2 at 2-1/2 L nasal cannula, history of coronary artery disease with CABG 20 years ago, benign prostatic hypertrophy, was recently hospitalized at [facility] for TCAR pf the right carotid artery due to recurrent TIA 's and significant stenosis, patient has done well with that , but for the past 4 weeks he developed to have right lateral ankle sore about a quarter in size, with scab on top of it that never healed, I was not aware of it till last week when his called my office and stated that her has issues with his right ankle, we had tele- health visit and indeed there was a quarter size stage 2 sore appeared as neuropathic ulcer with scab on it , recommended for her to place Medihony pads and change every other day, was placed on Keflex 500 mg orally bid, also had ri t foot X-Ray which was negative for osteomyelitis, patient developed to have increased redness around his right ankle and increased shortness of breath, so he was brought into the ER at [facility] for evaluation and he was admitted for COPD exacerbation and right ankle cellulitis, ID consult and Pulmonary consult. 2: Bilateral lower extremity arterial ultrasound revealed YULY 1.32 on the right and 1.20 on the left. Doppler showed good blood flow with calcification and vascular surgery anticipates the patient will be able to heal. Local wound care is in the form of melena honey. Patient states his pain is fairly controlled. X-ray of the foot ordered by infectious disease showed no suspicion for osteomyelitis. WBC 4.14, hemoglobin 10.8, platelet count 246. Creatinine 0.8. Coronavirus PCR not detected. Wound cultures are in progress. Patient is currently maintained on vancomycin. Dr. Plata is planning for oral antibiotics at time of discharge. Physical therapy has evaluated with recommendations for home without home care need. [facility] Anticipate possible discharge by tomorrow. 08/14: Wound culture remains pending. Patient is currently on vancomycin managed by Dr. Shabazz. Vascular has been following and signed off. Patient has been seen behind the wound care team with recommendations for honey gel and border foam changed 3 times a week on Wednesday. Patient declined coming into the wound healing Center. Patient has been afebrile, heart rate 88, blood pressure 91/62, pulse ox 88% on 3 L. A-Team was called on patient today due to a barking cough and difficulty breathing. Patient was having difficulty coughing up mucus. Otherwise patient was at his baseline. Humidified oxygen and Mucinex were ordered. Patient verbalizes that he would like to be in no CODE STATUS 08/15: Code [place] was called yesterday afternoon around 4:20 PM. Patient was found laying crossways on his bed in color and not breathing. Chest compressions were started briefly the patient was a no CODE STATUS. He had a pulse of 30 bpm and blood pressure 68/48. He was given atropine for bradycardia and started on nonrebreather, agonal breathing improved, 1 L IV fluid bolus was given and blood pressure improved. Patient subsequently transferred to the intensive care unit and maintained on BiPAP support with pressures of 12/5 and FiO2 100%. Patient is noted to have stridorous respirations. Patient has had decreased urine output but is improving. is requesting comfort care measures as that would be the patient's wish which was initiated by pulmonary medicine. 08/16: Patient is been afebrile, heart rate 87, blood pressure 118/69, pulse ox 90-95% on 15 L high flow nasal cannula. 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 Patient is to have swallow evaluation and if passes, restart atenolol and eloquent, discontinue Lovenox and Lopressor. Speech therapy has recommended dysphagia 3 chopped diet. Patient is also on protein supplement. Patient is oriented to person and place. Objective - Vital Signs Vital signs: Vital Signs Temp 98.1 F 08/16/20 12:00 Pulse 87 08/16/20 14:00 Resp 23 08/16/20 14:00 BP 118/69 08/16/20 14:00 Pulse Ox 90 L 08/16/20 14:00 Intake & Output 08/15/20 08/16/20 08/16/20 18:59 06:59 18:59 Intake Total 120 130 160 Output Total 500 0 750 Balance -380 130 -590 Weight 73.1 kg Intake: IV 120 130 60 Sodium Chloride 0.9% 500 90 130 60 ml 500 ml @ 10 mls/hr IV .Q24H [facility] Rx#:[id number] normal saline 30 Intake, IV Titration 100 Amount Ampicillin-Sulbactam 3 gm 100 In Sodium Chloride 0.9% 100 ml @ 200 mls/hr IVPB Q6HR [facility] Rx#:[id number] Output: Urine 500 0 750 Other: Voiding Method Urinal Urinal Urinal # Voids 1 0 - Exam Review of Systems Constitutional: Reports anorexia, Reports chronic pain, Reports fatigue, Reports weakness, Reports weight loss Eyes: bilateral blurred vision, denies bulging eye, denies decreased vision Ears: bilateral: decreased hearing Ears, nose, mouth and throat: Denies dysphagia, Denies neck lump, Denies sore throat Cardiovascular: Reports decreased exercise tolerance, Reports dyspnea on exertion, Reports edema, Reports irregular heart beat, Reports shortness of breath, Denies chest pain, Denies orthopnea, Denies palpitations, Denies syncope Respiratory: Reports congestion, Reports cough, Reports cough with sputum, Reports home oxygen, Reports wheezing, Denies respiratory infections, Denies sleep apnea, Denies snoring Gastrointestinal: Reports loss of appetite, Reports nausea, Denies abdominal pain, Denies bloating, Denies BRBPR, Denies diarrhea, Denies early satiety, Denies melena, Denies vomiting Genitourinary: Reports nocturia, Denies dysuria Musculoskeletal: Reports atrophy, Reports gait dysfunction, Denies myalgias Musculoskeletal: bilateral: ankle swelling, absent: elbow pain, elbow stiffness, elbow swelling, foot pain, foot stiffness, foot swelling, hand pain, hand stiffness, hand swelling, hip pain, hip stiffness, hip swelling, knee pain, knee stiffness, knee swelling, shoulder pain, shoulder stiffness, shoulder swelling, wrist pain, wrist stiffness, wrist swelling Integumentary: Reports wounds (right lateral ankle with quarter size stage 2 neuropathic ulcer) Neurological: Reports balance difficulties, Reports gait dysfunction, Reports numbness, Reports sensory deficit, Reports weakness, Reports visual changes Psychiatric: Reports anxiety, Reports depression, Denies sadness/tearfulness, Denies sleep disturbances, Denies suicidal ideation Endocrine: Denies fatigue, Denies weight change Physical Examination: Gen: This is an 85-year-old male. He is resting bed and appears in moderate respiratory distress. HEENT: Head is atraumatic, normocephalic. Pupils equal, round. reactive to light and accommodations, extra ocular muscle movements were intact.mucous membranes of the mouth are somewhat dry. NECK: Supple. No JVD. No lymphadenopathy. No thyromegaly. LUNGS: decreased breath sounds at the bases with moderate expiratory wheezes and poor air entry, mild intercostal retractions, no chest wall tenderness. HEART: First heart sound is depressed, second heart sound is normal, irregularly irregular, there is LIGIA 2/6 located at the left sternal borer. ABDOMEN: Soft, non tender, non distended positive bowel sounds. 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 NEUROLOGICAL: Patient is awake, alert and oriented x3. Cranial nerves 2 through 12 are grossly intact, muscle power 4/5 in bilateral upper extremities and 2/5 left lower extremity and 3/5 in the right lower extremity. - Labs CBC & Chem 7: 08/16/20 03:38 08/16/20 03:38 Labs: Abnormal Lab Results - Last 24 Hours (Table) 08/15/20 08/16/20 08/16/20 Range/Units 19:41 00:13 03:38 WBC (3.8-10.6) k/uL RBC (4.30-5.90) m/uL Hgb (13.0-17.5) gm/dL Hct (39.0-53.0) % Neutrophils # (1.3-7.7) k/uL Lymphocytes # (1.0-4.8) k/uL Carbon Dioxide 34 H (22-30) mmol/L BUN 43 H (9-20) mg/dL Glucose 130 H (74-99) mg/dL POC Glucose (mg/dL) 131 H 135 H (75-99) mg/dL 08/16/20 08/16/20 Range/Units 03:38 11:43 WBC 11.4 H (3.8-10.6) k/uL RBC 3.85 L (4.30-5.90) m/uL Hgb 11.1 L (13.0-17.5) gm/dL Hct 34.6 L (39.0-53.0) % Neutrophils # 10.8 H (1.3-7.7) k/uL Lymphocytes # 0.2 L (1.0-4.8) k/uL Carbon Dioxide (22-30) mmol/L BUN (9-20) mg/dL Glucose (74-99) mg/dL POC Glucose (mg/dL) 186 H (75-99) mg/dL Microbiology - Last 24 Hours (Table) 08/15/20 11:48 Gram Stain - Preliminary Sputum Sputum Culture - Preliminary 08/12/20 18:13 Anaerobic Culture - Final Foot - Right Anaerobic Gram Positive Cocci 08/12/20 13:41 Blood Culture - Preliminary Blood No Growth after 72 hours Assessment and Plan Assessment: Assessment and plan: 1. Acute COPD exacerbation. Continue Decadron 6 mg IV every 6 hours, Duoneb 3 ml QID and as needed, Performist 20 mcg with Budosenide 1 mg NEB bid, and we will continue with O2 support , pulmonary consult. Added Mucinex. 2. 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 cultures were obtained by and was started on Vancomycin per ID we will continue with [facility] every other day, vascular surgery consult appreciated. Await antibiotic recommendations from Dr. Shabazz. 3. Acute cardiopulmonary arrest, resuscitated from severe bradycardia and agonal respirations. Patient was transferred to the intensive care unit 4. Paroxysmal atrial fibrillation. Continue eliquis 2.5 mg twice daily, atenolol 50 mg daily. 5. End-stage COPD, prednisone dependent and oxygen dependent. continue with treatment as in paragraph #1. 6. Acute on chronic hypoxic respiratory failure with home O2 and 2-1/2 L nasal cannula. Continue oxygen therapy. 7. Coronary artery disease with previous CABG 20 years ago, stable. we will continue with Atenolol 50 mg orally daily and Lipitor 10 mg orally daily and ASA 81 mg orally daily. 8. Gastroesophageal reflux disease and GI prophylaxis. Continue protonix 40 mg orally daily. 9. Benign prostatic hypertrophy. Continue doxazosin 8 mg twice daily. 10. Hypertension and hypertensive cardiovascular disease. Continue atenolol 50 mg orally daily and amlodipine 5 mg orally daily. 11. DVT prophylaxis. we will continue with Eliquis 2.5 mg orally bid. Prognosis poor
--- NOTE | 2020-08-16 15:45 | PN ---
PROGRESS NOTE DATE OF SERVICE: 08/16/2020 REASON FOR FOLLOWUP: Right leg wound, right foot wound and cellulitis. INTERVAL HISTORY: The patient is currently afebrile. Patient is breathing more comfortably. Patient denies having any chest pain. No shortness of breath. Occasional cough. No abdominal pain. No pain to the right foot wound area. PHYSICAL EXAMINATION: Blood pressure 126/70 with a pulse of 85, temperature 98.1. General description is an elderly male lying in bed in no distress. RESPIRATORY SYSTEM: Unlabored breathing, decreased intensity of breath sounds. No wheeze. HEART: S1, S2. Regular rate and rhythm. ABDOMEN: Soft, no tenderness. LABS: White count down to 11.4, BUN of 43, creatinine 0.77. DIAGNOSTIC IMPRESSION AND PLAN: Patient with right foot wound with secondary cellulitis. Culture with anaerobic gram- positive cocci. The patient is covered with Unasyn. Will transition to oral Augmentin at discharge. Local care with [facility] and close outpatient followup. at the bedside. Questions were answered. MMODL / IJN: [id number] /
[2020-08-16] MEDS: ASPIRIN 81 MG PO SCH (16:30)
[2020-08-16] MEDS: PANTOPRAZOLE 40 MG TABLET PO SCH (16:30)
[2020-08-16] MEDS: ASCORBIC ACID 500 MG TAB PO SCH (16:30)
[2020-08-16 16:58] LABS: Glucose,Whole Blood 224 mg/dL (75-99)
[2020-08-16] MEDS ORDERED: FUROSEMIDE 10 MG/ML 4 ML VIAL IV STA (17:30)
[2020-08-16] MEDS: APIXABAN 2.5 MG TABLET PO SCH (20:49)
[2020-08-16] MEDS: amLODIPine 5 MG TAB PO SCH (20:49)
[2020-08-16] MEDS: ATORVASTATIN 10 MG TAB PO SCH (20:49)
[2020-08-16 23:11] LABS: Glucose,Whole Blood 247 mg/dL (75-99)
[2020-08-17 04:33] LABS: African American GFR (CKD) >90 (>60 ml/min/1.73 sqM); Non-African American GFR(CKD) 81 (>60 ml/min/1.73 sqM)
[2020-08-17 05:58] LABS: Glucose,Whole Blood 173 mg/dL (75-99)
[2020-08-17] MEDS: INSULIN ASPART (NovoLOG) 100 UNIT/ML VIAL SQ SCH ×4 (06:06→20:32)
[2020-08-17] MEDS: AMPICILLIN-SULBACTAM 3 GM in SODIUM CHLORIDE 0.9% 100 ML IVPB SCH ×4 (06:06→23:54)
[2020-08-17] MEDS: DEXAMETHASONE SOD PHOSPHATE 10 MG/ML 1 ML VIAL IV SCH ×4 (06:07→23:54)
[2020-08-17] MEDS: IPRATROPIUM-ALBUTEROL 3 ML NEB INHALATION SCH ×4 (07:22→19:54)
[2020-08-17] MEDS: RACEPINEPHRINE 2.25% NEB 0.5 ML NEBU INHALATION PRN (07:23)
[2020-08-17] MEDS: FORMOTEROL FUMARATE 20 MCG/2 ML NEBU INHALATION SCH ×2 (07:23→19:54)
[2020-08-17] MEDS: BUDESONIDE 1 MG/2 ML NEBU INHALATION SCH ×2 (07:23→19:54)
[2020-08-17] MEDS: atenoloL 50 MG TAB PO SCH (08:56)
[2020-08-17] MEDS: APIXABAN 2.5 MG TABLET PO SCH ×2 (08:56→20:32)
[2020-08-17] MEDS: DOXAZOSIN 4 MG TAB PO SCH (08:57)
[2020-08-17] MEDS: POTASSIUM CHLORIDE ER 20 MEQ TAB.ER PO SCH (08:57)
[2020-08-17] MEDS: FUROSEMIDE 40 MG TAB PO SCH (08:57)
[2020-08-17] MEDS: FINASTERIDE 5 MG TAB PO SCH (08:57)
[2020-08-17] MEDS: MULTIVITAMINS, THERA 1 EACH TAB PO SCH (08:57)
[2020-08-17] MEDS: guaiFENesin 600 MG TABLET.ER PO SCH ×2 (08:57→20:32)
[2020-08-17] MEDS: SODIUM CHLORIDE 0.9% 500 ML 500 ML IV SCH (09:00)
[2020-08-17 12:24] LABS: Glucose,Whole Blood 232 mg/dL (75-99)
[2020-08-17] MEDS: ASPIRIN 81 MG PO SCH (15:53)
[2020-08-17] MEDS: ASCORBIC ACID 500 MG TAB PO SCH (15:53)
[2020-08-17] MEDS: PANTOPRAZOLE 40 MG TABLET PO SCH (15:53)
[2020-08-17 17:05] LABS: Glucose,Whole Blood 154 mg/dL (75-99)
--- NOTE | 2020-08-17 17:45 | P.PN ---
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 Patient had his CODE STATUS is DO NOT RESUSCITATE, and earlier in the day he had said he did not want to be intubated. CPR was subsequently ceased, however palpable pulse was noted at 30 BPM, and a blood pressure of 68/48, patient was fluid resuscitated, he was given a liter of fluid and his blood pressure responded well, not to 146/73. Patient was transferred to ICU postresuscitation Patient's has opted for comfort care only Objective - Vital Signs Vital signs: Vital Signs Temp 98 F 08/17/20 12:00 Pulse 98 08/17/20 13:00 Resp 27 H 08/17/20 13:00 BP 134/82 08/17/20 13:00 Pulse Ox 95 08/17/20 13:00 Intake & Output 08/16/20 08/17/20 08/17/20 18:59 06:59 18:59 Intake Total 300 120 570 Output Total 1300 1100 500 Balance -1000 -980 70 Weight 70.4 kg Intake: IV 100 120 70 Sodium Chloride 0.9% 500 100 120 70 ml 500 ml @ 10 mls/hr IV .Q24H [facility] Rx#:[id number] Intake, IV Titration 200 100 Amount Ampicillin-Sulbactam 3 gm 200 100 In Sodium Chloride 0.9% 100 ml @ 200 mls/hr IVPB Q6HR [facility] Rx#:[id number] Oral 400 Output: Urine 1300 1100 500 Other: Voiding Method Urinal Urinal Urinal - Exam GENERAL EXAM: Lethargic, 85-year-old white male currently, on BiPAP support with pressures of 12 and 5, and FiO2 of 40% HEAD: Normocephalic/atraumatic. EYES: Normal reaction of pupils, equal size. Conjunctiva pink, sclera white. NOSE: Clear with pink turbinates. THROAT: No erythema or exudates. NECK: No masses, no JVD, no thyroid enlargement, no adenopathy. CHEST: No chest wall deformity. Symmetrical expansion. LUNGS: Equal air entry with diminished breath sounds and scattered rhonchi CVS: Regular rate and rhythm, normal S1 and S2, no gallops, no murmurs, no rubs ABDOMEN: Soft, nontender. No hepatosplenomegaly, normal bowel sounds, no guarding or rigidity. EXTREMITIES: No clubbing, no edema, no cyanosis, 2+ pulses and upper and lower extremities. MUSCULOSKELETAL: Muscle strength and tone normal. - Labs CBC & Chem 7: 08/16/20 03:38 08/17/20 03:34 Labs: Abnormal Lab Results - Last 24 Hours (Table) 08/16/20 08/16/20 08/17/20 Range/Units 16:55 23:10 05:57 POC Glucose (mg/dL) 224 H 247 H 173 H (75-99) mg/dL 08/17/20 Range/Units 12:22 POC Glucose (mg/dL) 232 H (75-99) mg/dL Microbiology - Last 24 Hours (Table) 08/15/20 11:48 Gram Stain - Final Sputum Sputum Culture - Final 08/12/20 13:41 Blood Culture - Preliminary Blood No Growth after 96 hours Assessment and Plan Assessment: 1. Acute cardiac arrest, with brief CPR and return of spontaneous circulation, patient was fluid resuscitated, to which blood pressure has responded well, EKG did not show any significant ST segment elevation, did show normal sinus rhythm was placed on BiPAP support. 2. Acute exacerbation of advanced COPD with tracheobronchomalacia. Chest x-ray showed chronic emphysematous and parenchymal changes bilaterally. There are no small left pleural fluid collection 3. Right ankle nonhealing wound with failed outpatient treatment. Foot x-ray did not show signs of osteomyelitis 4. Left leg swelling, Doppler ultrasound of left lower extremity showed no evidence of DVT 5. History of paroxysmal A. fib on Eliquis 6. Advanced COPD on home oxygen at 2 l and baseline FEV1 is around 30% 7. History of coronary artery disease with bypass grafting 12 years ago 8. BPH 9. Recent history of T car of the right carotid artery due to recurrent TIAs and significant stenosis
--- NOTE | 2020-08-17 18:25 | PN ---
PROGRESS NOTE DATE OF SERVICE: 08/17/2020 REASON FOR FOLLOWUP: Right foot wound and cellulitis. INTERVAL HISTORY: The patient is currently afebrile. The patient is breathing more comfortably, currently on nasal cannula oxygen. Denies having any chest pain. Occasional cough. No abdominal pain. No pain to the right foot wound area. PHYSICAL EXAMINATION: Blood pressure 122/90 with a pulse of 90, temperature of 97.9. He is 92% on 15 L high- flow oxygen. General description is an elderly male lying in bed in no distress. Respiratory system: Unlabored breathing, clear to auscultation anteriorly. Heart S1, S2. Regular rate and rhythm. Abdomen soft, no tenderness. Right foot lateral wound base with minimal soft tissue swelling. Surrounding redness has improved. No drainage. LABS: Creatinine 0.83. Local wound culture with anaerobic gram-positive cocci. DIAGNOSTIC IMPRESSION AND PLAN: Patient with right foot lateral border wound traumatic with secondary cellulitis. Culture with anaerobes in this patient currently covered with Unasyn, to continue. Local wound care with Medihoney followed by moist dressing. at the bedside. Questions were answered. MMODL / IJN: [id number] /
[2020-08-17 20:10] LABS: Glucose,Whole Blood 153 mg/dL (75-99)
[2020-08-17] MEDS: ATORVASTATIN 10 MG TAB PO SCH (20:32)
[2020-08-17] MEDS: amLODIPine 5 MG TAB PO SCH (20:32)
[2020-08-18] MEDS: DEXAMETHASONE SOD PHOSPHATE 10 MG/ML 1 ML VIAL IV SCH ×3 (05:49→17:26)
[2020-08-18] MEDS: AMPICILLIN-SULBACTAM 3 GM in SODIUM CHLORIDE 0.9% 100 ML IVPB SCH ×3 (05:50→17:25)
[2020-08-18 06:39] LABS: Glucose,Whole Blood 186 mg/dL (75-99)
[2020-08-18] MEDS: INSULIN ASPART (NovoLOG) 100 UNIT/ML VIAL SQ SCH ×4 (06:49→21:21)
[2020-08-18] MEDS: FORMOTEROL FUMARATE 20 MCG/2 ML NEBU INHALATION SCH ×2 (07:10→19:44)
[2020-08-18] MEDS: BUDESONIDE 1 MG/2 ML NEBU INHALATION SCH ×2 (07:10→19:44)
[2020-08-18] MEDS: IPRATROPIUM-ALBUTEROL 3 ML NEB INHALATION SCH ×4 (07:10→19:44)
[2020-08-18] MEDS: RACEPINEPHRINE 2.25% NEB 0.5 ML NEBU INHALATION PRN (07:36)
[2020-08-18] MEDS: MORPHINE SULFATE 2 MG/ML SYRINGE IVP PRN ×4 (08:18→21:31)
[2020-08-18] MEDS: guaiFENesin 600 MG TABLET.ER PO SCH ×2 (08:19→21:22)
[2020-08-18] MEDS: APIXABAN 2.5 MG TABLET PO SCH ×2 (08:19→21:22)
[2020-08-18] MEDS: POTASSIUM CHLORIDE ER 20 MEQ TAB.ER PO SCH (08:19)
[2020-08-18] MEDS: MULTIVITAMINS, THERA 1 EACH TAB PO SCH (08:19)
[2020-08-18] MEDS: FUROSEMIDE 40 MG TAB PO SCH (08:19)
[2020-08-18] MEDS: DOXAZOSIN 4 MG TAB PO SCH ×2 (08:19→11:19)
[2020-08-18] MEDS: FINASTERIDE 5 MG TAB PO SCH (08:19)
[2020-08-18] MEDS: atenoloL 50 MG TAB PO SCH (08:19)
[2020-08-18] MEDS: LORazepam 2 MG/ML INJ IV PRN (09:21)
[2020-08-18] MEDS: SODIUM CHLORIDE 0.9% 500 ML 500 ML IV SCH (11:19)
--- NOTE | 2020-08-18 12:28 | P.PN ---
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 Patient had his CODE STATUS is DO NOT RESUSCITATE, and earlier in the day he had said he did not want to be intubated. CPR was subsequently ceased, however palpable pulse was noted at 30 BPM, and a blood pressure of 68/48, patient was fluid resuscitated, he was given a liter of fluid and his blood pressure responded well, not to 146/73. Patient was transferred to ICU postresuscitation Patient's has opted for comfort care only 08/18/2020 Patient is seen and evaluated at bedside in ICU; RN and patient's present at bedside; patient requesting to continue with current treatment for another 48 hours prior to making a decision for possible hospice; patient and family did have meeting with hospice printing supplies sales representative this morning and reported satisfaction on all of the information provided and questions answered Patient is currently saturating 86% on nonrebreather mask; patient does not want to placed on BiPAP if needed; wants to continue with DO NOT RESUSCITATE status Continue with IV antibiotics in form of Unasyn and inhaler therapy with Pulmicort, Perforomist and DuoNeb nebulizer treatments as needed; continue with dexamethasone 6 mg IV every 6 hours to decision for hospice is made Objective - Vital Signs Vital signs: Vital Signs Temp 98.2 F 08/18/20 08:00 Pulse 87 08/18/20 09:00 Resp 17 08/18/20 09:00 BP 124/69 08/18/20 09:00 Pulse Ox 91 L 08/18/20 09:00 Intake & Output 08/17/20 08/18/20 08/18/20 18:59 06:59 18:59 Intake Total 820 310 200 Output Total 1100 1150 275 Balance -280 -840 -75 Weight 67.9 kg Intake: IV 120 110 0 Sodium Chloride 0.9% 500 120 110 0 ml 500 ml @ 10 mls/hr IV .Q24H [facility] Rx#:[id number] Intake, IV Titration 100 Amount Ampicillin-Sulbactam 3 gm 100 In Sodium Chloride 0.9% 100 ml @ 200 mls/hr IVPB Q6HR [facility] Rx#:[id number] Oral 600 200 200 Output: Urine 1100 1150 275 Other: Voiding Method Urinal Urinal Urinal - Exam GENERAL EXAM: Lethargic, 85-year-old white male currently, on BiPAP support with pressures of 12 and 5, and FiO2 of 40% HEAD: Normocephalic/atraumatic. EYES: Normal reaction of pupils, equal size. Conjunctiva pink, sclera white. NOSE: Clear with pink turbinates. THROAT: No erythema or exudates. NECK: No masses, no JVD, no thyroid enlargement, no adenopathy. CHEST: No chest wall deformity. Symmetrical expansion. LUNGS: Equal air entry with diminished breath sounds and scattered rhonchi CVS: Regular rate and rhythm, normal S1 and S2, no gallops, no murmurs, no rubs ABDOMEN: Soft, nontender. No hepatosplenomegaly, normal bowel sounds, no guarding or rigidity. EXTREMITIES: No clubbing, no edema, no cyanosis, 2+ pulses and upper and lower extremities. MUSCULOSKELETAL: Muscle strength and tone normal. - Labs CBC & Chem 7: 08/16/20 03:38 08/17/20 03:34 Labs: Abnormal Lab Results - Last 24 Hours (Table) 08/17/20 08/17/20 08/17/20 Range/Units 12:22 17:03 20:08 POC Glucose (mg/dL) 232 H 154 H 153 H (75-99) mg/dL 08/18/20 Range/Units 06:37 POC Glucose (mg/dL) 186 H (75-99) mg/dL Microbiology - Last 24 Hours (Table) 08/12/20 13:41 Blood Culture - Preliminary Blood No Growth after 120 hours 08/15/20 11:48 Gram Stain - Final Sputum Sputum Culture - Final Assessment and Plan Assessment: 1. Acute cardiac arrest, with brief CPR and return of spontaneous circulation, patient was fluid resuscitated, to which blood pressure has responded well, EKG did not show any significant ST segment elevation, did show normal sinus rhythm was placed on BiPAP support. 2. Acute exacerbation of advanced COPD with tracheobronchomalacia. Chest x-ray showed chronic emphysematous and parenchymal changes bilaterally. There are no small left pleural fluid collection 3. Right ankle nonhealing wound with failed outpatient treatment. Foot x-ray did not show signs of osteomyelitis 4. Left leg swelling, Doppler ultrasound of left lower extremity showed no evidence of DVT 5. History of paroxysmal A. fib on Eliquis 6. Advanced COPD on home oxygen at 2 l and baseline FEV1 is around 30% 7. History of coronary artery disease with bypass grafting 12 years ago 8. BPH 9. Recent history of T car of the right carotid artery due to recurrent TIAs and significant stenosis
[2020-08-18 12:42] LABS: Glucose,Whole Blood 138 mg/dL (75-99)
[2020-08-18] MEDS: PANTOPRAZOLE 40 MG TABLET PO SCH (15:35)
[2020-08-18] MEDS: ASPIRIN 81 MG PO SCH (15:35)
[2020-08-18] MEDS: ASCORBIC ACID 500 MG TAB PO SCH (15:35)
[2020-08-18 17:03] LABS: Glucose,Whole Blood 201 mg/dL (75-99)
[2020-08-18 21:03] LABS: Glucose,Whole Blood 258 mg/dL (75-99)
[2020-08-18] MEDS: ATORVASTATIN 10 MG TAB PO SCH (21:22)
--- NOTE | 2020-08-18 23:00 | PN ---
PROGRESS NOTE DATE OF SERVICE: 08/18/2020 REASON FOR FOLLOWUP: 1. Right foot wound. 2. Possible pneumonia. INTERVAL HISTORY: Patient is currently afebrile. The patient is back on BiPAP because of his respiratory status. Denies having any chest pain. Minimal cough. No abdominal pain. No worsening pain to the right foot wound area. PHYSICAL EXAMINATION: Blood pressure is 87/59, pulse 89, temperature is 97.7. He is 92% on room air, with non-rebreather. General description is an elderly male lying in bed in no distress. Respiratory system: Unlabored breathing, decreased intensity in breath sounds. No wheeze. Heart S1, S2. Regular rate and rhythm. ABDOMEN: Soft, no tenderness. LABS: No CBC was repeated today. Creatinine 0.83. DIAGNOSTIC IMPRESSION AND PLAN: Patient with right foot wound with secondary cellulitis. Culture positive for anaerobic gram-positive cocci plus minus pneumonia. The patient is covered with Unasyn. White count normalized as of last blood draw. We will continue to monitor the patient closely. Continue local wound care with Mel. MMODL / IJN: [id number] / JEREMIAH
[2020-08-18] MEDS: amLODIPine 5 MG TAB PO SCH (23:26)
[2020-08-19] MEDS: DEXAMETHASONE SOD PHOSPHATE 10 MG/ML 1 ML VIAL IV SCH ×4 (00:03→17:21)
[2020-08-19] MEDS: AMPICILLIN-SULBACTAM 3 GM in SODIUM CHLORIDE 0.9% 100 ML IVPB SCH ×4 (00:04→17:21)
[2020-08-19] MEDS: MORPHINE SULFATE 2 MG/ML SYRINGE IVP PRN ×4 (01:54→13:32)
[2020-08-19] MEDS: LORazepam 2 MG/ML INJ IV PRN (02:40)
[2020-08-19 06:38] LABS: Glucose,Whole Blood 178 mg/dL (75-99)
[2020-08-19] MEDS: INSULIN ASPART (NovoLOG) 100 UNIT/ML VIAL SQ SCH ×3 (06:42→17:21)
[2020-08-19] MEDS: FORMOTEROL FUMARATE 20 MCG/2 ML NEBU INHALATION SCH (07:14)
[2020-08-19] MEDS: IPRATROPIUM-ALBUTEROL 3 ML NEB INHALATION SCH ×3 (07:14→15:51)
[2020-08-19] MEDS: BUDESONIDE 1 MG/2 ML NEBU INHALATION SCH (07:14)
[2020-08-19] MEDS: DOXAZOSIN 4 MG TAB PO SCH (09:45)
[2020-08-19] MEDS: FINASTERIDE 5 MG TAB PO SCH (09:45)
[2020-08-19] MEDS: atenoloL 50 MG TAB PO SCH (09:45)
[2020-08-19] MEDS: guaiFENesin 600 MG TABLET.ER PO SCH (09:45)
[2020-08-19] MEDS: FUROSEMIDE 40 MG TAB PO SCH (09:45)
[2020-08-19] MEDS: APIXABAN 2.5 MG TABLET PO SCH (09:45)
[2020-08-19] MEDS: MULTIVITAMINS, THERA 1 EACH TAB PO SCH (09:45)
[2020-08-19] MEDS: POTASSIUM CHLORIDE ER 20 MEQ TAB.ER PO SCH (09:46)
--- NOTE | 2020-08-19 10:59 | P.PN ---
Subjective Progress Note Date: 08/19/20 This is an 85-year-old male patient of Drs. Wiggins, Bambi and Mirna. with past medical history of paroxysmal atrial fibrillation on chronic eliquis, COPD, chronic hypoxic respiratory failure on home O2 at 2-1/2 L nasal cannula, history of coronary artery disease with CABG 20 years ago, benign prostatic hypertrophy, was recently hospitalized at [facility] for TCAR pf the right carotid artery due to recurrent TIA 's and significant stenosis, patient has done well with that , but for the past 4 weeks he developed to have right lateral ankle sore about a quarter in size, with scab on top of it that never healed, I was not aware of it till last week when his called my office and stated that her has issues with his right ankle, we had tele- health visit and indeed there was a quarter size stage 2 sore appeared as neuropathic ulcer with scab on it , recommended for her to place Medihony pads and change every other day, was placed on Keflex 500 mg orally bid, also had ri t foot X-Ray which was negative for osteomyelitis, patient developed to have increased redness around his right ankle and increased shortness of breath, so he was brought into the ER at [facility] for evaluation and he was admitted for COPD exacerbation and right ankle cellulitis, ID consult and Pulmonary consult. 2: Bilateral lower extremity arterial ultrasound revealed YULY 1.32 on the right and 1.20 on the left. Doppler showed good blood flow with calcification and vascular surgery anticipates the patient will be able to heal. Local wound care is in the form of melena honey. Patient states his pain is fairly controlled. X-ray of the foot ordered by infectious disease showed no suspicion for osteomyelitis. WBC 4.14, hemoglobin 10.8, platelet count 246. Creatinine 0.8. Coronavirus PCR not detected. Wound cultures are in progress. Patient is currently maintained on vancomycin. Dr. Plata is planning for oral antibiotics at time of discharge. Physical therapy has evaluated with recommendations for home without home care need. [facility] Anticipate possible discharge by tomorrow. 08/14: Wound culture remains pending. Patient is currently on vancomycin managed by Dr. Shabazz. Vascular has been following and signed off. Patient has been seen behind the wound care team with recommendations for honey gel and border foam changed 3 times a week on Wednesday. Patient declined coming into the wound healing Center. Patient has been afebrile, heart rate 88, blood pressure 91/62, pulse ox 88% on 3 L. A-Team was called on patient today due to a barking cough and difficulty breathing. Patient was having difficulty coughing up mucus. Otherwise patient was at his baseline. Humidified oxygen and Mucinex were ordered. Patient verbalizes that he would like to be in no CODE STATUS 08/15: Code [place] was called yesterday afternoon around 4:20 PM. Patient was found laying crossways on his bed in color and not breathing. Chest compressions were started briefly the patient was a no CODE STATUS. He had a pulse of 30 bpm and blood pressure 68/48. He was given atropine for bradycardia and started on nonrebreather, agonal breathing improved, 1 L IV fluid bolus was given and blood pressure improved. Patient subsequently transferred to the intensive care unit and maintained on BiPAP support with pressures of 12/5 and FiO2 100%. Patient is noted to have stridorous respirations. Patient has had decreased urine output but is improving. is requesting comfort care measures as that would be the patient's wish which was initiated by pulmonary medicine. 08/16: Patient is been afebrile, heart rate 87, blood pressure 118/69, pulse ox 90-95% on 15 L high flow nasal cannula. 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 Patient is to have swallow evaluation and if passes, restart atenolol and eloquent, discontinue Lovenox and Lopressor. Speech therapy has recommended dysphagia 3 chopped diet. Patient is also on protein supplement. Patient is oriented to person and place. 08/19: Patient remains in the intensive care unit. He states he is not feeling too bad and feels a little bit better since admission. He continues to have wheezing. Patient states that he is starting to bring up some sputum with his cough. Pain medication seems to be helping. He is currently in a nonrebreather with pulse ox of 83%. Blood pressure 117/75, afebrile, heart rate 93. Apparently patient met with hospice over the weekend but is not cyanotic care at this point. Objective - Vital Signs Vital signs: Vital Signs Temp 97.7 F 08/19/20 04:00 Pulse 96 08/19/20 07:33 Resp 22 08/19/20 07:33 BP 126/78 08/19/20 07:00 Pulse Ox 88 L 08/19/20 07:16 Intake & Output 08/18/20 08/19/20 08/19/20 18:59 06:59 18:59 Intake Total 940 390 10 Output Total 1325 625 Balance -385 -235 10 Weight 69.1 kg Intake: IV 60 110 10 Sodium Chloride 0.9% 500 60 110 10 ml 500 ml @ 10 mls/hr IV .Q24H [facility] Rx#:[id number] Intake, IV Titration 200 100 Amount Ampicillin-Sulbactam 3 gm 200 100 In Sodium Chloride 0.9% 100 ml @ 200 mls/hr IVPB Q6HR [facility] Rx#:[id number] Oral 680 180 Output: Urine 1325 625 Other: Voiding Method Urinal Urinal - Exam Review of Systems Constitutional: Reports anorexia, Reports chronic pain, Reports fatigue, Reports weakness, Reports weight loss Eyes: bilateral blurred vision, denies bulging eye, denies decreased vision Ears: bilateral: decreased hearing Ears, nose, mouth and throat: Denies dysphagia, Denies neck lump, Denies sore throat Cardiovascular: Reports decreased exercise tolerance, Reports dyspnea on exertion, Reports edema, Reports irregular heart beat, Reports shortness of breath, Denies chest pain, Denies orthopnea, Denies palpitations, Denies syncope Respiratory: Reports congestion, Reports cough, Reports cough with sputum, Reports home oxygen, Reports wheezing, Denies respiratory infections, Denies sleep apnea, Denies snoring Gastrointestinal: Reports loss of appetite, Reports nausea, Denies abdominal pain, Denies bloating, Denies BRBPR, Denies diarrhea, Denies early satiety, Denies melena, Denies vomiting Genitourinary: Reports nocturia, Denies dysuria Musculoskeletal: Reports atrophy, Reports gait dysfunction, Denies myalgias Musculoskeletal: bilateral: ankle swelling, absent: elbow pain, elbow stiffness, elbow swelling, foot pain, foot stiffness, foot swelling, hand pain, hand stiffness, hand swelling, hip pain, hip stiffness, hip swelling, knee pain, knee stiffness, knee swelling, shoulder pain, shoulder stiffness, shoulder swelling, wrist pain, wrist stiffness, wrist swelling Integumentary: Reports wounds (right lateral ankle with quarter size stage 2 neuropathic ulcer) Neurological: Reports balance difficulties, Reports gait dysfunction, Reports numbness, Reports sensory deficit, Reports weakness, Reports visual changes Psychiatric: Reports anxiety, Reports depression, Denies sadness/tearfulness, Denies sleep disturbances, Denies suicidal ideation Endocrine: Reports fatigue, reports weight change Physical Examination: Gen: This is an 85-year-old male. He is resting bed and appears in moderate respiratory distress. HEENT: Head is atraumatic, normocephalic. Pupils equal, round. reactive to light and accommodations, extra ocular muscle movements were intact.mucous membranes of the mouth are somewhat dry. NECK: Supple. No JVD. No lymphadenopathy. No thyromegaly. LUNGS: decreased breath sounds at the bases with moderate expiratory wheezes and poor air entry, mild intercostal retractions, no chest wall tenderness. HEART: First heart sound is depressed, second heart sound is normal, irregularly irregular, there is LIGIA 2/6 located at the left sternal borer. ABDOMEN: Soft, non tender, non distended positive bowel sounds. 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 NEUROLOGICAL: Patient is awake, alert and oriented x3. Cranial nerves 2 through 12 are grossly intact, muscle power 4/5 in bilateral upper extremities and 2/5 left lower extremity and 3/5 in the right lower extremity. - Labs CBC & Chem 7: 08/16/20 03:38 08/17/20 03:34 Labs: Abnormal Lab Results - Last 24 Hours (Table) 08/18/20 08/18/20 08/18/20 Range/Units 12:40 17:01 21:01 POC Glucose (mg/dL) 138 H 201 H 258 H (75-99) mg/dL 08/19/20 Range/Units 06:38 POC Glucose (mg/dL) 178 H (75-99) mg/dL Microbiology - Last 24 Hours (Table) 08/12/20 13:41 Blood Culture - Final Blood No Growth after 144 hours Assessment and Plan Plan: 1. Acute COPD exacerbation. Continue Decadron 6 mg IV every 6 hours, Duoneb 3 ml QID and as needed, Performist 20 mcg with Budosenide 1 mg NEB bid, and we will continue with O2 support , pulmonary consult. Added Mucinex. 2. 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 cultures were obtained by and was started on Vancomycin per ID we will continue with [facility] every other day, vascular surgery consult appreciated. Await antibiotic recommendations from Dr. Shabazz. 3. Acute cardiopulmonary arrest, resuscitated from severe bradycardia and agonal respirations. Patient is in intensive care unit 4. Paroxysmal atrial fibrillation. Continue eliquis 2.5 mg twice daily, atenolol 50 mg daily. 5. End-stage COPD, prednisone dependent and oxygen dependent. continue with treatment as in paragraph #1. 6. Acute on chronic hypoxic respiratory failure with home O2 and 2-1/2 L nasal cannula. Continue oxygen therapy. 7. Coronary artery disease with previous CABG 20 years ago, stable. we will continue with Atenolol 50 mg orally daily and Lipitor 10 mg orally daily and ASA 81 mg orally daily. 8. Gastroesophageal reflux disease and GI prophylaxis. Continue protonix 40 mg orally daily. 9. Benign prostatic hypertrophy. Continue doxazosin 8 mg twice daily. 10. Hypertension and hypertensive cardiovascular disease. Continue atenolol 50 mg orally daily and amlodipine 5 mg orally daily. 11. DVT prophylaxis. we will continue with Eliquis 2.5 mg orally bid. Prognosis poor Hospice meaning her menorrhagia over the weekend. Social work is following for discharge planning. Await plan from social work. Impression and plan of care have been directed as dictated by the signing physician. Shanice Lawton nurse practitioner acting as scribe for signing physician.
[2020-08-19 11:44] LABS: Glucose,Whole Blood 229 mg/dL (75-99)
[2020-08-19 12:44] VITALS: TEMP 97.9
[2020-08-19] MEDS: ASPIRIN 81 MG PO SCH (16:11)
[2020-08-19] MEDS: ASCORBIC ACID 500 MG TAB PO SCH (16:11)
[2020-08-19] MEDS: PANTOPRAZOLE 40 MG TABLET PO SCH (16:11)
[2020-08-19 16:33] LABS: Glucose,Whole Blood 149 mg/dL (75-99)
[2020-08-19 17:05] VITALS: BP 119/73; PULSE 89; RESP 13
--- NOTE | 2020-08-19 21:43 | P.PN ---
Progress Note - Text Progress Note Date: 08/19/20 REASON FOR FOLLOWUP: 1. Right foot wound. 2. Possible pneumonia. INTERVAL HISTORY: Patient is afebrile. The patient is on 100% non rebreather because of his respiratory status. The pt denies having any chest pain. Minimal cough. No abdominal pain. No worsening pain to the right foot wound area. PHYSICAL EXAMINATION: Blood pressure is 96/60, pulse 90, temperature is 97.7. He is 92% on room air, with non-rebreather. General description is an elderly male lying in bed in no distress. Respiratory system: Unlabored breathing, decreased intensity in breath sounds. No wheeze. Heart S1, S2. Regular rate and rhythm. ABDOMEN: Soft, no tenderness. LABS: reviewed DIAGNOSTIC IMPRESSION AND PLAN: Patient with right foot wound with secondary cellulitis. Culture positive for anaerobic gram-positive cocci plus minus pneumonia. The patient is covered with Unasyn. White count normalized, Continue local wound care with Medihoney. in view of worsening respiratory status , possible hospice is considered , which may be appropriate for pt.
--- NOTE | 2020-08-22 07:37 | P.PN ---
Progress Note - Text Progress Note Date: 08/22/20 See dc summary on account [id number].
== END 2020-08-19 17:16 | disposition hospice, inpatient (51) | DRG 592 ==
LOC: EC 12:44 → 6NMEDSUR 15:25 → OBSVTOIN 08-13 13:50 → 2SICU 08-14 16:42
PROVIDERS: ADMIT Internal Medicine; ATTEND Internal Medicine
PROC: B44FZZZ Ultrasonography of Right Lower Extremity Arteries (ICD-10-PCS; principal; 2020-08-13)
PROC: 3E033XZ Introduction of Vasopressor into Peripheral Vein, Percutaneous Approach (ICD-10-PCS; 2020-08-14)
DX: L89.512 Pressure ulcer of right ankle, stage 2 (principal); I46.9 Cardiac arrest, cause unspecified; J96.21 Acute and chronic respiratory failure with hypoxia; J69.0 Pneumonitis due to inhalation of food and vomit; L03.115 Cellulitis of right lower limb; J39.8 Other specified diseases of upper respiratory tract; I11.9 Hypertensive heart disease without heart failure; I48.0 Paroxysmal atrial fibrillation; G62.9 Polyneuropathy, unspecified; J43.9 Emphysema, unspecified; Z66 Do not resuscitate; Z51.5 Encounter for palliative care; S91.311A Laceration without foreign body, right foot, initial encounter; Z20.822 Contact with and (suspected) exposure to COVID-19; G14 Postpolio syndrome; Z99.81 Dependence on supplemental oxygen; R00.1 Bradycardia, unspecified; I25.10 Atherosclerotic heart disease of native coronary artery without angina pectoris; K44.9 Diaphragmatic hernia without obstruction or gangrene; N40.0 Benign prostatic hyperplasia without lower urinary tract symptoms; K21.9 Gastro-esophageal reflux disease without esophagitis; Z79.01 Long term (current) use of anticoagulants; Z79.82 Long term (current) use of aspirin; Z79.51 Long term (current) use of inhaled steroids; Z79.899 Other long term (current) drug therapy; Z91.81 History of falling; Z87.891 Personal history of nicotine dependence; Z95.1 Presence of aortocoronary bypass graft; Z86.79 Personal history of other diseases of the circulatory system; Z86.73 Personal history of transient ischemic attack (TIA), and cerebral infarction without residual deficits; Z98.890 Other specified postprocedural states; Z88.1 Allergy status to other antibiotic agents; Z82.49 Family history of ischemic heart disease and other diseases of the circulatory system; Z83.3 Family history of diabetes mellitus
CPT/HCPCS: 36415; 71045; 71046; 80048; 80053; 80202; 82565; 83036; 83605; 83735; 83880; 84100; 84484; 85025; 85610; 85652; 85730; 86140; 87040; 87070; 87075; 87205; 87635; 93005; 93880; 93922; 94640; 94660; 94760; 96365; 96375; 99285

== ENCOUNTER 2020-08-19 17:23 | Inpatient (IN) | payer MEDICAID ==
[2020-08-19] MEDS: MORPHINE SULFATE 2 MG/ML SYRINGE IVP PRN ×3 (17:58→21:40)
[2020-08-19] MEDS: SODIUM CHLORIDE 0.9% 1,000 ML IV SCH (18:00)
[2020-08-19] MEDS ORDERED: LORazepam 2 MG/ML INJ IV PRN (18:23)
[2020-08-19] MEDS ORDERED: ATROPINE OPHTH SOLN 1% 5ML BTL SUBLINGUAL PRN (18:23)
[2020-08-19] MEDS: amLODIPine 5 MG TAB PO SCH (19:47)
[2020-08-19] MEDS: DOCUSATE 100 MG CAP PO SCH (19:47)
[2020-08-19] MEDS: APIXABAN 2.5 MG TABLET PO SCH (19:47)
[2020-08-19] MEDS: DOXAZOSIN 4 MG TAB PO SCH (19:48)
[2020-08-19] MEDS: ALBUTEROL NEBULIZED 2.5 MG/3 ML INHALATION PRN (19:57)
[2020-08-19] MEDS: FORMOTEROL FUMARATE 20 MCG/2 ML NEBU INHALATION SCH (19:57)
[2020-08-19] MEDS: BUDESONIDE 0.5 MG/2 ML NEBU INHALATION SCH (19:57)
[2020-08-20] MEDS: MORPHINE SULFATE 2 MG/ML SYRINGE IVP PRN ×3 (01:17→09:08)
[2020-08-20] MEDS: ALBUTEROL NEBULIZED 2.5 MG/3 ML INHALATION PRN ×3 (05:47→19:21)
[2020-08-20] MEDS: BUDESONIDE 0.5 MG/2 ML NEBU INHALATION SCH ×2 (05:51→19:21)
[2020-08-20] MEDS: FORMOTEROL FUMARATE 20 MCG/2 ML NEBU INHALATION SCH ×2 (05:51→19:21)
[2020-08-20] MEDS ORDERED: POTASSIUM CHLORIDE ER 20 MEQ TAB.ER PO SCH (09:00)
[2020-08-20] MEDS ORDERED: atenoloL 50 MG TAB PO SCH ×2 (09:00)
[2020-08-20] MEDS ORDERED: FUROSEMIDE 40 MG TAB PO SCH (09:00)
[2020-08-20] MEDS: DOXAZOSIN 4 MG TAB PO SCH ×2 (09:10→20:50)
[2020-08-20] MEDS: APIXABAN 2.5 MG TABLET PO SCH ×2 (09:10→20:50)
[2020-08-20] MEDS: DOCUSATE 100 MG CAP PO SCH ×2 (09:10→20:50)
[2020-08-20] MEDS: MORPHINE SULFATE 2 MG/ML SYRINGE IVP SCH ×2 (10:05→13:31)
[2020-08-20] MEDS ORDERED: MORPHINE SULFATE (100 MG/2 ML) 100 MG in SODIUM CHLORIDE 0.9% 100 ML IV SCH (14:15)
[2020-08-20] MEDS ORDERED: MORPHINE SULFATE 2 MG/ML SYRINGE IVP PRN (14:24)
[2020-08-20] MEDS ORDERED: ASPIRIN 81 MG PO SCH (15:00)
[2020-08-20 19:36] VITALS: TEMP 98.5
[2020-08-20] MEDS: amLODIPine 5 MG TAB PO SCH (20:50)
[2020-08-21 02:19] VITALS: BP 88/54; PULSE 78; RESP 18
[2020-08-21] MEDS: SODIUM CHLORIDE 0.9% 1,000 ML IV SCH (05:36)
--- NOTE | 2020-08-21 07:42 | P.HPIM ---
History of Present Illness H&P Date: 08/20/20 Chief Complaint: Hospice This is an 85-year-old male patient of Drs. Wiggins, Bambi and Mirna. with past medical history of paroxysmal atrial fibrillation on chronic eliquis, COPD, chronic hypoxic respiratory failure on home O2 at 2-1/2 L nasal cannula, history of coronary artery disease with CABG 20 years ago, benign prostatic hypertrophy, was recently hospitalized at [facility] for TCAR pf the right carotid artery due to recurrent TIA 's and significant stenosis, patient has done well with that , but for the past 4 weeks he developed to have right lateral ankle sore about a quarter in size, with scab on top of it that never healed, I was not aware of it till last week when his called my office and stated that her has issues with his right ankle, we had tele- health visit and indeed there was a quarter size stage 2 sore appeared as ne uropathic ulcer with scab on it , recommended for her to place Medihony pads and change every other day, was placed on Keflex 500 mg orally bid, also had right foot X-Ray which was negative for osteomyelitis, patient developed to have increased redness around his right ankle and increased shortness of breath, so he was brought into the ER at [facility] for evaluation and he was admitted for COPD exacerbation and right ankle cellulitis, ID consult and Pulmonary consult. Patient has episode of cardiopulmonary arrest and transferred into the ICU. Unfortunately, patient's condition continued to deteriorate and it was the decision of the patient and family to make him comfortable. [facility] was involved. Patient is currently on comfort care measures only. No aggressive treatment. Patient's and daughter are at bedside. 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 She will contact hospice to make arrangements for discharge tomorrow. Review of Systems ROS unobtainable: due to mental status 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 Past Anesthesia/Blood Transfusion Reactions: No Reported Reaction Past Psychological History: No Psychological Hx Reported Smoking Status: Former smoker Past Alcohol Use History: None Reported Additional Past Alcohol Use History / Comment(s): Patient was a smoker of one pack per day and quit 40-50 years ago. 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 He denies any alcohol use, marijuana or street drug use. He lives at home with his . He has home O2 at 2-1/2 L nasal and a nebulizer. He does not have a CPAP. Past Drug Use History: None Reported - Past Family History Father Family Medical History: Coronary Artery Disease (CAD) Additional Family Medical History / Comment(s): Father at age 75 from ASHD. Mother History Unknown: Yes Family Medical History: Unable to Obtain Additional Family Medical History / Comment(s): Other in her 30s from complications after the . Sister(s) Additional Family Medical History / Comment(s): Patient has 2 sisters and one at age 60 from diabetes complications. One at age 83 from old age with history of atrial fibrillation. Patient does not have any brothers. Patient had 2 twin boys and one was murdered at age 20. Remaining son and 1 daughter living with no major medical problems. Medications and Allergies Home Medications Medication Instructions Recorded Confirmed Type Albuterol Nebulized [Ventolin 2.5 mg INHALATION RT-QID PRN 08/30/16 08/19/20 History Nebulized] Doxazosin Mesylate 8 mg PO BID 08/30/16 08/19/20 History Tiotropium 18 Mcg/Puff [Spiriva] 1 cap INHALATION RT-BID 08/30/16 08/19/20 History Apixaban [Eliquis] 2.5 mg PO BID 01/29/17 08/19/20 History Ascorbic Acid [Vitamin C] 500 mg PO DAILY@1500 05/17/20 08/19/20 History Atenolol [Tenormin] 50 mg PO DAILY 05/17/20 08/19/20 History Budesonide [Pulmicort] 0.5 mg INHALATION RT-BID 05/17/20 08/19/20 History Dutasteride 0.5 mg PO DAILY 05/17/20 08/19/20 History Formoterol Fumarate [Perforomist] 20 mcg INHALATION RT-BID 05/17/20 08/19/20 History Multivitamins, Thera [Multivitamin 1 tab PO DAILY 05/17/20 08/19/20 History (formulary)] Omeprazole 40 mg PO DAILY@1500 05/17/20 08/19/20 History amLODIPine [Norvasc] 5 mg PO HS 05/17/20 08/19/20 History Aspirin 81 mg PO DAILY@1500 08/12/20 08/19/20 History Cephalexin [Keflex] 500 mg PO Q8H 08/12/20 08/19/20 History Furosemide [Lasix] 40 mg PO DAILY 08/12/20 08/19/20 History Potassium Chloride ER [K-Dur 20] 20 meq PO DAILY 08/12/20 08/19/20 History Simvastatin [Zocor] 20 mg PO HS 08/12/20 08/19/20 History Allergies Allergy/AdvReac Type Severity Reaction Status Date / Time ciprofloxacin [From Cipro] Allergy Rash/Hives Verified 08/19/20 18:26 Physical Exam Vitals: Vital Signs Temp Pulse Resp BP Pulse Ox 08/20/20 10:30 93 L 08/20/20 10:00 121/71 89 L 08/20/20 09:30 93 12 94 L 08/20/20 09:01 94 08/20/20 08:51 93 08/20/20 08:20 11 L 08/20/20 08:00 97.9 F 78 11 L 94 L 08/20/20 07:00 87 12 96 08/20/20 06:03 91 08/20/20 06:00 97 18 98 08/20/20 05:56 98 08/20/20 05:48 86 08/20/20 05:00 90 20 88 L 08/20/20 04:00 82 22 92 L 08/20/20 03:00 97 26 H 92 L 08/20/20 02:00 97.9 F 89 10 L 111/65 95 08/20/20 01:05 97 08/20/20 01:00 96 15 97 08/20/20 00:00 88 13 95 08/19/20 23:14 84 14 92 L 08/19/20 23:00 85 17 93 L 08/19/20 22:00 92 13 89 L 08/19/20 21:00 92 16 94 L 08/19/20 20:32 92 08/19/20 20:14 90 08/19/20 20:13 90 08/19/20 20:00 96 15 96 08/19/20 19:57 86 08/19/20 19:30 91 24 104/71 95 Intake and Output 08/19/20 08/20/20 08/20/20 22:59 06:59 14:59 Intake Total 20 50 20 Output Total 375 550 250 Balance -355 -500 -230 Intake: IV 20 50 20 Sodium Chloride 0.9% 1, 20 50 20 000 ml @ 10 mls/hr IV . Q24H [facility] Rx#:[id number] Output: Urine 375 550 250 Other: # Voids 2 Weight 69.1 kg Physical Examination: Gen: This is an 85-year-old male. He is resting bed and appears in no respiratory distress. HEENT: Head is atraumatic, normocephalic. Mucous membranes of the mouth are dry. LUNGS: Even respirations. HEART: First heart sound is depressed, second heart sound is normal, irregularly irregular, there is LIGIA 2/6 located at the left sternal borer. ABDOMEN: Soft, non tender. 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 NEUROLOGICAL: Patient is minimally responsive. Thrombosis Risk Factor Assmnt - Choose All That Apply Any of the Below Risk Factors Present?: Yes Each Factor Represents 1 point: Abnormal pulmonary function (COPD), Swollen legs (current) Other Risk Factors: Yes Each Risk Factor Represents 3 Points: Age 75 years or older Other congenital or acquired thrombophilia - If yes, enter type in comment: No Thrombosis Risk Factor Assessment Total Risk Factor Score: 5 Thrombosis Risk Factor Assessment Level: High Risk Assessment and Plan Plan: 1. Acute COPD exacerbation. 2. 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 3. Acute cardiopulmonary arrest. 4. Acute on chronic hypoxic respiratory failure. 5. Paroxysmal atrial fibrillation. 6. End-stage COPD, prednisone dependent and oxygen dependent with chronic hypoxic respiratory failure. 7. Coronary artery disease with previous CABG 20 years ago, stable. 8. Gastroesophageal reflux disease 9. Benign prostatic hypertrophy. 10. Hypertension and hypertensive cardiovascular disease. Plan: Hospice care and comfort care only. No aggressive treatment. Patient will be discharged home per family request tomorrow once arrangements are completed. Impression and plan of care have been directed as dictated by the signing physician. Shanice Lawton nurse practitioner acting as scribe for signing physician.
--- NOTE | 2020-08-22 07:36 | P.DS ---
Providers Date of admission: 08/19/20 17:23 Expected date of discharge: 08/22/20 Attending physician: Kehinde Wiggins Primary care physician: Kehinde Wiggins [facility] Course: This is an 85-year-old male patient of Drs. Wiggins, Bambi and Mirna. with past medical history of paroxysmal atrial fibrillation on chronic eliquis, COPD, chronic hypoxic respiratory failure on home O2 at 2-1/2 L nasal cannula, history of coronary artery disease with CABG 20 years ago, benign prostatic hypertrophy, was recently hospitalized at [facility] for TCAR pf the right carotid artery due to recurrent TIA 's and significant stenosis, patient has done well with that , but for the past 4 weeks he developed to have right lateral ankle sore about a quarter in size, with scab on top of it that never healed, I was not aware of it till last week when his called my office and stated that her has issues with his right ankle, we had tele- health visit and indeed there was a quarter size stage 2 sore appeared as neuropathic ulcer with scab on it , recommended for her to place Medihony pads and change every other day, was placed on Keflex 500 mg orally bid, also had right foot X-Ray which was negative for osteomyelitis, patient developed to have increased redness around his right ankle and increased shortness of breath, so he was brought into the ER at [facility] for evaluation and he was admitted for COPD exacerbation and right ankle cellulitis, ID consult and Pulmonary consult. Patient has episode of cardiopulmonary arrest and transferred into the ICU. Unfortunately, patient's condition continued to deteriorate and it was the decision of the patient and family to make him comfortable. [facility] hospice was involved. Patient is currently on comfort care measures only. No aggressive treatment. Patient's and daughter are at bedside. 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 She will contact hospice to make arrangements for discharge tomorrow. 08/21: Patient did poorly overnight and once transition to morphine drip. Patient on the morning of August 21. Please see nursing documentation for details. Diagnoses: 1. Acute COPD exacerbation. 2. 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 3. Acute cardiopulmonary arrest. 4. Acute on chronic hypoxic respiratory failure. 5. Paroxysmal atrial fibrillation. 6. End-stage COPD, prednisone dependent and oxygen dependent with chronic hypoxic respiratory failure. 7. Coronary artery disease with previous CABG 20 years ago, stable. 8. Gastroesophageal reflux disease 9. Benign prostatic hypertrophy. 10. Hypertension and hypertensive cardiovascular disease. Impression and plan of care have been directed as dictated by the signing physician. Shanice Lawton nurse practitioner acting as scribe for signing physician. Plan - Discharge Summary New Discharge Prescriptions: No Action Albuterol Nebulized [Ventolin Nebulized] 2.5 mg INHALATION RT-QID PRN PRN Reason: Shortness Of Breath Tiotropium 18 Mcg/Puff [Spiriva] 1 cap INHALATION RT-BID Doxazosin Mesylate 8 mg PO BID Apixaban [Eliquis] 2.5 mg PO BID amLODIPine [Norvasc] 5 mg PO HS Multivitamins, Thera [Multivitamin (formulary)] 1 tab PO DAILY Ascorbic Acid [Vitamin C] 500 mg PO DAILY@1500 Formoterol Fumarate [Perforomist] 20 mcg INHALATION RT-BID Dutasteride 0.5 mg PO DAILY Atenolol [Tenormin] 50 mg PO DAILY Budesonide [Pulmicort] 0.5 mg INHALATION RT-BID Omeprazole 40 mg PO DAILY@1500 Cephalexin [Keflex] 500 mg PO Q8H Furosemide [Lasix] 40 mg PO DAILY Potassium Chloride ER [K-Dur 20] 20 meq PO DAILY Aspirin 81 mg PO DAILY@1500 Simvastatin [Zocor] 20 mg PO HS Discharge Medication List Albuterol Nebulized [Ventolin Nebulized] 2.5 mg INHALATION RT-QID PRN 08/30/16 [History] Doxazosin Mesylate 8 mg PO BID 08/30/16 [History] Tiotropium 18 Mcg/Puff [Spiriva] 1 cap INHALATION RT-BID 08/30/16 [History] Apixaban [Eliquis] 2.5 mg PO BID 01/29/17 [History] Ascorbic Acid [Vitamin C] 500 mg PO DAILY@1500 05/17/20 [History] Atenolol [Tenormin] 50 mg PO DAILY 05/17/20 [History] Budesonide [Pulmicort] 0.5 mg INHALATION RT-BID 05/17/20 [History] Dutasteride 0.5 mg PO DAILY 05/17/20 [History] Formoterol Fumarate [Perforomist] 20 mcg INHALATION RT-BID 05/17/20 [History] Multivitamins, Thera [Multivitamin (formulary)] 1 tab PO DAILY 05/17/20 [History] Omeprazole 40 mg PO DAILY@1500 05/17/20 [History] amLODIPine [Norvasc] 5 mg PO HS 05/17/20 [History] Aspirin 81 mg PO DAILY@1500 08/12/20 [History] Cephalexin [Keflex] 500 mg PO Q8H 08/12/20 [History] Furosemide [Lasix] 40 mg PO DAILY 08/12/20 [History] Potassium Chloride ER [K-Dur 20] 20 meq PO DAILY 08/12/20 [History] Simvastatin [Zocor] 20 mg PO HS 08/12/20 [History] Discharge Disposition: - Preliminary Cause of Preliminary Cause of : End-stage COPD
== END 2020-08-21 09:13 | disposition expired | DRG 951 ==
LOC: 2SICU 17:23 → 6NMEDSUR 08-21 03:03
PROVIDERS: ADMIT Internal Medicine; ATTEND Internal Medicine
DX: Z51.5 Encounter for palliative care (principal); J96.21 Acute and chronic respiratory failure with hypoxia; J44.1 Chronic obstructive pulmonary disease with (acute) exacerbation; L97.319 Non-pressure chronic ulcer of right ankle with unspecified severity; L03.115 Cellulitis of right lower limb; I25.10 Atherosclerotic heart disease of native coronary artery without angina pectoris; I48.0 Paroxysmal atrial fibrillation; K21.9 Gastro-esophageal reflux disease without esophagitis; I46.9 Cardiac arrest, cause unspecified; I11.9 Hypertensive heart disease without heart failure; N40.0 Benign prostatic hyperplasia without lower urinary tract symptoms; Z79.01 Long term (current) use of anticoagulants; Z79.52 Long term (current) use of systemic steroids; Z79.82 Long term (current) use of aspirin; Z79.899 Other long term (current) drug therapy; Z82.49 Family history of ischemic heart disease and other diseases of the circulatory system; Z83.3 Family history of diabetes mellitus; Z95.1 Presence of aortocoronary bypass graft; Z87.891 Personal history of nicotine dependence; Z99.81 Dependence on supplemental oxygen; Z86.73 Personal history of transient ischemic attack (TIA), and cerebral infarction without residual deficits; Z98.890 Other specified postprocedural states; Z86.12 Personal history of poliomyelitis; Z88.1 Allergy status to other antibiotic agents
CPT/HCPCS: 94640